=== PATIENT | male | born 1955 | race African-American/Black ===

== ENCOUNTER → 2017-06-08 | Outpatient (CLI) | payer OTHER ==
[~2017-06-08] MED LIST: CONTRAST GIVEN MC
[2017-06-08 12:32] LABS: BLOOD UREA NITROGEN 39 mg/dL (8-26)
[2017-06-08 12:32] LABS: CREATININE 2.8 mg/dL (0.7-1.3); GFR 27.9
[2017-06-08] MEDS: IOHEXOL 240 MG/ML 50ML VIAL. PO (12:51)
== END | disposition home or self-care (01) ==
LOC: CT 15:32
DX: K57.30 Diverticulosis of large intestine without perforation or abscess without bleeding (principal); C61 Malignant neoplasm of prostate; I10 Essential (primary) hypertension; E78.00 Pure hypercholesterolemia, unspecified
CPT/HCPCS: 36415; 74176; 82565; 84520

== ENCOUNTER → 2017-08-22 | Day surgery (SDC) | payer OTHER ==
[~2017-08-22] MED LIST changes: -CONTRAST GIVEN MC; +IV RINGERS,LACTATED 1000ML 1,000 ML IV; +LIDOCAINE 1% PF 2 ML VIAL. ID; +LIDOCAINE 2% PF Vial for OR 5 ML VIAL.; +MORPHINE SULFATE 2 MG/ML DISP.SYRIN. IV; +ONDANSETRON PF 4 MG/2 ML VIAL. IV; +PROCHLORPERAZINE 10 MG/2 ML VIAL. IV; +PROPOFOL 20 ML IV; +PROPOFOL 40 ML IV; +fentaNYL PF VIAL 100 MCG/2 ML VIAL IV
[2017-08-22] MEDS: IV NORMAL SALINE 1000ML BAG 1,000 ML IV (06:45)
== END ==
LOC: ENDOS 06:09
DX: Z12.11 Encounter for screening for malignant neoplasm of colon (principal); D12.5 Benign neoplasm of sigmoid colon; K64.0 First degree hemorrhoids; D12.3 Benign neoplasm of transverse colon; I25.10 Atherosclerotic heart disease of native coronary artery without angina pectoris; E78.00 Pure hypercholesterolemia, unspecified; I10 Essential (primary) hypertension; F17.210 Nicotine dependence, cigarettes, uncomplicated; K21.9 Gastro-esophageal reflux disease without esophagitis; E11.40 Type 2 diabetes mellitus with diabetic neuropathy, unspecified; G62.9 Polyneuropathy, unspecified; F12.10 Cannabis abuse, uncomplicated; M19.90 Unspecified osteoarthritis, unspecified site; H40.9 Unspecified glaucoma; E66.9 Obesity, unspecified; Z68.30 Body mass index [BMI] 30.0-30.9, adult; Z79.82 Long term (current) use of aspirin; Z95.818 Presence of other cardiac implants and grafts; Z98.890 Other specified postprocedural states; Z85.46 Personal history of malignant neoplasm of prostate; Z79.899 Other long term (current) drug therapy; Z72.89 Other problems related to lifestyle; Z83.3 Family history of diabetes mellitus; Z82.49 Family history of ischemic heart disease and other diseases of the circulatory system; Z80.3 Family history of malignant neoplasm of breast; Z79.84 Long term (current) use of oral hypoglycemic drugs; Z92.21 Personal history of antineoplastic chemotherapy; Z92.3 Personal history of irradiation
CPT/HCPCS: 45380; 45385; 88305; C1757; J2001; J2704

== ENCOUNTER 2018-04-01 08:00 | Inpatient (IN) | payer OTHER ==
[~2018-04-01] VITALS: Ht 172.7 cm; Wt 90.7 kg
[~2018-04-01 08:00] MED LIST changes: +ALLO100T PO; +AMLO10TA8 PO; +ASPI-482 PO; +CLON0.2T PO; +DOXA4TAB2 PO; +GABA600T PO; +HYDR-2679 PO; +ISOS60TA2 PO; -IV RINGERS,LACTATED 1000ML 1,000 ML IV; -LIDOCAINE 1% PF 2 ML VIAL. ID; -LIDOCAINE 2% PF Vial for OR 5 ML VIAL.; +LOSA100T14 PO; +METO25TA4 PO; -MORPHINE SULFATE 2 MG/ML DISP.SYRIN. IV; -ONDANSETRON PF 4 MG/2 ML VIAL. IV; +PANT20TA2 PO; +POTA10TA12 PO; +POTA20TA12 PO; -PROCHLORPERAZINE 10 MG/2 ML VIAL. IV; -PROPOFOL 20 ML IV; -PROPOFOL 40 ML IV; +VALS160T3 PO; -fentaNYL PF VIAL 100 MCG/2 ML VIAL IV
[2018-04-11] MEDS ORDERED: ATOR40TA59 PO (08:51)
[2018-04-11] MEDS ORDERED: FERR325T14 PO (08:51)
[2018-04-17] MEDS ORDERED: ALLO100T PO (06:37)
[2018-04-18] MEDS ORDERED: FERR325T14 PO (12:44)
[2018-04-18] MEDS ORDERED: METO25TA4 PO (12:44)
[2018-04-22] VITALS (11 sets, daily range): BP systolic 154–187; BP diastolic 85–101
[2018-04-22] MEDS ORDERED: cefOXitin SODIUM IV Push 1 GM VIAL. IVP PRN (06:00)
[2018-04-22] MEDS ORDERED: fentaNYL PF VIAL 100 MCG/2 ML VIAL ONE (06:23)
[2018-04-22] MEDS ORDERED: ROCURONIUM 50 MG/5 ML VIAL. ONE ×2 (06:23→08:46)
[2018-04-22] MEDS ORDERED: PHENYLEPHRINE 10 MG/ML VIAL. ONE (06:24)
[2018-04-22] MEDS ORDERED: DEXAMETHASONE SOD PHOS 20 MG/5 ML VIAL. ONE (06:24)
[2018-04-22] MEDS ORDERED: ONDANSETRON PF 4 MG/2 ML VIAL. ONE (06:24)
[2018-04-22] MEDS ORDERED: SEVOFLURANE > 120 MINUTES. IH ONE ×2 (06:24→10:07)
[2018-04-22] MEDS ORDERED: LIDOCAINE 2% PF 5 ML VIAL. ONE (06:24)
[2018-04-22] MEDS ORDERED: PROPOFOL 20 ML IV ONE (06:24)
[2018-04-22] MEDS ORDERED: BUPIVACAINE-EPI 0.25%-1:200000 MPF 30 ML VIAL. ONE (06:25)
[2018-04-22] MEDS ORDERED: BUPIVAC MPF-EPI 0.5%-1:200000 30 ML VIAL. ONE (06:33)
[2018-04-22] MEDS ORDERED: PROCHLORPERAZINE 10 MG/2 ML VIAL. IV PRN (07:00)
[2018-04-22] MEDS ORDERED: IV RINGERS,LACTATED 1000ML 1,000 ML IV SCH (07:00)
[2018-04-22] MEDS ORDERED: ONDANSETRON PF 4 MG/2 ML VIAL. IV PRN (07:00)
[2018-04-22] MEDS ORDERED: LIDOCAINE 1% PF 2 ML VIAL. ID PRN (07:00)
[2018-04-22] MEDS ORDERED: fentaNYL PF VIAL 100 MCG/2 ML VIAL IV PRN ×2 (07:00)
[2018-04-22] MEDS ORDERED: fentaNYL PF VIAL 250 MCG/5 ML VIAL ONE (08:45)
[2018-04-22] MEDS ORDERED: NEOSTIGMINE METHYLSULFATE 5 MG/5 ML SYRINGE. ONE (10:08)
[2018-04-22] MEDS ORDERED: GLYCOPYRROLATE 1 MG/5 ML VIAL. ONE (10:09)
--- NOTE | 2018-04-22 10:27 | PDOC ---
BRIEF OPERATIVE NOTE Date: Apr 22, 2018 Pre-Op Diagnosis sigmoid polyp Post-Op Diagnosis same Procedure Performed rigid proctoscopy l/s ANTHONY open sigmoid resection with primary anastomosis Surgeon Jack Parking Enforcer Porsche Wilder Anesthesia Type: General Blood Loss 50cc IV Fluid 2200cc Urine Output 125cc Specimens Obtained sigmoid colon Findings tattoo distal sigmoid with pedunculated polyp Complications none MEGAN SALINAS MD Apr 22, 2018 10:27
[2018-04-22] MEDS: MORPHINE SULFATE 2 MG/ML VIAL. IV PRN ×2 (10:58→11:31)
[2018-04-22] MEDS: HYDROmorphone 2 MG/ML VIAL IV PRN ×3 (11:05→11:37)
--- NOTE | 2018-04-22 11:17 | RAD ---
04/22/2018 one view of the abdomen INDICATION: Postoperative. COMPARISON STUDY: CT of the abdomen and pelvis without contrast June 08, 2017 Discussion: Probable enteric tube seen in the upper abdomen, partially visualized. There is surgical drainage catheter projecting over the right inferior abdomen and pelvis. Probable Brice type drain projects over the abdominal midline. The bowel gas pattern is nonobstructive. No gross pneumoperitoneum is identified, though exam is limited for this purpose. No acute osseous abnormalities are seen. Small metallic objects within the prostate gland are unchanged. IMPRESSION: No radiographic evidence of acute abdominal abnormality is identified. Drains and probable enteric tube noted. Electronically signed by: Aurelio Graff MD (04/22/2018 11:13 AM) [id number]
--- NOTE | 2018-04-22 12:45 | OP ---
DATE OF SURGERY: PREOPERATIVE DIAGNOSIS: Sigmoid polyp. POSTOPERATIVE DIAGNOSIS: Sigmoid polyp. PROCEDURE: 1. Rigid proctoscopy. 2. Laparoscopic lysis of adhesions. 3. Open sigmoid resection with primary anastomosis. SURGEON: Keyur Salinas MD FILM PROCESS OPERATOR: Porsche QUEEN. ANESTHESIA: General endotracheal. ESTIMATED BLOOD LOSS: 50. IV FLUIDS: 2200. URINE OUTPUT: 125. INDICATIONS: The patient is a 63-year-old with a large pedunculated polyp in the distal sigmoid brought for resection after flex sig with a tattoo. OPERATIVE FINDINGS: The polyp resided in the distal sigmoid, was identified laparoscopically by the tattoo and during the open procedure, it was palpable. Liver was smooth and sharp. Small bowel run from ileocecal valve to ligament of Treitz without abnormality. DESCRIPTION OF PROCEDURE: The patient was brought to the operating suite, given a general endotracheal anesthetic. Tripathi catheter placed to dependent drainage, and he was placed in a dorsal lithotomy position. Digital rectal exam done and rigid scope inserted in the anal canal and advanced to approximately 16 cm from the anal verge where some tortuosity prevented further advancing. Scope was slowly removed without mucosal abnormality seen. The perianal area and abdomen were then prepped and draped in usual sterile fashion. An epigastric incision was infiltrated with local, incised and a 5 mm Visiport used to safely gain access into the abdominal cavity. Pneumoperitoneum established. Under direct vision, a suprapubic port was placed as well as a right lower quadrant port. This allowed some mobilization of the splenic flexure off the pelvic sidewall by taking down the white line of Toldt with LigaSure, being careful to avoid the adjacent bowel and the left ureter. Once this was done, we converted to the open incision by connecting the previous port site incisions in the lower abdomen. Abdomen entered. The Omni self-retaining retractor for exposure placed. We completed mobilization of the distal sigmoid by extending our dissection into the pelvis, taking down the white line. The proximal bowel to the process was transected with a NICANOR stapler. The mesocolon certainly clamped, divided and ligated down to a point distal to the polyp, which was then divided with a contour stapler and the specimen passed off. An end-to-end anastomosis created by placing a posterior row of interrupted 3-0 Vicryl suture. The proximal colon occluded with an atraumatic clamp. Staple lines excised. Mucosal anastomosis created with a running locked 3-0 chromic first posteriorly, then anteriorly. Clamp removed. Anastomosis completed with an anterior row of interrupted 3-0 Vicryl stitches. Gloves were changed. The rigid scope was passed transanally and with the anastomosis submerged in saline and the colon occluded proximal to the anastomosis. Insufflation was carried out. Good distention was present without evidence of leak. Bowel decompressed. The scope removed. A 19-Czech round Brady drain was brought through a previous port site on the right lower quadrant and left in the pelvis for postoperative drainage and secured to the skin with silk stitch. When a correct sponge count was obtained, the area was checked for hemostasis. We prepared to close. The midline incision was closed with a running stitch of looped 0 PDS tied in the middle. Brice drain left in the subcutaneous tissue and the skin closed with a subcuticular 4-0 Monocryl. Sterile dressings applied. The patient taken out of the dorsal lithotomy position. Postop KUB was negative for unexplained foreign body. The patient was awakened from his anesthetic and taken to the recovery room in satisfactory condition. KEYUR SALINAS MD DR: PRADEEP/tiffanie JOB#: [id number] / [id number] TREVON Macario MD
--- NOTE | 2018-04-22 12:58 | NUR ---
Dr. Santiago paged re: post op orders for the floor. Pt. asleep in bed, appears comfortable.
[2018-04-22] MEDS ORDERED: 0.9 % SODIUM CHLORIDE 10 ML DISP.SYRIN. IV PRN (13:15)
[2018-04-22] MEDS ORDERED: ISOSORBIDE MONONITRATE 60 MG PO SCH (13:15)
[2018-04-22] MEDS: POTASSIUM CL 20MEQ-0.45% NACL 1,000 ML IV SCH (13:28)
[2018-04-22] MEDS: HYDROmorphone 12mg/30ml PCA 30 ML IV PRN (13:49)
[2018-04-22] MEDS ORDERED: HYDROcodone/APAP 7.5/325MG 1 TAB TABLET PO PRN (15:15)
--- NOTE | 2018-04-22 15:16 | PDOC2 ---
CONSULT Date of Consult Date of Consult DATE: 04/22/18 TIME: 15:15 Reason for Consult Reason for Consult: medical management Referring Physician Referring Physician: Dr Santiago History of Present Illness Reason for Visit: 63-year-old -[place]egales[place] male with past medical history significant of colon polyps, rheumatic heart disease, hypertension, hyperlipidemia, prostate cancer, osteoarthrosis, seen preoperatively for a colon resection for a sigmoid polyp. Biopsies were consistent with a tubular adenoma a year ago. At this time, he is willing to proceed with surgery. Resection pending reevaluation of site. Denies any change in bowel habits, no bleeding, no weight loss. He is without additional complaints. PAST MEDICAL HISTORY: Hyperlipidemia, hypertension, rheumatic heart disease, prostate cancer, colon polyps. Current Medications Current Medications Current Medications Ondansetron HCl (Zofran) 4 mg PRN Q6HRS PRN IV NAUSEA/VOMITING Last administered on 04/22/18at 11:28; Start 04/22/18 at 07:00; Stop 04/23/18 at 06:59 Fentanyl Citrate (Fentanyl 2ml Vial) 25 mcg PRN Q5MIN PRN IV MILD PAIN; Start 04/22/18 at 07:00; Stop 04/23/18 at 06:59 Fentanyl Citrate (Fentanyl 2ml Vial) 50 mcg PRN Q5MIN PRN IV MODERATE TO SEVERE PAIN; Start 04/22/18 at 07:00; Stop 04/23/18 at 06:59 Morphine Sulfate (Morphine Sulfate) 1 mg PRN Q10MIN PRN IV SEVERE PAIN Last administered on 04/22/18at 11:31; Start 04/22/18 at 07:00; Stop 04/23/18 at 06:59 Ringer's Solution 1,000 ml @ 30 mls/hr Q24H IV Last administered on 04/22/18at 07:23; Start 04/22/18 at 07:00; Stop 04/22/18 at 18:59 Lidocaine HCl (Xylocaine-Mpf 1% 2ml Vial) 2 ml PRN 1X PRN ID PRIOR TO IV START ; Start 04/22/18 at 07:00; Stop 04/23/18 at 06:59 Hydromorphone HCl (Dilaudid) 0.5 mg PRN Q10MIN PRN IV SEV PAIN, Second choice Last administered on 04/22/18at 11:37; Start 04/22/18 at 07:00; Stop 04/23/18 at 06:59 Prochlorperazine Edisylate (Compazine) 5 mg PACU PRN PRN IV NAUSEA, MRX1 Last administered on 04/22/18at 10:59; Start 04/22/18 at 07:00; Stop 04/23/18 at 06:59 Cefoxitin Sodium (Mefoxin) 1 gm 1X PREOP PRN IVP PRIOR TO PROCEDURE; Start at 06:00; Stop 04/22/18 at 18:00 Rocuronium [place] (Zemuron) 50 mg STK-MED ONCE .ROUTE ; Start 04/22/18 at 06:23 ; Stop 04/22/18 at 06:24; Status DC Fentanyl Citrate (Fentanyl 2ml Vial) 100 mcg STK-MED ONCE .ROUTE ; Start at 06:23; Stop 04/22/18 at 06:24; Status DC Sevoflurane (Ultane) 90 ml STK-MED ONCE IH ; Start 04/22/18 at 06:24; Stop 04/22 at 06:25; Status DC Dexamethasone Sodium Phosphate (Decadron) 20 mg STK-MED ONCE .ROUTE ; Start at 06:24; Stop 04/22/18 at 06:25; Status DC Propofol 20 ml @ As Directed STK-MED ONCE IV ; Start 04/22/18 at 06:24; Stop at 06:25; Status DC Lidocaine HCl (Lidocaine Pf 2% Vial) 5 ml STK-MED ONCE .ROUTE ; Start 04/22/18 at 06:24; Stop 04/22/18 at 06:25; Status DC Ondansetron HCl (Zofran) 4 mg STK-MED ONCE .ROUTE ; Start 04/22/18 at 06:24; Stop 04/22/18 at 06:25; Status DC Phenylephrine HCl (Reggie-Synephrine Inj) 10 mg STK-MED ONCE .ROUTE ; Start at 06:24; Stop 04/22/18 at 06:25; Status DC Bupivacaine HCl/ Epinephrine Bitart (Sensorcaine-Epi 0.25%-1:122337 Mpf) 30 ml STK-MED ONCE .ROUTE ; Start 04/22/18 at 06:25; Stop 04/22/18 at 07:26; Status DC Bupivacaine HCl/ Epinephrine Bitart (Sensorcain-Mpf Epi 0.5%-1:209119) 30 ml STK -MED ONCE .ROUTE Last administered on 04/22/18at 09:05; Start 04/22/18 at 06:33 ; Stop 04/22/18 at 07:33; Status DC Fentanyl Citrate (Fentanyl 5ml Vial) 250 mcg STK-MED ONCE .ROUTE ; Start at 08:45; Stop 04/22/18 at 08:47; Status DC Rocuronium [place] (Zemuron) 50 mg STK-MED ONCE .ROUTE ; Start 04/22/18 at 08:46 ; Stop 04/22/18 at 08:47; Status DC Sevoflurane (Ultane) 90 ml STK-MED ONCE IH ; Start 04/22/18 at 10:07; Stop 04/22 at 10:08; Status DC Neostigmine Methylsulfate (Neostigmine Methylsulfate) 5 mg STK-MED ONCE .ROUTE ; Start 04/22/18 at 10:08; Stop 04/22/18 at 10:09; Status DC Glycopyrrolate (Robinul) 1 mg STK-MED ONCE .ROUTE ; Start 04/22/18 at 10:09; Stop 04/22/18 at 10:10; Status DC Enoxaparin Sodium (Lovenox 30mg Syringe) 30 mg Q24H SQ ; Start 04/23/18 at 09:00 Sodium Chloride (Normal Saline Flush) 3 ml QSHIFT PRN IV AFTER MEDS AND BLOOD DRAWS; Start 04/22/18 at 13:15 Potassium Chloride/Sodium Chloride 1,000 ml @ 100 mls/hr Q10H IV Last administered on 04/22/18at 13:28; Start 04/22/18 at 14:00 Hydromorphone HCl 30 ml @ 0 mls/hr CONT PRN PRN IV PER PROTOCOL Last administered on 04/22/18at 13:49; Start 04/22/18 at 13:15 Ondansetron HCl (Zofran) 4 mg PRN Q6HRS PRN IV NAUESA, 1ST CHOICE; Start at 13:15 Allopurinol (Zyloprim) 100 mg DAILY PO ; Start 04/23/18 at 09:00 Amlodipine Besylate (Norvasc) 10 mg DAILY PO ; Start 04/23/18 at 09:00 Aspirin (Ecotrin) 81 mg DAILY PO ; Start 04/23/18 at 09:00 Metoprolol Tartrate (Lopressor) 25 mg BID PO ; Start 04/22/18 at 21:00 Non-Formulary Medication (Isosorbide Mononitrate (Isosorbide Mononitrate Er)) 60 mg 1tab AM-1/2tab PM PO ; Start 04/22/18 at 13:15; Status UNV Isosorbide Mononitrate (Imdur) 60 mg DAILY PO ; Start 04/23/18 at 09:00 Isosorbide Mononitrate (Imdur) 30 mg QHS PO ; Start 04/22/18 at 21:00 Active Scripts Active Reported Metoprolol Tartrate 25 Mg Tablet 25 Mg PO BID Ferrous Sulfate 325 Mg Tablet 325 Mg PO DAILY Allopurinol 100 Mg Tablet 100 Mg PO DAILY Atorvastatin Calcium 40 Mg Tablet 40 Mg PO HS Potassium Chloride 20 Meq Tab.er.prt 20 Meq PO BID Cardura (Doxazosin Mesylate) 4 Mg Tablet 4 Mg PO HS Isosorbide Mononitrate Er (Isosorbide Mononitrate) 60 Mg Tab.er.24h 60 Mg PO 1TAB AM-1/2TAB PM Clonidine Hcl 0.2 Mg Tablet 0.2 Mg PO BID Amlodipine Besylate 10 Mg Tablet 10 Mg PO DAILY Lortab 7.5-325 mg Tablet (Hydrocodone/Acetaminophen) 1 Each Tablet 1 Tab PO PRN Q6HRS Aspir 81 (Aspirin) 81 Mg Tablet.dr 81 Mg PO DAILY Allergies Allergies: Coded Allergies: No Known Drug Allergies (Unverified , 04/22/18) Vitals VITALS Vital Signs Date Time Temp Pulse Resp B/P (MAP) Pulse Ox O2 Delivery O2 Flow Rate FiO2 04/22/18 14:30 71 163/91 (115) 04/22/18 13:55 24 Nasal Cannula 2.0 04/22/18 12:30 93 04/22/18 11:45 98.9 98.9 TINA ZAMORA MD Apr 22, 2018 15:16
--- NOTE | 2018-04-22 17:33 | NUR ---
Pt. c/o pain, re-educated on FOOD AND BEVERAGE OUTLETS MANAGER use. Pt. stated he forgot how to use it. Pt demonstrated understanding of FOOD AND BEVERAGE OUTLETS MANAGER.
[2018-04-22] MEDS: METOPROLOL TART IMMED RELEASE 25 MG TABLET. PO SCH (20:32)
[2018-04-22] MEDS: ATORVASTATIN CALCIUM 40 MG TABLET. PO SCH (20:32)
[2018-04-22] MEDS: cloNIDine HCL 0.2 MG TABLET PO SCH (20:33)
[2018-04-22] MEDS: DOXAZOSIN MESYLATE 4 MG TABLET. PO SCH (20:33)
[2018-04-22] MEDS: ISOSORBIDE MONONITRATE ER 30 MG TAB.ER.24H PO SCH (20:35)
--- NOTE | 2018-04-22 20:42 | PDOC2 ---
CONSULT Date of Consult Date of Consult DATE: 04/22/18 TIME: 20:30 Reason for Consult Reason for Consult: medical management Referring Physician Referring Physician: Dr Santiago Identification/Chief Complaint Chief Complaint Edith calero Source Source: Chart review, Patient History of Present Illness Reason for Visit: The patient is a 63-year-old with a large pedunculated polyp in the distal sigmoid brought for resection after flex sig with a tattoo. he is being seen in consultation post op. He has a past medical history significant of colon polyps, rheumatic heart disease, hypertension, hyperlipidemia, prostate cancer, osteoarthrosis Patient had biopsies taken in the outpatient setting and they were reported consistent with a tubular adenoma a year ago. He tolerated surgery well. Prior to surgery he denies any change in bowel habits, no bleeding, no weight loss. He is without additional complaints. We have been asked to oversee his medical comorbidities. Past Medical History Cardiovascular: HTN, Hyperlipidemia Past Surgical History Past Surgical History: Other (breast cancer with a sister, diabetes in mother, hypertension) Social History No ALCOHOL: none Drugs: None Lives: with Family Current Medications Current Medications Current Medications Ondansetron HCl (Zofran) 4 mg PRN Q6HRS PRN IV NAUSEA/VOMITING Last administered on 04/22/18at 11:28; Start 04/22/18 at 07:00; Stop 04/23/18 at 06:59 Fentanyl Citrate (Fentanyl 2ml Vial) 25 mcg PRN Q5MIN PRN IV MILD PAIN; Start 04/22/18 at 07:00; Stop 04/23/18 at 06:59 Fentanyl Citrate (Fentanyl 2ml Vial) 50 mcg PRN Q5MIN PRN IV MODERATE TO SEVERE PAIN; Start 04/22/18 at 07:00; Stop 04/23/18 at 06:59 Morphine Sulfate (Morphine Sulfate) 1 mg PRN Q10MIN PRN IV SEVERE PAIN Last administered on 04/22/18at 11:31; Start 04/22/18 at 07:00; Stop 04/23/18 at 06:59 Ringer's Solution 1,000 ml @ 30 mls/hr Q24H IV Last administered on 04/22/18at 07:23; Start 04/22/18 at 07:00; Stop 04/22/18 at 18:59; Status DC Lidocaine HCl (Xylocaine-Mpf 1% 2ml Vial) 2 ml PRN 1X PRN ID PRIOR TO IV START ; Start 04/22/18 at 07:00; Stop 04/23/18 at 06:59 Hydromorphone HCl (Dilaudid) 0.5 mg PRN Q10MIN PRN IV SEV PAIN, Second choice Last administered on 04/22/18at 11:37; Start 04/22/18 at 07:00; Stop 04/23/18 at 06:59 Prochlorperazine Edisylate (Compazine) 5 mg PACU PRN PRN IV NAUSEA, MRX1 Last administered on 04/22/18at 10:59; Start 04/22/18 at 07:00; Stop 04/23/18 at 06:59 Cefoxitin Sodium (Mefoxin) 1 gm 1X PREOP PRN IVP PRIOR TO PROCEDURE; Start at 06:00; Stop 04/22/18 at 18:00; Status DC Rocuronium [place] (Zemuron) 50 mg STK-MED ONCE .ROUTE ; Start 04/22/18 at 06:23 ; Stop 04/22/18 at 06:24; Status DC Fentanyl Citrate (Fentanyl 2ml Vial) 100 mcg STK-MED ONCE .ROUTE ; Start at 06:23; Stop 04/22/18 at 06:24; Status DC Sevoflurane (Ultane) 90 ml STK-MED ONCE IH ; Start 04/22/18 at 06:24; Stop 04/22 at 06:25; Status DC Dexamethasone Sodium Phosphate (Decadron) 20 mg STK-MED ONCE .ROUTE ; Start at 06:24; Stop 04/22/18 at 06:25; Status DC Propofol 20 ml @ As Directed STK-MED ONCE IV ; Start 04/22/18 at 06:24; Stop at 06:25; Status DC Lidocaine HCl (Lidocaine Pf 2% Vial) 5 ml STK-MED ONCE .ROUTE ; Start 04/22/18 at 06:24; Stop 04/22/18 at 06:25; Status DC Ondansetron HCl (Zofran) 4 mg STK-MED ONCE .ROUTE ; Start 04/22/18 at 06:24; Stop 04/22/18 at 06:25; Status DC Phenylephrine HCl (Reggie-Synephrine Inj) 10 mg STK-MED ONCE .ROUTE ; Start at 06:24; Stop 04/22/18 at 06:25; Status DC Bupivacaine HCl/ Epinephrine Bitart (Sensorcaine-Epi 0.25%-1:[id number] Mpf) 30 ml STK-MED ONCE .ROUTE ; Start 04/22/18 at 06:25; Stop 04/22/18 at 07:26; Status DC Bupivacaine HCl/ Epinephrine Bitart (Sensorcain-Mpf Epi 0.5%-1:[id number]) 30 ml STK -MED ONCE .ROUTE Last administered on 04/22/18at 09:05; Start 04/22/18 at 06:33 ; Stop 04/22/18 at 07:33; Status DC Fentanyl Citrate (Fentanyl 5ml Vial) 250 mcg STK-MED ONCE .ROUTE ; Start at 08:45; Stop 04/22/18 at 08:47; Status DC Rocuronium [place] (Zemuron) 50 mg STK-MED ONCE .ROUTE ; Start 04/22/18 at 08:46 ; Stop 04/22/18 at 08:47; Status DC Sevoflurane (Ultane) 90 ml STK-MED ONCE IH ; Start 04/22/18 at 10:07; Stop 04/22 at 10:08; Status DC Neostigmine Methylsulfate (Neostigmine Methylsulfate) 5 mg STK-MED ONCE .ROUTE ; Start 04/22/18 at 10:08; Stop 04/22/18 at 10:09; Status DC Glycopyrrolate (Robinul) 1 mg STK-MED ONCE .ROUTE ; Start 04/22/18 at 10:09; Stop 04/22/18 at 10:10; Status DC Enoxaparin Sodium (Lovenox 30mg Syringe) 30 mg Q24H SQ ; Start 04/23/18 at 09:00 Sodium Chloride (Normal Saline Flush) 3 ml QSHIFT PRN IV AFTER MEDS AND BLOOD DRAWS; Start 04/22/18 at 13:15 Potassium Chloride/Sodium Chloride 1,000 ml @ 100 mls/hr Q10H IV Last administered on 04/22/18at 13:28; Start 04/22/18 at 14:00 Hydromorphone HCl 30 ml @ 0 mls/hr CONT PRN PRN IV PER PROTOCOL Last administered on 04/22/18at 13:49; Start 04/22/18 at 13:15 Ondansetron HCl (Zofran) 4 mg PRN Q6HRS PRN IV NAUESA, 1ST CHOICE; Start at 13:15 Allopurinol (Zyloprim) 100 mg DAILY PO ; Start 04/23/18 at 09:00 Amlodipine Besylate (Norvasc) 10 mg DAILY PO ; Start 04/23/18 at 09:00 Aspirin (Ecotrin) 81 mg DAILY PO ; Start 04/23/18 at 09:00 Metoprolol Tartrate (Lopressor) 25 mg BID PO ; Start 04/22/18 at 21:00 Non-Formulary Medication (Isosorbide Mononitrate (Isosorbide Mononitrate Er)) 60 mg 1tab AM-1/2tab PM PO ; Start 04/22/18 at 13:15; Status UNV Isosorbide Mononitrate (Imdur) 60 mg DAILY PO ; Start 04/23/18 at 09:00 Isosorbide Mononitrate (Imdur) 30 mg QHS PO ; Start 04/22/18 at 21:00 Atorvastatin Calcium (Lipitor) 40 mg HS PO ; Start 04/22/18 at 21:00 Clonidine HCl (Catapres) 0.2 mg BID PO ; Start 04/22/18 at 21:00 Doxazosin Mesylate (Cardura) 4 mg HS PO ; Start 04/22/18 at 21:00 Ferrous Sulfate (Feosol) 325 mg DAILY PO ; Start 04/23/18 at 09:00 Acetaminophen/ Hydrocodone Bitart (Lortab 7.5/325) 1 tab PRN Q6HRS PRN PO PAIN ; Start 04/22/18 at 15:15 Potassium Chloride (Klor-Con) 20 meq BID PO ; Start 04/22/18 at 21:00 Active Scripts Active Reported Metoprolol Tartrate 25 Mg Tablet 25 Mg PO BID Ferrous Sulfate 325 Mg Tablet 325 Mg PO DAILY Allopurinol 100 Mg Tablet 100 Mg PO DAILY Atorvastatin Calcium 40 Mg Tablet 40 Mg PO HS Potassium Chloride 20 Meq Tab.er.prt 20 Meq PO BID Cardura (Doxazosin Mesylate) 4 Mg Tablet 4 Mg PO HS Isosorbide Mononitrate Er (Isosorbide Mononitrate) 60 Mg Tab.er.24h 60 Mg PO 1TAB AM-1/2TAB PM Clonidine Hcl 0.2 Mg Tablet 0.2 Mg PO BID Amlodipine Besylate 10 Mg Tablet 10 Mg PO DAILY Lortab 7.5-325 mg Tablet (Hydrocodone/Acetaminophen) 1 Each Tablet 1 Tab PO PRN Q6HRS Aspir 81 (Aspirin) 81 Mg Tablet.dr 81 Mg PO DAILY Allergies Allergies: Coded Allergies: No Known Drug Allergies (Unverified , 04/22/18) ROS General: No: Chills, Night Sweats, Fatigue, Malaise, Appetite, Other Eyes: No Blurry vision, No Decreased vision, No Double vision, No Dry eyes, No Excessive tearing, No Eye Pain, No Itchy Eyes, No Loss of vision, No Photophobia , No Scotomata, No Uses contacts, No Uses glasses, No Other HEENT: No: Heacaches, Visual Changes, Hearing change, Nasal congestion, Nasal discharge, Oral lesions, Sinus pain, Sore Throat, Epistaxis, Sneezing, Snoring, Tinnitus, Vertigo, Vocal changes, Other ALLERGY AND IMMUNOLOGY: No: Hives, Insect Bite Sensitivity, Itchy/Watery Eyes, Nasal Congestion, Post Nasal Drip, Seasonal Allergies, Other Hematological and Lymphatic: No: Bleeding Problems, Blood Clots, Blood Transfusions, Brusing, Night Sweats, Pallor, Swollen Lymph Nodes, Other ENDOCRINE: No: Breast Changes, Galactorrhea, Hair Pattern Changes, Hot Flashes , Malaise/lethargy, Mood Swings, Palpitations, Polydipsia/polyuria, Skin Changes , Temperature Intolerance, Unexpected Weight Changes, Other Breast: No New/Changing Breast Lumps, No Nipple changes, No Nipple discharge, No Other Respiratory: No: Cough, Hemoptysis, Orthopnea, Pleuritic Pain, Shortness of breath, SOB with excertion, Sputum Changes, Stridor, Tachypnea, Wheezing, Other Cardiovascular: No Chest Pain, No Palpitations, No Orthopnea, No Paroxysmal Noc. Dyspnea, No Edema, No Lt Headedness, No Other Gastrointestinal: No Nausea, No Vomiting, No Abdominal Pain, No Diarrhea, No Constipation, No Melena, No Hematochezia, No Other Genitourinary: No Dysuria, No Frequency, No Incontinence, No Hematuria, No Retention, No Discharge, No Urgency, No Pain, No Flank Pain, No Other, No , No , No , No , No , No , No Musculoskeletal: No Gait Disturbance, No Joint Pain, No Joint Stiffness, No Joint Swelling, No Muscle Pain, No Muscular Weakness, No Pain In:, No Swelling In:, No Other Neurological: No Behavorial Changes, No Bowel/Bladder ControlChng, No Confusion , No Dizziness, No Gait Disturbance, No Headaches, No Impaired Coord/balance, No Memory Loss, No Numbness/Tingling, No Seizures, No Speech Problems, No Tremors, No Visual Changes, No Weakness, No Other Skin: No Dry Skin, No Eczema, No Hair Changes, No Lumps, No Mole Changes, No Mottling, No Nail Changes, No Pruritus, No Rash, No Skin Lesion Changes, No Other, No Acne Physical Exam Physical Exam Gen.: chronically ill appearing in moderate distress Head: Normal shape atraumatic Eyes: Pupils equal reactive to light and accommodation, normal conjunctivae and lids Ears: Normal shape Nose: Normal shape no trauma Mouth: No exudates of the back of throat no thrush no lesions Neck: Supple no JVD no carotid bruit or lymphadenopathy no thyromegaly Chest: Lungs clear to auscultation with good inspiratory effort no crackles rales or rhonchi Cardiovascular: S1-S2 regular rhythm no murmurs gallops or rubs Abdomen: Bowel sounds absent tender to deep palpation no rebound or guarding Extremities: No clubbing no cyanosis no edema peripheral pulses palpated bilaterally Neurological: Alert awake oriented in person time place and situation, cranial nerves II through XII intact, no motor or sensory deficits appreciated Psych: Appropriate mood, cooperative Vitals VITALS Vital Signs Date Time Temp Pulse Resp B/P (MAP) Pulse Ox O2 Delivery O2 Flow Rate FiO2 04/22/18 19:00 98.2 78 18 187/101 (129) 97 Room Air 98.2 04/22/18 13:55 2.0 Assessment/Plan Assessment/Plan Status post resection of large pedunculated polyp Essential hypertension History of dyslipidemia Rheumatic cardiac disease? History of prostrate cancer Plan: Resume home medications Monitor Blood pressure Pain management as per her attending physician with [facility] Follow labs in a.m. Further recommendations based on the clinical course Thank you for allowing us to participate in the care of the patient FARELA,BRITTANI MD Apr 22, 2018 20:42
[2018-04-22] MEDS: POTASSIUM CHLORIDE 20 MEQ TABLET.ER. PO SCH (20:50)
[2018-04-23] VITALS (9 sets, daily range): BP systolic 132–203; BP diastolic 86–107
[2018-04-23] MEDS: POTASSIUM CL 20MEQ-0.45% NACL 1,000 ML IV SCH ×3 (00:20→21:35)
[2018-04-23] MEDS: ENALAPRILAT 1.25 MG/ML VIAL. IVP PRN ×2 (00:20→09:25)
[2018-04-23] MEDS ORDERED: hydrALAZINE 20 MG/ML VIAL. IVP PRN (03:45)
[2018-04-23 05:18] LABS: HEMATOCRIT 37.4 % (39.0-53.0); RED BLOOD COUNT 4.56 x10^6/uL (4.30-5.70); RED CELL DISTRIBUTION WIDTH 17.8 % (11.5-14.5)
[2018-04-23 08:30] LABS: ALBUMIN 3.4 g/dL (3.4-5.0); ALBUMIN/GLOBULIN RATIO 0.6 (1.0-1.7); CALCIUM 9.3 mg/dL (8.5-10.1); GFR 25.7; POTASSIUM 3.9 mmol/L (3.5-5.1); TOTAL BILIRUBIN 0.8 mg/dL (0.2-1.0); TOTAL PROTEIN 8.9 g/dL (6.4-8.2)
[2018-04-23] MEDS: ASPIRIN ENTERIC COATED 81 MG TABLET.DR. PO SCH (09:00)
[2018-04-23] MEDS: FERROUS SULFATE 325 MG TABLET. PO SCH (09:00)
[2018-04-23] MEDS: POTASSIUM CHLORIDE 20 MEQ TABLET.ER. PO SCH ×2 (09:00→21:33)
[2018-04-23] MEDS: ALLOPURINOL 100 MG TABLET. PO SCH (09:00)
[2018-04-23] MEDS: ISOSORBIDE MONONITRATE ER 30 MG TAB.ER.24H PO SCH ×2 (09:21→21:34)
[2018-04-23] MEDS: cloNIDine HCL 0.2 MG TABLET PO SCH ×2 (09:21→21:34)
[2018-04-23] MEDS: amLODIPine BESYLATE 10 MG TABLET PO SCH (09:21)
[2018-04-23] MEDS: METOPROLOL TART IMMED RELEASE 25 MG TABLET. PO SCH ×2 (09:22→21:33)
[2018-04-23] MEDS: ENOXAPARIN 30 MG/0.3 ML SYRINGE. SQ SCH (09:37)
[2018-04-23] MEDS ORDERED: PIP/TAZO PER PHARMACY MC PRN (09:45)
--- NOTE | 2018-04-23 09:56 | PDOC ---
PROGRESS NOTES Chief Complaint Chief Complaint Status post resection of large pedunculated polyp of sigmoid colon Hypertension Leukocytosis Acute renal insufficiency (Elevated Cr: 3.0 on 04/23) History of dyslipidemia Rheumatic cardiac disease? History of prostate cancer History of Present Illness History of Present Illness Mr. Greer presented for surgery for large pedunculated polyp of sigmoid colon. Patient was seen and examined. Resting comfortably in bed. Blood pressure elevated 195/100. Discussed cause with nurse. Patient denies chest pain. White count elevated at 17. Patient has no new complaints. Vitals Vitals Vital Signs Date Time Temp Pulse Resp B/P (MAP) Pulse Ox O2 Delivery O2 Flow Rate FiO2 04/23/18 09:25 70 195/105 04/23/18 07:00 98.1 16 20 Nasal Cannula 98.1 04/23/18 04:00 2.0 Physical Exam General: Alert, Oriented X3, Cooperative, No acute distress Heart: Regular rate, No murmurs Lungs: Clear Abdomen: Normal bowel sounds, Soft, No masses Extremities: No clubbing, No cyanosis, No edema Skin: No rashes, No significant lesion Labs LABS Laboratory Tests Test 04/23/18 05:05 White Blood Count 17.0 x10^3/uL (4.0-11.0) Red Blood Count 4.56 x10^6/uL (4.30-5.70) Hemoglobin 12.0 g/dL (13.0-17.5) Hematocrit 37.4 % (39.0-53.0) Mean Corpuscular Volume 82 fL (79-100) Mean Corpuscular Hemoglobin 26 pg (25-35) Mean Corpuscular Hemoglobin Concent 32 g/dL (31-37) Red Cell Distribution Width 17.8 % (11.5-14.5) Platelet Count 401 x10^3/uL (140-400) Sodium Level 143 mmol/L (136-145) Potassium Level 3.9 mmol/L (3.5-5.1) Chloride Level 104 mmol/L (98-107) Carbon Dioxide Level 26 mmol/L (21-32) Anion Gap 13 (6-14) Blood Urea Nitrogen 31 mg/dL (8-26) Creatinine 3.0 mg/dL (0.7-1.3) Estimated GFR (Cockcroft-Gault) 25.7 BUN/Creatinine Ratio 10 (6-20) Glucose Level 114 mg/dL (70-99) Calcium Level 9.3 mg/dL (8.5-10.1) Total Bilirubin 0.8 mg/dL (0.2-1.0) Aspartate Amino Transf (AST/SGOT) 19 U/L (15-37) Alanine Aminotransferase (ALT/SGPT) 20 U/L (16-63) Alkaline Phosphatase 97 U/L (46-116) Total Protein 8.9 g/dL (6.4-8.2) Albumin 3.4 g/dL (3.4-5.0) Albumin/Globulin Ratio 0.6 (1.0-1.7) Review of Systems Review of Systems Denies chest pain Denies edema Denies headache Assessment and Plan Assessmemt and Plan Assessment: Status post resection of large pedunculated polyp of sigmoid colon Hypertensive emergency? Leukocytosis - (17 on 04/23) Acute renal insufficiency (Elevated Cr: 3.0 on 04/23) History of dyslipidemia Rheumatic cardiac disease? History of prostate cancer Plan: Start zosyn (elevated wbc) Consult Nephrology, elevated Cr likely 2/2 hypertensive emergency Monitor blood pressure, continue home meds Appreciate subspecialty input Continue to monitor labs - review CMP and CBC tomorrow am Pain management Comment Review of Relevant I have reviewed the following items jessie (where applicable) has been applied. Labs Laboratory Tests Test 04/23/18 05:05 White Blood Count 17.0 x10^3/uL (4.0-11.0) Red Blood Count 4.56 x10^6/uL (4.30-5.70) Hemoglobin 12.0 g/dL (13.0-17.5) Hematocrit 37.4 % (39.0-53.0) Mean Corpuscular Volume 82 fL (79-100) Mean Corpuscular Hemoglobin 26 pg (25-35) Mean Corpuscular Hemoglobin Concent 32 g/dL (31-37) Red Cell Distribution Width 17.8 % (11.5-14.5) Platelet Count 401 x10^3/uL (140-400) Sodium Level 143 mmol/L (136-145) Potassium Level 3.9 mmol/L (3.5-5.1) Chloride Level 104 mmol/L (98-107) Carbon Dioxide Level 26 mmol/L (21-32) Anion Gap 13 (6-14) Blood Urea Nitrogen 31 mg/dL (8-26) Creatinine 3.0 mg/dL (0.7-1.3) Estimated GFR (Cockcroft-Gault) 25.7 BUN/Creatinine Ratio 10 (6-20) Glucose Level 114 mg/dL (70-99) Calcium Level 9.3 mg/dL (8.5-10.1) Total Bilirubin 0.8 mg/dL (0.2-1.0) Aspartate Amino Transf (AST/SGOT) 19 U/L (15-37) Alanine Aminotransferase (ALT/SGPT) 20 U/L (16-63) Alkaline Phosphatase 97 U/L (46-116) Total Protein 8.9 g/dL (6.4-8.2) Albumin 3.4 g/dL (3.4-5.0) Albumin/Globulin Ratio 0.6 (1.0-1.7) Laboratory Tests Test 04/23/18 05:05 White Blood Count 17.0 x10^3/uL (4.0-11.0) Red Blood Count 4.56 x10^6/uL (4.30-5.70) Hemoglobin 12.0 g/dL (13.0-17.5) Hematocrit 37.4 % (39.0-53.0) Mean Corpuscular Volume 82 fL (79-100) Mean Corpuscular Hemoglobin 26 pg (25-35) Mean Corpuscular Hemoglobin Concent 32 g/dL (31-37) Red Cell Distribution Width 17.8 % (11.5-14.5) Platelet Count 401 x10^3/uL (140-400) Sodium Level 143 mmol/L (136-145) Potassium Level 3.9 mmol/L (3.5-5.1) Chloride Level 104 mmol/L (98-107) Carbon Dioxide Level 26 mmol/L (21-32) Anion Gap 13 (6-14) Blood Urea Nitrogen 31 mg/dL (8-26) Creatinine 3.0 mg/dL (0.7-1.3) Estimated GFR (Cockcroft-Gault) 25.7 BUN/Creatinine Ratio 10 (6-20) Glucose Level 114 mg/dL (70-99) Calcium Level 9.3 mg/dL (8.5-10.1) Total Bilirubin 0.8 mg/dL (0.2-1.0) Aspartate Amino Transf (AST/SGOT) 19 U/L (15-37) Alanine Aminotransferase (ALT/SGPT) 20 U/L (16-63) Alkaline Phosphatase 97 U/L (46-116) Total Protein 8.9 g/dL (6.4-8.2) Albumin 3.4 g/dL (3.4-5.0) Albumin/Globulin Ratio 0.6 (1.0-1.7) Medications Current Medications Ondansetron HCl (Zofran) 4 mg PRN Q6HRS PRN IV NAUSEA/VOMITING Last administered on 04/22/18 11:28; Start 04/22/18 at 07:00; Stop 04/23/18 at 06:59 ; Status DC Fentanyl Citrate (Fentanyl 2ml Vial) 25 mcg PRN Q5MIN PRN IV MILD PAIN; Start 04/22/18 at 07:00; Stop 04/23/18 at 06:59; Status DC Fentanyl Citrate (Fentanyl 2ml Vial) 50 mcg PRN Q5MIN PRN IV MODERATE TO SEVERE PAIN; Start 04/22/18 at 07:00; Stop 04/23/18 at 06:59; Status DC Morphine Sulfate (Morphine Sulfate) 1 mg PRN Q10MIN PRN IV SEVERE PAIN Last administered on 04/22/18 11:31; Start 04/22/18 at 07:00; Stop 04/23/18 at 06:59 ; Status DC Ringer's Solution 1,000 ml @ 30 mls/hr Q24H IV Last administered on 04/22/18 07:23; Start 04/22/18 at 07:00; Stop 04/22/18 at 18:59; Status DC Lidocaine HCl (Xylocaine-Mpf 1% 2ml Vial) 2 ml PRN 1X PRN ID PRIOR TO IV START ; Start 04/22/18 at 07:00; Stop 04/23/18 at 06:59; Status DC Hydromorphone HCl (Dilaudid) 0.5 mg PRN Q10MIN PRN IV SEV PAIN, Second choice Last administered on 04/22/18 11:37; Start 04/22/18 at 07:00; Stop 04/23/18 at 06:59; Status DC Prochlorperazine Edisylate (Compazine) 5 mg PACU PRN PRN IV NAUSEA, MRX1 Last administered on 04/22/18at 10:59; Start 04/22/18 at 07:00; Stop 04/23/18 at 06:59 ; Status DC Cefoxitin Sodium (Mefoxin) 1 gm 1X PREOP PRN IVP PRIOR TO PROCEDURE; Start at 06:00; Stop 04/22/18 at 18:00; Status DC Rocuronium [place] (Zemuron) 50 mg STK-MED ONCE .ROUTE ; Start 04/22/18 at 06:23 ; Stop 04/22/18 at 06:24; Status DC Fentanyl Citrate (Fentanyl 2ml Vial) 100 mcg STK-MED ONCE .ROUTE ; Start at 06:23; Stop 04/22/18 at 06:24; Status DC Sevoflurane (Ultane) 90 ml STK-MED ONCE IH ; Start 04/22/18 at 06:24; Stop 04/22 at 06:25; Status DC Dexamethasone Sodium Phosphate (Decadron) 20 mg STK-MED ONCE .ROUTE ; Start at 06:24; Stop 04/22/18 at 06:25; Status DC Propofol 20 ml @ As Directed STK-MED ONCE IV ; Start 04/22/18 at 06:24; Stop at 06:25; Status DC Lidocaine HCl (Lidocaine Pf 2% Vial) 5 ml STK-MED ONCE .ROUTE ; Start 04/22/18 at 06:24; Stop 04/22/18 at 06:25; Status DC Ondansetron HCl (Zofran) 4 mg STK-MED ONCE .ROUTE ; Start 04/22/18 at 06:24; Stop 04/22/18 at 06:25; Status DC Phenylephrine HCl (Reggie-Synephrine Inj) 10 mg STK-MED ONCE .ROUTE ; Start at 06:24; Stop 04/22/18 at 06:25; Status DC Bupivacaine HCl/ Epinephrine Bitart (Sensorcaine-Epi 0.25%-1:249675 Mpf) 30 ml STK-MED ONCE .ROUTE ; Start 04/22/18 at 06:25; Stop 04/22/18 at 07:26; Status DC Bupivacaine HCl/ Epinephrine Bitart (Sensorcain-Mpf Epi 0.5%-1:867148) 30 ml STK -MED ONCE .ROUTE Last administered on 04/22/18at 09:05; Start 04/22/18 at 06:33 ; Stop 04/22/18 at 07:33; Status DC Fentanyl Citrate (Fentanyl 5ml Vial) 250 mcg STK-MED ONCE .ROUTE ; Start at 08:45; Stop 04/22/18 at 08:47; Status DC Rocuronium [place] (Zemuron) 50 mg STK-MED ONCE .ROUTE ; Start 04/22/18 at 08:46 ; Stop 04/22/18 at 08:47; Status DC Sevoflurane (Ultane) 90 ml STK-MED ONCE IH ; Start 04/22/18 at 10:07; Stop 04/22 at 10:08; Status DC Neostigmine Methylsulfate (Neostigmine Methylsulfate) 5 mg STK-MED ONCE .ROUTE ; Start 04/22/18 at 10:08; Stop 04/22/18 at 10:09; Status DC Glycopyrrolate (Robinul) 1 mg STK-MED ONCE .ROUTE ; Start 04/22/18 at 10:09; Stop 04/22/18 at 10:10; Status DC Enoxaparin Sodium (Lovenox 30mg Syringe) 30 mg Q24H SQ Last administered on at 09:37; Start 04/23/18 at 09:00 Sodium Chloride (Normal Saline Flush) 3 ml QSHIFT PRN IV AFTER MEDS AND BLOOD DRAWS; Start 04/22/18 at 13:15 Potassium Chloride/Sodium Chloride 1,000 ml @ 100 mls/hr Q10H IV Last administered on 04/23/18at 09:36; Start 04/22/18 at 14:00 Hydromorphone HCl 30 ml @ 0 mls/hr CONT PRN PRN IV PER PROTOCOL Last administered on 04/22/18at 13:49; Start 04/22/18 at 13:15 Ondansetron HCl (Zofran) 4 mg PRN Q6HRS PRN IV NAUESA, 1ST CHOICE; Start at 13:15 Allopurinol (Zyloprim) 100 mg DAILY PO ; Start 04/23/18 at 09:00 Amlodipine Besylate (Norvasc) 10 mg DAILY PO Last administered on 04/23/18 09: 21; Start 04/23/18 at 09:00 Aspirin (Ecotrin) 81 mg DAILY PO ; Start 04/23/18 at 09:00 Metoprolol Tartrate (Lopressor) 25 mg BID PO Last administered on 04/23/18 09: 22; Start 04/22/18 at 21:00 Non-Formulary Medication (Isosorbide Mononitrate (Isosorbide Mononitrate Er)) 60 mg 1tab AM-1/2tab PM PO ; Start 04/22/18 at 13:15; Status UNV Isosorbide Mononitrate (Imdur) 60 mg DAILY PO Last administered on 04/23/18 09 :21; Start 04/23/18 at 09:00 Isosorbide Mononitrate (Imdur) 30 mg QHS PO Last administered on 04/22/18at 20: 35; Start 04/22/18 at 21:00 Atorvastatin Calcium (Lipitor) 40 mg HS PO Last administered on 04/22/18 20:32 ; Start 04/22/18 at 21:00 Clonidine HCl (Catapres) 0.2 mg BID PO Last administered on 04/23/18 09:21; Start 04/22/18 at 21:00 Doxazosin Mesylate (Cardura) 4 mg HS PO Last administered on 04/22/18at 20:33; Start 04/22/18 at 21:00 Ferrous Sulfate (Feosol) 325 mg DAILY PO ; Start 04/23/18 at 09:00 Acetaminophen/ Hydrocodone Bitart (Lortab 7.5/325) 1 tab PRN Q6HRS PRN PO PAIN ; Start 04/22/18 at 15:15 Potassium Chloride (Klor-Con) 20 meq BID PO ; Start 04/22/18 at 21:00 Enalaprilat (Vasotec Inj) 1.25 mg PRN Q6HRS PRN IVP HYPERTENSION, SEE COMMENTS Last administered on 04/23/18at 09:25; Start 04/23/18 at 00:15 Hydralazine HCl (Apresoline Inj) 25 mg PRN Q6HRS PRN IVP ELEVATED BP, SEE COMMENTS; Start 04/23/18 at 03:45 Piperacillin Sod/ Tazobactam Sod (Zosyn Per Pharmacy) 1 each PRN DAILY PRN MC SEE COMMENTS; Start 04/23/18 at 09:45; Status UNV Active Scripts Active Reported Metoprolol Tartrate 25 Mg Tablet 25 Mg PO BID Ferrous Sulfate 325 Mg Tablet 325 Mg PO DAILY Allopurinol 100 Mg Tablet 100 Mg PO DAILY Atorvastatin Calcium 40 Mg Tablet 40 Mg PO HS Potassium Chloride 20 Meq Tab.er.prt 20 Meq PO BID Cardura (Doxazosin Mesylate) 4 Mg Tablet 4 Mg PO HS Isosorbide Mononitrate Er (Isosorbide Mononitrate) 60 Mg Tab.er.24h 60 Mg PO 1TAB AM-1/2TAB PM Clonidine Hcl 0.2 Mg Tablet 0.2 Mg PO BID Amlodipine Besylate 10 Mg Tablet 10 Mg PO DAILY Lortab 7.5-325 mg Tablet (Hydrocodone/Acetaminophen) 1 Each Tablet 1 Tab PO PRN Q6HRS Aspir 81 (Aspirin) 81 Mg Tablet.dr 81 Mg PO DAILY Vitals/I & O Vital Sign - Last 24 Hours 04/22/18 04/22/18 04/22/18 04/22/18 10:46 10:46 10:58 11:00 Temp 98.9 98.9 98.9 98.9 Pulse 65 78 Resp 28 B/P (MAP) 158/93 157/80 Pulse Ox 97 98 96 O2 Delivery Mask Simple Mask Simple Mask Simple Mask O2 Flow Rate 10. 10. 10.0 10.0 04/22/18 04/22/18 04/22/18 04/22/18 11:05 11:15 11:26 11:30 Temp 98.9 98.9 98.9 98.9 Pulse 70 75 Resp 28 18 18 B/P (MAP) 161/77 157/83 Pulse Ox 96 93 93 96 O2 Delivery Simple Mask Room Air Room Air Nasal Cannula Simple Mask O2 Flow Rate 10.0 2 04/22/18 04/22/18 04/22/18 04/22/18 11:31 11:37 11:45 11:45 Temp 98.9 98.9 Pulse 65 Resp 24 21 16 B/P (MAP) 151/78 Pulse Ox 91 98 98 O2 Delivery Nasal Cannula Mask Nasal Cannula O2 Flow Rate 2.0 2.0 2.0 04/22/18 04/22/18 04/22/18 04/22/18 12:20 12:20 12:30 12:45 Pulse 69 67 B/P (MAP) 154/87 (109) 161/91 (114) Pulse Ox 93 O2 Delivery Nasal Cannula Nasal Cannula Nasal Cannula O2 Flow Rate 2.0 2.0 2.0 04/22/18 04/22/18 04/22/18 04/22/18 13:00 13:15 13:30 13:49 Pulse 69 72 70 B/P (MAP) 159/88 (111) 160/92 (114) 164/90 (114) O2 Delivery Nasal Cannula O2 Flow Rate 2.0 04/22/18 04/22/18 04/22/18 04/22/18 13:55 14:00 14:30 15:30 Pulse 65 71 70 Resp 24 B/P (MAP) 157/85 (109) 163/91 (115) 175/94 (121) O2 Delivery Nasal Cannula O2 Flow Rate 2.0 04/22/18 04/22/18 04/22/18 04/22/18 16:30 19:00 20:00 20:32 Temp 98.2 98.2 Pulse 66 78 78 Resp 18 B/P (MAP) 173/96 (121) 187/101 (129) 187/101 Pulse Ox 97 O2 Delivery Room Air Nasal Cannula O2 Flow Rate 2.0 04/22/18 04/22/18 04/22/18 04/22/18 20:33 20:33 20:35 22:32 Pulse 78 78 78 69 Resp 18 B/P (MAP) 187/101 187/101 187/101 173/99 (123) Pulse Ox 97 O2 Delivery Room Air 04/23/18 04/23/18 04/23/18 04/23/18 00:20 01:26 03:10 04:00 Temp 98.6 98.0 98.6 98.0 Pulse 66 66 59 59 Resp 18 20 B/P (MAP) 182/105 172/96 (121) 191/94 (126) 167/97 (120) Pulse Ox 96 97 98 O2 Delivery Nasal Cannula Nasal Cannula Nasal Cannula O2 Flow Rate 2.0 2.0 2.0 04/23/18 04/23/18 04/23/18 04/23/18 04:49 07:00 09:21 09:21 Temp 98.1 98.1 Pulse 59 70 70 70 Resp 16 B/P (MAP) 157/97 (117) 195/105 (135) 195/105 195/105 Pulse Ox 20 O2 Delivery Nasal Cannula 04/23/18 04/23/18 04/23/18 09:21 09:22 09:25 Pulse 70 70 70 B/P (MAP) 195/105 195/105 195/105 Intake and Output 04/22/18 04/22/18 04/23/18 15:00 23:00 07:00 Intake Total 2210 ml 0 ml 0 ml Output Total 1580 ml 3330 ml Balance 630 ml -3330 ml 0 ml OSMANY GLOVER III DO Apr 23, 2018 09:56
[2018-04-23] MEDS: HYDROmorphone 12mg/30ml PCA 30 ML IV PRN (09:57)
[2018-04-23] MEDS ORDERED: PIPERACILLIN/TAZOBACTAM 2.25 GM in IV NORMAL SALINE 50ML 50 ML IV SCH (10:30)
--- NOTE | 2018-04-23 10:34 | PDOC ---
SURGICAL PROGRESS NOTE Subjective thirsty adequate pain control Vital Signs Vital Signs Date Time Temp Pulse Resp B/P (MAP) Pulse Ox O2 Delivery O2 Flow Rate FiO2 04/23/18 09:25 70 195/105 04/23/18 07:00 98.1 16 20 Nasal Cannula 98.1 04/23/18 04:00 2.0 I&O Intake and Output 04/23/18 06:59 Intake Total 2210 ml Output Total 4910 ml Balance -2700 ml Intake Oral 10 ml IV Total 2200 ml Output Urine Total 4650 ml Drainage Total 210 ml Estimated Blood Loss 50 ml PATIENT HAS A WILKINS: Yes General: Alert, Oriented X3, No acute distress Abdomen: Soft, Other (ORLY with serosanguineous output) Labs Laboratory Tests Test 04/23/18 05:05 White Blood Count 17.0 x10^3/uL (4.0-11.0) Red Blood Count 4.56 x10^6/uL (4.30-5.70) Hemoglobin 12.0 g/dL (13.0-17.5) Hematocrit 37.4 % (39.0-53.0) Mean Corpuscular Volume 82 fL (79-100) Mean Corpuscular Hemoglobin 26 pg (25-35) Mean Corpuscular Hemoglobin Concent 32 g/dL (31-37) Red Cell Distribution Width 17.8 % (11.5-14.5) Platelet Count 401 x10^3/uL (140-400) Sodium Level 143 mmol/L (136-145) Potassium Level 3.9 mmol/L (3.5-5.1) Chloride Level 104 mmol/L (98-107) Carbon Dioxide Level 26 mmol/L (21-32) Anion Gap 13 (6-14) Blood Urea Nitrogen 31 mg/dL (8-26) Creatinine 3.0 mg/dL (0.7-1.3) Estimated GFR (Cockcroft-Gault) 25.7 BUN/Creatinine Ratio 10 (6-20) Glucose Level 114 mg/dL (70-99) Calcium Level 9.3 mg/dL (8.5-10.1) Total Bilirubin 0.8 mg/dL (0.2-1.0) Aspartate Amino Transf (AST/SGOT) 19 U/L (15-37) Alanine Aminotransferase (ALT/SGPT) 20 U/L (16-63) Alkaline Phosphatase 97 U/L (46-116) Total Protein 8.9 g/dL (6.4-8.2) Albumin 3.4 g/dL (3.4-5.0) Albumin/Globulin Ratio 0.6 (1.0-1.7) Laboratory Tests Test 04/23/18 05:05 White Blood Count 17.0 x10^3/uL (4.0-11.0) Red Blood Count 4.56 x10^6/uL (4.30-5.70) Hemoglobin 12.0 g/dL (13.0-17.5) Hematocrit 37.4 % (39.0-53.0) Mean Corpuscular Volume 82 fL (79-100) Mean Corpuscular Hemoglobin 26 pg (25-35) Mean Corpuscular Hemoglobin Concent 32 g/dL (31-37) Red Cell Distribution Width 17.8 % (11.5-14.5) Platelet Count 401 x10^3/uL (140-400) Sodium Level 143 mmol/L (136-145) Potassium Level 3.9 mmol/L (3.5-5.1) Chloride Level 104 mmol/L (98-107) Carbon Dioxide Level 26 mmol/L (21-32) Anion Gap 13 (6-14) Blood Urea Nitrogen 31 mg/dL (8-26) Creatinine 3.0 mg/dL (0.7-1.3) Estimated GFR (Cockcroft-Gault) 25.7 BUN/Creatinine Ratio 10 (6-20) Glucose Level 114 mg/dL (70-99) Calcium Level 9.3 mg/dL (8.5-10.1) Total Bilirubin 0.8 mg/dL (0.2-1.0) Aspartate Amino Transf (AST/SGOT) 19 U/L (15-37) Alanine Aminotransferase (ALT/SGPT) 20 U/L (16-63) Alkaline Phosphatase 97 U/L (46-116) Total Protein 8.9 g/dL (6.4-8.2) Albumin 3.4 g/dL (3.4-5.0) Albumin/Globulin Ratio 0.6 (1.0-1.7) Assessment/Plan POD 1 sigmoid resection MEGAN SALINAS MD Apr 23, 2018 10:34
--- NOTE | 2018-04-23 10:39 | PDOC2 ---
CONSULT Date of Consult Date of Consult DATE: 04/23/18 TIME: 10:32 Reason for Consult Reason for Consult: MARIA LUZ Identification/Chief Complaint Chief Complaint Abdominal pain post surgery Source Source: Chart review History of Present Illness Reason for Visit: Pt is 63-year-old -[place] male with past medical history significant of colon polyps, rheumatic heart disease, hypertension, prostate cancer, s/p colon resection for a sigmoid polyp 04/22 Biopsies were consistent with a tubular adenoma a year ago. Denies any change in bowel habits, no bleeding, no weight loss. Denies any Urinary complaints . Has Tripathi Catheter C/O abdominal pain post surgery , states hurts when he talks . His Primary head host/hostess is Dr. Fischer - last seen him on 04/17 , stats he has CKD 3 Past Medical History Cardiovascular: HTN, Hyperlipidemia Past Surgical History Past Surgical History: Other (breast cancer with a sister, diabetes in mother, hypertension) Social History No ALCOHOL: none Drugs: None Lives: with Family Current Medications Current Medications Current Medications Ondansetron HCl (Zofran) 4 mg PRN Q6HRS PRN IV NAUSEA/VOMITING Last administered on 04/22/18at 11:28; Start 04/22/18 at 07:00; Stop 04/23/18 at 06:59 ; Status DC Fentanyl Citrate (Fentanyl 2ml Vial) 25 mcg PRN Q5MIN PRN IV MILD PAIN; Start 04/22/18 at 07:00; Stop 04/23/18 at 06:59; Status DC Fentanyl Citrate (Fentanyl 2ml Vial) 50 mcg PRN Q5MIN PRN IV MODERATE TO SEVERE PAIN; Start 04/22/18 at 07:00; Stop 04/23/18 at 06:59; Status DC Morphine Sulfate (Morphine Sulfate) 1 mg PRN Q10MIN PRN IV SEVERE PAIN Last administered on 04/22/18at 11:31; Start 04/22/18 at 07:00; Stop 04/23/18 at 06:59 ; Status DC Ringer's Solution 1,000 ml @ 30 mls/hr Q24H IV Last administered on 04/22/18at 07:23; Start 04/22/18 at 07:00; Stop 04/22/18 at 18:59; Status DC Lidocaine HCl (Xylocaine-Mpf 1% 2ml Vial) 2 ml PRN 1X PRN ID PRIOR TO IV START ; Start 04/22/18 at 07:00; Stop 04/23/18 at 06:59; Status DC Hydromorphone HCl (Dilaudid) 0.5 mg PRN Q10MIN PRN IV SEV PAIN, Second choice Last administered on 04/22/18at 11:37; Start 04/22/18 at 07:00; Stop 04/23/18 at 06:59; Status DC Prochlorperazine Edisylate (Compazine) 5 mg PACU PRN PRN IV NAUSEA, MRX1 Last administered on 04/22/18at 10:59; Start 04/22/18 at 07:00; Stop 04/23/18 at 06:59 ; Status DC Cefoxitin Sodium (Mefoxin) 1 gm 1X PREOP PRN IVP PRIOR TO PROCEDURE; Start at 06:00; Stop 04/22/18 at 18:00; Status DC Rocuronium Callery (Zemuron) 50 mg STK-MED ONCE .ROUTE ; Start 04/22/18 at 06:23 ; Stop 04/22/18 at 06:24; Status DC Fentanyl Citrate (Fentanyl 2ml Vial) 100 mcg STK-MED ONCE .ROUTE ; Start at 06:23; Stop 04/22/18 at 06:24; Status DC Sevoflurane (Ultane) 90 ml STK-MED ONCE IH ; Start 04/22/18 at 06:24; Stop 04/22 at 06:25; Status DC Dexamethasone Sodium Phosphate (Decadron) 20 mg STK-MED ONCE .ROUTE ; Start at 06:24; Stop 04/22/18 at 06:25; Status DC Propofol 20 ml @ As Directed STK-MED ONCE IV ; Start 04/22/18 at 06:24; Stop at 06:25; Status DC Lidocaine HCl (Lidocaine Pf 2% Vial) 5 ml STK-MED ONCE .ROUTE ; Start 04/22/18 at 06:24; Stop 04/22/18 at 06:25; Status DC Ondansetron HCl (Zofran) 4 mg STK-MED ONCE .ROUTE ; Start 04/22/18 at 06:24; Stop 04/22/18 at 06:25; Status DC Phenylephrine HCl (Reggie-Synephrine Inj) 10 mg STK-MED ONCE .ROUTE ; Start at 06:24; Stop 04/22/18 at 06:25; Status DC Bupivacaine HCl/ Epinephrine Bitart (Sensorcaine-Epi 0.25%-1:[id number] Mpf) 30 ml STK-MED ONCE .ROUTE ; Start 04/22/18 at 06:25; Stop 04/22/18 at 07:26; Status DC Bupivacaine HCl/ Epinephrine Bitart (Sensorcain-Mpf Epi 0.5%-1:[id number]) 30 ml STK -MED ONCE .ROUTE Last administered on 04/22/18at 09:05; Start 04/22/18 at 06:33 ; Stop 04/22/18 at 07:33; Status DC Fentanyl Citrate (Fentanyl 5ml Vial) 250 mcg STK-MED ONCE .ROUTE ; Start at 08:45; Stop 04/22/18 at 08:47; Status DC Rocuronium Callery (Zemuron) 50 mg STK-MED ONCE .ROUTE ; Start 04/22/18 at 08:46 ; Stop 04/22/18 at 08:47; Status DC Sevoflurane (Ultane) 90 ml STK-MED ONCE IH ; Start 04/22/18 at 10:07; Stop 04/22 at 10:08; Status DC Neostigmine Methylsulfate (Neostigmine Methylsulfate) 5 mg STK-MED ONCE .ROUTE ; Start 04/22/18 at 10:08; Stop 04/22/18 at 10:09; Status DC Glycopyrrolate (Robinul) 1 mg STK-MED ONCE .ROUTE ; Start 04/22/18 at 10:09; Stop 04/22/18 at 10:10; Status DC Enoxaparin Sodium (Lovenox 30mg Syringe) 30 mg Q24H SQ Last administered on at 09:37; Start 04/23/18 at 09:00 Sodium Chloride (Normal Saline Flush) 3 ml QSHIFT PRN IV AFTER MEDS AND BLOOD DRAWS; Start 04/22/18 at 13:15 Potassium Chloride/Sodium Chloride 1,000 ml @ 100 mls/hr Q10H IV Last administered on 04/23/18at 09:36; Start 04/22/18 at 14:00 Hydromorphone HCl 30 ml @ 0 mls/hr CONT PRN PRN IV PER PROTOCOL Last administered on 04/22/18 13:49; Start 04/22/18 at 13:15 Ondansetron HCl (Zofran) 4 mg PRN Q6HRS PRN IV NAUESA, 1ST CHOICE; Start at 13:15 Allopurinol (Zyloprim) 100 mg DAILY PO ; Start 04/23/18 at 09:00 Amlodipine Besylate (Norvasc) 10 mg DAILY PO Last administered on 04/23/18 09: 21; Start 04/23/18 at 09:00 Aspirin (Ecotrin) 81 mg DAILY PO ; Start 04/23/18 at 09:00 Metoprolol Tartrate (Lopressor) 25 mg BID PO Last administered on 04/23/18 09: 22; Start 04/22/18 at 21:00 Non-Formulary Medication (Isosorbide Mononitrate (Isosorbide Mononitrate Er)) 60 mg 1tab AM-1/2tab PM PO ; Start 04/22/18 at 13:15; Status UNV Isosorbide Mononitrate (Imdur) 60 mg DAILY PO Last administered on 04/23/18 09 :21; Start 04/23/18 at 09:00 Isosorbide Mononitrate (Imdur) 30 mg QHS PO Last administered on 04/22/18 20: 35; Start 04/22/18 at 21:00 Atorvastatin Calcium (Lipitor) 40 mg HS PO Last administered on 04/22/18 20:32 ; Start 04/22/18 at 21:00 Clonidine HCl (Catapres) 0.2 mg BID PO Last administered on 04/23/18 09:21; Start 04/22/18 at 21:00 Doxazosin Mesylate (Cardura) 4 mg HS PO Last administered on 04/22/18 20:33; Start 04/22/18 at 21:00 Ferrous Sulfate (Feosol) 325 mg DAILY PO ; Start 04/23/18 at 09:00 Acetaminophen/ Hydrocodone Bitart (Lortab 7.5/325) 1 tab PRN Q6HRS PRN PO PAIN ; Start 04/22/18 at 15:15 Potassium Chloride (Klor-Con) 20 meq BID PO ; Start 04/22/18 at 21:00 Enalaprilat (Vasotec Inj) 1.25 mg PRN Q6HRS PRN IVP HYPERTENSION, SEE COMMENTS Last administered on 04/23/18at 09:25; Start 04/23/18 at 00:15 Hydralazine HCl (Apresoline Inj) 25 mg PRN Q6HRS PRN IVP ELEVATED BP, SEE COMMENTS; Start 04/23/18 at 03:45 Piperacillin Sod/ Tazobactam Sod (Zosyn Per Pharmacy) 1 each PRN DAILY PRN MC SEE COMMENTS; Start 04/23/18 at 09:45 Piperacillin Sod/ Tazobactam Sod 2.25 gm/Sodium Chloride 50 ml @ 100 mls/hr Q6HRS IV ; Start 04/23/18 at 10:30 Active Scripts Active Reported Metoprolol Tartrate 25 Mg Tablet 25 Mg PO BID Ferrous Sulfate 325 Mg Tablet 325 Mg PO DAILY Allopurinol 100 Mg Tablet 100 Mg PO DAILY Atorvastatin Calcium 40 Mg Tablet 40 Mg PO HS Potassium Chloride 20 Meq Tab.er.prt 20 Meq PO BID Cardura (Doxazosin Mesylate) 4 Mg Tablet 4 Mg PO HS Isosorbide Mononitrate Er (Isosorbide Mononitrate) 60 Mg Tab.er.24h 60 Mg PO 1TAB AM-1/2TAB PM Clonidine Hcl 0.2 Mg Tablet 0.2 Mg PO BID Amlodipine Besylate 10 Mg Tablet 10 Mg PO DAILY Lortab 7.5-325 mg Tablet (Hydrocodone/Acetaminophen) 1 Each Tablet 1 Tab PO PRN Q6HRS Aspir 81 (Aspirin) 81 Mg Tablet.dr 81 Mg PO DAILY Allergies Allergies: Coded Allergies: No Known Drug Allergies (Unverified , 04/22/18) ROS Review of System As per HPI Physical Exam Physical Exam GEN: NAD HEEN: OM moist , o2 by NC NECK: Supple CVS: RRR RESP: CTA, No Acc. Muscle Use GI: BS + ve, Abdomen tender s/p Surgery : No CVA tenderness, No Suprapubic Tenderness, Tripathi+ Neuro- AXOX3 Skin No rash Vital Signs Vital Signs Date Time Temp Pulse Resp B/P (MAP) Pulse Ox O2 Delivery O2 Flow Rate FiO2 04/23/18 09:25 70 195/105 04/23/18 07:00 98.1 16 20 Nasal Cannula 98.1 04/23/18 04:00 2.0 Assessment & Plan MARIA LUZ - Suspect Dehydration Improving from 3.4 to 3.0 E-Lytes and acid base stable Currently on IVF , Good UOP, Monitor CKD stage 3- in June [facility] records 2017 2.8 Primary Neph- Dr. fischer , Last Appt 04/17 Will obtain Labs from office Status post resection of large pedunculated polyp Essential hypertension- Antihypertensives History of prostrate cancer Discussed A/P with pt Labs Labs Laboratory Tests Test 04/23/18 05:05 White Blood Count 17.0 x10^3/uL (4.0-11.0) Red Blood Count 4.56 x10^6/uL (4.30-5.70) Hemoglobin 12.0 g/dL (13.0-17.5) Hematocrit 37.4 % (39.0-53.0) Mean Corpuscular Volume 82 fL (79-100) Mean Corpuscular Hemoglobin 26 pg (25-35) Mean Corpuscular Hemoglobin Concent 32 g/dL (31-37) Red Cell Distribution Width 17.8 % (11.5-14.5) Platelet Count 401 x10^3/uL (140-400) Sodium Level 143 mmol/L (136-145) Potassium Level 3.9 mmol/L (3.5-5.1) Chloride Level 104 mmol/L (98-107) Carbon Dioxide Level 26 mmol/L (21-32) Anion Gap 13 (6-14) Blood Urea Nitrogen 31 mg/dL (8-26) Creatinine 3.0 mg/dL (0.7-1.3) Estimated GFR (Cockcroft-Gault) 25.7 BUN/Creatinine Ratio 10 (6-20) Glucose Level 114 mg/dL (70-99) Calcium Level 9.3 mg/dL (8.5-10.1) Total Bilirubin 0.8 mg/dL (0.2-1.0) Aspartate Amino Transf (AST/SGOT) 19 U/L (15-37) Alanine Aminotransferase (ALT/SGPT) 20 U/L (16-63) Alkaline Phosphatase 97 U/L (46-116) Total Protein 8.9 g/dL (6.4-8.2) Albumin 3.4 g/dL (3.4-5.0) Albumin/Globulin Ratio 0.6 (1.0-1.7) Laboratory Tests Test 04/23/18 05:05 White Blood Count 17.0 x10^3/uL (4.0-11.0) Red Blood Count 4.56 x10^6/uL (4.30-5.70) Hemoglobin 12.0 g/dL (13.0-17.5) Hematocrit 37.4 % (39.0-53.0) Mean Corpuscular Volume 82 fL (79-100) Mean Corpuscular Hemoglobin 26 pg (25-35) Mean Corpuscular Hemoglobin Concent 32 g/dL (31-37) Red Cell Distribution Width 17.8 % (11.5-14.5) Platelet Count 401 x10^3/uL (140-400) Sodium Level 143 mmol/L (136-145) Potassium Level 3.9 mmol/L (3.5-5.1) Chloride Level 104 mmol/L (98-107) Carbon Dioxide Level 26 mmol/L (21-32) Anion Gap 13 (6-14) Blood Urea Nitrogen 31 mg/dL (8-26) Creatinine 3.0 mg/dL (0.7-1.3) Estimated GFR (Cockcroft-Gault) 25.7 BUN/Creatinine Ratio 10 (6-20) Glucose Level 114 mg/dL (70-99) Calcium Level 9.3 mg/dL (8.5-10.1) Total Bilirubin 0.8 mg/dL (0.2-1.0) Aspartate Amino Transf (AST/SGOT) 19 U/L (15-37) Alanine Aminotransferase (ALT/SGPT) 20 U/L (16-63) Alkaline Phosphatase 97 U/L (46-116) Total Protein 8.9 g/dL (6.4-8.2) Albumin 3.4 g/dL (3.4-5.0) Albumin/Globulin Ratio 0.6 (1.0-1.7) Review All relevant outside records, renal labs, imaging studies, telemetry/EKG's were reviewed. KADY FIGUEROA MD Apr 23, 2018 10:39
--- NOTE | 2018-04-23 11:27 | NUR ---
SW following for discharge planning. Discussed with RN, pt is from home - girlfriend, Naomi ([phone]). Pt had surgery yesterday, SW awaiting PT/OT for discharge recommendations.
[2018-04-23] MEDS: DOXAZOSIN MESYLATE 4 MG TABLET. PO SCH (21:33)
[2018-04-23] MEDS: ATORVASTATIN CALCIUM 40 MG TABLET. PO SCH (21:34)
[2018-04-24 02:55] VITALS: BP 148/90
[2018-04-24 07:00] VITALS: BP 156/94
[2018-04-24 08:21] LABS: BASO % 0 % (0-3); EOS # 0.1 x10^3/uL (0.0-0.7); EOS % 0 % (0-3); HEMATOCRIT 34.5 % (39.0-53.0); HEMOGLOBIN 11.2 g/dL (13.0-17.5); LYMPH # 1.5 x10^3/uL (1.0-4.8); LYMPH % 11 % (24-48); MEAN CORPUSCULAR HEMOGLOBIN 27 pg (25-35); MEAN CORPUSCULAR HGB CONC 33 g/dL (31-37); MEAN CORPUSCULAR VOLUME 82 fL (79-100); MONO # 1.2 x10^3/uL (0.0-1.1); MONO % 10 % (0-9); NEUT % 78 % (31-73); PLATELET COUNT 360 x10^3/uL (140-400); RED BLOOD COUNT 4.21 x10^6/uL (4.30-5.70); RED CELL DISTRIBUTION WIDTH 17.8 % (11.5-14.5); WHITE BLOOD COUNT 12.8 x10^3/uL (4.0-11.0)
[2018-04-24 08:44] LABS: ALBUMIN 2.9 g/dL (3.4-5.0); ALBUMIN/GLOBULIN RATIO 0.6 (1.0-1.7); CALCIUM 8.8 mg/dL (8.5-10.1); CREATININE 3.2 mg/dL (0.7-1.3); GFR 23.9; POTASSIUM 4.2 mmol/L (3.5-5.1); TOTAL BILIRUBIN 0.7 mg/dL (0.2-1.0); TOTAL PROTEIN 7.4 g/dL (6.4-8.2)
[2018-04-24] MEDS: POTASSIUM CHLORIDE 20 MEQ TABLET.ER. PO SCH ×2 (09:00→21:54)
[2018-04-24] MEDS: ALLOPURINOL 100 MG TABLET. PO SCH (09:00)
[2018-04-24] MEDS: ASPIRIN ENTERIC COATED 81 MG TABLET.DR. PO SCH (09:00)
[2018-04-24] MEDS: FERROUS SULFATE 325 MG TABLET. PO SCH (09:00)
--- NOTE | 2018-04-24 10:35 | PDOC ---
SURGICAL PROGRESS NOTE Subjective no new complaints taking clear liquids "try to pass gas" Vital Signs Vital Signs Date Time Temp Pulse Resp B/P (MAP) Pulse Ox O2 Delivery O2 Flow Rate FiO2 04/24/18 07:00 98.7 69 18 156/94 (114) 92 Room Air 98.7 04/23/18 23:00 2.0 I&O Intake and Output 04/24/18 07:00 Intake Total 1220 ml Output Total 2790 ml Balance -1570 ml Intake Oral 370 ml IV Total 850 ml Output Urine Total 2760 ml Drainage Total 30 ml PATIENT HAS A ARELLANO: No (just removed) General: Alert, Oriented X3, No acute distress Abdomen: Soft Labs Laboratory Tests Test 04/23/18 05:05 04/24/18 08:05 White Blood Count 17.0 x10^3/uL (4.0-11.0) 12.8 x10^3/uL (4.0-11.0) Red Blood Count 4.56 x10^6/uL (4.30-5.70) 4.21 x10^6/uL (4.30-5.70) Hemoglobin 12.0 g/dL (13.0-17.5) 11.2 g/dL (13.0-17.5) Hematocrit 37.4 % (39.0-53.0) 34.5 % (39.0-53.0) Mean Corpuscular Volume 82 fL (79-100) 82 fL (79-100) Mean Corpuscular Hemoglobin 26 pg (25-35) 27 pg (25-35) Mean Corpuscular Hemoglobin Concent 32 g/dL (31-37) 33 g/dL (31-37) Red Cell Distribution Width 17.8 % (11.5-14.5) 17.8 % (11.5-14.5) Platelet Count 401 x10^3/uL (140-400) 360 x10^3/uL (140-400) Sodium Level 143 mmol/L (136-145) 143 mmol/L (136-145) Potassium Level 3.9 mmol/L (3.5-5.1) 4.2 mmol/L (3.5-5.1) Chloride Level 104 mmol/L (98-107) 107 mmol/L (98-107) Carbon Dioxide Level 26 mmol/L (21-32) 25 mmol/L (21-32) Anion Gap 13 (6-14) 11 (6-14) Blood Urea Nitrogen 31 mg/dL (8-26) 38 mg/dL (8-26) Creatinine 3.0 mg/dL (0.7-1.3) 3.2 mg/dL (0.7-1.3) Estimated GFR (Cockcroft-Gault) 25.7 23.9 BUN/Creatinine Ratio 10 (6-20) 12 (6-20) Glucose Level 114 mg/dL (70-99) 104 mg/dL (70-99) Calcium Level 9.3 mg/dL (8.5-10.1) 8.8 mg/dL (8.5-10.1) Total Bilirubin 0.8 mg/dL (0.2-1.0) 0.7 mg/dL (0.2-1.0) Aspartate Amino Transf (AST/SGOT) 19 U/L (15-37) 18 U/L (15-37) Alanine Aminotransferase (ALT/SGPT) 20 U/L (16-63) 17 U/L (16-63) Alkaline Phosphatase 97 U/L (46-116) 77 U/L (46-116) Total Protein 8.9 g/dL (6.4-8.2) 7.4 g/dL (6.4-8.2) Albumin 3.4 g/dL (3.4-5.0) 2.9 g/dL (3.4-5.0) Albumin/Globulin Ratio 0.6 (1.0-1.7) 0.6 (1.0-1.7) Neutrophils (%) (Auto) 78 % (31-73) Lymphocytes (%) (Auto) 11 % (24-48) Monocytes (%) (Auto) 10 % (0-9) Eosinophils (%) (Auto) 0 % (0-3) Basophils (%) (Auto) 0 % (0-3) Neutrophils # (Auto) 10.0 x10^3uL (1.8-7.7) Lymphocytes # (Auto) 1.5 x10^3/uL (1.0-4.8) Monocytes # (Auto) 1.2 x10^3/uL (0.0-1.1) Eosinophils # (Auto) 0.1 x10^3/uL (0.0-0.7) Basophils # (Auto) 0.0 x10^3/uL (0.0-0.2) Laboratory Tests Test 04/24/18 08:05 White Blood Count 12.8 x10^3/uL (4.0-11.0) Red Blood Count 4.21 x10^6/uL (4.30-5.70) Hemoglobin 11.2 g/dL (13.0-17.5) Hematocrit 34.5 % (39.0-53.0) Mean Corpuscular Volume 82 fL (79-100) Mean Corpuscular Hemoglobin 27 pg (25-35) Mean Corpuscular Hemoglobin Concent 33 g/dL (31-37) Red Cell Distribution Width 17.8 % (11.5-14.5) Platelet Count 360 x10^3/uL (140-400) Neutrophils (%) (Auto) 78 % (31-73) Lymphocytes (%) (Auto) 11 % (24-48) Monocytes (%) (Auto) 10 % (0-9) Eosinophils (%) (Auto) 0 % (0-3) Basophils (%) (Auto) 0 % (0-3) Neutrophils # (Auto) 10.0 x10^3uL (1.8-7.7) Lymphocytes # (Auto) 1.5 x10^3/uL (1.0-4.8) Monocytes # (Auto) 1.2 x10^3/uL (0.0-1.1) Eosinophils # (Auto) 0.1 x10^3/uL (0.0-0.7) Basophils # (Auto) 0.0 x10^3/uL (0.0-0.2) Sodium Level 143 mmol/L (136-145) Potassium Level 4.2 mmol/L (3.5-5.1) Chloride Level 107 mmol/L (98-107) Carbon Dioxide Level 25 mmol/L (21-32) Anion Gap 11 (6-14) Blood Urea Nitrogen 38 mg/dL (8-26) Creatinine 3.2 mg/dL (0.7-1.3) Estimated GFR (Cockcroft-Gault) 23.9 BUN/Creatinine Ratio 12 (6-20) Glucose Level 104 mg/dL (70-99) Calcium Level 8.8 mg/dL (8.5-10.1) Total Bilirubin 0.7 mg/dL (0.2-1.0) Aspartate Amino Transf (AST/SGOT) 18 U/L (15-37) Alanine Aminotransferase (ALT/SGPT) 17 U/L (16-63) Alkaline Phosphatase 77 U/L (46-116) Total Protein 7.4 g/dL (6.4-8.2) Albumin 2.9 g/dL (3.4-5.0) Albumin/Globulin Ratio 0.6 (1.0-1.7) WBC down, Cr 3.2 Assessment/Plan POD 2 takedown colostomy d/c arellano start po pain meds d/c CLOTH DRIER prn IV push MEGAN SALINAS MD Apr 24, 2018 10:35
[2018-04-24] MEDS ORDERED: HYDROmorphone 2 MG/ML VIAL IV PRN (10:45)
[2018-04-24] MEDS ORDERED: HYDROcodone/APAP 5/325MG 1 TAB TABLET PO PRN (10:45)
[2018-04-24 11:00] VITALS: BP 148/92
[2018-04-24] MEDS: cloNIDine HCL 0.2 MG TABLET PO SCH ×2 (11:03→21:00)
[2018-04-24] MEDS: METOPROLOL TART IMMED RELEASE 25 MG TABLET. PO SCH ×2 (11:03→21:58)
[2018-04-24] MEDS: ISOSORBIDE MONONITRATE ER 30 MG TAB.ER.24H PO SCH ×2 (11:05→21:57)
[2018-04-24] MEDS: amLODIPine BESYLATE 10 MG TABLET PO SCH (11:06)
[2018-04-24] MEDS: ENOXAPARIN 30 MG/0.3 ML SYRINGE. SQ SCH (11:08)
[2018-04-24] MEDS: POTASSIUM CL 20MEQ-0.45% NACL 1,000 ML IV SCH ×3 (11:15→22:00)
--- NOTE | 2018-04-24 11:42 | PDOC ---
PROGRESS NOTES Chief Complaint Chief Complaint Status post resection of large pedunculated polyp of sigmoid colon Hypertension Leukocytosis Acute renal insufficiency (Elevated Cr: 3.0 on 04/23), hx of CKD3 History of dyslipidemia Rheumatic cardiac disease? History of prostate cancer History of Present Illness History of Present Illness Mr. Greer presented for surgery for large pedunculated polyp of sigmoid colon. Patient was seen and examined. Patient in NAD. Arellano and ORLY in place. Blood pressure stable at 148/90 this am. Discussed case with nurse. Patient has no new complaints. Patient says he has not been able to pass gas. Vitals Vitals Vital Signs Date Time Temp Pulse Resp B/P (MAP) Pulse Ox O2 Delivery O2 Flow Rate FiO2 04/24/18 11:06 69 156/94 04/24/18 07:00 98.7 18 92 Room Air 98.7 04/23/18 23:00 2.0 Physical Exam General: Alert, Oriented X3, No acute distress Heart: Regular rate, No murmurs Lungs: Clear Abdomen: Soft, Other (ventral incision site c/d/i, ORLY drain, arellano to bsd) Extremities: No clubbing, No cyanosis, No edema Skin: No rashes, No significant lesion Labs LABS Laboratory Tests Test 04/24/18 08:05 White Blood Count 12.8 x10^3/uL (4.0-11.0) Red Blood Count 4.21 x10^6/uL (4.30-5.70) Hemoglobin 11.2 g/dL (13.0-17.5) Hematocrit 34.5 % (39.0-53.0) Mean Corpuscular Volume 82 fL (79-100) Mean Corpuscular Hemoglobin 27 pg (25-35) Mean Corpuscular Hemoglobin Concent 33 g/dL (31-37) Red Cell Distribution Width 17.8 % (11.5-14.5) Platelet Count 360 x10^3/uL (140-400) Neutrophils (%) (Auto) 78 % (31-73) Lymphocytes (%) (Auto) 11 % (24-48) Monocytes (%) (Auto) 10 % (0-9) Eosinophils (%) (Auto) 0 % (0-3) Basophils (%) (Auto) 0 % (0-3) Neutrophils # (Auto) 10.0 x10^3uL (1.8-7.7) Lymphocytes # (Auto) 1.5 x10^3/uL (1.0-4.8) Monocytes # (Auto) 1.2 x10^3/uL (0.0-1.1) Eosinophils # (Auto) 0.1 x10^3/uL (0.0-0.7) Basophils # (Auto) 0.0 x10^3/uL (0.0-0.2) Sodium Level 143 mmol/L (136-145) Potassium Level 4.2 mmol/L (3.5-5.1) Chloride Level 107 mmol/L (98-107) Carbon Dioxide Level 25 mmol/L (21-32) Anion Gap 11 (6-14) Blood Urea Nitrogen 38 mg/dL (8-26) Creatinine 3.2 mg/dL (0.7-1.3) Estimated GFR (Cockcroft-Gault) 23.9 BUN/Creatinine Ratio 12 (6-20) Glucose Level 104 mg/dL (70-99) Calcium Level 8.8 mg/dL (8.5-10.1) Total Bilirubin 0.7 mg/dL (0.2-1.0) Aspartate Amino Transf (AST/SGOT) 18 U/L (15-37) Alanine Aminotransferase (ALT/SGPT) 17 U/L (16-63) Alkaline Phosphatase 77 U/L (46-116) Total Protein 7.4 g/dL (6.4-8.2) Albumin 2.9 g/dL (3.4-5.0) Albumin/Globulin Ratio 0.6 (1.0-1.7) Review of Systems Review of Systems Denies fevers, chills Reports being unable to pass gas Denies abdominal pain Denies nausea Denies vomiting Assessment and Plan Assessmemt and Plan Assessment: Status post resection of large pedunculated polyp of sigmoid colon Hypertension Leukocytosis Acute renal insufficiency (Elevated Cr: 3.0 on 04/23), hx of CKD3 History of dyslipidemia Rheumatic cardiac disease? History of prostate cancer Plan: ORLY drain Will continue to follow PT/OT d/c MEDICAL CLAIMS MANAGER dilaudid Clear liquid diet, advance when okay with surgeon Wound care d/c arellano Comment Review of Relevant I have reviewed the following items jessie (where applicable) has been applied. Labs Laboratory Tests Test 04/23/18 05:05 04/24/18 08:05 White Blood Count 17.0 x10^3/uL (4.0-11.0) 12.8 x10^3/uL (4.0-11.0) Red Blood Count 4.56 x10^6/uL (4.30-5.70) 4.21 x10^6/uL (4.30-5.70) Hemoglobin 12.0 g/dL (13.0-17.5) 11.2 g/dL (13.0-17.5) Hematocrit 37.4 % (39.0-53.0) 34.5 % (39.0-53.0) Mean Corpuscular Volume 82 fL (79-100) 82 fL (79-100) Mean Corpuscular Hemoglobin 26 pg (25-35) 27 pg (25-35) Mean Corpuscular Hemoglobin Concent 32 g/dL (31-37) 33 g/dL (31-37) Red Cell Distribution Width 17.8 % (11.5-14.5) 17.8 % (11.5-14.5) Platelet Count 401 x10^3/uL (140-400) 360 x10^3/uL (140-400) Sodium Level 143 mmol/L (136-145) 143 mmol/L (136-145) Potassium Level 3.9 mmol/L (3.5-5.1) 4.2 mmol/L (3.5-5.1) Chloride Level 104 mmol/L (98-107) 107 mmol/L (98-107) Carbon Dioxide Level 26 mmol/L (21-32) 25 mmol/L (21-32) Anion Gap 13 (6-14) 11 (6-14) Blood Urea Nitrogen 31 mg/dL (8-26) 38 mg/dL (8-26) Creatinine 3.0 mg/dL (0.7-1.3) 3.2 mg/dL (0.7-1.3) Estimated GFR (Cockcroft-Gault) 25.7 23.9 BUN/Creatinine Ratio 10 (6-20) 12 (6-20) Glucose Level 114 mg/dL (70-99) 104 mg/dL (70-99) Calcium Level 9.3 mg/dL (8.5-10.1) 8.8 mg/dL (8.5-10.1) Total Bilirubin 0.8 mg/dL (0.2-1.0) 0.7 mg/dL (0.2-1.0) Aspartate Amino Transf (AST/SGOT) 19 U/L (15-37) 18 U/L (15-37) Alanine Aminotransferase (ALT/SGPT) 20 U/L (16-63) 17 U/L (16-63) Alkaline Phosphatase 97 U/L (46-116) 77 U/L (46-116) Total Protein 8.9 g/dL (6.4-8.2) 7.4 g/dL (6.4-8.2) Albumin 3.4 g/dL (3.4-5.0) 2.9 g/dL (3.4-5.0) Albumin/Globulin Ratio 0.6 (1.0-1.7) 0.6 (1.0-1.7) Neutrophils (%) (Auto) 78 % (31-73) Lymphocytes (%) (Auto) 11 % (24-48) Monocytes (%) (Auto) 10 % (0-9) Eosinophils (%) (Auto) 0 % (0-3) Basophils (%) (Auto) 0 % (0-3) Neutrophils # (Auto) 10.0 x10^3uL (1.8-7.7) Lymphocytes # (Auto) 1.5 x10^3/uL (1.0-4.8) Monocytes # (Auto) 1.2 x10^3/uL (0.0-1.1) Eosinophils # (Auto) 0.1 x10^3/uL (0.0-0.7) Basophils # (Auto) 0.0 x10^3/uL (0.0-0.2) Laboratory Tests Test 04/24/18 08:05 White Blood Count 12.8 x10^3/uL (4.0-11.0) Red Blood Count 4.21 x10^6/uL (4.30-5.70) Hemoglobin 11.2 g/dL (13.0-17.5) Hematocrit 34.5 % (39.0-53.0) Mean Corpuscular Volume 82 fL (79-100) Mean Corpuscular Hemoglobin 27 pg (25-35) Mean Corpuscular Hemoglobin Concent 33 g/dL (31-37) Red Cell Distribution Width 17.8 % (11.5-14.5) Platelet Count 360 x10^3/uL (140-400) Neutrophils (%) (Auto) 78 % (31-73) Lymphocytes (%) (Auto) 11 % (24-48) Monocytes (%) (Auto) 10 % (0-9) Eosinophils (%) (Auto) 0 % (0-3) Basophils (%) (Auto) 0 % (0-3) Neutrophils # (Auto) 10.0 x10^3uL (1.8-7.7) Lymphocytes # (Auto) 1.5 x10^3/uL (1.0-4.8) Monocytes # (Auto) 1.2 x10^3/uL (0.0-1.1) Eosinophils # (Auto) 0.1 x10^3/uL (0.0-0.7) Basophils # (Auto) 0.0 x10^3/uL (0.0-0.2) Sodium Level 143 mmol/L (136-145) Potassium Level 4.2 mmol/L (3.5-5.1) Chloride Level 107 mmol/L (98-107) Carbon Dioxide Level 25 mmol/L (21-32) Anion Gap 11 (6-14) Blood Urea Nitrogen 38 mg/dL (8-26) Creatinine 3.2 mg/dL (0.7-1.3) Estimated GFR (Cockcroft-Gault) 23.9 BUN/Creatinine Ratio 12 (6-20) Glucose Level 104 mg/dL (70-99) Calcium Level 8.8 mg/dL (8.5-10.1) Total Bilirubin 0.7 mg/dL (0.2-1.0) Aspartate Amino Transf (AST/SGOT) 18 U/L (15-37) Alanine Aminotransferase (ALT/SGPT) 17 U/L (16-63) Alkaline Phosphatase 77 U/L (46-116) Total Protein 7.4 g/dL (6.4-8.2) Albumin 2.9 g/dL (3.4-5.0) Albumin/Globulin Ratio 0.6 (1.0-1.7) Medications Current Medications Ondansetron HCl (Zofran) 4 mg PRN Q6HRS PRN IV NAUSEA/VOMITING Last administered on 04/22/18 11:28; Start 04/22/18 at 07:00; Stop 04/23/18 at 06:59 ; Status DC Fentanyl Citrate (Fentanyl 2ml Vial) 25 mcg PRN Q5MIN PRN IV MILD PAIN; Start 04/22/18 at 07:00; Stop 04/23/18 at 06:59; Status DC Fentanyl Citrate (Fentanyl 2ml Vial) 50 mcg PRN Q5MIN PRN IV MODERATE TO SEVERE PAIN; Start 04/22/18 at 07:00; Stop 04/23/18 at 06:59; Status DC Morphine Sulfate (Morphine Sulfate) 1 mg PRN Q10MIN PRN IV SEVERE PAIN Last administered on 04/22/18at 11:31; Start 04/22/18 at 07:00; Stop 04/23/18 at 06:59 ; Status DC Ringer's Solution 1,000 ml @ 30 mls/hr Q24H IV Last administered on 04/22/18at 07:23; Start 04/22/18 at 07:00; Stop 04/22/18 at 18:59; Status DC Lidocaine HCl (Xylocaine-Mpf 1% 2ml Vial) 2 ml PRN 1X PRN ID PRIOR TO IV START ; Start 04/22/18 at 07:00; Stop 04/23/18 at 06:59; Status DC Hydromorphone HCl (Dilaudid) 0.5 mg PRN Q10MIN PRN IV SEV PAIN, Second choice Last administered on 04/22/18at 11:37; Start 04/22/18 at 07:00; Stop 04/23/18 at 06:59; Status DC Prochlorperazine Edisylate (Compazine) 5 mg PACU PRN PRN IV NAUSEA, MRX1 Last administered on 04/22/18at 10:59; Start 04/22/18 at 07:00; Stop 04/23/18 at 06:59 ; Status DC Cefoxitin Sodium (Mefoxin) 1 gm 1X PREOP PRN IVP PRIOR TO PROCEDURE; Start at 06:00; Stop 04/22/18 at 18:00; Status DC Rocuronium [place] (Zemuron) 50 mg STK-MED ONCE .ROUTE ; Start 04/22/18 at 06:23 ; Stop 04/22/18 at 06:24; Status DC Fentanyl Citrate (Fentanyl 2ml Vial) 100 mcg STK-MED ONCE .ROUTE ; Start at 06:23; Stop 04/22/18 at 06:24; Status DC Sevoflurane (Ultane) 90 ml STK-MED ONCE IH ; Start 04/22/18 at 06:24; Stop 04/22 at 06:25; Status DC Dexamethasone Sodium Phosphate (Decadron) 20 mg STK-MED ONCE .ROUTE ; Start at 06:24; Stop 04/22/18 at 06:25; Status DC Propofol 20 ml @ As Directed STK-MED ONCE IV ; Start 04/22/18 at 06:24; Stop at 06:25; Status DC Lidocaine HCl (Lidocaine Pf 2% Vial) 5 ml STK-MED ONCE .ROUTE ; Start 04/22/18 at 06:24; Stop 04/22/18 at 06:25; Status DC Ondansetron HCl (Zofran) 4 mg STK-MED ONCE .ROUTE ; Start 04/22/18 at 06:24; Stop 04/22/18 at 06:25; Status DC Phenylephrine HCl (Reggie-Synephrine Inj) 10 mg STK-MED ONCE .ROUTE ; Start at 06:24; Stop 04/22/18 at 06:25; Status DC Bupivacaine HCl/ Epinephrine Bitart (Sensorcaine-Epi 0.25%-1:001644 Mpf) 30 ml STK-MED ONCE .ROUTE ; Start 04/22/18 at 06:25; Stop 04/22/18 at 07:26; Status DC Bupivacaine HCl/ Epinephrine Bitart (Sensorcain-Mpf Epi 0.5%-1:351322) 30 ml STK -MED ONCE .ROUTE Last administered on 04/22/18at 09:05; Start 04/22/18 at 06:33 ; Stop 04/22/18 at 07:33; Status DC Fentanyl Citrate (Fentanyl 5ml Vial) 250 mcg STK-MED ONCE .ROUTE ; Start at 08:45; Stop 04/22/18 at 08:47; Status DC Rocuronium [place] (Zemuron) 50 mg STK-MED ONCE .ROUTE ; Start 04/22/18 at 08:46 ; Stop 04/22/18 at 08:47; Status DC Sevoflurane (Ultane) 90 ml STK-MED ONCE IH ; Start 04/22/18 at 10:07; Stop 04/22 at 10:08; Status DC Neostigmine Methylsulfate (Neostigmine Methylsulfate) 5 mg STK-MED ONCE .ROUTE ; Start 04/22/18 at 10:08; Stop 04/22/18 at 10:09; Status DC Glycopyrrolate (Robinul) 1 mg STK-MED ONCE .ROUTE ; Start 04/22/18 at 10:09; Stop 04/22/18 at 10:10; Status DC Enoxaparin Sodium (Lovenox 30mg Syringe) 30 mg Q24H SQ Last administered on at 11:08; Start 04/23/18 at 09:00 Sodium Chloride (Normal Saline Flush) 3 ml QSHIFT PRN IV AFTER MEDS AND BLOOD DRAWS; Start 04/22/18 at 13:15 Potassium Chloride/Sodium Chloride 1,000 ml @ 100 mls/hr Q10H IV Last administered on 04/24/18at 11:15; Start 04/22/18 at 14:00 Hydromorphone HCl 30 ml @ 0 mls/hr CONT PRN PRN IV PER PROTOCOL Last administered on 04/22/18at 13:49; Start 04/22/18 at 13:15; Stop 04/24/18 at 10:38 ; Status DC Ondansetron HCl (Zofran) 4 mg PRN Q6HRS PRN IV NAUESA, 1ST CHOICE; Start at 13:15 Allopurinol (Zyloprim) 100 mg DAILY PO ; Start 04/23/18 at 09:00 Amlodipine Besylate (Norvasc) 10 mg DAILY PO Last administered on 04/24/18at 11: 06; Start 04/23/18 at 09:00 Aspirin (Ecotrin) 81 mg DAILY PO ; Start 04/23/18 at 09:00 Metoprolol Tartrate (Lopressor) 25 mg BID PO Last administered on 04/24/18at 11: 03; Start 04/22/18 at 21:00 Non-Formulary Medication (Isosorbide Mononitrate (Isosorbide Mononitrate Er)) 60 mg 1tab AM-1/2tab PM PO ; Start 04/22/18 at 13:15; Status UNV Isosorbide Mononitrate (Imdur) 60 mg DAILY PO Last administered on 04/24/18 11 :05; Start 04/23/18 at 09:00 Isosorbide Mononitrate (Imdur) 30 mg QHS PO Last administered on 04/23/18 21: 34; Start 04/22/18 at 21:00 Atorvastatin Calcium (Lipitor) 40 mg HS PO Last administered on 04/23/18 21:34 ; Start 04/22/18 at 21:00 Clonidine HCl (Catapres) 0.2 mg BID PO Last administered on 04/24/18 11:03; Start 04/22/18 at 21:00 Doxazosin Mesylate (Cardura) 4 mg HS PO Last administered on 04/23/18 21:33; Start 04/22/18 at 21:00 Ferrous Sulfate (Feosol) 325 mg DAILY PO ; Start 04/23/18 at 09:00 Acetaminophen/ Hydrocodone Bitart (Lortab 7.5/325) 1 tab PRN Q6HRS PRN PO PAIN ; Start 04/22/18 at 15:15 Potassium Chloride (Klor-Con) 20 meq BID PO Last administered on 04/23/18 21: 33; Start 04/22/18 at 21:00 Enalaprilat (Vasotec Inj) 1.25 mg PRN Q6HRS PRN IVP HYPERTENSION, SEE COMMENTS Last administered on 04/23/18at 09:25; Start 04/23/18 at 00:15 Hydralazine HCl (Apresoline Inj) 25 mg PRN Q6HRS PRN IVP ELEVATED BP, SEE COMMENTS Last administered on 04/23/18at 12:39; Start 04/23/18 at 03:45 Piperacillin Sod/ Tazobactam Sod (Zosyn Per Pharmacy) 1 each PRN DAILY PRN MC SEE COMMENTS; Start 04/23/18 at 09:45; Stop 04/24/18 at 07:54; Status DC Piperacillin Sod/ Tazobactam Sod 2.25 gm/Sodium Chloride 50 ml @ 100 mls/hr Q6HRS IV ; Start 04/23/18 at 10:30; Stop 04/23/18 at 13:57; Status DC Acetaminophen/ Hydrocodone Bitart (Lortab 5/325) 1 tab PRN Q4HRS PRN PO MILD TO MODERATE PAIN; Start 04/24/18 at 10:45 Acetaminophen/ Hydrocodone Bitart (Lortab 5/325) 2 tab PRN Q4HRS PRN PO MODERATE PAIN; Start 04/24/18 at 10:45 Hydromorphone HCl (Dilaudid) 0.5 mg PRN Q3HRS PRN IV MODERATE TO SEVERE PAIN; Start 04/24/18 at 10:45 Active Scripts Active Reported Metoprolol Tartrate 25 Mg Tablet 25 Mg PO BID Ferrous Sulfate 325 Mg Tablet 325 Mg PO DAILY Allopurinol 100 Mg Tablet 100 Mg PO DAILY Atorvastatin Calcium 40 Mg Tablet 40 Mg PO HS Potassium Chloride 20 Meq Tab.er.prt 20 Meq PO BID Cardura (Doxazosin Mesylate) 4 Mg Tablet 4 Mg PO HS Isosorbide Mononitrate Er (Isosorbide Mononitrate) 60 Mg Tab.er.24h 60 Mg PO 1TAB AM-1/2TAB PM Clonidine Hcl 0.2 Mg Tablet 0.2 Mg PO BID Amlodipine Besylate 10 Mg Tablet 10 Mg PO DAILY Lortab 7.5-325 mg Tablet (Hydrocodone/Acetaminophen) 1 Each Tablet 1 Tab PO PRN Q6HRS Aspir 81 (Aspirin) 81 Mg Tablet.dr 81 Mg PO DAILY Vitals/I & O Vital Sign - Last 24 Hours 04/23/18 04/23/18 04/23/18 04/23/18 12:39 15:00 19:00 20:00 Temp 98.1 98.7 98.1 98.7 Pulse 70 68 72 Resp 16 18 B/P (MAP) 195/105 150/90 (110) 141/92 (108) Pulse Ox 95 97 O2 Delivery Nasal Cannula Nasal Cannula Nasal Cannula O2 Flow Rate 2.0 2.0 2.0 04/23/18 04/23/18 04/23/18 04/23/18 21:33 21:33 21:34 21:34 Pulse 72 72 72 72 B/P (MAP) 141/92 141/92 141/92 141/92 04/23/18 04/24/18 04/24/18 3/20/19 23:00 02:55 07:00 11:03 Temp 99.3 98.9 98.7 99.3 98.9 98.7 Pulse 95 65 69 69 Resp 18 18 18 B/P (MAP) 132/86 (101) 148/90 (109) 156/94 (114) 156/94 Pulse Ox 94 92 92 O2 Delivery Nasal Cannula Room Air Room Air O2 Flow Rate 2.0 04/24/18 04/24/18 04/24/18 11:03 11:05 11:06 Pulse 69 69 69 B/P (MAP) 156/94 156/94 156/94 Intake and Output 04/23/18 04/23/18 04/24/18 15:00 23:00 07:00 Intake Total 100 ml 1120 ml Output Total 2010 ml 780 ml Balance -1910 ml 340 ml OSMANY GLOVER III DO Apr 24, 2018 11:42
--- NOTE | 2018-04-24 12:27 | PDOC ---
SUBJECTIVE ROS Stable , sitting up, No complaints OBJECTIVE Vital Signs Vital Signs Date Time Temp Pulse Resp B/P (MAP) Pulse Ox O2 Delivery O2 Flow Rate FiO2 04/24/18 11:06 69 156/94 04/24/18 11:00 98.1 18 94 Nasal Cannula 2.0 98.1 I & 0 Intake and Output 04/24/18 06:59 Intake Total 1220 ml Output Total 2790 ml Balance -1570 ml Intake Oral 370 ml IV Total 850 ml Output Urine Total 2760 ml Drainage Total 30 ml PHYSICAL EXAM Physical Exam GEN: NAD HEEN: OM moist , o2 by NC NECK: Supple CVS: RRR RESP: CTA, No Acc. Muscle Use GI: BS + ve, Abdomen tender s/p Surgery : No CVA tenderness, No Suprapubic Tenderness, Tripathi+ Neuro- AXOX3 Skin No rash DIAGNOSIS/ASSESSMENT Assessment & Plan MARIA LUZ - Suspect Dehydration Improving from 3.4 to 3.0 E-Lytes and acid base stable Currently on IVF , Good UOP, Monitor CKD stage 3- in June [facility] records 2017 2.8 Primary Neph- Dr. fischer , Last Appt 04/17 Baseline Cr 2.84-3.2 Status post resection of large pedunculated polyp Essential hypertension- Antihypertensives History of prostrate cancer COMMENT/RELEVANT DATA Meds Current Medications Medications (Trade) Dose Ordered Sig/Aidan Start Time Stop Time Status Last Admin Dose Admin Acetaminophen/ Hydrocodone Bitart (Lortab 5/325) 2 tab PRN Q4HRS PRN 04/24/18 10:45 Acetaminophen/ Hydrocodone Bitart (Lortab 7.5/325) 1 tab PRN Q6HRS PRN 04/22/18 15:15 Allopurinol (Zyloprim) 100 mg DAILY 04/23/18 09:00 Amlodipine Besylate (Norvasc) 10 mg DAILY 04/23/18 09:00 04/24/18 11:06 10 MG Aspirin (Ecotrin) 81 mg DAILY 04/23/18 09:00 Atorvastatin Calcium (Lipitor) 40 mg HS 04/22/18 21:00 04/23/18 21:34 40 MG Bupivacaine HCl/ Epinephrine Bitart (Sensorcain-Mpf Epi 0.5%-1:318599) 30 ml STK-MED ONCE 04/22/18 06:33 04/22/18 07:33 DC 04/22/18 09:05 7 ML Bupivacaine HCl/ Epinephrine Bitart (Sensorcaine-Epi 0.25%-1:023714 Mpf) 30 ml STK-MED ONCE 04/22/18 06:25 04/22/18 07:26 DC Cefoxitin Sodium (Mefoxin) 1 gm 1X PREOP PRN 04/22/18 06:00 04/22/18 18:00 DC Clonidine HCl (Catapres) 0.2 mg BID 04/22/18 21:00 04/24/18 11:03 0.2 MG Dexamethasone Sodium Phosphate (Decadron) 20 mg STK-MED ONCE 04/22/18 06:24 04/22/18 06:25 DC Doxazosin Mesylate (Cardura) 4 mg HS 04/22/18 21:00 04/23/18 21:33 4 MG Enalaprilat (Vasotec Inj) 1.25 mg PRN Q6HRS PRN 04/23/18 00:15 04/23/18 09:25 1.25 MG Enoxaparin Sodium (Lovenox 30mg Syringe) 30 mg Q24H 04/23/18 09:00 04/24/18 11:08 30 MG Fentanyl Citrate (Fentanyl 2ml Vial) 100 mcg STK-MED ONCE 04/22/18 06:23 04/22/18 06:24 DC Fentanyl Citrate (Fentanyl 5ml Vial) 250 mcg STK-MED ONCE 04/22/18 08:45 04/22/18 08:47 DC Ferrous Sulfate (Feosol) 325 mg DAILY 04/23/18 09:00 Glycopyrrolate (Robinul) 1 mg STK-MED ONCE 04/22/18 10:09 04/22/18 10:10 DC Hydralazine HCl (Apresoline Inj) 25 mg PRN Q6HRS PRN 04/23/18 03:45 04/23/18 12:39 25 MG Hydromorphone HCl (Dilaudid) 0.5 mg PRN Q3HRS PRN 04/24/18 10:45 Isosorbide Mononitrate (Imdur) 30 mg QHS 04/22/18 21:00 04/23/18 21:34 30 MG Lidocaine HCl (Lidocaine Pf 2% Vial) 5 ml STK-MED ONCE 04/22/18 06:24 04/22/18 06:25 DC Lidocaine HCl (Xylocaine-Mpf 1% 2ml Vial) 2 ml PRN 1X PRN 04/22/18 07:00 04/23/18 06:59 DC Metoprolol Tartrate (Lopressor) 25 mg BID 04/22/18 21:00 04/24/18 11:03 25 MG Morphine Sulfate (Morphine Sulfate) 1 mg PRN Q10MIN PRN 04/22/18 07:00 04/23/18 06:59 DC 04/22/18 11:31 1 MG Neostigmine Methylsulfate (Neostigmine Methylsulfate) 5 mg STK-MED ONCE 04/22/18 10:08 04/22/18 10:09 DC Non-Formulary Medication (Isosorbide Mononitrate (Isosorbide Mononitrate Er)) 60 mg 1tab AM-1/2tab PM 04/22/18 13:15 UNV Ondansetron HCl (Zofran) 4 mg PRN Q6HRS PRN 04/22/18 13:15 Phenylephrine HCl (Reggie-Synephrine Inj) 10 mg STK-MED ONCE 04/22/18 06:24 04/22/18 06:25 DC Piperacillin Sod/ Tazobactam Sod (Zosyn Per Pharmacy) 1 each PRN DAILY PRN 04/23/18 09:45 04/24/18 07:54 DC Piperacillin Sod/ Tazobactam Sod 2.25 gm/Sodium Chloride 50 ml @ 100 mls/hr Q6HRS 04/23/18 10:30 04/23/18 13:57 DC Potassium Chloride/Sodium Chloride 1,000 ml @ 100 mls/hr Q10H 04/22/18 14:00 04/24/18 11:15 100 MLS/HR Potassium Chloride (Klor-Con) 20 meq BID 04/22/18 21:00 04/23/18 21:33 20 MEQ Prochlorperazine Edisylate (Compazine) 5 mg PACU PRN PRN 04/22/18 07:00 04/23/18 06:59 DC 04/22/18 10:59 5 MG Propofol 20 ml @ As Directed STK-MED ONCE 04/22/18 06:24 04/22/18 06:25 DC Ringer's Solution 1,000 ml @ 30 mls/hr Q24H 04/22/18 07:00 04/22/18 18:59 DC 04/22/18 07:23 30 MLS/HR Rocuronium [place] (Zemuron) 50 mg STK-MED ONCE 04/22/18 08:46 04/22/18 08:47 DC Sevoflurane (Ultane) 90 ml STK-MED ONCE 04/22/18 10:07 04/22/18 10:08 DC Sodium Chloride (Normal Saline Flush) 3 ml QSHIFT PRN 04/22/18 13:15 Lab Laboratory Tests Test 04/24/18 08:05 White Blood Count 12.8 x10^3/uL (4.0-11.0) Red Blood Count 4.21 x10^6/uL (4.30-5.70) Hemoglobin 11.2 g/dL (13.0-17.5) Hematocrit 34.5 % (39.0-53.0) Mean Corpuscular Volume 82 fL (79-100) Mean Corpuscular Hemoglobin 27 pg (25-35) Mean Corpuscular Hemoglobin Concent 33 g/dL (31-37) Red Cell Distribution Width 17.8 % (11.5-14.5) Platelet Count 360 x10^3/uL (140-400) Neutrophils (%) (Auto) 78 % (31-73) Lymphocytes (%) (Auto) 11 % (24-48) Monocytes (%) (Auto) 10 % (0-9) Eosinophils (%) (Auto) 0 % (0-3) Basophils (%) (Auto) 0 % (0-3) Neutrophils # (Auto) 10.0 x10^3uL (1.8-7.7) Lymphocytes # (Auto) 1.5 x10^3/uL (1.0-4.8) Monocytes # (Auto) 1.2 x10^3/uL (0.0-1.1) Eosinophils # (Auto) 0.1 x10^3/uL (0.0-0.7) Basophils # (Auto) 0.0 x10^3/uL (0.0-0.2) Sodium Level 143 mmol/L (136-145) Potassium Level 4.2 mmol/L (3.5-5.1) Chloride Level 107 mmol/L (98-107) Carbon Dioxide Level 25 mmol/L (21-32) Anion Gap 11 (6-14) Blood Urea Nitrogen 38 mg/dL (8-26) Creatinine 3.2 mg/dL (0.7-1.3) Estimated GFR (Cockcroft-Gault) 23.9 BUN/Creatinine Ratio 12 (6-20) Glucose Level 104 mg/dL (70-99) Calcium Level 8.8 mg/dL (8.5-10.1) Total Bilirubin 0.7 mg/dL (0.2-1.0) Aspartate Amino Transf (AST/SGOT) 18 U/L (15-37) Alanine Aminotransferase (ALT/SGPT) 17 U/L (16-63) Alkaline Phosphatase 77 U/L (46-116) Total Protein 7.4 g/dL (6.4-8.2) Albumin 2.9 g/dL (3.4-5.0) Albumin/Globulin Ratio 0.6 (1.0-1.7) Results All relevant outside records, renal labs, imaging studies, telemetry/EKG's were reviewed. KADY FIGUEROA MD Apr 24, 2018 12:27
[2018-04-24 15:00] VITALS: BP 112/82
[2018-04-24] MEDS: HYDROcodone/APAP 5/325MG 1 TAB TABLET PO PRN (15:19)
--- NOTE | 2018-04-24 16:01 | NUR ---
SW following. Discussed with RN. ARIEL met with pt to discuss PT/OT recommendation of SNU. Pt would like referral sent to [place], and [facility] if [facility] has no beds. SW contacted [place], they do not have any beds available. ARIEL sent referral to [facility]. SW will continue to follow. RN notified.
[2018-04-24 19:00] VITALS: BP 142/88
[2018-04-24] MEDS: DOXAZOSIN MESYLATE 4 MG TABLET. PO SCH (21:57)
[2018-04-24] MEDS: ATORVASTATIN CALCIUM 40 MG TABLET. PO SCH (21:57)
[2018-04-24 23:00] VITALS: BP 149/99
[2018-04-25] MEDS: HYDROcodone/APAP 5/325MG 1 TAB TABLET PO PRN ×2 (01:56→14:53)
[2018-04-25 03:00] VITALS: BP 147/96
[2018-04-25 06:00] VITALS: BP 147/96
[2018-04-25] MEDS: ASPIRIN ENTERIC COATED 81 MG TABLET.DR. PO SCH (08:37)
[2018-04-25] MEDS: ISOSORBIDE MONONITRATE ER 30 MG TAB.ER.24H PO SCH ×2 (08:37→21:22)
[2018-04-25] MEDS: cloNIDine HCL 0.2 MG TABLET PO SCH ×2 (08:37→21:24)
[2018-04-25] MEDS: amLODIPine BESYLATE 10 MG TABLET PO SCH (08:38)
[2018-04-25] MEDS: POTASSIUM CHLORIDE 20 MEQ TABLET.ER. PO SCH ×2 (08:38→21:00)
[2018-04-25] MEDS: ALLOPURINOL 100 MG TABLET. PO SCH (08:39)
[2018-04-25] MEDS: METOPROLOL TART IMMED RELEASE 25 MG TABLET. PO SCH ×2 (08:39→21:23)
[2018-04-25] MEDS: ENOXAPARIN 30 MG/0.3 ML SYRINGE. SQ SCH (08:39)
[2018-04-25] MEDS: FERROUS SULFATE 325 MG TABLET. PO SCH (08:40)
--- NOTE | 2018-04-25 09:26 | PDOC ---
SURGICAL PROGRESS NOTE Subjective has some heartburn thought he passed some gas last noc voiding ok Vital Signs Vital Signs Date Time Temp Pulse Resp B/P (MAP) Pulse Ox O2 Delivery O2 Flow Rate FiO2 04/25/18 08:39 72 147/96 04/25/18 06:00 97.9 16 97 Room Air 97.9 04/25/18 03:00 2.0 I&O Intake and Output 04/25/18 07:00 Intake Total 1424 ml Output Total 1365 ml Balance 59 ml Intake Oral 1410 ml IV Total 14 ml Output Urine Total 985 ml Drainage Total 380 ml PATIENT HAS A WILKINS: No General: Alert, Oriented X3, No acute distress Abdomen: Soft, Other (protuberant, ORLY with serosanguinelous output) Labs Laboratory Tests Test 04/24/18 08:05 White Blood Count 12.8 x10^3/uL (4.0-11.0) Red Blood Count 4.21 x10^6/uL (4.30-5.70) Hemoglobin 11.2 g/dL (13.0-17.5) Hematocrit 34.5 % (39.0-53.0) Mean Corpuscular Volume 82 fL (79-100) Mean Corpuscular Hemoglobin 27 pg (25-35) Mean Corpuscular Hemoglobin Concent 33 g/dL (31-37) Red Cell Distribution Width 17.8 % (11.5-14.5) Platelet Count 360 x10^3/uL (140-400) Neutrophils (%) (Auto) 78 % (31-73) Lymphocytes (%) (Auto) 11 % (24-48) Monocytes (%) (Auto) 10 % (0-9) Eosinophils (%) (Auto) 0 % (0-3) Basophils (%) (Auto) 0 % (0-3) Neutrophils # (Auto) 10.0 x10^3uL (1.8-7.7) Lymphocytes # (Auto) 1.5 x10^3/uL (1.0-4.8) Monocytes # (Auto) 1.2 x10^3/uL (0.0-1.1) Eosinophils # (Auto) 0.1 x10^3/uL (0.0-0.7) Basophils # (Auto) 0.0 x10^3/uL (0.0-0.2) Sodium Level 143 mmol/L (136-145) Potassium Level 4.2 mmol/L (3.5-5.1) Chloride Level 107 mmol/L (98-107) Carbon Dioxide Level 25 mmol/L (21-32) Anion Gap 11 (6-14) Blood Urea Nitrogen 38 mg/dL (8-26) Creatinine 3.2 mg/dL (0.7-1.3) Estimated GFR (Cockcroft-Gault) 23.9 BUN/Creatinine Ratio 12 (6-20) Glucose Level 104 mg/dL (70-99) Calcium Level 8.8 mg/dL (8.5-10.1) Total Bilirubin 0.7 mg/dL (0.2-1.0) Aspartate Amino Transf (AST/SGOT) 18 U/L (15-37) Alanine Aminotransferase (ALT/SGPT) 17 U/L (16-63) Alkaline Phosphatase 77 U/L (46-116) Total Protein 7.4 g/dL (6.4-8.2) Albumin 2.9 g/dL (3.4-5.0) Albumin/Globulin Ratio 0.6 (1.0-1.7) Assessment/Plan s/p sigmoid resection advance diet ambulate H2 fátima/PPI MEGAN SALINAS MD Apr 25, 2018 09:26
[2018-04-25] MEDS ORDERED: MAG HYDROX/ALUMINUM HYD/SIMETH 30 ML ORAL.SUSP PO PRN (09:30)
[2018-04-25 11:00] VITALS: BP 137/95
--- NOTE | 2018-04-25 11:31 | NUR ---
SW following. Discussed with RN, pt has been accepted at [facility], pending insurance approval. SW will continue to follow.
--- NOTE | 2018-04-25 12:05 | PDOC ---
PROGRESS NOTES Chief Complaint Chief Complaint impression Status post resection of large pedunculated polyp of sigmoid colon Hypertension Leukocytosis Acute renal insufficiency (Elevated Cr: 3.0 on 04/23), hx of CKD3 History of dyslipidemia Rheumatic cardiac disease? History of prostate cancer 04/25 post op pain persistent, inc with eating in mild distress History of Present Illness History of Present Illness Mr. Greer presented for surgery for large pedunculated polyp of sigmoid colon. Patient was seen and examined. Tripathi and ORLY in place. . Discussed case with nurse. pain mod at times. Patient says he has not been able to pass gas. Vitals Vitals Vital Signs Date Time Temp Pulse Resp B/P (MAP) Pulse Ox O2 Delivery O2 Flow Rate FiO2 04/25/18 11:00 98.2 80 16 137/95 (109) 95 Room Air 98.2 04/25/18 03:00 2.0 Physical Exam General: Alert, Oriented X3, No acute distress, mild distress Heart: Regular rate, Normal S1, Normal S2, No murmurs Lungs: Clear Abdomen: Soft, Other (protuberant, ORLY with serosanguinelous output) Extremities: No clubbing, No cyanosis, No edema Skin: No rashes, No significant lesion Comment Review of Relevant I have reviewed the following items jessie (where applicable) has been applied. Labs Laboratory Tests Test 04/24/18 08:05 White Blood Count 12.8 x10^3/uL (4.0-11.0) Red Blood Count 4.21 x10^6/uL (4.30-5.70) Hemoglobin 11.2 g/dL (13.0-17.5) Hematocrit 34.5 % (39.0-53.0) Mean Corpuscular Volume 82 fL (79-100) Mean Corpuscular Hemoglobin 27 pg (25-35) Mean Corpuscular Hemoglobin Concent 33 g/dL (31-37) Red Cell Distribution Width 17.8 % (11.5-14.5) Platelet Count 360 x10^3/uL (140-400) Neutrophils (%) (Auto) 78 % (31-73) Lymphocytes (%) (Auto) 11 % (24-48) Monocytes (%) (Auto) 10 % (0-9) Eosinophils (%) (Auto) 0 % (0-3) Basophils (%) (Auto) 0 % (0-3) Neutrophils # (Auto) 10.0 x10^3uL (1.8-7.7) Lymphocytes # (Auto) 1.5 x10^3/uL (1.0-4.8) Monocytes # (Auto) 1.2 x10^3/uL (0.0-1.1) Eosinophils # (Auto) 0.1 x10^3/uL (0.0-0.7) Basophils # (Auto) 0.0 x10^3/uL (0.0-0.2) Sodium Level 143 mmol/L (136-145) Potassium Level 4.2 mmol/L (3.5-5.1) Chloride Level 107 mmol/L (98-107) Carbon Dioxide Level 25 mmol/L (21-32) Anion Gap 11 (6-14) Blood Urea Nitrogen 38 mg/dL (8-26) Creatinine 3.2 mg/dL (0.7-1.3) Estimated GFR (Cockcroft-Gault) 23.9 BUN/Creatinine Ratio 12 (6-20) Glucose Level 104 mg/dL (70-99) Calcium Level 8.8 mg/dL (8.5-10.1) Total Bilirubin 0.7 mg/dL (0.2-1.0) Aspartate Amino Transf (AST/SGOT) 18 U/L (15-37) Alanine Aminotransferase (ALT/SGPT) 17 U/L (16-63) Alkaline Phosphatase 77 U/L (46-116) Total Protein 7.4 g/dL (6.4-8.2) Albumin 2.9 g/dL (3.4-5.0) Albumin/Globulin Ratio 0.6 (1.0-1.7) Medications Current Medications Ondansetron HCl (Zofran) 4 mg PRN Q6HRS PRN IV NAUSEA/VOMITING Last administered on 04/22/18at 11:28; Start 04/22/18 at 07:00; Stop 04/23/18 at 06:59 ; Status DC Fentanyl Citrate (Fentanyl 2ml Vial) 25 mcg PRN Q5MIN PRN IV MILD PAIN; Start 04/22/18 at 07:00; Stop 04/23/18 at 06:59; Status DC Fentanyl Citrate (Fentanyl 2ml Vial) 50 mcg PRN Q5MIN PRN IV MODERATE TO SEVERE PAIN; Start 04/22/18 at 07:00; Stop 04/23/18 at 06:59; Status DC Morphine Sulfate (Morphine Sulfate) 1 mg PRN Q10MIN PRN IV SEVERE PAIN Last administered on 04/22/18at 11:31; Start 04/22/18 at 07:00; Stop 04/23/18 at 06:59 ; Status DC Ringer's Solution 1,000 ml @ 30 mls/hr Q24H IV Last administered on 04/22/18at 07:23; Start 04/22/18 at 07:00; Stop 04/22/18 at 18:59; Status DC Lidocaine HCl (Xylocaine-Mpf 1% 2ml Vial) 2 ml PRN 1X PRN ID PRIOR TO IV START ; Start 04/22/18 at 07:00; Stop 04/23/18 at 06:59; Status DC Hydromorphone HCl (Dilaudid) 0.5 mg PRN Q10MIN PRN IV SEV PAIN, Second choice Last administered on 04/22/18at 11:37; Start 04/22/18 at 07:00; Stop 04/23/18 at 06:59; Status DC Prochlorperazine Edisylate (Compazine) 5 mg PACU PRN PRN IV NAUSEA, MRX1 Last administered on 04/22/18at 10:59; Start 04/22/18 at 07:00; Stop 04/23/18 at 06:59 ; Status DC Cefoxitin Sodium (Mefoxin) 1 gm 1X PREOP PRN IVP PRIOR TO PROCEDURE; Start at 06:00; Stop 04/22/18 at 18:00; Status DC Rocuronium [place] (Zemuron) 50 mg STK-MED ONCE .ROUTE ; Start 04/22/18 at 06:23 ; Stop 04/22/18 at 06:24; Status DC Fentanyl Citrate (Fentanyl 2ml Vial) 100 mcg STK-MED ONCE .ROUTE ; Start at 06:23; Stop 04/22/18 at 06:24; Status DC Sevoflurane (Ultane) 90 ml STK-MED ONCE IH ; Start 04/22/18 at 06:24; Stop 04/22 at 06:25; Status DC Dexamethasone Sodium Phosphate (Decadron) 20 mg STK-MED ONCE .ROUTE ; Start at 06:24; Stop 04/22/18 at 06:25; Status DC Propofol 20 ml @ As Directed STK-MED ONCE IV ; Start 04/22/18 at 06:24; Stop at 06:25; Status DC Lidocaine HCl (Lidocaine Pf 2% Vial) 5 ml STK-MED ONCE .ROUTE ; Start 04/22/18 at 06:24; Stop 04/22/18 at 06:25; Status DC Ondansetron HCl (Zofran) 4 mg STK-MED ONCE .ROUTE ; Start 04/22/18 at 06:24; Stop 04/22/18 at 06:25; Status DC Phenylephrine HCl (Reggie-Synephrine Inj) 10 mg STK-MED ONCE .ROUTE ; Start at 06:24; Stop 04/22/18 at 06:25; Status DC Bupivacaine HCl/ Epinephrine Bitart (Sensorcaine-Epi 0.25%-1:004728 Mpf) 30 ml STK-MED ONCE .ROUTE ; Start 04/22/18 at 06:25; Stop 04/22/18 at 07:26; Status DC Bupivacaine HCl/ Epinephrine Bitart (Sensorcain-Mpf Epi 0.5%-1:094533) 30 ml STK -MED ONCE .ROUTE Last administered on 04/22/18at 09:05; Start 04/22/18 at 06:33 ; Stop 04/22/18 at 07:33; Status DC Fentanyl Citrate (Fentanyl 5ml Vial) 250 mcg STK-MED ONCE .ROUTE ; Start at 08:45; Stop 04/22/18 at 08:47; Status DC Rocuronium [place] (Zemuron) 50 mg STK-MED ONCE .ROUTE ; Start 04/22/18 at 08:46 ; Stop 04/22/18 at 08:47; Status DC Sevoflurane (Ultane) 90 ml STK-MED ONCE IH ; Start 04/22/18 at 10:07; Stop 04/22 at 10:08; Status DC Neostigmine Methylsulfate (Neostigmine Methylsulfate) 5 mg STK-MED ONCE .ROUTE ; Start 04/22/18 at 10:08; Stop 04/22/18 at 10:09; Status DC Glycopyrrolate (Robinul) 1 mg STK-MED ONCE .ROUTE ; Start 04/22/18 at 10:09; Stop 04/22/18 at 10:10; Status DC Enoxaparin Sodium (Lovenox 30mg Syringe) 30 mg Q24H SQ Last administered on at 08:39; Start 04/23/18 at 09:00 Sodium Chloride (Normal Saline Flush) 3 ml QSHIFT PRN IV AFTER MEDS AND BLOOD DRAWS; Start 04/22/18 at 13:15 Potassium Chloride/Sodium Chloride 1,000 ml @ 100 mls/hr Q10H IV Last administered on 04/24/18at 22:00; Start 04/22/18 at 14:00 Hydromorphone HCl 30 ml @ 0 mls/hr CONT PRN PRN IV PER PROTOCOL Last administered on 04/22/18at 13:49; Start 04/22/18 at 13:15; Stop 04/24/18 at 10:38 ; Status DC Ondansetron HCl (Zofran) 4 mg PRN Q6HRS PRN IV NAUESA, 1ST CHOICE; Start at 13:15 Allopurinol (Zyloprim) 100 mg DAILY PO ; Start 04/23/18 at 09:00 Amlodipine Besylate (Norvasc) 10 mg DAILY PO Last administered on 04/25/18at 08: 38; Start 04/23/18 at 09:00 Aspirin (Ecotrin) 81 mg DAILY PO Last administered on 04/25/18at 08:37; Start at 09:00 Metoprolol Tartrate (Lopressor) 25 mg BID PO Last administered on 04/25/18at 08: 39; Start 04/22/18 at 21:00 Non-Formulary Medication (Isosorbide Mononitrate (Isosorbide Mononitrate Er)) 60 mg 1tab AM-1/2tab PM PO ; Start 04/22/18 at 13:15; Status UNV Isosorbide Mononitrate (Imdur) 60 mg DAILY PO Last administered on 04/25/18at 08 :37; Start 04/23/18 at 09:00 Isosorbide Mononitrate (Imdur) 30 mg QHS PO Last administered on 04/24/18 21: 57; Start 04/22/18 at 21:00 Atorvastatin Calcium (Lipitor) 40 mg HS PO Last administered on 04/24/18at 21:57 ; Start 04/22/18 at 21:00 Clonidine HCl (Catapres) 0.2 mg BID PO Last administered on 04/25/18at 08:37; Start 04/22/18 at 21:00 Doxazosin Mesylate (Cardura) 4 mg HS PO Last administered on 04/24/18at 21:57; Start 04/22/18 at 21:00 Ferrous Sulfate (Feosol) 325 mg DAILY PO ; Start 04/23/18 at 09:00 Acetaminophen/ Hydrocodone Bitart (Lortab 7.5/325) 1 tab PRN Q6HRS PRN PO PAIN ; Start 04/22/18 at 15:15; Stop 04/24/18 at 14:19; Status DC Potassium Chloride (Klor-Con) 20 meq BID PO Last administered on 04/24/18at 21: 54; Start 04/22/18 at 21:00 Enalaprilat (Vasotec Inj) 1.25 mg PRN Q6HRS PRN IVP HYPERTENSION, SEE COMMENTS Last administered on 04/23/18at 09:25; Start 04/23/18 at 00:15 Hydralazine HCl (Apresoline Inj) 25 mg PRN Q6HRS PRN IVP ELEVATED BP, SEE COMMENTS Last administered on 04/23/18at 12:39; Start 04/23/18 at 03:45 Piperacillin Sod/ Tazobactam Sod (Zosyn Per Pharmacy) 1 each PRN DAILY PRN MC SEE COMMENTS; Start 04/23/18 at 09:45; Stop 04/24/18 at 07:54; Status DC Piperacillin Sod/ Tazobactam Sod 2.25 gm/Sodium Chloride 50 ml @ 100 mls/hr Q6HRS IV ; Start 04/23/18 at 10:30; Stop 04/23/18 at 13:57; Status DC Acetaminophen/ Hydrocodone Bitart (Lortab 5/325) 1 tab PRN Q4HRS PRN PO MILD TO MODERATE PAIN Last administered on 04/25/18at 01:56; Start 04/24/18 at 10:45 Acetaminophen/ Hydrocodone Bitart (Lortab 5/325) 2 tab PRN Q4HRS PRN PO MODERATE PAIN; Start 04/24/18 at 10:45 Hydromorphone HCl (Dilaudid) 0.5 mg PRN Q3HRS PRN IV MODERATE TO SEVERE PAIN; Start 04/24/18 at 10:45 Lansoprazole (Prevacid) 30 mg BIDBFRMEAL FT ; Start 04/25/18 at 16:30 Al Hydroxide/Mg Hydroxide (Mylanta Plus Xs) 30 ml PRN Q2HR PRN PO HEARTBURN / GAS; Start 04/25/18 at 09:30 Active Scripts Active Reported Metoprolol Tartrate 25 Mg Tablet 25 Mg PO BID Ferrous Sulfate 325 Mg Tablet 325 Mg PO DAILY Allopurinol 100 Mg Tablet 100 Mg PO DAILY Atorvastatin Calcium 40 Mg Tablet 40 Mg PO HS Potassium Chloride 20 Meq Tab.er.prt 20 Meq PO BID Cardura (Doxazosin Mesylate) 4 Mg Tablet 4 Mg PO HS Isosorbide Mononitrate Er (Isosorbide Mononitrate) 60 Mg Tab.er.24h 60 Mg PO 1TAB AM-1/2TAB PM Clonidine Hcl 0.2 Mg Tablet 0.2 Mg PO BID Amlodipine Besylate 10 Mg Tablet 10 Mg PO DAILY Lortab 7.5-325 mg Tablet (Hydrocodone/Acetaminophen) 1 Each Tablet 1 Tab PO PRN Q6HRS Aspir 81 (Aspirin) 81 Mg Tablet.dr 81 Mg PO DAILY Vitals/I & O Vital Sign - Last 24 Hours 04/24/18 04/24/18 04/24/18 04/24/18 15:00 15:19 19:00 20:00 Temp 97.9 98.4 97.9 98.4 Pulse 69 65 Resp 18 18 B/P (MAP) 112/82 (92) 142/88 (106) Pulse Ox 96 96 96 O2 Delivery Room Air Room Air Nasal Cannula Room Air O2 Flow Rate 2.0 2.0 04/24/18 04/24/18 04/24/18 04/24/18 21:00 21:57 21:57 21:58 Pulse 65 65 65 65 B/P (MAP) 142/88 142/88 142/88 142/88 04/24/18 04/25/18 04/25/18 04/25/18 23:00 01:56 02:56 03:00 Temp 99.0 99.7 99.0 99.7 Pulse 76 85 Resp 18 20 20 18 B/P (MAP) 149/99 (116) 147/96 (113) Pulse Ox 96 96 96 97 O2 Delivery Nasal Cannula Room Air Room Air Nasal Cannula O2 Flow Rate 2.0 2.0 04/25/18 04/25/18 04/25/18 04/25/18 06:00 08:00 08:37 08:37 Temp 97.9 97.9 Pulse 72 72 72 Resp 16 B/P (MAP) 147/96 (113) 147/96 147/96 Pulse Ox 97 O2 Delivery Room Air Room Air 04/25/18 04/25/18 04/25/18 08:38 08:39 11:00 Temp 98.2 98.2 Pulse 72 72 80 Resp 16 B/P (MAP) 147/96 147/96 137/95 (109) Pulse Ox 95 O2 Delivery Room Air Intake and Output 04/24/18 04/24/18 04/25/18 14:59 22:59 06:59 Intake Total 724 ml 600 ml 100 ml Output Total 450 ml 315 ml 600 ml Balance 274 ml 285 ml -500 ml HEAVEN LUCIO MD Apr 25, 2018 12:04
[2018-04-25] MEDS: POTASSIUM CL 20MEQ-0.45% NACL 1,000 ML IV SCH (12:26)
--- NOTE | 2018-04-25 14:08 | PATHOLOGY ---
[facility] Accession Number: [id number] . 01 Material submitted: . SIGMOID COLON . 02 Diagnosis: Colon, sigmoid, segmental resection: - Tubulovillous adenoma, 3.5 cm. - No evidence of adenomatous colonic mucosa at margins of excision. - Hyperplastic polyp. - Eight pericolonic lymph nodes with no evidence of carcinoma (0/8). (SKM/db; 04/25/2018) LBQ/04/25/2018 . 02 Electronically signed: . Suresh Fisher MD, Pathologist NPI- [id number] . 01 Gross description: . The specimen is received fresh and is designated "sigmoid colon stitch at proximal end". This consists of a segmental colon and attached mesocolon. The segment is stapled closed at both ends. A stitch is attached to the proximal end. The colon measures approximately 9.5 cm in length. The mesocolon measures up to 3.0 cm in depth. The antimesocolic serosa is pink and dull. There is focal black tattooing of the antimesocolic serosa and adjacent pericolic fat of the mid portion of the specimen. The segment is opened along the antimesocolic aspect. Arising approximately 3.0 cm from the proximal margin, and 4.5 cm from the distal margin, there is a pedunculated lobulated pink-coronel polyp which measures up to 3.5 x 2.2 x 1.8 cm. The polyp is soft to focally slightly firm. There is no evidence of tumor invasion of the wall of the colon. There is black tattooing of the mucosa adjacent to and distal to the polypoid mass. There are no obvious enlarged lymph nodes within the attached mesocolon. (JPM:pit 04/22/2018) . Sectioning through the mass reveals containment within the mucosa. The remaining mucosa is pink-coronel with a few possible nodules ranging from 0.1-0.3 cm near the distal resection margin. The pericolic tissue is placed in clearing solution to reveal multiple lymph node candidates ranging from 0.1 cm to 0.7 cm. [employer] sections are submitted as follows: . A1: Proximal margin A2: Distal margin A3-A5: Entire margin of mass A6: Additional possible nodules A7: Intact candidates A8: 2 bisected candidates A9: 2 intact lymph node candidates A10-A11: Lymphovascular bundles for microscopic lymph node identification (SDY; 04/23/2018) . Additional hostess party sales representative sections to include the remainder of pedunculated mass are submitted in A12-A16 with black ink applied to my cuts in A12-A14. (SDY; 04/24/2018) . INTRAOPERATIVE CONSULTATION WITH GROSS IMPRESSION: Segment of colon and attached mesocolon, sigmoid colon segmental resection: - Pedunculated polypoid mass identified - margins of resection negative for tumor. - The results are displayed to Dr. Santiago in the operating room. - The specimen is fixed in formalin prior to additional sectioning. (JPM:pit 04/22/2018) . Intraoperative gross consultation performed at [facility], [address] [place] [id number]. SYU/QTP . 02 Pathologist provided ICD-10: D12.5, K63.5 . 02 CPT . 162871 Specimen Comment: A courtesy copy of this report has been sent to Specimen Comment: [phone]. Specimen Comment: Report sent to Performed at: 01 [facility] [address], [place] [id number] MD Luisito Lovell MD Phone: [phone] Performed at: 02 [facility] [address] [place] [id number] MD Wilton Fleming MD Phone: [phone]
[2018-04-25 15:00] VITALS: BP 109/71
--- NOTE | 2018-04-25 16:04 | NUR ---
Insurance has approved for pt to go to [facility] for SNU. RN notified. Possible discharge tomorrow (04/26/18). SW will continue to follow.
[2018-04-25] MEDS: LANSOPRAZOLE 30 MG TAB.RAP.DR FT SCH (16:34)
[2018-04-25 19:00] VITALS: BP 136/93
[2018-04-25] MEDS: ATORVASTATIN CALCIUM 40 MG TABLET. PO SCH (21:22)
[2018-04-25] MEDS: DOXAZOSIN MESYLATE 4 MG TABLET. PO SCH (21:25)
[2018-04-25 23:00] VITALS: BP 133/98
[2018-04-25] MEDS: ONDANSETRON PF 4 MG/2 ML VIAL. IV PRN (23:20)
[2018-04-26] MEDS: POTASSIUM CL 20MEQ-0.45% NACL 1,000 ML IV SCH ×3 (02:56→15:00)
[2018-04-26 03:00] VITALS: BP 140/84
[2018-04-26] MEDS: LANSOPRAZOLE 30 MG TAB.RAP.DR FT SCH ×2 (06:49→16:52)
[2018-04-26 07:00] VITALS: BP 165/99
[2018-04-26 07:50] LABS: BASO % 0 % (0-3); EOS # 0.1 x10^3/uL (0.0-0.7); EOS % 1 % (0-3); HEMATOCRIT 30.2 % (39.0-53.0); HEMOGLOBIN 9.9 g/dL (13.0-17.5); LYMPH # 1.5 x10^3/uL (1.0-4.8); LYMPH % 13 % (24-48); MEAN CORPUSCULAR HEMOGLOBIN 27 pg (25-35); MEAN CORPUSCULAR HGB CONC 33 g/dL (31-37); MEAN CORPUSCULAR VOLUME 82 fL (79-100); MONO # 0.9 x10^3/uL (0.0-1.1); MONO % 8 % (0-9); NEUT # 9.2 x10^3uL (1.8-7.7); NEUT % 78 % (31-73); PLATELET COUNT 308 x10^3/uL (140-400); RED BLOOD COUNT 3.68 x10^6/uL (4.30-5.70); WHITE BLOOD COUNT 11.7 x10^3/uL (4.0-11.0)
[2018-04-26 08:10] LABS: ALBUMIN 2.4 g/dL (3.4-5.0); ALBUMIN/GLOBULIN RATIO 0.6 (1.0-1.7); CALCIUM 8.3 mg/dL (8.5-10.1); CREATININE 3.7 mg/dL (0.7-1.3); GFR 20.2; POTASSIUM 4.4 mmol/L (3.5-5.1); TOTAL BILIRUBIN 0.5 mg/dL (0.2-1.0); TOTAL PROTEIN 6.3 g/dL (6.4-8.2)
[2018-04-26] MEDS: METOPROLOL TART IMMED RELEASE 25 MG TABLET. PO SCH ×2 (08:47→21:34)
[2018-04-26] MEDS: ASPIRIN ENTERIC COATED 81 MG TABLET.DR. PO SCH (08:47)
[2018-04-26] MEDS: cloNIDine HCL 0.2 MG TABLET PO SCH ×2 (08:47→21:33)
[2018-04-26] MEDS: ENOXAPARIN 30 MG/0.3 ML SYRINGE. SQ SCH (08:48)
[2018-04-26] MEDS: ISOSORBIDE MONONITRATE ER 30 MG TAB.ER.24H PO SCH ×2 (08:48→21:34)
[2018-04-26] MEDS: POTASSIUM CHLORIDE 20 MEQ TABLET.ER. PO SCH ×2 (08:48→21:00)
[2018-04-26] MEDS: FERROUS SULFATE 325 MG TABLET. PO SCH (08:48)
[2018-04-26] MEDS: amLODIPine BESYLATE 10 MG TABLET PO SCH (08:49)
[2018-04-26] MEDS: ALLOPURINOL 100 MG TABLET. PO SCH (08:49)
--- NOTE | 2018-04-26 10:56 | PDOC ---
PROGRESS NOTES Subjective Subjective SEEN IN FOLLOW UP OF ARF AND CKD4 Objective Objective Vital Signs Date Time Temp Pulse Resp B/P (MAP) Pulse Ox O2 Delivery O2 Flow Rate FiO2 04/26/18 08:49 68 165/99 04/26/18 08:00 Room Air 04/26/18 07:00 97.9 16 94 97.9 04/25/18 03:00 2.0 Intake and Output 04/26/18 06:59 Output Total 1525 ml Balance -1525 ml Output Urine Total 975 ml Emesis 200 ml Drainage Total 350 ml Physical Exam Abdomen: Normal bowel sounds, Soft, No tenderness, No hepatosplenomegaly, No masses Heart: Regular rate, Normal S1, Normal S2, No murmurs, Gallops General: Alert, Oriented X3, Cooperative, No acute distress Lungs: Clear to auscultation, Normal air movement Neck: Supple, No JVD, No thyromegaly Psych/Mental Status: Mental status NL, Mood NL Diagnosis RENAL FAILURE: Chronic (CKD stage IV) Plan Plan of Care HE LOOKS BETTER THAN HIS GFR. HE HAS CKD4 AND NOW WITH ACUTE EXACERBATION. WILL CONT IVF AND FOLLOW. Comment Review of Relevant I have reviewed the following items jessie (where applicable) has been applied. Labs Laboratory Tests Test 04/26/18 06:50 04/26/18 06:55 White Blood Count 11.7 x10^3/uL (4.0-11.0) Red Blood Count 3.68 x10^6/uL (4.30-5.70) Hemoglobin 9.9 g/dL (13.0-17.5) Hematocrit 30.2 % (39.0-53.0) Mean Corpuscular Volume 82 fL (79-100) Mean Corpuscular Hemoglobin 27 pg (25-35) Mean Corpuscular Hemoglobin Concent 33 g/dL (31-37) Red Cell Distribution Width 17.0 % (11.5-14.5) Platelet Count 308 x10^3/uL (140-400) Neutrophils (%) (Auto) 78 % (31-73) Lymphocytes (%) (Auto) 13 % (24-48) Monocytes (%) (Auto) 8 % (0-9) Eosinophils (%) (Auto) 1 % (0-3) Basophils (%) (Auto) 0 % (0-3) Neutrophils # (Auto) 9.2 x10^3uL (1.8-7.7) Lymphocytes # (Auto) 1.5 x10^3/uL (1.0-4.8) Monocytes # (Auto) 0.9 x10^3/uL (0.0-1.1) Eosinophils # (Auto) 0.1 x10^3/uL (0.0-0.7) Basophils # (Auto) 0.0 x10^3/uL (0.0-0.2) Sodium Level 140 mmol/L (136-145) Potassium Level 4.4 mmol/L (3.5-5.1) Chloride Level 106 mmol/L (98-107) Carbon Dioxide Level 23 mmol/L (21-32) Anion Gap 11 (6-14) Blood Urea Nitrogen 56 mg/dL (8-26) Creatinine 3.7 mg/dL (0.7-1.3) Estimated GFR (Cockcroft-Gault) 20.2 BUN/Creatinine Ratio 15 (6-20) Glucose Level 102 mg/dL (70-99) Calcium Level 8.3 mg/dL (8.5-10.1) Total Bilirubin 0.5 mg/dL (0.2-1.0) Aspartate Amino Transf (AST/SGOT) 19 U/L (15-37) Alanine Aminotransferase (ALT/SGPT) 13 U/L (16-63) Alkaline Phosphatase 59 U/L (46-116) Total Protein 6.3 g/dL (6.4-8.2) Albumin 2.4 g/dL (3.4-5.0) Albumin/Globulin Ratio 0.6 (1.0-1.7) Laboratory Tests Test 04/26/18 06:50 04/26/18 06:55 White Blood Count 11.7 x10^3/uL (4.0-11.0) Red Blood Count 3.68 x10^6/uL (4.30-5.70) Hemoglobin 9.9 g/dL (13.0-17.5) Hematocrit 30.2 % (39.0-53.0) Mean Corpuscular Volume 82 fL (79-100) Mean Corpuscular Hemoglobin 27 pg (25-35) Mean Corpuscular Hemoglobin Concent 33 g/dL (31-37) Red Cell Distribution Width 17.0 % (11.5-14.5) Platelet Count 308 x10^3/uL (140-400) Neutrophils (%) (Auto) 78 % (31-73) Lymphocytes (%) (Auto) 13 % (24-48) Monocytes (%) (Auto) 8 % (0-9) Eosinophils (%) (Auto) 1 % (0-3) Basophils (%) (Auto) 0 % (0-3) Neutrophils # (Auto) 9.2 x10^3uL (1.8-7.7) Lymphocytes # (Auto) 1.5 x10^3/uL (1.0-4.8) Monocytes # (Auto) 0.9 x10^3/uL (0.0-1.1) Eosinophils # (Auto) 0.1 x10^3/uL (0.0-0.7) Basophils # (Auto) 0.0 x10^3/uL (0.0-0.2) Sodium Level 140 mmol/L (136-145) Potassium Level 4.4 mmol/L (3.5-5.1) Chloride Level 106 mmol/L (98-107) Carbon Dioxide Level 23 mmol/L (21-32) Anion Gap 11 (6-14) Blood Urea Nitrogen 56 mg/dL (8-26) Creatinine 3.7 mg/dL (0.7-1.3) Estimated GFR (Cockcroft-Gault) 20.2 BUN/Creatinine Ratio 15 (6-20) Glucose Level 102 mg/dL (70-99) Calcium Level 8.3 mg/dL (8.5-10.1) Total Bilirubin 0.5 mg/dL (0.2-1.0) Aspartate Amino Transf (AST/SGOT) 19 U/L (15-37) Alanine Aminotransferase (ALT/SGPT) 13 U/L (16-63) Alkaline Phosphatase 59 U/L (46-116) Total Protein 6.3 g/dL (6.4-8.2) Albumin 2.4 g/dL (3.4-5.0) Albumin/Globulin Ratio 0.6 (1.0-1.7) Medications Current Medications Ondansetron HCl (Zofran) 4 mg PRN Q6HRS PRN IV NAUSEA/VOMITING Last administered on 04/22/18at 11:28; Start 04/22/18 at 07:00; Stop 04/23/18 at 06:59 ; Status DC Fentanyl Citrate (Fentanyl 2ml Vial) 25 mcg PRN Q5MIN PRN IV MILD PAIN; Start 04/22/18 at 07:00; Stop 04/23/18 at 06:59; Status DC Fentanyl Citrate (Fentanyl 2ml Vial) 50 mcg PRN Q5MIN PRN IV MODERATE TO SEVERE PAIN; Start 04/22/18 at 07:00; Stop 04/23/18 at 06:59; Status DC Morphine Sulfate (Morphine Sulfate) 1 mg PRN Q10MIN PRN IV SEVERE PAIN Last administered on 04/22/18 11:31; Start 04/22/18 at 07:00; Stop 04/23/18 at 06:59 ; Status DC Ringer's Solution 1,000 ml @ 30 mls/hr Q24H IV Last administered on 04/22/18 07:23; Start 04/22/18 at 07:00; Stop 04/22/18 at 18:59; Status DC Lidocaine HCl (Xylocaine-Mpf 1% 2ml Vial) 2 ml PRN 1X PRN ID PRIOR TO IV START ; Start 04/22/18 at 07:00; Stop 04/23/18 at 06:59; Status DC Hydromorphone HCl (Dilaudid) 0.5 mg PRN Q10MIN PRN IV SEV PAIN, Second choice Last administered on 04/22/18 11:37; Start 04/22/18 at 07:00; Stop 04/23/18 at 06:59; Status DC Prochlorperazine Edisylate (Compazine) 5 mg PACU PRN PRN IV NAUSEA, MRX1 Last administered on 04/22/18at 10:59; Start 04/22/18 at 07:00; Stop 04/23/18 at 06:59 ; Status DC Cefoxitin Sodium (Mefoxin) 1 gm 1X PREOP PRN IVP PRIOR TO PROCEDURE; Start at 06:00; Stop 04/22/18 at 18:00; Status DC Rocuronium [place] (Zemuron) 50 mg STK-MED ONCE .ROUTE ; Start 04/22/18 at 06:23 ; Stop 04/22/18 at 06:24; Status DC Fentanyl Citrate (Fentanyl 2ml Vial) 100 mcg STK-MED ONCE .ROUTE ; Start at 06:23; Stop 04/22/18 at 06:24; Status DC Sevoflurane (Ultane) 90 ml STK-MED ONCE IH ; Start 04/22/18 at 06:24; Stop 04/22 at 06:25; Status DC Dexamethasone Sodium Phosphate (Decadron) 20 mg STK-MED ONCE .ROUTE ; Start at 06:24; Stop 04/22/18 at 06:25; Status DC Propofol 20 ml @ As Directed STK-MED ONCE IV ; Start 04/22/18 at 06:24; Stop at 06:25; Status DC Lidocaine HCl (Lidocaine Pf 2% Vial) 5 ml STK-MED ONCE .ROUTE ; Start 04/22/18 at 06:24; Stop 04/22/18 at 06:25; Status DC Ondansetron HCl (Zofran) 4 mg STK-MED ONCE .ROUTE ; Start 04/22/18 at 06:24; Stop 04/22/18 at 06:25; Status DC Phenylephrine HCl (Reggie-Synephrine Inj) 10 mg STK-MED ONCE .ROUTE ; Start at 06:24; Stop 04/22/18 at 06:25; Status DC Bupivacaine HCl/ Epinephrine Bitart (Sensorcaine-Epi 0.25%-1:239762 Mpf) 30 ml STK-MED ONCE .ROUTE ; Start 04/22/18 at 06:25; Stop 04/22/18 at 07:26; Status DC Bupivacaine HCl/ Epinephrine Bitart (Sensorcain-Mpf Epi 0.5%-1:[id number]) 30 ml STK -MED ONCE .ROUTE Last administered on 04/22/18at 09:05; Start 04/22/18 at 06:33 ; Stop 04/22/18 at 07:33; Status DC Fentanyl Citrate (Fentanyl 5ml Vial) 250 mcg STK-MED ONCE .ROUTE ; Start at 08:45; Stop 04/22/18 at 08:47; Status DC Rocuronium [place] (Zemuron) 50 mg STK-MED ONCE .ROUTE ; Start 04/22/18 at 08:46 ; Stop 04/22/18 at 08:47; Status DC Sevoflurane (Ultane) 90 ml STK-MED ONCE IH ; Start 04/22/18 at 10:07; Stop 04/22 at 10:08; Status DC Neostigmine Methylsulfate (Neostigmine Methylsulfate) 5 mg STK-MED ONCE .ROUTE ; Start 04/22/18 at 10:08; Stop 04/22/18 at 10:09; Status DC Glycopyrrolate (Robinul) 1 mg STK-MED ONCE .ROUTE ; Start 04/22/18 at 10:09; Stop 04/22/18 at 10:10; Status DC Enoxaparin Sodium (Lovenox 30mg Syringe) 30 mg Q24H SQ Last administered on at 08:48; Start 04/23/18 at 09:00 Sodium Chloride (Normal Saline Flush) 3 ml QSHIFT PRN IV AFTER MEDS AND BLOOD DRAWS; Start 04/22/18 at 13:15 Potassium Chloride/Sodium Chloride 1,000 ml @ 100 mls/hr Q10H IV Last administered on 04/26/18at 02:56; Start 04/22/18 at 14:00 Hydromorphone HCl 30 ml @ 0 mls/hr CONT PRN PRN IV PER PROTOCOL Last administered on 04/22/18at 13:49; Start 04/22/18 at 13:15; Stop 04/24/18 at 10:38 ; Status DC Ondansetron HCl (Zofran) 4 mg PRN Q6HRS PRN IV NAUESA, 1ST CHOICE Last administered on 04/25/18at 23:20; Start 04/22/18 at 13:15 Allopurinol (Zyloprim) 100 mg DAILY PO ; Start 04/23/18 at 09:00 Amlodipine Besylate (Norvasc) 10 mg DAILY PO Last administered on 04/26/18 08: 49; Start 04/23/18 at 09:00 Aspirin (Ecotrin) 81 mg DAILY PO Last administered on 04/26/18 08:47; Start at 09:00 Metoprolol Tartrate (Lopressor) 25 mg BID PO Last administered on 04/26/18at 08: 47; Start 04/22/18 at 21:00 Non-Formulary Medication (Isosorbide Mononitrate (Isosorbide Mononitrate Er)) 60 mg 1tab AM-1/2tab PM PO ; Start 04/22/18 at 13:15; Status UNV Isosorbide Mononitrate (Imdur) 60 mg DAILY PO Last administered on 04/26/18 08 :48; Start 04/23/18 at 09:00 Isosorbide Mononitrate (Imdur) 30 mg QHS PO Last administered on 04/25/18at 21: 22; Start 04/22/18 at 21:00 Atorvastatin Calcium (Lipitor) 40 mg HS PO Last administered on 04/25/18 21:22 ; Start 04/22/18 at 21:00 Clonidine HCl (Catapres) 0.2 mg BID PO Last administered on 04/26/18 08:47; Start 04/22/18 at 21:00 Doxazosin Mesylate (Cardura) 4 mg HS PO Last administered on 04/25/18at 21:25; Start 04/22/18 at 21:00 Ferrous Sulfate (Feosol) 325 mg DAILY PO ; Start 04/23/18 at 09:00 Acetaminophen/ Hydrocodone Bitart (Lortab 7.5/325) 1 tab PRN Q6HRS PRN PO PAIN ; Start 04/22/18 at 15:15; Stop 04/24/18 at 14:19; Status DC Potassium Chloride (Klor-Con) 20 meq BID PO Last administered on 04/24/18at 21: 54; Start 04/22/18 at 21:00 Enalaprilat (Vasotec Inj) 1.25 mg PRN Q6HRS PRN IVP HYPERTENSION, SEE COMMENTS Last administered on 04/23/18at 09:25; Start 04/23/18 at 00:15 Hydralazine HCl (Apresoline Inj) 25 mg PRN Q6HRS PRN IVP ELEVATED BP, SEE COMMENTS Last administered on 04/23/18at 12:39; Start 04/23/18 at 03:45 Piperacillin Sod/ Tazobactam Sod (Zosyn Per Pharmacy) 1 each PRN DAILY PRN MC SEE COMMENTS; Start 04/23/18 at 09:45; Stop 04/24/18 at 07:54; Status DC Piperacillin Sod/ Tazobactam Sod 2.25 gm/Sodium Chloride 50 ml @ 100 mls/hr Q6HRS IV ; Start 04/23/18 at 10:30; Stop 04/23/18 at 13:57; Status DC Acetaminophen/ Hydrocodone Bitart (Lortab 5/325) 1 tab PRN Q4HRS PRN PO MILD TO MODERATE PAIN Last administered on 04/25/18at 14:53; Start 04/24/18 at 10:45 Acetaminophen/ Hydrocodone Bitart (Lortab 5/325) 2 tab PRN Q4HRS PRN PO MODERATE PAIN; Start 04/24/18 at 10:45 Hydromorphone HCl (Dilaudid) 0.5 mg PRN Q3HRS PRN IV MODERATE TO SEVERE PAIN; Start 04/24/18 at 10:45 Lansoprazole (Prevacid) 30 mg BIDBFRMEAL FT Last administered on 04/26/18at 06: 49; Start 04/25/18 at 16:30 Al Hydroxide/Mg Hydroxide (Mylanta Plus Xs) 30 ml PRN Q2HR PRN PO HEARTBURN / GAS Last administered on 04/25/18at 12:23; Start 04/25/18 at 09:30 Active Scripts Active Reported Metoprolol Tartrate 25 Mg Tablet 25 Mg PO BID Ferrous Sulfate 325 Mg Tablet 325 Mg PO DAILY Allopurinol 100 Mg Tablet 100 Mg PO DAILY Atorvastatin Calcium 40 Mg Tablet 40 Mg PO HS Potassium Chloride 20 Meq Tab.er.prt 20 Meq PO BID Cardura (Doxazosin Mesylate) 4 Mg Tablet 4 Mg PO HS Isosorbide Mononitrate Er (Isosorbide Mononitrate) 60 Mg Tab.er.24h 60 Mg PO 1TAB AM-1/2TAB PM Clonidine Hcl 0.2 Mg Tablet 0.2 Mg PO BID Amlodipine Besylate 10 Mg Tablet 10 Mg PO DAILY Lortab 7.5-325 mg Tablet (Hydrocodone/Acetaminophen) 1 Each Tablet 1 Tab PO PRN Q6HRS Aspir 81 (Aspirin) 81 Mg Tablet.dr 81 Mg PO DAILY Vitals/I & O Vital Sign - Last 24 Hours 04/25/18 04/25/18 04/25/18 04/25/18 11:00 14:53 15:00 15:53 Temp 98.2 98.4 98.2 98.4 Pulse 80 81 Resp 16 18 B/P (MAP) 137/95 (109) 109/71 (84) Pulse Ox 95 95 O2 Delivery Room Air Room Air Room Air Room Air 04/25/18 04/25/18 04/25/18 04/25/18 19:00 20:30 21:22 21:23 Temp 98.7 98.7 Pulse 90 90 90 Resp 18 B/P (MAP) 136/93 (107) 136/93 136/93 Pulse Ox 95 O2 Delivery Room Air Room Air 04/25/18 04/25/18 04/25/18 04/26/18 21:24 21:25 23:00 03:00 Temp 98.8 98.4 98.8 98.4 Pulse 90 90 89 58 Resp 18 18 B/P (MAP) 136/93 136/93 133/98 (110) 140/84 (102) Pulse Ox 96 95 O2 Delivery Room Air Room Air 04/26/18 04/26/18 04/26/18 04/26/18 07:00 08:00 08:47 08:47 Temp 97.9 97.9 Pulse 68 68 68 Resp 16 B/P (MAP) 165/99 (121) 165/99 165/99 Pulse Ox 94 O2 Delivery Room Air Room Air 04/26/18 04/26/18 08:48 08:49 Pulse 68 68 B/P (MAP) 165/99 165/99 Intake and Output 04/25/18 04/25/18 04/26/18 14:59 22:59 06:59 Output Total 290 ml 385 ml 850 ml Balance -290 ml -385 ml -850 ml POLLO STRATTON MD Apr 26, 2018 10:56
[2018-04-26 11:00] VITALS: BP 105/72
--- NOTE | 2018-04-26 11:34 | PDOC ---
PROGRESS NOTES Chief Complaint Chief Complaint Status post resection of large pedunculated polyp of sigmoid colon Hypertension Leukocytosis Acute renal insufficiency (Elevated Cr: 3.0 on 04/23), hx of CKD4 History of dyslipidemia Rheumatic cardiac disease? History of prostate cancer History of Present Illness History of Present Illness Mr. Greer presented for surgery for large pedunculated polyp of sigmoid colon. Tubovillous adenoma per biopsy report. Patient was seen and examined at bedside. Tripathi removed and ORLY in place on R. Pain is controlled, [employer] CLERK dc'ed. Patient resting comfortably, no new complaints. Patient has started eating. Denies nausea/vomiting/abdominal pain. Vitals Vitals Vital Signs Date Time Temp Pulse Resp B/P (MAP) Pulse Ox O2 Delivery O2 Flow Rate FiO2 04/26/18 08:49 68 165/99 04/26/18 08:00 Room Air 04/26/18 07:00 97.9 16 94 97.9 Physical Exam General: Alert, Oriented X3, Cooperative, No acute distress Heart: Regular rate, Normal S1, Normal S2, No murmurs, Gallops Lungs: Clear Abdomen: Normal bowel sounds, Soft, No tenderness, No hepatosplenomegaly, No masses, Other (ORLY on the R, dressing c/d/i) Extremities: No clubbing, No cyanosis, No edema Skin: No rashes, No significant lesion Labs LABS Laboratory Tests Test 04/26/18 06:50 04/26/18 06:55 White Blood Count 11.7 x10^3/uL (4.0-11.0) Red Blood Count 3.68 x10^6/uL (4.30-5.70) Hemoglobin 9.9 g/dL (13.0-17.5) Hematocrit 30.2 % (39.0-53.0) Mean Corpuscular Volume 82 fL (79-100) Mean Corpuscular Hemoglobin 27 pg (25-35) Mean Corpuscular Hemoglobin Concent 33 g/dL (31-37) Red Cell Distribution Width 17.0 % (11.5-14.5) Platelet Count 308 x10^3/uL (140-400) Neutrophils (%) (Auto) 78 % (31-73) Lymphocytes (%) (Auto) 13 % (24-48) Monocytes (%) (Auto) 8 % (0-9) Eosinophils (%) (Auto) 1 % (0-3) Basophils (%) (Auto) 0 % (0-3) Neutrophils # (Auto) 9.2 x10^3uL (1.8-7.7) Lymphocytes # (Auto) 1.5 x10^3/uL (1.0-4.8) Monocytes # (Auto) 0.9 x10^3/uL (0.0-1.1) Eosinophils # (Auto) 0.1 x10^3/uL (0.0-0.7) Basophils # (Auto) 0.0 x10^3/uL (0.0-0.2) Sodium Level 140 mmol/L (136-145) Potassium Level 4.4 mmol/L (3.5-5.1) Chloride Level 106 mmol/L (98-107) Carbon Dioxide Level 23 mmol/L (21-32) Anion Gap 11 (6-14) Blood Urea Nitrogen 56 mg/dL (8-26) Creatinine 3.7 mg/dL (0.7-1.3) Estimated GFR (Cockcroft-Gault) 20.2 BUN/Creatinine Ratio 15 (6-20) Glucose Level 102 mg/dL (70-99) Calcium Level 8.3 mg/dL (8.5-10.1) Total Bilirubin 0.5 mg/dL (0.2-1.0) Aspartate Amino Transf (AST/SGOT) 19 U/L (15-37) Alanine Aminotransferase (ALT/SGPT) 13 U/L (16-63) Alkaline Phosphatase 59 U/L (46-116) Total Protein 6.3 g/dL (6.4-8.2) Albumin 2.4 g/dL (3.4-5.0) Albumin/Globulin Ratio 0.6 (1.0-1.7) Review of Systems Review of Systems Denies abdominal pain Denies nausea Denies vomiting Assessment and Plan Assessmemt and Plan Assessment: Status post resection of large pedunculated polyp of sigmoid colon Hypertension Leukocytosis Acute renal insufficiency (Elevated Cr: 3.0 on 04/23), hx of CKD4 History of dyslipidemia Rheumatic cardiac disease? History of prostate cancer Plan: IVF per renal, Creatinine elevated Okay to discharge pending nephrology and Dr. Santiago input Continue to monitor vitals Review labs in the am [employer]ERK off Tripathi removed Continue to ambulate and advance diet Comment Review of Relevant I have reviewed the following items jessie (where applicable) has been applied. Labs Laboratory Tests Test 04/26/18 06:50 04/26/18 06:55 White Blood Count 11.7 x10^3/uL (4.0-11.0) Red Blood Count 3.68 x10^6/uL (4.30-5.70) Hemoglobin 9.9 g/dL (13.0-17.5) Hematocrit 30.2 % (39.0-53.0) Mean Corpuscular Volume 82 fL (79-100) Mean Corpuscular Hemoglobin 27 pg (25-35) Mean Corpuscular Hemoglobin Concent 33 g/dL (31-37) Red Cell Distribution Width 17.0 % (11.5-14.5) Platelet Count 308 x10^3/uL (140-400) Neutrophils (%) (Auto) 78 % (31-73) Lymphocytes (%) (Auto) 13 % (24-48) Monocytes (%) (Auto) 8 % (0-9) Eosinophils (%) (Auto) 1 % (0-3) Basophils (%) (Auto) 0 % (0-3) Neutrophils # (Auto) 9.2 x10^3uL (1.8-7.7) Lymphocytes # (Auto) 1.5 x10^3/uL (1.0-4.8) Monocytes # (Auto) 0.9 x10^3/uL (0.0-1.1) Eosinophils # (Auto) 0.1 x10^3/uL (0.0-0.7) Basophils # (Auto) 0.0 x10^3/uL (0.0-0.2) Sodium Level 140 mmol/L (136-145) Potassium Level 4.4 mmol/L (3.5-5.1) Chloride Level 106 mmol/L (98-107) Carbon Dioxide Level 23 mmol/L (21-32) Anion Gap 11 (6-14) Blood Urea Nitrogen 56 mg/dL (8-26) Creatinine 3.7 mg/dL (0.7-1.3) Estimated GFR (Cockcroft-Gault) 20.2 BUN/Creatinine Ratio 15 (6-20) Glucose Level 102 mg/dL (70-99) Calcium Level 8.3 mg/dL (8.5-10.1) Total Bilirubin 0.5 mg/dL (0.2-1.0) Aspartate Amino Transf (AST/SGOT) 19 U/L (15-37) Alanine Aminotransferase (ALT/SGPT) 13 U/L (16-63) Alkaline Phosphatase 59 U/L (46-116) Total Protein 6.3 g/dL (6.4-8.2) Albumin 2.4 g/dL (3.4-5.0) Albumin/Globulin Ratio 0.6 (1.0-1.7) Laboratory Tests Test 04/26/18 06:50 04/26/18 06:55 White Blood Count 11.7 x10^3/uL (4.0-11.0) Red Blood Count 3.68 x10^6/uL (4.30-5.70) Hemoglobin 9.9 g/dL (13.0-17.5) Hematocrit 30.2 % (39.0-53.0) Mean Corpuscular Volume 82 fL (79-100) Mean Corpuscular Hemoglobin 27 pg (25-35) Mean Corpuscular Hemoglobin Concent 33 g/dL (31-37) Red Cell Distribution Width 17.0 % (11.5-14.5) Platelet Count 308 x10^3/uL (140-400) Neutrophils (%) (Auto) 78 % (31-73) Lymphocytes (%) (Auto) 13 % (24-48) Monocytes (%) (Auto) 8 % (0-9) Eosinophils (%) (Auto) 1 % (0-3) Basophils (%) (Auto) 0 % (0-3) Neutrophils # (Auto) 9.2 x10^3uL (1.8-7.7) Lymphocytes # (Auto) 1.5 x10^3/uL (1.0-4.8) Monocytes # (Auto) 0.9 x10^3/uL (0.0-1.1) Eosinophils # (Auto) 0.1 x10^3/uL (0.0-0.7) Basophils # (Auto) 0.0 x10^3/uL (0.0-0.2) Sodium Level 140 mmol/L (136-145) Potassium Level 4.4 mmol/L (3.5-5.1) Chloride Level 106 mmol/L (98-107) Carbon Dioxide Level 23 mmol/L (21-32) Anion Gap 11 (6-14) Blood Urea Nitrogen 56 mg/dL (8-26) Creatinine 3.7 mg/dL (0.7-1.3) Estimated GFR (Cockcroft-Gault) 20.2 BUN/Creatinine Ratio 15 (6-20) Glucose Level 102 mg/dL (70-99) Calcium Level 8.3 mg/dL (8.5-10.1) Total Bilirubin 0.5 mg/dL (0.2-1.0) Aspartate Amino Transf (AST/SGOT) 19 U/L (15-37) Alanine Aminotransferase (ALT/SGPT) 13 U/L (16-63) Alkaline Phosphatase 59 U/L (46-116) Total Protein 6.3 g/dL (6.4-8.2) Albumin 2.4 g/dL (3.4-5.0) Albumin/Globulin Ratio 0.6 (1.0-1.7) Medications Current Medications Ondansetron HCl (Zofran) 4 mg PRN Q6HRS PRN IV NAUSEA/VOMITING Last administered on 04/22/18 11:28; Start 04/22/18 at 07:00; Stop 04/23/18 at 06:59 ; Status DC Fentanyl Citrate (Fentanyl 2ml Vial) 25 mcg PRN Q5MIN PRN IV MILD PAIN; Start 04/22/18 at 07:00; Stop 04/23/18 at 06:59; Status DC Fentanyl Citrate (Fentanyl 2ml Vial) 50 mcg PRN Q5MIN PRN IV MODERATE TO SEVERE PAIN; Start 04/22/18 at 07:00; Stop 04/23/18 at 06:59; Status DC Morphine Sulfate (Morphine Sulfate) 1 mg PRN Q10MIN PRN IV SEVERE PAIN Last administered on 04/22/18at 11:31; Start 04/22/18 at 07:00; Stop 04/23/18 at 06:59 ; Status DC Ringer's Solution 1,000 ml @ 30 mls/hr Q24H IV Last administered on 04/22/18 07:23; Start 04/22/18 at 07:00; Stop 04/22/18 at 18:59; Status DC Lidocaine HCl (Xylocaine-Mpf 1% 2ml Vial) 2 ml PRN 1X PRN ID PRIOR TO IV START ; Start 04/22/18 at 07:00; Stop 04/23/18 at 06:59; Status DC Hydromorphone HCl (Dilaudid) 0.5 mg PRN Q10MIN PRN IV SEV PAIN, Second choice Last administered on 04/22/18at 11:37; Start 04/22/18 at 07:00; Stop 04/23/18 at 06:59; Status DC Prochlorperazine Edisylate (Compazine) 5 mg PACU PRN PRN IV NAUSEA, MRX1 Last administered on 04/22/18at 10:59; Start 04/22/18 at 07:00; Stop 04/23/18 at 06:59 ; Status DC Cefoxitin Sodium (Mefoxin) 1 gm 1X PREOP PRN IVP PRIOR TO PROCEDURE; Start at 06:00; Stop 04/22/18 at 18:00; Status DC Rocuronium [place] (Zemuron) 50 mg STK-MED ONCE .ROUTE ; Start 04/22/18 at 06:23 ; Stop 04/22/18 at 06:24; Status DC Fentanyl Citrate (Fentanyl 2ml Vial) 100 mcg STK-MED ONCE .ROUTE ; Start at 06:23; Stop 04/22/18 at 06:24; Status DC Sevoflurane (Ultane) 90 ml STK-MED ONCE IH ; Start 04/22/18 at 06:24; Stop 04/22 at 06:25; Status DC Dexamethasone Sodium Phosphate (Decadron) 20 mg STK-MED ONCE .ROUTE ; Start at 06:24; Stop 04/22/18 at 06:25; Status DC Propofol 20 ml @ As Directed STK-MED ONCE IV ; Start 04/22/18 at 06:24; Stop at 06:25; Status DC Lidocaine HCl (Lidocaine Pf 2% Vial) 5 ml STK-MED ONCE .ROUTE ; Start 04/22/18 at 06:24; Stop 04/22/18 at 06:25; Status DC Ondansetron HCl (Zofran) 4 mg STK-MED ONCE .ROUTE ; Start 04/22/18 at 06:24; Stop 04/22/18 at 06:25; Status DC Phenylephrine HCl (Reggei-Synephrine Inj) 10 mg STK-MED ONCE .ROUTE ; Start at 06:24; Stop 04/22/18 at 06:25; Status DC Bupivacaine HCl/ Epinephrine Bitart (Sensorcaine-Epi 0.25%-1:[id number] Mpf) 30 ml STK-MED ONCE .ROUTE ; Start 04/22/18 at 06:25; Stop 04/22/18 at 07:26; Status DC Bupivacaine HCl/ Epinephrine Bitart (Sensorcain-Mpf Epi 0.5%-1:[id number]) 30 ml STK -MED ONCE .ROUTE Last administered on 04/22/18at 09:05; Start 04/22/18 at 06:33 ; Stop 04/22/18 at 07:33; Status DC Fentanyl Citrate (Fentanyl 5ml Vial) 250 mcg STK-MED ONCE .ROUTE ; Start at 08:45; Stop 04/22/18 at 08:47; Status DC Rocuronium [place] (Zemuron) 50 mg STK-MED ONCE .ROUTE ; Start 04/22/18 at 08:46 ; Stop 04/22/18 at 08:47; Status DC Sevoflurane (Ultane) 90 ml STK-MED ONCE IH ; Start 04/22/18 at 10:07; Stop 04/22 at 10:08; Status DC Neostigmine Methylsulfate (Neostigmine Methylsulfate) 5 mg STK-MED ONCE .ROUTE ; Start 04/22/18 at 10:08; Stop 04/22/18 at 10:09; Status DC Glycopyrrolate (Robinul) 1 mg STK-MED ONCE .ROUTE ; Start 04/22/18 at 10:09; Stop 04/22/18 at 10:10; Status DC Enoxaparin Sodium (Lovenox 30mg Syringe) 30 mg Q24H SQ Last administered on at 08:48; Start 04/23/18 at 09:00 Sodium Chloride (Normal Saline Flush) 3 ml QSHIFT PRN IV AFTER MEDS AND BLOOD DRAWS; Start 04/22/18 at 13:15 Potassium Chloride/Sodium Chloride 1,000 ml @ 100 mls/hr Q10H IV Last administered on 3/22/19at 02:56; Start 04/22/18 at 14:00 Hydromorphone HCl 30 ml @ 0 mls/hr CONT PRN PRN IV PER PROTOCOL Last administered on 04/22/18 13:49; Start 04/22/18 at 13:15; Stop 04/24/18 at 10:38 ; Status DC Ondansetron HCl (Zofran) 4 mg PRN Q6HRS PRN IV NAUESA, 1ST CHOICE Last administered on 04/25/18 23:20; Start 04/22/18 at 13:15 Allopurinol (Zyloprim) 100 mg DAILY PO ; Start 04/23/18 at 09:00 Amlodipine Besylate (Norvasc) 10 mg DAILY PO Last administered on 04/26/18 08: 49; Start 04/23/18 at 09:00 Aspirin (Ecotrin) 81 mg DAILY PO Last administered on 04/26/18 08:47; Start at 09:00 Metoprolol Tartrate (Lopressor) 25 mg BID PO Last administered on 04/26/18 08: 47; Start 04/22/18 at 21:00 Non-Formulary Medication (Isosorbide Mononitrate (Isosorbide Mononitrate Er)) 60 mg 1tab AM-1/2tab PM PO ; Start 04/22/18 at 13:15; Status UNV Isosorbide Mononitrate (Imdur) 60 mg DAILY PO Last administered on 04/26/18 08 :48; Start 04/23/18 at 09:00 Isosorbide Mononitrate (Imdur) 30 mg QHS PO Last administered on 04/25/18 21: 22; Start 04/22/18 at 21:00 Atorvastatin Calcium (Lipitor) 40 mg HS PO Last administered on 04/25/18 21:22 ; Start 04/22/18 at 21:00 Clonidine HCl (Catapres) 0.2 mg BID PO Last administered on 04/26/18 08:47; Start 04/22/18 at 21:00 Doxazosin Mesylate (Cardura) 4 mg HS PO Last administered on 04/25/18 21:25; Start 04/22/18 at 21:00 Ferrous Sulfate (Feosol) 325 mg DAILY PO ; Start 04/23/18 at 09:00 Acetaminophen/ Hydrocodone Bitart (Lortab 7.5/325) 1 tab PRN Q6HRS PRN PO PAIN ; Start 04/22/18 at 15:15; Stop 04/24/18 at 14:19; Status DC Potassium Chloride (Klor-Con) 20 meq BID PO Last administered on 04/24/18at 21: 54; Start 04/22/18 at 21:00 Enalaprilat (Vasotec Inj) 1.25 mg PRN Q6HRS PRN IVP HYPERTENSION, SEE COMMENTS Last administered on 04/23/18at 09:25; Start 04/23/18 at 00:15 Hydralazine HCl (Apresoline Inj) 25 mg PRN Q6HRS PRN IVP ELEVATED BP, SEE COMMENTS Last administered on 04/23/18at 12:39; Start 04/23/18 at 03:45 Piperacillin Sod/ Tazobactam Sod (Zosyn Per Pharmacy) 1 each PRN DAILY PRN MC SEE COMMENTS; Start 04/23/18 at 09:45; Stop 04/24/18 at 07:54; Status DC Piperacillin Sod/ Tazobactam Sod 2.25 gm/Sodium Chloride 50 ml @ 100 mls/hr Q6HRS IV ; Start 04/23/18 at 10:30; Stop 04/23/18 at 13:57; Status DC Acetaminophen/ Hydrocodone Bitart (Lortab 5/325) 1 tab PRN Q4HRS PRN PO MILD TO MODERATE PAIN Last administered on 04/25/18at 14:53; Start 04/24/18 at 10:45 Acetaminophen/ Hydrocodone Bitart (Lortab 5/325) 2 tab PRN Q4HRS PRN PO MODERATE PAIN; Start 04/24/18 at 10:45 Hydromorphone HCl (Dilaudid) 0.5 mg PRN Q3HRS PRN IV MODERATE TO SEVERE PAIN; Start 04/24/18 at 10:45 Lansoprazole (Prevacid) 30 mg BIDBFRMEAL FT Last administered on 04/26/18at 06: 49; Start 04/25/18 at 16:30 Al Hydroxide/Mg Hydroxide (Mylanta Plus Xs) 30 ml PRN Q2HR PRN PO HEARTBURN / GAS Last administered on 04/25/18at 12:23; Start 04/25/18 at 09:30 Active Scripts Active Reported Metoprolol Tartrate 25 Mg Tablet 25 Mg PO BID Ferrous Sulfate 325 Mg Tablet 325 Mg PO DAILY Allopurinol 100 Mg Tablet 100 Mg PO DAILY Atorvastatin Calcium 40 Mg Tablet 40 Mg PO HS Potassium Chloride 20 Meq Tab.er.prt 20 Meq PO BID Cardura (Doxazosin Mesylate) 4 Mg Tablet 4 Mg PO HS Isosorbide Mononitrate Er (Isosorbide Mononitrate) 60 Mg Tab.er.24h 60 Mg PO 1TAB AM-1/2TAB PM Clonidine Hcl 0.2 Mg Tablet 0.2 Mg PO BID Amlodipine Besylate 10 Mg Tablet 10 Mg PO DAILY Lortab 7.5-325 mg Tablet (Hydrocodone/Acetaminophen) 1 Each Tablet 1 Tab PO PRN Q6HRS Aspir 81 (Aspirin) 81 Mg Tablet.dr 81 Mg PO DAILY Vitals/I & O Vital Sign - Last 24 Hours 04/25/18 04/25/18 04/25/18 04/25/18 14:53 15:00 15:53 19:00 Temp 98.4 98.7 98.4 98.7 Pulse 81 90 Resp 18 18 B/P (MAP) 109/71 (84) 136/93 (107) Pulse Ox 95 95 O2 Delivery Room Air Room Air Room Air Room Air 04/25/18 04/25/18 04/25/18 04/25/18 20:30 21:22 21:23 21:24 Pulse 90 90 90 B/P (MAP) 136/93 136/93 136/93 O2 Delivery Room Air 04/25/18 04/25/18 04/26/18 04/26/18 21:25 23:00 03:00 07:00 Temp 98.8 98.4 97.9 98.8 98.4 97.9 Pulse 90 89 58 68 Resp 18 18 16 B/P (MAP) 136/93 133/98 (110) 140/84 (102) 165/99 (121) Pulse Ox 96 95 94 O2 Delivery Room Air Room Air Room Air 04/26/18 04/26/18 04/26/18 04/26/18 08:00 08:47 08:47 08:48 Pulse 68 68 68 B/P (MAP) 165/99 165/99 165/99 O2 Delivery Room Air 04/26/18 08:49 Pulse 68 B/P (MAP) 165/99 Intake and Output 04/25/18 04/25/18 04/26/18 15:00 23:00 07:00 Output Total 290 ml 385 ml 850 ml Balance -290 ml -385 ml -850 ml OSMANY GLOVER III DO Apr 26, 2018 11:34
--- NOTE | 2018-04-26 11:40 | PDOC ---
SURGICAL PROGRESS NOTE Subjective POD 4 up and about tolerating fulls passing a little gas Vital Signs Vital Signs Date Time Temp Pulse Resp B/P (MAP) Pulse Ox O2 Delivery O2 Flow Rate FiO2 04/26/18 08:49 68 165/99 04/26/18 08:00 Room Air 04/26/18 07:00 97.9 16 94 97.9 I&O Intake and Output 04/26/18 06:59 Output Total 1525 ml Balance -1525 ml Output Urine Total 975 ml Emesis 200 ml Drainage Total 350 ml PATIENT HAS A WILKINS: No General: Cooperative Abdomen: Soft, Other (serosanguineous ORLY output) Labs Laboratory Tests Test 04/26/18 06:50 04/26/18 06:55 White Blood Count 11.7 x10^3/uL (4.0-11.0) Red Blood Count 3.68 x10^6/uL (4.30-5.70) Hemoglobin 9.9 g/dL (13.0-17.5) Hematocrit 30.2 % (39.0-53.0) Mean Corpuscular Volume 82 fL (79-100) Mean Corpuscular Hemoglobin 27 pg (25-35) Mean Corpuscular Hemoglobin Concent 33 g/dL (31-37) Red Cell Distribution Width 17.0 % (11.5-14.5) Platelet Count 308 x10^3/uL (140-400) Neutrophils (%) (Auto) 78 % (31-73) Lymphocytes (%) (Auto) 13 % (24-48) Monocytes (%) (Auto) 8 % (0-9) Eosinophils (%) (Auto) 1 % (0-3) Basophils (%) (Auto) 0 % (0-3) Neutrophils # (Auto) 9.2 x10^3uL (1.8-7.7) Lymphocytes # (Auto) 1.5 x10^3/uL (1.0-4.8) Monocytes # (Auto) 0.9 x10^3/uL (0.0-1.1) Eosinophils # (Auto) 0.1 x10^3/uL (0.0-0.7) Basophils # (Auto) 0.0 x10^3/uL (0.0-0.2) Sodium Level 140 mmol/L (136-145) Potassium Level 4.4 mmol/L (3.5-5.1) Chloride Level 106 mmol/L (98-107) Carbon Dioxide Level 23 mmol/L (21-32) Anion Gap 11 (6-14) Blood Urea Nitrogen 56 mg/dL (8-26) Creatinine 3.7 mg/dL (0.7-1.3) Estimated GFR (Cockcroft-Gault) 20.2 BUN/Creatinine Ratio 15 (6-20) Glucose Level 102 mg/dL (70-99) Calcium Level 8.3 mg/dL (8.5-10.1) Total Bilirubin 0.5 mg/dL (0.2-1.0) Aspartate Amino Transf (AST/SGOT) 19 U/L (15-37) Alanine Aminotransferase (ALT/SGPT) 13 U/L (16-63) Alkaline Phosphatase 59 U/L (46-116) Total Protein 6.3 g/dL (6.4-8.2) Albumin 2.4 g/dL (3.4-5.0) Albumin/Globulin Ratio 0.6 (1.0-1.7) Laboratory Tests Test 04/26/18 06:50 04/26/18 06:55 White Blood Count 11.7 x10^3/uL (4.0-11.0) Red Blood Count 3.68 x10^6/uL (4.30-5.70) Hemoglobin 9.9 g/dL (13.0-17.5) Hematocrit 30.2 % (39.0-53.0) Mean Corpuscular Volume 82 fL (79-100) Mean Corpuscular Hemoglobin 27 pg (25-35) Mean Corpuscular Hemoglobin Concent 33 g/dL (31-37) Red Cell Distribution Width 17.0 % (11.5-14.5) Platelet Count 308 x10^3/uL (140-400) Neutrophils (%) (Auto) 78 % (31-73) Lymphocytes (%) (Auto) 13 % (24-48) Monocytes (%) (Auto) 8 % (0-9) Eosinophils (%) (Auto) 1 % (0-3) Basophils (%) (Auto) 0 % (0-3) Neutrophils # (Auto) 9.2 x10^3uL (1.8-7.7) Lymphocytes # (Auto) 1.5 x10^3/uL (1.0-4.8) Monocytes # (Auto) 0.9 x10^3/uL (0.0-1.1) Eosinophils # (Auto) 0.1 x10^3/uL (0.0-0.7) Basophils # (Auto) 0.0 x10^3/uL (0.0-0.2) Sodium Level 140 mmol/L (136-145) Potassium Level 4.4 mmol/L (3.5-5.1) Chloride Level 106 mmol/L (98-107) Carbon Dioxide Level 23 mmol/L (21-32) Anion Gap 11 (6-14) Blood Urea Nitrogen 56 mg/dL (8-26) Creatinine 3.7 mg/dL (0.7-1.3) Estimated GFR (Cockcroft-Gault) 20.2 BUN/Creatinine Ratio 15 (6-20) Glucose Level 102 mg/dL (70-99) Calcium Level 8.3 mg/dL (8.5-10.1) Total Bilirubin 0.5 mg/dL (0.2-1.0) Aspartate Amino Transf (AST/SGOT) 19 U/L (15-37) Alanine Aminotransferase (ALT/SGPT) 13 U/L (16-63) Alkaline Phosphatase 59 U/L (46-116) Total Protein 6.3 g/dL (6.4-8.2) Albumin 2.4 g/dL (3.4-5.0) Albumin/Globulin Ratio 0.6 (1.0-1.7) Assessment/Plan POD four, sigmoid resection advance diet slow IV fluids home in the next few days Xuan Avina to follow over the weekend MEGAN SALINAS MD Apr 26, 2018 11:40
--- NOTE | 2018-04-26 14:26 | NUR ---
SW following. Discussed with RN, insurance has authorized pt to go to [facility]. Dr. Santiago's note states pt may be here another couple of days and then go home. PT/OT reported to SW pt may be able to discharge home after a couple more days of PT/OT at [facility]. RN notified. SW will continue to follow.
[2018-04-26 15:00] VITALS: BP 134/86
[2018-04-26 19:00] VITALS: BP 152/91
[2018-04-26] MEDS: ATORVASTATIN CALCIUM 40 MG TABLET. PO SCH (21:33)
[2018-04-26] MEDS: DOXAZOSIN MESYLATE 4 MG TABLET. PO SCH (21:33)
[2018-04-26 23:00] VITALS: BP 141/91
[2018-04-27] MEDS: HYDROcodone/APAP 5/325MG 1 TAB TABLET PO PRN ×3 (00:11→22:26)
[2018-04-27 02:45] LABS: BILIRUBIN,URINE NEGATIVE (NEG); CLARITY,URINE CLEAR; COLOR,URINE YELLOW; NITRITE,URINE NEGATIVE (NEG); PROTEIN,URINE 100 mg/dL (NEG-TRACE); UROBILINOGEN,URINE 0.2 mg/dL (0.2 mg/dL)
[2018-04-27 03:00] VITALS: BP 123/85
[2018-04-27 03:13] LABS: AMORPHOUS SEDIMENT,UR PRESENT /HPF; BACTERIA,URINE 0 /HPF (0-FEW); GRANULAR CASTS,URINE FEW /HPF; HYALINE CASTS, URINE FEW /HPF; SQUAMOUS EPITHELIAL CELL,UR FEW /LPF
[2018-04-27] MEDS: POTASSIUM CL 20MEQ-0.45% NACL 1,000 ML IV SCH ×2 (04:00→08:49)
[2018-04-27] MEDS: LANSOPRAZOLE 30 MG TAB.RAP.DR FT SCH ×2 (06:23→16:30)
[2018-04-27 07:00] VITALS: BP 157/85
[2018-04-27] MEDS: ALLOPURINOL 100 MG TABLET. PO SCH (08:45)
[2018-04-27] MEDS: POTASSIUM CHLORIDE 20 MEQ TABLET.ER. PO SCH ×2 (08:45→22:27)
[2018-04-27] MEDS: ENOXAPARIN 30 MG/0.3 ML SYRINGE. SQ SCH (08:46)
[2018-04-27] MEDS: FERROUS SULFATE 325 MG TABLET. PO SCH (08:47)
[2018-04-27] MEDS: amLODIPine BESYLATE 10 MG TABLET PO SCH (08:47)
[2018-04-27] MEDS: cloNIDine HCL 0.2 MG TABLET PO SCH ×2 (08:47→22:28)
[2018-04-27] MEDS: ASPIRIN ENTERIC COATED 81 MG TABLET.DR. PO SCH (08:47)
[2018-04-27] MEDS: ISOSORBIDE MONONITRATE ER 30 MG TAB.ER.24H PO SCH ×2 (08:48→22:28)
[2018-04-27] MEDS: METOPROLOL TART IMMED RELEASE 25 MG TABLET. PO SCH ×2 (08:48→22:28)
--- NOTE | 2018-04-27 09:18 | PDOC ---
SURGICAL PROGRESS NOTE Subjective Pt without c/o, daija PO, some heartburn, passing stools Vital Signs Vital Signs Date Time Temp Pulse Resp B/P (MAP) Pulse Ox O2 Delivery O2 Flow Rate FiO2 04/27/18 08:48 67 157/85 04/27/18 07:00 98.2 18 95 Room Air 98.2 I&O Intake and Output 04/27/18 07:00 Intake Total 200 ml Output Total 1080 ml Balance -880 ml Intake Oral 200 ml Output Urine Total 750 ml Drainage Total 330 ml # Bowel Movements 4 General: Alert, Oriented X3, Cooperative, No acute distress Abdomen: Soft, No tenderness, Other (drain serosang) Labs Laboratory Tests Test 04/26/18 06:50 04/26/18 06:55 04/27/18 02:00 White Blood Count 11.7 x10^3/uL (4.0-11.0) Red Blood Count 3.68 x10^6/uL (4.30-5.70) Hemoglobin 9.9 g/dL (13.0-17.5) Hematocrit 30.2 % (39.0-53.0) Mean Corpuscular Volume 82 fL (79-100) Mean Corpuscular Hemoglobin 27 pg (25-35) Mean Corpuscular Hemoglobin Concent 33 g/dL (31-37) Red Cell Distribution Width 17.0 % (11.5-14.5) Platelet Count 308 x10^3/uL (140-400) Neutrophils (%) (Auto) 78 % (31-73) Lymphocytes (%) (Auto) 13 % (24-48) Monocytes (%) (Auto) 8 % (0-9) Eosinophils (%) (Auto) 1 % (0-3) Basophils (%) (Auto) 0 % (0-3) Neutrophils # (Auto) 9.2 x10^3uL (1.8-7.7) Lymphocytes # (Auto) 1.5 x10^3/uL (1.0-4.8) Monocytes # (Auto) 0.9 x10^3/uL (0.0-1.1) Eosinophils # (Auto) 0.1 x10^3/uL (0.0-0.7) Basophils # (Auto) 0.0 x10^3/uL (0.0-0.2) Sodium Level 140 mmol/L (136-145) Potassium Level 4.4 mmol/L (3.5-5.1) Chloride Level 106 mmol/L (98-107) Carbon Dioxide Level 23 mmol/L (21-32) Anion Gap 11 (6-14) Blood Urea Nitrogen 56 mg/dL (8-26) Creatinine 3.7 mg/dL (0.7-1.3) Estimated GFR (Cockcroft-Gault) 20.2 BUN/Creatinine Ratio 15 (6-20) Glucose Level 102 mg/dL (70-99) Calcium Level 8.3 mg/dL (8.5-10.1) Total Bilirubin 0.5 mg/dL (0.2-1.0) Aspartate Amino Transf (AST/SGOT) 19 U/L (15-37) Alanine Aminotransferase (ALT/SGPT) 13 U/L (16-63) Alkaline Phosphatase 59 U/L (46-116) Total Protein 6.3 g/dL (6.4-8.2) Albumin 2.4 g/dL (3.4-5.0) Albumin/Globulin Ratio 0.6 (1.0-1.7) Urine Collection Type Unknown Urine Color Yellow Urine Clarity Clear Urine pH 5.0 Urine Specific Mullin 1.015 Urine Protein 100 mg/dL (NEG-TRACE) Urine Glucose (UA) Negative mg/dL (NEG) Urine Ketones (Stick) Negative mg/dL (NEG) Urine Blood Moderate (NEG) Urine Nitrite Negative (NEG) Urine Bilirubin Negative (NEG) Urine Urobilinogen Dipstick 0.2 mg/dL (0.2 mg/dL) Urine Leukocyte Esterase Negative (NEG) Urine RBC 1-2 /HPF (0-2) Urine WBC 1-4 /HPF (0-4) Urine Squamous Epithelial Cells Few /LPF Urine Amorphous Sediment Present /HPF Urine Bacteria 0 /HPF (0-FEW) Urine Cellular Casts Occ /HPF Urine Hyaline Casts Few /HPF Urine Granular Casts Few /HPF Urine Waxy Casts /HPF Laboratory Tests Test 04/27/18 02:00 Urine Collection Type Unknown Urine Color Yellow Urine Clarity Clear Urine pH 5.0 Urine Specific [place] 1.015 Urine Protein 100 mg/dL (NEG-TRACE) Urine Glucose (UA) Negative mg/dL (NEG) Urine Ketones (Stick) Negative mg/dL (NEG) Urine Blood Moderate (NEG) Urine Nitrite Negative (NEG) Urine Bilirubin Negative (NEG) Urine Urobilinogen Dipstick 0.2 mg/dL (0.2 mg/dL) Urine Leukocyte Esterase Negative (NEG) Urine RBC 1-2 /HPF (0-2) Urine WBC 1-4 /HPF (0-4) Urine Squamous Epithelial Cells Few /LPF Urine Amorphous Sediment Present /HPF Urine Bacteria 0 /HPF (0-FEW) Urine Cellular Casts Occ /HPF Urine Hyaline Casts Few /HPF Urine Granular Casts Few /HPF Urine Waxy Casts /HPF Problem List s/p sigmoid ADAT d/c planning ongoing HTN per hospitalist VIN TELLEZ MD Apr 27, 2018 09:18
--- NOTE | 2018-04-27 09:20 | PDOC ---
PROGRESS NOTES Chief Complaint Chief Complaint Status post resection of large pedunculated polyp of sigmoid colon Hypertension Leukocytosis Acute renal insufficiency (Elevated Cr: 3.0 on 04/23), hx of CKD4 History of dyslipidemia Rheumatic cardiac disease? History of prostate cancer History of Present Illness History of Present Illness Mr. Greer presented for surgery for large pedunculated polyp of sigmoid colon. Tubovillous adenoma per biopsy report. Patient was seen and examined at bedside. ORLY drain in place on R. Pain is well controlled, no longer requiring INTAKE RN. Patient was resting comfortably with nurse at bedside, in hospital attire, no new complaints. Patient has started eating, ate all of his breakfast this morning. Denies nausea/vomiting/abdominal pain. Vitals Vitals Vital Signs Date Time Temp Pulse Resp B/P (MAP) Pulse Ox O2 Delivery O2 Flow Rate FiO2 04/27/18 08:48 67 157/85 04/27/18 07:00 98.2 18 95 Room Air 98.2 Physical Exam General: Alert, Oriented X3, Cooperative, No acute distress Heart: Regular rate, Normal S1, Normal S2, No murmurs, Gallops Lungs: Clear Abdomen: Soft, Other (serosanguineous ORLY output) Extremities: No clubbing, No cyanosis, No edema Skin: No rashes, No significant lesion, Other (surgical scar with steri strips is c/d/i, all other surgical wound dressings are c/d/i) Labs LABS Laboratory Tests Test 04/27/18 02:00 Urine Collection Type Unknown Urine Color Yellow Urine Clarity Clear Urine pH 5.0 Urine Specific Romance 1.015 Urine Protein 100 mg/dL (NEG-TRACE) Urine Glucose (UA) Negative mg/dL (NEG) Urine Ketones (Stick) Negative mg/dL (NEG) Urine Blood Moderate (NEG) Urine Nitrite Negative (NEG) Urine Bilirubin Negative (NEG) Urine Urobilinogen Dipstick 0.2 mg/dL (0.2 mg/dL) Urine Leukocyte Esterase Negative (NEG) Urine RBC 1-2 /HPF (0-2) Urine WBC 1-4 /HPF (0-4) Urine Squamous Epithelial Cells Few /LPF Urine Amorphous Sediment Present /HPF Urine Bacteria 0 /HPF (0-FEW) Urine Cellular Casts Occ /HPF Urine Hyaline Casts Few /HPF Urine Granular Casts Few /HPF Urine Waxy Casts /HPF Review of Systems Review of Systems Pt denies CP, SOB, LANGE, n/v/d, abd pain Assessment and Plan Assessmemt and Plan Assessment: Status post resection of large pedunculated polyp of sigmoid colon Hypertension Leukocytosis Acute renal insufficiency (Elevated Cr: 3.0 on 04/23), hx of CKD4 History of dyslipidemia Rheumatic cardiac disease? History of prostate cancer Plan: IVF per renal, Creatinine elevated Okay to discharge pending nephrology and Dr. Santiago input Continue to monitor vitals Review labs in the am INTAKE RN off Tripathi removed Continue to ambulate and advance diet Comment Review of Relevant I have reviewed the following items jessie (where applicable) has been applied. Labs Laboratory Tests Test 04/26/18 06:50 04/26/18 06:55 04/27/18 02:00 White Blood Count 11.7 x10^3/uL (4.0-11.0) Red Blood Count 3.68 x10^6/uL (4.30-5.70) Hemoglobin 9.9 g/dL (13.0-17.5) Hematocrit 30.2 % (39.0-53.0) Mean Corpuscular Volume 82 fL (79-100) Mean Corpuscular Hemoglobin 27 pg (25-35) Mean Corpuscular Hemoglobin Concent 33 g/dL (31-37) Red Cell Distribution Width 17.0 % (11.5-14.5) Platelet Count 308 x10^3/uL (140-400) Neutrophils (%) (Auto) 78 % (31-73) Lymphocytes (%) (Auto) 13 % (24-48) Monocytes (%) (Auto) 8 % (0-9) Eosinophils (%) (Auto) 1 % (0-3) Basophils (%) (Auto) 0 % (0-3) Neutrophils # (Auto) 9.2 x10^3uL (1.8-7.7) Lymphocytes # (Auto) 1.5 x10^3/uL (1.0-4.8) Monocytes # (Auto) 0.9 x10^3/uL (0.0-1.1) Eosinophils # (Auto) 0.1 x10^3/uL (0.0-0.7) Basophils # (Auto) 0.0 x10^3/uL (0.0-0.2) Sodium Level 140 mmol/L (136-145) Potassium Level 4.4 mmol/L (3.5-5.1) Chloride Level 106 mmol/L (98-107) Carbon Dioxide Level 23 mmol/L (21-32) Anion Gap 11 (6-14) Blood Urea Nitrogen 56 mg/dL (8-26) Creatinine 3.7 mg/dL (0.7-1.3) Estimated GFR (Cockcroft-Gault) 20.2 BUN/Creatinine Ratio 15 (6-20) Glucose Level 102 mg/dL (70-99) Calcium Level 8.3 mg/dL (8.5-10.1) Total Bilirubin 0.5 mg/dL (0.2-1.0) Aspartate Amino Transf (AST/SGOT) 19 U/L (15-37) Alanine Aminotransferase (ALT/SGPT) 13 U/L (16-63) Alkaline Phosphatase 59 U/L (46-116) Total Protein 6.3 g/dL (6.4-8.2) Albumin 2.4 g/dL (3.4-5.0) Albumin/Globulin Ratio 0.6 (1.0-1.7) Urine Collection Type Unknown Urine Color Yellow Urine Clarity Clear Urine pH 5.0 Urine Specific Rom[place] 1.015 Urine Protein 100 mg/dL (NEG-TRACE) Urine Glucose (UA) Negative mg/dL (NEG) Urine Ketones (Stick) Negative mg/dL (NEG) Urine Blood Moderate (NEG) Urine Nitrite Negative (NEG) Urine Bilirubin Negative (NEG) Urine Urobilinogen Dipstick 0.2 mg/dL (0.2 mg/dL) Urine Leukocyte Esterase Negative (NEG) Urine RBC 1-2 /HPF (0-2) Urine WBC 1-4 /HPF (0-4) Urine Squamous Epithelial Cells Few /LPF Urine Amorphous Sediment Present /HPF Urine Bacteria 0 /HPF (0-FEW) Urine Cellular Casts Occ /HPF Urine Hyaline Casts Few /HPF Urine Granular Casts Few /HPF Urine Waxy Casts /HPF Laboratory Tests Test 04/27/18 02:00 Urine Collection Type Unknown Urine Color Yellow Urine Clarity Clear Urine pH 5.0 Urine Specific [place] 1.015 Urine Protein 100 mg/dL (NEG-TRACE) Urine Glucose (UA) Negative mg/dL (NEG) Urine Ketones (Stick) Negative mg/dL (NEG) Urine Blood Moderate (NEG) Urine Nitrite Negative (NEG) Urine Bilirubin Negative (NEG) Urine Urobilinogen Dipstick 0.2 mg/dL (0.2 mg/dL) Urine Leukocyte Esterase Negative (NEG) Urine RBC 1-2 /HPF (0-2) Urine WBC 1-4 /HPF (0-4) Urine Squamous Epithelial Cells Few /LPF Urine Amorphous Sediment Present /HPF Urine Bacteria 0 /HPF (0-FEW) Urine Cellular Casts Occ /HPF Urine Hyaline Casts Few /HPF Urine Granular Casts Few /HPF Urine Waxy Casts /HPF Medications Current Medications Ondansetron HCl (Zofran) 4 mg PRN Q6HRS PRN IV NAUSEA/VOMITING Last administered on 04/22/18 11:28; Start 04/22/18 at 07:00; Stop 04/23/18 at 06:59 ; Status DC Fentanyl Citrate (Fentanyl 2ml Vial) 25 mcg PRN Q5MIN PRN IV MILD PAIN; Start 04/22/18 at 07:00; Stop 04/23/18 at 06:59; Status DC Fentanyl Citrate (Fentanyl 2ml Vial) 50 mcg PRN Q5MIN PRN IV MODERATE TO SEVERE PAIN; Start 04/22/18 at 07:00; Stop 04/23/18 at 06:59; Status DC Morphine Sulfate (Morphine Sulfate) 1 mg PRN Q10MIN PRN IV SEVERE PAIN Last administered on 04/22/18 11:31; Start 04/22/18 at 07:00; Stop 04/23/18 at 06:59 ; Status DC Ringer's Solution 1,000 ml @ 30 mls/hr Q24H IV Last administered on 04/22/18at 07:23; Start 04/22/18 at 07:00; Stop 04/22/18 at 18:59; Status DC Lidocaine HCl (Xylocaine-Mpf 1% 2ml Vial) 2 ml PRN 1X PRN ID PRIOR TO IV START ; Start 04/22/18 at 07:00; Stop 04/23/18 at 06:59; Status DC Hydromorphone HCl (Dilaudid) 0.5 mg PRN Q10MIN PRN IV SEV PAIN, Second choice Last administered on 04/22/18 11:37; Start 04/22/18 at 07:00; Stop 04/23/18 at 06:59; Status DC Prochlorperazine Edisylate (Compazine) 5 mg PACU PRN PRN IV NAUSEA, MRX1 Last administered on 04/22/18at 10:59; Start 04/22/18 at 07:00; Stop 04/23/18 at 06:59 ; Status DC Cefoxitin Sodium (Mefoxin) 1 gm 1X PREOP PRN IVP PRIOR TO PROCEDURE; Start at 06:00; Stop 04/22/18 at 18:00; Status DC Rocuronium [place] (Zemuron) 50 mg STK-MED ONCE .ROUTE ; Start 04/22/18 at 06:23 ; Stop 04/22/18 at 06:24; Status DC Fentanyl Citrate (Fentanyl 2ml Vial) 100 mcg STK-MED ONCE .ROUTE ; Start at 06:23; Stop 04/22/18 at 06:24; Status DC Sevoflurane (Ultane) 90 ml STK-MED ONCE IH ; Start 04/22/18 at 06:24; Stop 04/22 at 06:25; Status DC Dexamethasone Sodium Phosphate (Decadron) 20 mg STK-MED ONCE .ROUTE ; Start at 06:24; Stop 04/22/18 at 06:25; Status DC Propofol 20 ml @ As Directed STK-MED ONCE IV ; Start 04/22/18 at 06:24; Stop at 06:25; Status DC Lidocaine HCl (Lidocaine Pf 2% Vial) 5 ml STK-MED ONCE .ROUTE ; Start 04/22/18 at 06:24; Stop 04/22/18 at 06:25; Status DC Ondansetron HCl (Zofran) 4 mg STK-MED ONCE .ROUTE ; Start 04/22/18 at 06:24; Stop 04/22/18 at 06:25; Status DC Phenylephrine HCl (Reggie-Synephrine Inj) 10 mg STK-MED ONCE .ROUTE ; Start at 06:24; Stop 04/22/18 at 06:25; Status DC Bupivacaine HCl/ Epinephrine Bitart (Sensorcaine-Epi 0.25%-1:888173 Mpf) 30 ml STK-MED ONCE .ROUTE ; Start 04/22/18 at 06:25; Stop 04/22/18 at 07:26; Status DC Bupivacaine HCl/ Epinephrine Bitart (Sensorcain-Mpf Epi 0.5%-1:[id number]) 30 ml STK -MED ONCE .ROUTE Last administered on 04/22/18at 09:05; Start 04/22/18 at 06:33 ; Stop 04/22/18 at 07:33; Status DC Fentanyl Citrate (Fentanyl 5ml Vial) 250 mcg STK-MED ONCE .ROUTE ; Start at 08:45; Stop 04/22/18 at 08:47; Status DC Rocuronium [place] (Zemuron) 50 mg STK-MED ONCE .ROUTE ; Start 04/22/18 at 08:46 ; Stop 04/22/18 at 08:47; Status DC Sevoflurane (Ultane) 90 ml STK-MED ONCE IH ; Start 04/22/18 at 10:07; Stop 04/22 at 10:08; Status DC Neostigmine Methylsulfate (Neostigmine Methylsulfate) 5 mg STK-MED ONCE .ROUTE ; Start 04/22/18 at 10:08; Stop 04/22/18 at 10:09; Status DC Glycopyrrolate (Robinul) 1 mg STK-MED ONCE .ROUTE ; Start 04/22/18 at 10:09; Stop 04/22/18 at 10:10; Status DC Enoxaparin Sodium (Lovenox 30mg Syringe) 30 mg Q24H SQ Last administered on at 08:46; Start 04/23/18 at 09:00 Sodium Chloride (Normal Saline Flush) 3 ml QSHIFT PRN IV AFTER MEDS AND BLOOD DRAWS; Start 04/22/18 at 13:15 Potassium Chloride/Sodium Chloride 1,000 ml @ 100 mls/hr Q10H IV Last administered on 04/27/18at 08:49; Start 04/22/18 at 14:00 Hydromorphone HCl 30 ml @ 0 mls/hr CONT PRN PRN IV PER PROTOCOL Last administered on 04/22/18at 13:49; Start 04/22/18 at 13:15; Stop 04/24/18 at 10:38 ; Status DC Ondansetron HCl (Zofran) 4 mg PRN Q6HRS PRN IV NAUESA, 1ST CHOICE Last administered on 04/25/18 23:20; Start 04/22/18 at 13:15 Allopurinol (Zyloprim) 100 mg DAILY PO ; Start 04/23/18 at 09:00 Amlodipine Besylate (Norvasc) 10 mg DAILY PO Last administered on 04/27/18 08: 47; Start 04/23/18 at 09:00 Aspirin (Ecotrin) 81 mg DAILY PO Last administered on 04/27/18 08:47; Start at 09:00 Metoprolol Tartrate (Lopressor) 25 mg BID PO Last administered on 04/27/18 08: 48; Start 04/22/18 at 21:00 Non-Formulary Medication (Isosorbide Mononitrate (Isosorbide Mononitrate Er)) 60 mg 1tab AM-1/2tab PM PO ; Start 04/22/18 at 13:15; Status UNV Isosorbide Mononitrate (Imdur) 60 mg DAILY PO Last administered on 04/27/18 08 :48; Start 04/23/18 at 09:00 Isosorbide Mononitrate (Imdur) 30 mg QHS PO Last administered on 04/26/18 21: 34; Start 04/22/18 at 21:00 Atorvastatin Calcium (Lipitor) 40 mg HS PO Last administered on 04/26/18 21:33 ; Start 04/22/18 at 21:00 Clonidine HCl (Catapres) 0.2 mg BID PO Last administered on 04/27/18 08:47; Start 04/22/18 at 21:00 Doxazosin Mesylate (Cardura) 4 mg HS PO Last administered on 04/26/18 21:33; Start 04/22/18 at 21:00 Ferrous Sulfate (Feosol) 325 mg DAILY PO Last administered on 04/27/18 08:47; Start 04/23/18 at 09:00 Acetaminophen/ Hydrocodone Bitart (Lortab 7.5/325) 1 tab PRN Q6HRS PRN PO PAIN ; Start 04/22/18 at 15:15; Stop 04/24/18 at 14:19; Status DC Potassium Chloride (Klor-Con) 20 meq BID PO Last administered on 04/24/18 21: 54; Start 04/22/18 at 21:00 Enalaprilat (Vasotec Inj) 1.25 mg PRN Q6HRS PRN IVP HYPERTENSION, SEE COMMENTS Last administered on 04/23/18at 09:25; Start 04/23/18 at 00:15 Hydralazine HCl (Apresoline Inj) 25 mg PRN Q6HRS PRN IVP ELEVATED BP,1ST Choic , SEE COM Last administered on 04/23/18at 12:39; Start 04/23/18 at 03:45 Piperacillin Sod/ Tazobactam Sod (Zosyn Per Pharmacy) 1 each PRN DAILY PRN MC SEE COMMENTS; Start 04/23/18 at 09:45; Stop 04/24/18 at 07:54; Status DC Piperacillin Sod/ Tazobactam Sod 2.25 gm/Sodium Chloride 50 ml @ 100 mls/hr Q6HRS IV ; Start 04/23/18 at 10:30; Stop 04/23/18 at 13:57; Status DC Acetaminophen/ Hydrocodone Bitart (Lortab 5/325) 1 tab PRN Q4HRS PRN PO MILD TO MODERATE PAIN Last administered on 04/27/18at 00:11; Start 04/24/18 at 10:45 Acetaminophen/ Hydrocodone Bitart (Lortab 5/325) 2 tab PRN Q4HRS PRN PO MODERATE PAIN; Start 04/24/18 at 10:45 Hydromorphone HCl (Dilaudid) 0.5 mg PRN Q3HRS PRN IV MODERATE TO SEVERE PAIN; Start 04/24/18 at 10:45 Lansoprazole (Prevacid) 30 mg BIDBFRMEAL FT Last administered on 04/26/18at 16: 52; Start 04/25/18 at 16:30 Al Hydroxide/Mg Hydroxide (Mylanta Plus Xs) 30 ml PRN Q2HR PRN PO HEARTBURN / GAS Last administered on 04/25/18at 12:23; Start 04/25/18 at 09:30 Active Scripts Active Reported Metoprolol Tartrate 25 Mg Tablet 25 Mg PO BID Ferrous Sulfate 325 Mg Tablet 325 Mg PO DAILY Allopurinol 100 Mg Tablet 100 Mg PO DAILY Atorvastatin Calcium 40 Mg Tablet 40 Mg PO HS Potassium Chloride 20 Meq Tab.er.prt 20 Meq PO BID Cardura (Doxazosin Mesylate) 4 Mg Tablet 4 Mg PO HS Isosorbide Mononitrate Er (Isosorbide Mononitrate) 60 Mg Tab.er.24h 60 Mg PO 1TAB AM-1/2TAB PM Clonidine Hcl 0.2 Mg Tablet 0.2 Mg PO BID Amlodipine Besylate 10 Mg Tablet 10 Mg PO DAILY Lortab 7.5-325 mg Tablet (Hydrocodone/Acetaminophen) 1 Each Tablet 1 Tab PO PRN Q6HRS Aspir 81 (Aspirin) 81 Mg Tablet.dr 81 Mg PO DAILY Vitals/I & O Vital Sign - Last 24 Hours 04/26/18 04/26/18 04/26/18 04/26/18 11:00 15:00 19:00 20:15 Temp 98.3 98.2 98.4 98.3 98.2 98.4 Pulse 65 63 68 Resp 16 16 18 B/P (MAP) 105/72 (83) 134/86 (102) 152/91 (111) Pulse Ox 92 94 93 O2 Delivery Room Air Room Air Room Air Room Air 04/26/18 04/26/18 04/26/18 04/26/18 21:33 21:33 21:34 21:34 Pulse 68 68 68 68 B/P (MAP) 152/91 152/91 152/91 152/91 04/26/18 04/27/18 04/27/18 04/27/18 23:00 00:11 01:11 03:00 Temp 98.3 98.3 98.3 98.3 Pulse 84 63 Resp 18 18 B/P (MAP) 141/91 (108) 123/85 (98) Pulse Ox 93 93 O2 Delivery Room Air Room Air Room Air Room Air 04/27/18 04/27/18 04/27/18 04/27/18 07:00 08:47 08:47 08:48 Temp 98.2 98.2 Pulse 67 67 67 67 Resp 18 B/P (MAP) 157/85 (109) 157/85 157/85 157/85 Pulse Ox 95 O2 Delivery Room Air 04/27/18 08:48 Pulse 67 B/P (MAP) 157/85 Intake and Output 04/26/18 04/26/18 04/27/18 14:59 22:59 06:59 Intake Total 200 ml Output Total 40 ml 710 ml 330 ml Balance -40 ml -510 ml -330 ml CASTLE,NIAL K III DO Apr 27, 2018 09:20
--- NOTE | 2018-04-27 10:58 | PDOC ---
SUBJECTIVE ROS Follow-up of acute on chronic renal insufficiency Patient denies any new complaints. CVS: no Orthopnea, no CP RESP: no SOB, no TAYLOR GI: no Nausea, no Vomiting : no Dysuria, no Urgency OBJECTIVE Vital Signs Vital Signs Date Time Temp Pulse Resp B/P (MAP) Pulse Ox O2 Delivery O2 Flow Rate FiO2 04/27/18 08:48 67 157/85 04/27/18 07:00 98.2 18 95 Room Air 98.2 I & 0 Intake and Output 04/27/18 06:59 Intake Total 200 ml Output Total 1080 ml Balance -880 ml Intake Oral 200 ml Output Urine Total 750 ml Drainage Total 330 ml # Bowel Movements 4 PHYSICAL EXAM Physical Exam GEN: Awake, Oriented x 3, In no distress EYES: Vision Unchanged, Conjunctiva Normal EN: No EN Drainage, Mucous Membranes moist NECK: no JVD, no JVP, Supple, no Thyromegaly CVS: S1S2, no Murmur, No Gallop, No Rub,no Edema RESP: no Rales, no Rhonchi,no Acc. Muscle Use GI: BS + ve, NO Bruit, Non Tender, Non Distended : no CVA tenderness, no Suprapubic Tenderness DIAGNOSIS/ASSESSMENT Assessment & Plan Acute kidney injury: Appears to be prerenal currently. UA as noted. Continue IV fluids as ordered. Current fluid and E-lyte status does not necessitate emergent need for dialysis. Will re-evaluate for dialysis in the am Chronic kidney disease stage IV at baseline: Creatinine probably approximately 3 at baseline. No outpatient records available at this time for review ANEMIA in the setting of renal insufficiency; we'll check iron profile and start Aranap as ordered, Transfuse as needed HTN: Current BP meds as reviewed. See orders for changes. Hypoalbuminemia: Diet per general surgery Possible intravascular volume depletion: IV fluids as ordered / changed Discussed Plan of Care with patient at bedside COMMENT/RELEVANT DATA Meds Current Medications Medications (Trade) Dose Ordered Sig/Aidan Start Time Stop Time Status Last Admin Dose Admin Acetaminophen/ Hydrocodone Bitart (Lortab 5/325) 2 tab PRN Q4HRS PRN 04/24/18 10:45 Acetaminophen/ Hydrocodone Bitart (Lortab 7.5/325) 1 tab PRN Q6HRS PRN 04/22/18 15:15 04/24/18 14:19 DC Al Hydroxide/Mg Hydroxide (Mylanta Plus Xs) 30 ml PRN Q2HR PRN 04/25/18 09:30 04/25/18 12:23 30 ML Allopurinol (Zyloprim) 100 mg DAILY 04/23/18 09:00 Amlodipine Besylate (Norvasc) 10 mg DAILY 04/23/18 09:00 04/27/18 08:47 10 MG Aspirin (Ecotrin) 81 mg DAILY 04/23/18 09:00 04/27/18 08:47 81 MG Atorvastatin Calcium (Lipitor) 40 mg HS 04/22/18 21:00 04/26/18 21:33 40 MG Bupivacaine HCl/ Epinephrine Bitart (Sensorcain-Mpf Epi 0.5%-1:325278) 30 ml STK-MED ONCE 04/22/18 06:33 04/22/18 07:33 DC 04/22/18 09:05 7 ML Bupivacaine HCl/ Epinephrine Bitart (Sensorcaine-Epi 0.25%-1:560401 Mpf) 30 ml STK-MED ONCE 04/22/18 06:25 04/22/18 07:26 DC Cefoxitin Sodium (Mefoxin) 1 gm 1X PREOP PRN 04/22/18 06:00 04/22/18 18:00 DC Clonidine HCl (Catapres) 0.2 mg BID 04/22/18 21:00 04/27/18 08:47 0.2 MG Dexamethasone Sodium Phosphate (Decadron) 20 mg STK-MED ONCE 04/22/18 06:24 04/22/18 06:25 DC Doxazosin Mesylate (Cardura) 4 mg HS 04/22/18 21:00 04/26/18 21:33 4 MG Enalaprilat (Vasotec Inj) 1.25 mg PRN Q6HRS PRN 04/23/18 00:15 04/23/18 09:25 1.25 MG Enoxaparin Sodium (Lovenox 30mg Syringe) 30 mg Q24H 04/23/18 09:00 04/27/18 08:46 30 MG Fentanyl Citrate (Fentanyl 2ml Vial) 100 mcg STK-MED ONCE 04/22/18 06:23 04/22/18 06:24 DC Fentanyl Citrate (Fentanyl 5ml Vial) 250 mcg STK-MED ONCE 04/22/18 08:45 04/22/18 08:47 DC Ferrous Sulfate (Feosol) 325 mg DAILY 04/23/18 09:00 04/27/18 08:47 325 MG Glycopyrrolate (Robinul) 1 mg STK-MED ONCE 04/22/18 10:09 04/22/18 10:10 DC Hydralazine HCl (Apresoline Inj) 25 mg PRN Q6HRS PRN 04/23/18 03:45 04/23/18 12:39 25 MG Hydromorphone HCl (Dilaudid) 0.5 mg PRN Q3HRS PRN 04/24/18 10:45 Isosorbide Mononitrate (Imdur) 30 mg QHS 04/22/18 21:00 04/26/18 21:34 30 MG Lansoprazole (Prevacid) 30 mg BIDBFRMEAL 04/25/18 16:30 04/26/18 16:52 30 MG Lidocaine HCl (Lidocaine Pf 2% Vial) 5 ml STK-MED ONCE 04/22/18 06:24 04/22/18 06:25 DC Lidocaine HCl (Xylocaine-Mpf 1% 2ml Vial) 2 ml PRN 1X PRN 04/22/18 07:00 04/23/18 06:59 DC Metoprolol Tartrate (Lopressor) 25 mg BID 04/22/18 21:00 04/27/18 08:48 25 MG Morphine Sulfate (Morphine Sulfate) 1 mg PRN Q10MIN PRN 04/22/18 07:00 04/23/18 06:59 DC 04/22/18 11:31 1 MG Neostigmine Methylsulfate (Neostigmine Methylsulfate) 5 mg STK-MED ONCE 04/22/18 10:08 04/22/18 10:09 DC Non-Formulary Medication (Isosorbide Mononitrate (Isosorbide Mononitrate Er)) 60 mg 1tab AM-1/2tab PM 04/22/18 13:15 UNV Ondansetron HCl (Zofran) 4 mg PRN Q6HRS PRN 04/22/18 13:15 04/25/18 23:20 4 MG Phenylephrine HCl (Reggie-Synephrine Inj) 10 mg STK-MED ONCE 04/22/18 06:24 04/22/18 06:25 DC Piperacillin Sod/ Tazobactam Sod (Zosyn Per Pharmacy) 1 each PRN DAILY PRN 04/23/18 09:45 04/24/18 07:54 DC Piperacillin Sod/ Tazobactam Sod 2.25 gm/Sodium Chloride 50 ml @ 100 mls/hr Q6HRS 04/23/18 10:30 04/23/18 13:57 DC Potassium Chloride/Sodium Chloride 1,000 ml @ 100 mls/hr Q10H 04/22/18 14:00 04/27/18 08:49 100 MLS/HR Potassium Chloride (Klor-Con) 20 meq BID 04/22/18 21:00 04/24/18 21:54 20 MEQ Prochlorperazine Edisylate (Compazine) 5 mg PACU PRN PRN 04/22/18 07:00 04/23/18 06:59 DC 04/22/18 10:59 5 MG Propofol 20 ml @ As Directed STK-MED ONCE 04/22/18 06:24 04/22/18 06:25 DC Ringer's Solution 1,000 ml @ 30 mls/hr Q24H 04/22/18 07:00 04/22/18 18:59 DC 04/22/18 07:23 30 MLS/HR Rocuronium [place] (Zemuron) 50 mg STK-MED ONCE 04/22/18 08:46 04/22/18 08:47 DC Sevoflurane (Ultane) 90 ml STK-MED ONCE 04/22/18 10:07 04/22/18 10:08 DC Sodium Chloride (Normal Saline Flush) 3 ml QSHIFT PRN 04/22/18 13:15 Lab Laboratory Tests Test 04/27/18 02:00 Urine Collection Type Unknown Urine Color Yellow Urine Clarity Clear Urine pH 5.0 Urine Specific [place] 1.015 Urine Protein 100 mg/dL (NEG-TRACE) Urine Glucose (UA) Negative mg/dL (NEG) Urine Ketones (Stick) Negative mg/dL (NEG) Urine Blood Moderate (NEG) Urine Nitrite Negative (NEG) Urine Bilirubin Negative (NEG) Urine Urobilinogen Dipstick 0.2 mg/dL (0.2 mg/dL) Urine Leukocyte Esterase Negative (NEG) Urine RBC 1-2 /HPF (0-2) Urine WBC 1-4 /HPF (0-4) Urine Squamous Epithelial Cells Few /LPF Urine Amorphous Sediment Present /HPF Urine Bacteria 0 /HPF (0-FEW) Urine Cellular Casts Occ /HPF Urine Hyaline Casts Few /HPF Urine Granular Casts Few /HPF Urine Waxy Casts /HPF Results All relevant outside records, renal labs, imaging studies, telemetry/EKG's were reviewed. TWAN PHELPS MD Apr 27, 2018 10:58
[2018-04-27 11:00] VITALS: BP 126/80
[2018-04-27] MEDS: IV RINGERS,LACTATED 1000ML 1,000 ML IV SCH ×2 (11:00→22:29)
[2018-04-27 15:00] VITALS: BP 135/77
[2018-04-27 19:25] VITALS: BP 151/91
[2018-04-27] MEDS ORDERED: DARBEPOETIN ALFA 60 MCG/0.3 ML DISP.SYRIN. SQ SCH (21:00)
[2018-04-27] MEDS: DOXAZOSIN MESYLATE 4 MG TABLET. PO SCH (22:27)
[2018-04-27] MEDS: ATORVASTATIN CALCIUM 40 MG TABLET. PO SCH (22:28)
[2018-04-27 23:49] VITALS: BP 142/93
[2018-04-28 03:19] VITALS: BP 135/90
[2018-04-28] MEDS: IV RINGERS,LACTATED 1000ML 1,000 ML IV SCH ×2 (06:30→17:00)
[2018-04-28 07:00] VITALS: BP 149/85
[2018-04-28] MEDS: LANSOPRAZOLE 30 MG TAB.RAP.DR FT SCH ×2 (07:30→14:46)
[2018-04-28] MEDS: POTASSIUM CHLORIDE 20 MEQ TABLET.ER. PO SCH ×2 (08:19→21:00)
[2018-04-28] MEDS: METOPROLOL TART IMMED RELEASE 25 MG TABLET. PO SCH ×3 (08:20→21:24)
[2018-04-28] MEDS: ASPIRIN ENTERIC COATED 81 MG TABLET.DR. PO SCH (08:20)
[2018-04-28] MEDS: FERROUS SULFATE 325 MG TABLET. PO SCH (08:21)
[2018-04-28] MEDS: ISOSORBIDE MONONITRATE ER 30 MG TAB.ER.24H PO SCH ×3 (08:21→21:24)
[2018-04-28] MEDS: amLODIPine BESYLATE 10 MG TABLET PO SCH (08:22)
[2018-04-28] MEDS: cloNIDine HCL 0.2 MG TABLET PO SCH ×3 (08:22→21:25)
[2018-04-28] MEDS: ALLOPURINOL 100 MG TABLET. PO SCH (08:23)
[2018-04-28] MEDS: ENOXAPARIN 30 MG/0.3 ML SYRINGE. SQ SCH (08:23)
--- NOTE | 2018-04-28 09:31 | PDOC ---
SURGICAL PROGRESS NOTE Subjective Pt without c/o, daija po, passing stools Vital Signs Vital Signs Date Time Temp Pulse Resp B/P (MAP) Pulse Ox O2 Delivery O2 Flow Rate FiO2 04/28/18 08:22 65 149/85 04/28/18 07:00 98.0 18 95 Room Air 98.0 04/27/18 22:26 2.0 I&O Intake and Output 04/28/18 06:59 Intake Total 1080 ml Output Total 130 ml Balance 950 ml Intake Oral 1080 ml Drainage Total 130 ml # Voids 2 # Bowel Movements 2 General: Alert, Oriented X3, Cooperative, No acute distress Abdomen: Soft, No tenderness Labs Laboratory Tests Test 04/27/18 02:00 04/27/18 04:25 Urine Collection Type Unknown Urine Color Yellow Urine Clarity Clear Urine pH 5.0 Urine Specific [place] 1.015 Urine Protein 100 mg/dL (NEG-TRACE) Urine Glucose (UA) Negative mg/dL (NEG) Urine Ketones (Stick) Negative mg/dL (NEG) Urine Blood Moderate (NEG) Urine Nitrite Negative (NEG) Urine Bilirubin Negative (NEG) Urine Urobilinogen Dipstick 0.2 mg/dL (0.2 mg/dL) Urine Leukocyte Esterase Negative (NEG) Urine RBC 1-2 /HPF (0-2) Urine WBC 1-4 /HPF (0-4) Urine Squamous Epithelial Cells Few /LPF Urine Amorphous Sediment Present /HPF Urine Bacteria 0 /HPF (0-FEW) Urine Cellular Casts Occ /HPF Urine Hyaline Casts Few /HPF Urine Granular Casts Few /HPF Urine Waxy Casts /HPF Urine Random Sodium <60 mmol/L (Not Estab.) Reticulocyte Count (auto) 1.0 % (0.5-2.5) Iron Level 20 ug/dL (65-175) Total Iron Binding Capacity 175 ug/dL (250-450) Iron Saturation 11 % (15-34) Ferritin 151 ng/mL (26-388) Problem List s/p colectomy ADAT d/c planning and should be able to d/c in AM appreciate renal VIN TELLEZ MD Apr 28, 2018 09:31
--- NOTE | 2018-04-28 10:12 | PDOC ---
SUBJECTIVE ROS Follow-up of acute on chronic renal insufficiency Patient claims she's feeling and doing well. Denies dizziness lightheadedness. He did have some diarrhea last night presumably after he got something to move his bowels CVS: no Orthopnea, no CP RESP: no SOB, no TAYLOR GI: no Nausea, no Vomiting : no Dysuria, no Urgency OBJECTIVE Vital Signs Vital Signs Date Time Temp Pulse Resp B/P (MAP) Pulse Ox O2 Delivery O2 Flow Rate FiO2 04/28/18 08:22 65 149/85 04/28/18 07:00 98.0 18 95 Room Air 98.0 04/27/18 22:26 2.0 I & 0 Intake and Output 04/28/18 07:00 Intake Total 1080 ml Output Total 130 ml Balance 950 ml Intake Oral 1080 ml Drainage Total 130 ml # Voids 2 # Bowel Movements 2 Urine output as documented does not seem to be well recorded PHYSICAL EXAM Physical Exam GEN: Awake, Oriented x 3, In no distress EYES: Vision Unchanged, Conjunctiva Normal EN: No EN Drainage, Mucous Membranes moist NECK: no JVD, no JVP, Supple, no Thyromegaly CVS: S1S2, no Murmur, No Gallop, No Rub,no Edema RESP: no Rales, no Rhonchi,no Acc. Muscle Use GI: BS + ve, NO Bruit, Non Tender, Non Distended : no CVA tenderness, no Suprapubic Tenderness DIAGNOSIS/ASSESSMENT Assessment & Plan Acute kidney injury: Kidney function appeared to be worsening until yesterday. He Appears to be prerenal so will continue IV fluids. UA as noted. Urine sodium is less than 60. Current fluid and E-lyte status does not necessitate emergent need for dialysis. Will re-evaluate for dialysis in the am Chronic kidney disease stage IV at baseline: Creatinine probably approximately 3 at baseline. No outpatient records available at this time for review ANEMIA in the setting of renal insufficiency; appears iron deficient so start Venofer. Start Aranap also as ordered, Transfuse as needed HTN: Current BP meds as reviewed. See orders for changes. Hypoalbuminemia: Diet per general surgery Possible intravascular volume depletion: IV fluids as ordered Discussed Plan of Care with patient at bedside COMMENT/RELEVANT DATA Meds Current Medications Medications (Trade) Dose Ordered Sig/Aidan Start Time Stop Time Status Last Admin Dose Admin Acetaminophen/ Hydrocodone Bitart (Lortab 5/325) 2 tab PRN Q4HRS PRN 04/24/18 10:45 Acetaminophen/ Hydrocodone Bitart (Lortab 7.5/325) 1 tab PRN Q6HRS PRN 04/22/18 15:15 04/24/18 14:19 DC Al Hydroxide/Mg Hydroxide (Mylanta Plus Xs) 30 ml PRN Q2HR PRN 04/25/18 09:30 04/25/18 12:23 30 ML Allopurinol (Zyloprim) 100 mg DAILY 04/23/18 09:00 Amlodipine Besylate (Norvasc) 10 mg DAILY 04/23/18 09:00 04/28/18 08:22 10 MG Aspirin (Ecotrin) 81 mg DAILY 04/23/18 09:00 04/28/18 08:20 81 MG Atorvastatin Calcium (Lipitor) 40 mg HS 04/22/18 21:00 04/27/18 22:28 40 MG Bupivacaine HCl/ Epinephrine Bitart (Sensorcain-Mpf Epi 0.5%-1:507536) 30 ml STK-MED ONCE 04/22/18 06:33 04/22/18 07:33 DC 04/22/18 09:05 7 ML Bupivacaine HCl/ Epinephrine Bitart (Sensorcaine-Epi 0.25%-1:721959 Mpf) 30 ml STK-MED ONCE 04/22/18 06:25 04/22/18 07:26 DC Cefoxitin Sodium (Mefoxin) 1 gm 1X PREOP PRN 04/22/18 06:00 04/22/18 18:00 DC Clonidine HCl (Catapres) 0.2 mg BID 04/22/18 21:00 04/28/18 08:22 0.2 MG Darbepoetin Giovani (Aranesp) 60 mcg WEEKLYHS 04/27/18 21:00 04/27/18 21:00 60 MCG Dexamethasone Sodium Phosphate (Decadron) 20 mg STK-MED ONCE 04/22/18 06:24 04/22/18 06:25 DC Doxazosin Mesylate (Cardura) 4 mg HS 04/22/18 21:00 04/27/18 22:27 4 MG Enalaprilat (Vasotec Inj) 1.25 mg PRN Q6HRS PRN 04/23/18 00:15 04/23/18 09:25 1.25 MG Enoxaparin Sodium (Lovenox 30mg Syringe) 30 mg Q24H 04/23/18 09:00 04/28/18 08:23 30 MG Fentanyl Citrate (Fentanyl 2ml Vial) 100 mcg STK-MED ONCE 04/22/18 06:23 04/22/18 06:24 DC Fentanyl Citrate (Fentanyl 5ml Vial) 250 mcg STK-MED ONCE 04/22/18 08:45 04/22/18 08:47 DC Ferrous Sulfate (Feosol) 325 mg DAILY 04/23/18 09:00 04/28/18 08:21 325 MG Glycopyrrolate (Robinul) 1 mg STK-MED ONCE 04/22/18 10:09 04/22/18 10:10 DC Hydralazine HCl (Apresoline Inj) 25 mg PRN Q6HRS PRN 04/23/18 03:45 04/23/18 12:39 25 MG Hydromorphone HCl (Dilaudid) 0.5 mg PRN Q3HRS PRN 04/24/18 10:45 Isosorbide Mononitrate (Imdur) 30 mg QHS 04/22/18 21:00 04/27/18 22:28 30 MG Lansoprazole (Prevacid) 30 mg BIDBFRMEAL 04/25/18 16:30 04/26/18 16:52 30 MG Lidocaine HCl (Lidocaine Pf 2% Vial) 5 ml STK-MED ONCE 04/22/18 06:24 04/22/18 06:25 DC Lidocaine HCl (Xylocaine-Mpf 1% 2ml Vial) 2 ml PRN 1X PRN 04/22/18 07:00 04/23/18 06:59 DC Metoprolol Tartrate (Lopressor) 25 mg BID 04/22/18 21:00 04/28/18 08:20 25 MG Morphine Sulfate (Morphine Sulfate) 1 mg PRN Q10MIN PRN 04/22/18 07:00 04/23/18 06:59 DC 04/22/18 11:31 1 MG Neostigmine Methylsulfate (Neostigmine Methylsulfate) 5 mg STK-MED ONCE 04/22/18 10:08 04/22/18 10:09 DC Non-Formulary Medication (Isosorbide Mononitrate (Isosorbide Mononitrate Er)) 60 mg 1tab AM-1/2tab PM 04/22/18 13:15 UNV Ondansetron HCl (Zofran) 4 mg PRN Q6HRS PRN 04/22/18 13:15 04/25/18 23:20 4 MG Phenylephrine HCl (Reggie-Synephrine Inj) 10 mg STK-MED ONCE 04/22/18 06:24 04/22/18 06:25 DC Piperacillin Sod/ Tazobactam Sod (Zosyn Per Pharmacy) 1 each PRN DAILY PRN 04/23/18 09:45 04/24/18 07:54 DC Piperacillin Sod/ Tazobactam Sod 2.25 gm/Sodium Chloride 50 ml @ 100 mls/hr Q6HRS 04/23/18 10:30 04/23/18 13:57 DC Potassium Chloride/Sodium Chloride 1,000 ml @ 100 mls/hr Q10H 04/22/18 14:00 04/27/18 11:00 DC 04/27/18 08:49 100 MLS/HR Potassium Chloride (Klor-Con) 20 meq BID 04/22/18 21:00 04/27/18 22:27 20 MEQ Prochlorperazine Edisylate (Compazine) 5 mg PACU PRN PRN 04/22/18 07:00 04/23/18 06:59 DC 04/22/18 10:59 5 MG Propofol 20 ml @ As Directed STK-MED ONCE 04/22/18 06:24 04/22/18 06:25 DC Ringer's Solution 1,000 ml @ 100 mls/hr Q10H 04/27/18 11:00 04/28/18 06:30 100 MLS/HR Rocuronium [place] (Zemuron) 50 mg STK-MED ONCE 04/22/18 08:46 04/22/18 08:47 DC Sevoflurane (Ultane) 90 ml STK-MED ONCE 04/22/18 10:07 04/22/18 10:08 DC Sodium Chloride (Normal Saline Flush) 3 ml QSHIFT PRN 04/22/18 13:15 Results All relevant outside records, renal labs, imaging studies, telemetry/EKG's were reviewed. TWAN PHELPS MD Apr 28, 2018 10:12
[2018-04-28] MEDS ORDERED: MAGNESIUM SULFATE 2GM 50 ML IV PRN (10:15)
--- NOTE | 2018-04-28 10:27 | PDOC ---
PROGRESS NOTES Chief Complaint Chief Complaint Status post resection of large pedunculated polyp of sigmoid colon Hypertension Leukocytosis Acute renal insufficiency (Elevated Cr: 3.0 on 04/23), hx of CKD4 History of dyslipidemia Rheumatic cardiac disease? History of prostate cancer History of Present Illness History of Present Illness Mr. Greer presented for surgery for large pedunculated polyp of sigmoid colon. Tubovillous adenoma per biopsy report. Patient was seen and examined at bedside. ORLY drain in place on R. Patient has no new complaints. Dressing c/d/ i. Surgery and Neph following. Vitals Vitals Vital Signs Date Time Temp Pulse Resp B/P (MAP) Pulse Ox O2 Delivery O2 Flow Rate FiO2 04/28/18 08:22 65 149/85 04/28/18 07:00 98.0 18 95 Room Air 98.0 04/27/18 22:26 2.0 Physical Exam General: Alert, Oriented X3, Cooperative, No acute distress Heart: Regular rate, Normal S1, Normal S2, No murmurs, Gallops Lungs: Clear Abdomen: Normal bowel sounds, Soft, No tenderness Extremities: No clubbing, No cyanosis, No edema Skin: No rashes, No significant lesion, Other (surgical scar with steri strips is c/d/i, all other surgical wound dressings are c/d/i) Review of Systems Review of Systems Denies abdominal pain Denies chest pain Assessment and Plan Assessmemt and Plan Assessment: Status post resection of large pedunculated polyp of sigmoid colon Hypertension Leukocytosis Acute renal insufficiency (Elevated Cr: 3.0 on 04/23), hx of CKD4 History of dyslipidemia Rheumatic cardiac disease? History of prostate cancer Plan: Awaiting nephrology input Continue to monitor Cr IVF Appreciate surgery input, hope to discharge tomorrow Continue home meds Encourage po intake Monitor ORLY drain Comment Review of Relevant I have reviewed the following items jessie (where applicable) has been applied. Labs Laboratory Tests Test 04/27/18 02:00 04/27/18 04:25 Urine Collection Type Unknown Urine Color Yellow Urine Clarity Clear Urine pH 5.0 Urine Specific [place] 1.015 Urine Protein 100 mg/dL (NEG-TRACE) Urine Glucose (UA) Negative mg/dL (NEG) Urine Ketones (Stick) Negative mg/dL (NEG) Urine Blood Moderate (NEG) Urine Nitrite Negative (NEG) Urine Bilirubin Negative (NEG) Urine Urobilinogen Dipstick 0.2 mg/dL (0.2 mg/dL) Urine Leukocyte Esterase Negative (NEG) Urine RBC 1-2 /HPF (0-2) Urine WBC 1-4 /HPF (0-4) Urine Squamous Epithelial Cells Few /LPF Urine Amorphous Sediment Present /HPF Urine Bacteria 0 /HPF (0-FEW) Urine Cellular Casts Occ /HPF Urine Hyaline Casts Few /HPF Urine Granular Casts Few /HPF Urine Waxy Casts /HPF Urine Random Sodium <60 mmol/L (Not Estab.) Reticulocyte Count (auto) 1.0 % (0.5-2.5) Iron Level 20 ug/dL (65-175) Total Iron Binding Capacity 175 ug/dL (250-450) Iron Saturation 11 % (15-34) Ferritin 151 ng/mL (26-388) Medications Current Medications Ondansetron HCl (Zofran) 4 mg PRN Q6HRS PRN IV NAUSEA/VOMITING Last administered on 04/22/18at 11:28; Start 04/22/18 at 07:00; Stop 04/23/18 at 06:59 ; Status DC Fentanyl Citrate (Fentanyl 2ml Vial) 25 mcg PRN Q5MIN PRN IV MILD PAIN; Start 04/22/18 at 07:00; Stop 04/23/18 at 06:59; Status DC Fentanyl Citrate (Fentanyl 2ml Vial) 50 mcg PRN Q5MIN PRN IV MODERATE TO SEVERE PAIN; Start 04/22/18 at 07:00; Stop 04/23/18 at 06:59; Status DC Morphine Sulfate (Morphine Sulfate) 1 mg PRN Q10MIN PRN IV SEVERE PAIN Last administered on 04/22/18at 11:31; Start 04/22/18 at 07:00; Stop 04/23/18 at 06:59 ; Status DC Ringer's Solution 1,000 ml @ 30 mls/hr Q24H IV Last administered on 04/22/18at 07:23; Start 04/22/18 at 07:00; Stop 04/22/18 at 18:59; Status DC Lidocaine HCl (Xylocaine-Mpf 1% 2ml Vial) 2 ml PRN 1X PRN ID PRIOR TO IV START ; Start 04/22/18 at 07:00; Stop 04/23/18 at 06:59; Status DC Hydromorphone HCl (Dilaudid) 0.5 mg PRN Q10MIN PRN IV SEV PAIN, Second choice Last administered on 04/22/18at 11:37; Start 04/22/18 at 07:00; Stop 04/23/18 at 06:59; Status DC Prochlorperazine Edisylate (Compazine) 5 mg PACU PRN PRN IV NAUSEA, MRX1 Last administered on 04/22/18at 10:59; Start 04/22/18 at 07:00; Stop 04/23/18 at 06:59 ; Status DC Cefoxitin Sodium (Mefoxin) 1 gm 1X PREOP PRN IVP PRIOR TO PROCEDURE; Start at 06:00; Stop 04/22/18 at 18:00; Status DC Rocuronium [place] (Zemuron) 50 mg STK-MED ONCE .ROUTE ; Start 04/22/18 at 06:23 ; Stop 04/22/18 at 06:24; Status DC Fentanyl Citrate (Fentanyl 2ml Vial) 100 mcg STK-MED ONCE .ROUTE ; Start at 06:23; Stop 04/22/18 at 06:24; Status DC Sevoflurane (Ultane) 90 ml STK-MED ONCE IH ; Start 04/22/18 at 06:24; Stop 04/22 at 06:25; Status DC Dexamethasone Sodium Phosphate (Decadron) 20 mg STK-MED ONCE .ROUTE ; Start at 06:24; Stop 04/22/18 at 06:25; Status DC Propofol 20 ml @ As Directed STK-MED ONCE IV ; Start 04/22/18 at 06:24; Stop at 06:25; Status DC Lidocaine HCl (Lidocaine Pf 2% Vial) 5 ml STK-MED ONCE .ROUTE ; Start 04/22/18 at 06:24; Stop 04/22/18 at 06:25; Status DC Ondansetron HCl (Zofran) 4 mg STK-MED ONCE .ROUTE ; Start 04/22/18 at 06:24; Stop 04/22/18 at 06:25; Status DC Phenylephrine HCl (Reggie-Synephrine Inj) 10 mg STK-MED ONCE .ROUTE ; Start at 06:24; Stop 04/22/18 at 06:25; Status DC Bupivacaine HCl/ Epinephrine Bitart (Sensorcaine-Epi 0.25%-1:148609 Mpf) 30 ml STK-MED ONCE .ROUTE ; Start 04/22/18 at 06:25; Stop 04/22/18 at 07:26; Status DC Bupivacaine HCl/ Epinephrine Bitart (Sensorcain-Mpf Epi 0.5%-1:672568) 30 ml STK -MED ONCE .ROUTE Last administered on 04/22/18at 09:05; Start 04/22/18 at 06:33 ; Stop 04/22/18 at 07:33; Status DC Fentanyl Citrate (Fentanyl 5ml Vial) 250 mcg STK-MED ONCE .ROUTE ; Start at 08:45; Stop 04/22/18 at 08:47; Status DC Rocuronium [place] (Zemuron) 50 mg STK-MED ONCE .ROUTE ; Start 04/22/18 at 08:46 ; Stop 04/22/18 at 08:47; Status DC Sevoflurane (Ultane) 90 ml STK-MED ONCE IH ; Start 04/22/18 at 10:07; Stop 04/22 at 10:08; Status DC Neostigmine Methylsulfate (Neostigmine Methylsulfate) 5 mg STK-MED ONCE .ROUTE ; Start 04/22/18 at 10:08; Stop 04/22/18 at 10:09; Status DC Glycopyrrolate (Robinul) 1 mg STK-MED ONCE .ROUTE ; Start 04/22/18 at 10:09; Stop 04/22/18 at 10:10; Status DC Enoxaparin Sodium (Lovenox 30mg Syringe) 30 mg Q24H SQ Last administered on at 08:23; Start 04/23/18 at 09:00 Sodium Chloride (Normal Saline Flush) 3 ml QSHIFT PRN IV AFTER MEDS AND BLOOD DRAWS; Start 04/22/18 at 13:15 Potassium Chloride/Sodium Chloride 1,000 ml @ 100 mls/hr Q10H IV Last administered on 04/27/18at 08:49; Start 04/22/18 at 14:00; Stop 04/27/18 at 11:00 ; Status DC Hydromorphone HCl 30 ml @ 0 mls/hr CONT PRN PRN IV PER PROTOCOL Last administered on 04/22/18 13:49; Start 04/22/18 at 13:15; Stop 04/24/18 at 10:38 ; Status DC Ondansetron HCl (Zofran) 4 mg PRN Q6HRS PRN IV NAUESA, 1ST CHOICE Last administered on 04/25/18 23:20; Start 04/22/18 at 13:15 Allopurinol (Zyloprim) 100 mg DAILY PO ; Start 04/23/18 at 09:00 Amlodipine Besylate (Norvasc) 10 mg DAILY PO Last administered on 04/28/18 08: 22; Start 04/23/18 at 09:00 Aspirin (Ecotrin) 81 mg DAILY PO Last administered on 04/28/18 08:20; Start at 09:00 Metoprolol Tartrate (Lopressor) 25 mg BID PO Last administered on 04/28/18 08: 20; Start 04/22/18 at 21:00 Non-Formulary Medication (Isosorbide Mononitrate (Isosorbide Mononitrate Er)) 60 mg 1tab AM-1/2tab PM PO ; Start 04/22/18 at 13:15; Status UNV Isosorbide Mononitrate (Imdur) 60 mg DAILY PO Last administered on 04/28/18 08 :21; Start 04/23/18 at 09:00 Isosorbide Mononitrate (Imdur) 30 mg QHS PO Last administered on 04/27/18 22: 28; Start 04/22/18 at 21:00 Atorvastatin Calcium (Lipitor) 40 mg HS PO Last administered on 04/27/18 22:28 ; Start 04/22/18 at 21:00 Clonidine HCl (Catapres) 0.2 mg BID PO Last administered on 04/28/18 08:22; Start 04/22/18 at 21:00 Doxazosin Mesylate (Cardura) 4 mg HS PO Last administered on 04/27/18 22:27; Start 04/22/18 at 21:00 Ferrous Sulfate (Feosol) 325 mg DAILY PO Last administered on 04/28/18 08:21; Start 04/23/18 at 09:00 Acetaminophen/ Hydrocodone Bitart (Lortab 7.5/325) 1 tab PRN Q6HRS PRN PO PAIN ; Start 04/22/18 at 15:15; Stop 04/24/18 at 14:19; Status DC Potassium Chloride (Klor-Con) 20 meq BID PO Last administered on 04/27/18at 22: 27; Start 04/22/18 at 21:00 Enalaprilat (Vasotec Inj) 1.25 mg PRN Q6HRS PRN IVP HYPERTENSION, SEE COMMENTS Last administered on 04/23/18at 09:25; Start 04/23/18 at 00:15 Hydralazine HCl (Apresoline Inj) 25 mg PRN Q6HRS PRN IVP ELEVATED BP,1ST Choic , SEE COM Last administered on 04/23/18at 12:39; Start 04/23/18 at 03:45 Piperacillin Sod/ Tazobactam Sod (Zosyn Per Pharmacy) 1 each PRN DAILY PRN MC SEE COMMENTS; Start 04/23/18 at 09:45; Stop 04/24/18 at 07:54; Status DC Piperacillin Sod/ Tazobactam Sod 2.25 gm/Sodium Chloride 50 ml @ 100 mls/hr Q6HRS IV ; Start 04/23/18 at 10:30; Stop 04/23/18 at 13:57; Status DC Acetaminophen/ Hydrocodone Bitart (Lortab 5/325) 1 tab PRN Q4HRS PRN PO MILD TO MODERATE PAIN Last administered on 04/27/18at 22:26; Start 04/24/18 at 10:45 Acetaminophen/ Hydrocodone Bitart (Lortab 5/325) 2 tab PRN Q4HRS PRN PO MODERATE PAIN; Start 04/24/18 at 10:45 Hydromorphone HCl (Dilaudid) 0.5 mg PRN Q3HRS PRN IV MODERATE TO SEVERE PAIN; Start 04/24/18 at 10:45 Lansoprazole (Prevacid) 30 mg BIDBFRMEAL FT Last administered on 04/26/18at 16: 52; Start 04/25/18 at 16:30 Al Hydroxide/Mg Hydroxide (Mylanta Plus Xs) 30 ml PRN Q2HR PRN PO HEARTBURN / GAS Last administered on 04/25/18at 12:23; Start 04/25/18 at 09:30 Ringer's Solution 1,000 ml @ 100 mls/hr Q10H IV Last administered on at 06:30; Start 04/27/18 at 11:00 Darbepoetin Giovani (Aranesp) 60 mcg WEEKLYHS SQ Last administered on 04/27/18at 21 :00; Start 04/27/18 at 21:00 Magnesium Sulfate 50 ml @ 25 mls/hr PRN DAILY PRN IV for Mag < 1.7 on am labs; Start 04/28/18 at 10:15 Iron Sucrose 200 mg/Sodium Chloride 110 ml @ 55 mls/hr 3X/WEEK IV ; Start 04/29 at 09:00; Stop 05/08/18 at 10:59 Active Scripts Active Reported Metoprolol Tartrate 25 Mg Tablet 25 Mg PO BID Ferrous Sulfate 325 Mg Tablet 325 Mg PO DAILY Allopurinol 100 Mg Tablet 100 Mg PO DAILY Atorvastatin Calcium 40 Mg Tablet 40 Mg PO HS Potassium Chloride 20 Meq Tab.er.prt 20 Meq PO BID Cardura (Doxazosin Mesylate) 4 Mg Tablet 4 Mg PO HS Isosorbide Mononitrate Er (Isosorbide Mononitrate) 60 Mg Tab.er.24h 60 Mg PO 1TAB AM-1/2TAB PM Clonidine Hcl 0.2 Mg Tablet 0.2 Mg PO BID Amlodipine Besylate 10 Mg Tablet 10 Mg PO DAILY Lortab 7.5-325 mg Tablet (Hydrocodone/Acetaminophen) 1 Each Tablet 1 Tab PO PRN Q6HRS Aspir 81 (Aspirin) 81 Mg Tablet.dr 81 Mg PO DAILY Vitals/I & O Vital Sign - Last 24 Hours 04/27/18 04/27/18 04/27/18 04/27/18 11:00 15:00 18:15 18:16 Temp 98.4 99.4 100.1 98.4 99.4 100.1 Pulse 60 70 Resp 18 20 B/P (MAP) 126/80 (95) 135/77 (96) Pulse Ox 95 92 92 O2 Delivery Room Air Room Air Room Air 04/27/18 04/27/18 04/27/18 04/27/18 19:25 20:00 22:26 22:27 Temp 100.0 100.0 Pulse 87 87 Resp 18 B/P (MAP) 151/91 (111) 151/91 Pulse Ox 96 92 O2 Delivery Room Air Room Air Room Air O2 Flow Rate 2.0 04/27/18 04/27/18 04/27/18 04/27/18 22:28 22:28 22:28 23:26 Pulse 87 87 87 B/P (MAP) 151/91 151/91 151/91 Pulse Ox 95 O2 Delivery Room Air 04/27/18 04/28/18 04/28/18 04/28/18 23:49 03:19 07:00 08:20 Temp 98.3 98.2 98.0 98.3 98.2 98.0 Pulse 83 58 65 65 Resp 18 20 18 B/P (MAP) 142/93 (109) 135/90 (105) 149/85 (106) 149/85 Pulse Ox 95 95 95 O2 Delivery Room Air Room Air Room Air 04/28/18 04/28/18 04/28/18 08:21 08:22 08:22 Pulse 65 65 65 B/P (MAP) 149/85 149/85 149/85 Intake and Output 04/27/18 04/27/18 04/28/18 15:00 23:00 07:00 Intake Total 360 ml 240 ml 480 ml Output Total 70 ml 60 ml Balance 290 ml 240 ml 420 ml OSMANY GLOVER III DO Apr 28, 2018 10:27
[2018-04-28 11:00] VITALS: BP 136/81
[2018-04-28 15:00] VITALS: BP 135/84
[2018-04-28] MEDS: HYDROcodone/APAP 5/325MG 1 TAB TABLET PO PRN (15:11)
[2018-04-28 19:25] VITALS: BP 156/95
[2018-04-28] MEDS: ATORVASTATIN CALCIUM 40 MG TABLET. PO SCH ×2 (21:00→21:23)
[2018-04-28] MEDS: DOXAZOSIN MESYLATE 4 MG TABLET. PO SCH ×2 (21:00→21:23)
[2018-04-28] MEDS: ONDANSETRON PF 4 MG/2 ML VIAL. IV PRN (21:28)
[2018-04-28 23:59] VITALS: BP 154/99
[2018-04-29] MEDS: IV RINGERS,LACTATED 1000ML 1,000 ML IV SCH ×2 (03:00→13:00)
[2018-04-29 03:15] VITALS: BP 154/96
[2018-04-29 07:00] VITALS: BP 156/91
[2018-04-29] MEDS: LANSOPRAZOLE 30 MG TAB.RAP.DR FT SCH ×2 (07:15→16:30)
[2018-04-29] MEDS ORDERED: LANS30TA6 FT (09:00)
[2018-04-29 10:15] LABS: KAPPA FREE 61.1 mg/L (3.3-19.4); KAPPA LAMBDA RATIO 1.81 (0.26-1.65); LAMBDA FREE 33.7 mg/L (5.7-26.3)
[2018-04-29] MEDS: IRON SUCROSE COMPLEX 200 MG in IV NORMAL SALINE 100ML 100 ML IV SCH (10:15)
[2018-04-29] MEDS: cloNIDine HCL 0.2 MG TABLET PO SCH ×2 (10:16→20:44)
[2018-04-29] MEDS: ENOXAPARIN 30 MG/0.3 ML SYRINGE. SQ SCH (10:16)
[2018-04-29] MEDS: METOPROLOL TART IMMED RELEASE 25 MG TABLET. PO SCH ×2 (10:17→19:30)
[2018-04-29] MEDS: FERROUS SULFATE 325 MG TABLET. PO SCH (10:17)
[2018-04-29] MEDS: ASPIRIN ENTERIC COATED 81 MG TABLET.DR. PO SCH (10:17)
[2018-04-29] MEDS: amLODIPine BESYLATE 10 MG TABLET PO SCH (10:18)
[2018-04-29] MEDS: POTASSIUM CHLORIDE 20 MEQ TABLET.ER. PO SCH ×2 (10:18→20:45)
[2018-04-29] MEDS: ISOSORBIDE MONONITRATE ER 30 MG TAB.ER.24H PO SCH ×2 (10:18→20:45)
[2018-04-29] MEDS: ALLOPURINOL 100 MG TABLET. PO SCH (10:18)
--- NOTE | 2018-04-29 10:33 | PDOC ---
SABA RUBIO APRN 04/29/18 1033: SURGICAL PROGRESS NOTE Subjective nausea with meals at times + flatus pain managed Vital Signs Vital Signs Date Time Temp Pulse Resp B/P (MAP) Pulse Ox O2 Delivery O2 Flow Rate FiO2 04/29/18 10:18 79 156/91 04/29/18 07:00 98.4 18 99 Room Air 98.4 I&O Intake and Output 04/29/18 06:59 Intake Total 480 ml Output Total 1430 ml Balance -950 ml Intake Oral 480 ml Output Urine Total 1200 ml Drainage Total 230 ml General: Alert, Oriented X3, Cooperative, No acute distress Abdomen: Soft, Other (alfredo serosang, dressing dry) Labs Laboratory Tests Test 04/28/18 11:10 Creatine Kinase 135 U/L (39-308) Laboratory Tests Test 04/28/18 11:10 Creatine Kinase 135 U/L (39-308) Assessment/Plan s/p colectomy some nausea with food--await improved bowel function MEGAN SALINAS MD 04/29/18 1234: SURGICAL PROGRESS NOTE Assessment/Plan pt seen sitting up on the side of the bed, having a regular diet for lunch while on the phone plan home tomorrow SABA RUBIO APRN Apr 29, 2018 10:33 MEGAN SALINAS MD Apr 29, 2018 12:34
--- NOTE | 2018-04-29 10:48 | PDOC ---
PROGRESS NOTES Chief Complaint Chief Complaint Status post resection of large pedunculated polyp of sigmoid colon Hypertension Leukocytosis Acute renal insufficiency (Elevated Cr: 3.0 on 04/23), hx of CKD4 History of dyslipidemia Rheumatic cardiac disease? History of prostate cancer History of Present Illness History of Present Illness Mr. Greer presented for surgery for large pedunculated polyp of sigmoid colon. Tubovillous adenoma per biopsy report. Patient was seen and examined at bedside. ALFREDO drain in place on R. Dressing c/d/i. Surgery and Neph following. Does not feel good today, tympanitic abdomen, mildly distended, but passing gas , adeq PO, no fevers GS has yet to see-primary service Last KUB 318 or 2019: IMPRESSION: No radiographic evidence of acute abdominal abnormality is identified. Drains and probable enteric tube noted. PLAN: RE KUB? PAin meds percocet and FErrous sulfate RX on chart Dw RN Aracelis Vitals Vitals Vital Signs Date Time Temp Pulse Resp B/P (MAP) Pulse Ox O2 Delivery O2 Flow Rate FiO2 04/29/18 10:18 79 156/91 04/29/18 07:00 98.4 18 99 Room Air 98.4 Physical Exam General: Alert, Oriented X3, Cooperative, No acute distress Heart: Regular rate, Normal S1, Normal S2, No murmurs, Gallops Lungs: Clear Abdomen: Soft, Other (alfredo serosang, dressing dry) Extremities: No clubbing, No cyanosis, No edema Skin: No rashes, No significant lesion, Other (surgical scar with steri strips is c/d/i, all other surgical wound dressings are c/d/i) Labs LABS Laboratory Tests Test 04/28/18 11:10 Creatine Kinase 135 U/L (39-308) Review of Systems Review of Systems Abdominal discomfort?, Otherwise rest of ROS 14 point negative Comment Review of Relevant I have reviewed the following items jessie (where applicable) has been applied. Labs Laboratory Tests Test 04/28/18 11:10 Creatine Kinase 135 U/L (39-308) Laboratory Tests Test 04/28/18 11:10 Creatine Kinase 135 U/L (39-308) Medications Current Medications Ondansetron HCl (Zofran) 4 mg PRN Q6HRS PRN IV NAUSEA/VOMITING Last administered on 04/22/18at 11:28; Start 04/22/18 at 07:00; Stop 04/23/18 at 06:59 ; Status DC Fentanyl Citrate (Fentanyl 2ml Vial) 25 mcg PRN Q5MIN PRN IV MILD PAIN; Start 04/22/18 at 07:00; Stop 04/23/18 at 06:59; Status DC Fentanyl Citrate (Fentanyl 2ml Vial) 50 mcg PRN Q5MIN PRN IV MODERATE TO SEVERE PAIN; Start 04/22/18 at 07:00; Stop 04/23/18 at 06:59; Status DC Morphine Sulfate (Morphine Sulfate) 1 mg PRN Q10MIN PRN IV SEVERE PAIN Last administered on 04/22/18at 11:31; Start 04/22/18 at 07:00; Stop 04/23/18 at 06:59 ; Status DC Ringer's Solution 1,000 ml @ 30 mls/hr Q24H IV Last administered on 04/22/18at 07:23; Start 04/22/18 at 07:00; Stop 04/22/18 at 18:59; Status DC Lidocaine HCl (Xylocaine-Mpf 1% 2ml Vial) 2 ml PRN 1X PRN ID PRIOR TO IV START ; Start 04/22/18 at 07:00; Stop 04/23/18 at 06:59; Status DC Hydromorphone HCl (Dilaudid) 0.5 mg PRN Q10MIN PRN IV SEV PAIN, Second choice Last administered on 04/22/18at 11:37; Start 04/22/18 at 07:00; Stop 04/23/18 at 06:59; Status DC Prochlorperazine Edisylate (Compazine) 5 mg PACU PRN PRN IV NAUSEA, MRX1 Last administered on 04/22/18at 10:59; Start 04/22/18 at 07:00; Stop 04/23/18 at 06:59 ; Status DC Cefoxitin Sodium (Mefoxin) 1 gm 1X PREOP PRN IVP PRIOR TO PROCEDURE; Start at 06:00; Stop 04/22/18 at 18:00; Status DC Rocuronium [place] (Zemuron) 50 mg STK-MED ONCE .ROUTE ; Start 04/22/18 at 06:23 ; Stop 04/22/18 at 06:24; Status DC Fentanyl Citrate (Fentanyl 2ml Vial) 100 mcg STK-MED ONCE .ROUTE ; Start at 06:23; Stop 04/22/18 at 06:24; Status DC Sevoflurane (Ultane) 90 ml STK-MED ONCE IH ; Start 04/22/18 at 06:24; Stop 04/22 at 06:25; Status DC Dexamethasone Sodium Phosphate (Decadron) 20 mg STK-MED ONCE .ROUTE ; Start at 06:24; Stop 04/22/18 at 06:25; Status DC Propofol 20 ml @ As Directed STK-MED ONCE IV ; Start 04/22/18 at 06:24; Stop at 06:25; Status DC Lidocaine HCl (Lidocaine Pf 2% Vial) 5 ml STK-MED ONCE .ROUTE ; Start 04/22/18 at 06:24; Stop 04/22/18 at 06:25; Status DC Ondansetron HCl (Zofran) 4 mg STK-MED ONCE .ROUTE ; Start 04/22/18 at 06:24; Stop 04/22/18 at 06:25; Status DC Phenylephrine HCl (Reggie-Synephrine Inj) 10 mg STK-MED ONCE .ROUTE ; Start at 06:24; Stop 04/22/18 at 06:25; Status DC Bupivacaine HCl/ Epinephrine Bitart (Sensorcaine-Epi 0.25%-1:[id number] Mpf) 30 ml STK-MED ONCE .ROUTE ; Start 04/22/18 at 06:25; Stop 04/22/18 at 07:26; Status DC Bupivacaine HCl/ Epinephrine Bitart (Sensorcain-Mpf Epi 0.5%-1:[id number]) 30 ml STK -MED ONCE .ROUTE Last administered on 04/22/18at 09:05; Start 04/22/18 at 06:33 ; Stop 04/22/18 at 07:33; Status DC Fentanyl Citrate (Fentanyl 5ml Vial) 250 mcg STK-MED ONCE .ROUTE ; Start at 08:45; Stop 04/22/18 at 08:47; Status DC Rocuronium [place] (Zemuron) 50 mg STK-MED ONCE .ROUTE ; Start 04/22/18 at 08:46 ; Stop 04/22/18 at 08:47; Status DC Sevoflurane (Ultane) 90 ml STK-MED ONCE IH ; Start 04/22/18 at 10:07; Stop 04/22 at 10:08; Status DC Neostigmine Methylsulfate (Neostigmine Methylsulfate) 5 mg STK-MED ONCE .ROUTE ; Start 04/22/18 at 10:08; Stop 04/22/18 at 10:09; Status DC Glycopyrrolate (Robinul) 1 mg STK-MED ONCE .ROUTE ; Start 04/22/18 at 10:09; Stop 04/22/18 at 10:10; Status DC Enoxaparin Sodium (Lovenox 30mg Syringe) 30 mg Q24H SQ Last administered on 10:16; Start 04/23/18 at 09:00 Sodium Chloride (Normal Saline Flush) 3 ml QSHIFT PRN IV AFTER MEDS AND BLOOD DRAWS; Start 04/22/18 at 13:15 Potassium Chloride/Sodium Chloride 1,000 ml @ 100 mls/hr Q10H IV Last administered on 04/27/18at 08:49; Start 04/22/18 at 14:00; Stop 04/27/18 at 11:00 ; Status DC Hydromorphone HCl 30 ml @ 0 mls/hr CONT PRN PRN IV PER PROTOCOL Last administered on 04/22/18at 13:49; Start 04/22/18 at 13:15; Stop 04/24/18 at 10:38 ; Status DC Ondansetron HCl (Zofran) 4 mg PRN Q6HRS PRN IV NAUESA, 1ST CHOICE Last administered on 04/28/18at 21:28; Start 04/22/18 at 13:15 Allopurinol (Zyloprim) 100 mg DAILY PO Last administered on 04/29/18 10:18; Start 04/23/18 at 09:00 Amlodipine Besylate (Norvasc) 10 mg DAILY PO Last administered on 04/29/18 10: 18; Start 04/23/18 at 09:00 Aspirin (Ecotrin) 81 mg DAILY PO Last administered on 04/29/18 10:17; Start at 09:00 Metoprolol Tartrate (Lopressor) 25 mg BID PO Last administered on 04/29/18 10: 17; Start 04/22/18 at 21:00 Non-Formulary Medication (Isosorbide Mononitrate (Isosorbide Mononitrate Er)) 60 mg 1tab AM-1/2tab PM PO ; Start 04/22/18 at 13:15; Status UNV Isosorbide Mononitrate (Imdur) 60 mg DAILY PO Last administered on 04/29/18 10 :18; Start 04/23/18 at 09:00 Isosorbide Mononitrate (Imdur) 30 mg QHS PO Last administered on 04/27/18 22: 28; Start 04/22/18 at 21:00 Atorvastatin Calcium (Lipitor) 40 mg HS PO Last administered on 04/27/18 22:28 ; Start 04/22/18 at 21:00 Clonidine HCl (Catapres) 0.2 mg BID PO Last administered on 04/29/18 10:16; Start 04/22/18 at 21:00 Doxazosin Mesylate (Cardura) 4 mg HS PO Last administered on 04/27/18 22:27; Start 04/22/18 at 21:00 Ferrous Sulfate (Feosol) 325 mg DAILY PO Last administered on 04/29/18 10:17; Start 04/23/18 at 09:00 Acetaminophen/ Hydrocodone Bitart (Lortab 7.5/325) 1 tab PRN Q6HRS PRN PO PAIN ; Start 04/22/18 at 15:15; Stop 04/24/18 at 14:19; Status DC Potassium Chloride (Klor-Con) 20 meq BID PO Last administered on 04/29/18 10: 18; Start 04/22/18 at 21:00 Enalaprilat (Vasotec Inj) 1.25 mg PRN Q6HRS PRN IVP HYPERTENSION, SEE COMMENTS Last administered on 04/23/18 09:25; Start 04/23/18 at 00:15 Hydralazine HCl (Apresoline Inj) 25 mg PRN Q6HRS PRN IVP ELEVATED BP,1ST Choic , SEE COM Last administered on 04/23/18at 12:39; Start 04/23/18 at 03:45 Piperacillin Sod/ Tazobactam Sod (Zosyn Per Pharmacy) 1 each PRN DAILY PRN MC SEE COMMENTS; Start 04/23/18 at 09:45; Stop 04/24/18 at 07:54; Status DC Piperacillin Sod/ Tazobactam Sod 2.25 gm/Sodium Chloride 50 ml @ 100 mls/hr Q6HRS IV ; Start 04/23/18 at 10:30; Stop 04/23/18 at 13:57; Status DC Acetaminophen/ Hydrocodone Bitart (Lortab 5/325) 1 tab PRN Q4HRS PRN PO MILD TO MODERATE PAIN Last administered on 04/28/18at 15:11; Start 04/24/18 at 10:45 Acetaminophen/ Hydrocodone Bitart (Lortab 5/325) 2 tab PRN Q4HRS PRN PO MODERATE PAIN; Start 04/24/18 at 10:45 Hydromorphone HCl (Dilaudid) 0.5 mg PRN Q3HRS PRN IV MODERATE TO SEVERE PAIN; Start 04/24/18 at 10:45 Lansoprazole (Prevacid) 30 mg BIDBFRMEAL FT Last administered on 04/26/18at 16: 52; Start 04/25/18 at 16:30 Al Hydroxide/Mg Hydroxide (Mylanta Plus Xs) 30 ml PRN Q2HR PRN PO HEARTBURN / GAS Last administered on 04/25/18at 12:23; Start 04/25/18 at 09:30 Ringer's Solution 1,000 ml @ 100 mls/hr Q10H IV Last administered on at 03:00; Start 04/27/18 at 11:00 Darbepoetin Giovani (Aranesp) 60 mcg WEEKLYHS SQ Last administered on 04/27/18at 21 :00; Start 04/27/18 at 21:00 Magnesium Sulfate 50 ml @ 25 mls/hr PRN DAILY PRN IV for Mag < 1.7 on am labs; Start 04/28/18 at 10:15 Iron Sucrose 200 mg/Sodium Chloride 110 ml @ 55 mls/hr 3X/WEEK IV Last administered on 04/29/18at 10:15; Start 04/29/18 at 09:00; Stop 05/08/18 at 10:59 Active Scripts Active Prevacid (Lansoprazole) 30 Mg Tab.rap.dr 30 Mg FT BIDBFRMEAL MDD 1 Reported Metoprolol Tartrate 25 Mg Tablet 25 Mg PO BID Ferrous Sulfate 325 Mg Tablet 325 Mg PO DAILY Allopurinol 100 Mg Tablet 100 Mg PO DAILY Atorvastatin Calcium 40 Mg Tablet 40 Mg PO HS Potassium Chloride 20 Meq Tab.er.prt 20 Meq PO BID Cardura (Doxazosin Mesylate) 4 Mg Tablet 4 Mg PO HS Isosorbide Mononitrate Er (Isosorbide Mononitrate) 60 Mg Tab.er.24h 60 Mg PO 1TAB AM-1/2TAB PM Clonidine Hcl 0.2 Mg Tablet 0.2 Mg PO BID Amlodipine Besylate 10 Mg Tablet 10 Mg PO DAILY Lortab 7.5-325 mg Tablet (Hydrocodone/Acetaminophen) 1 Each Tablet 1 Tab PO PRN Q6HRS Aspir 81 (Aspirin) 81 Mg Tablet.dr 81 Mg PO DAILY Vitals/I & O Vital Sign - Last 24 Hours 04/28/18 04/28/18 04/28/18 04/28/18 11:00 15:00 15:11 16:15 Temp 98.6 98.3 98.6 98.3 Pulse 63 64 Resp 18 16 B/P (MAP) 136/81 (99) 135/84 (101) Pulse Ox 95 94 94 94 O2 Delivery Room Air Room Air Room Air Room Air 04/28/18 04/28/18 04/28/18 04/29/18 19:25 20:00 23:59 03:15 Temp 98.1 98.2 98.3 98.1 98.2 98.3 Pulse 71 79 76 Resp 18 20 20 B/P (MAP) 156/95 (115) 154/99 (117) 154/96 (115) Pulse Ox 94 94 95 O2 Delivery Room Air Room Air Room Air Room Air 04/29/18 04/29/18 04/29/18 04/29/18 07:00 10:16 10:17 10:18 Temp 98.4 98.4 Pulse 79 79 79 79 Resp 18 B/P (MAP) 156/91 (112) 156/91 156/91 156/91 Pulse Ox 99 O2 Delivery Room Air 04/29/18 10:18 Pulse 79 B/P (MAP) 156/91 Intake and Output 04/28/18 04/28/18 04/29/18 15:00 23:00 07:00 Intake Total 240 ml 240 ml Output Total 700 ml 370 ml 360 ml Balance -700 ml -130 ml -120 ml TERMULO,MARTIN Y MD Apr 29, 2018 10:48
[2018-04-29 11:00] VITALS: BP 174/92
[2018-04-29 11:07] LABS: ALBUMIN 2.6 g/dL (3.4-5.0); CALCIUM 8.6 mg/dL (8.5-10.1); CREATININE 2.9 mg/dL (0.7-1.3); GFR 26.7; MAGNESIUM 2.2 mg/dL (1.8-2.4); PHOSPHORUS 3.2 mg/dL (2.6-4.7); POTASSIUM 3.4 mmol/L (3.5-5.1)
--- NOTE | 2018-04-29 11:49 | NUR ---
SW following. Discussed with RN, pt no longer needing SNU. Pt will discharge home possibly tomorrow. SW will continue to follow.
--- NOTE | 2018-04-29 13:15 | PDOC ---
Renal-Progress Notes Subjective Notes Notes FEELING BETTER History of Present Illness Hx of present illness IMPROVED Vitals Vitals Vital Signs Date Time Temp Pulse Resp B/P (MAP) Pulse Ox O2 Delivery O2 Flow Rate FiO2 04/29/18 11:00 98.8 91 18 174/92 (119) 96 Room Air 98.8 Weight Weight [ ] I.O. Intake and Output Intake and Output 04/29/18 06:59 Intake Total 480 ml Output Total 1430 ml Balance -950 ml Intake Oral 480 ml Output Urine Total 1200 ml Drainage Total 230 ml Labs Labs Laboratory Tests Test 04/29/18 10:30 Hemoglobin 11.0 g/dL (13.0-17.5) Sodium Level 143 mmol/L (136-145) Potassium Level 3.4 mmol/L (3.5-5.1) Chloride Level 105 mmol/L (98-107) Carbon Dioxide Level 26 mmol/L (21-32) Anion Gap 12 (6-14) Blood Urea Nitrogen 37 mg/dL (8-26) Creatinine 2.9 mg/dL (0.7-1.3) Estimated GFR (Cockcroft-Gault) 26.7 Glucose Level 104 mg/dL (70-99) Calcium Level 8.6 mg/dL (8.5-10.1) Phosphorus Level 3.2 mg/dL (2.6-4.7) Magnesium Level 2.2 mg/dL (1.8-2.4) Albumin 2.6 g/dL (3.4-5.0) Review of Systems Constitutional: yes: alert, oriented Ears/Nose/Throat: Yes: no symptom reported Eyes: Yes: no symptom reported Pulmonary: Yes no symptom reported Cardiovascular: Yes no symptom reported Gastrointestional: Yes: no symptom reported Genitourinary: Yes: no symptom reported Musculoskeletal: Yes: no symptom reported Skin: Yes no symptom reported Psychiatric/Neurological: Yes: no symptom reported Endocrine: Yes: no symptom reported Physical Exam General Appearance: no apparent distress Skin: warm Respiratory: decreased breath sounds Heart: S1S2 Abdomen: soft, bowel sounds present Genitourinary: bladder flat Extremities: pulses present Neurology: alert, oriented Assessment Assessment IMP CKD STAGE 4-CR AT HIS BASELINE IN THE 3.0-3.5 RANGE USUALLY OP S/P SIGMOID RESECTION PROSTATE CA HX MILD HYPOKALEMIA LEUCOCYTOSIS-BETTER PLAN CONT HYDRATION WITH LR CONT IRON AND ARANESP SURGERY FOLLOWING TERRENCE JOSUE MD Apr 29, 2018 13:15
[2018-04-29 15:00] VITALS: BP 142/86
[2018-04-29 16:11] LABS: IMMUNOGLOBULIN A 123 mg/dL (61-437); IMMUNOGLOBULIN G 978 mg/dL (700-1600); IMMUNOGLOBULIN M 36 mg/dL (20-172)
[2018-04-29 17:12] LABS: ALBUM 2.9 g/dL (2.9-4.4); ALPHA 1 0.3 g/dL (0.0-0.4); ALPHA 2 0.7 g/dL (0.4-1.0); BETA 0.7 g/dL (0.7-1.3); GAMMA 0.8 g/dL (0.4-1.8); PROTEIN TOTAL 5.3 g/dL (6.0-8.5); SPEP AG RATIO 1.2 (0.7-1.7)
[2018-04-29 19:00] VITALS: BP 161/94
[2018-04-29] MEDS: ONDANSETRON PF 4 MG/2 ML VIAL. IV PRN (19:27)
[2018-04-29] MEDS: ATORVASTATIN CALCIUM 40 MG TABLET. PO SCH (20:44)
[2018-04-29] MEDS: DOXAZOSIN MESYLATE 4 MG TABLET. PO SCH (20:44)
[2018-04-29 23:00] VITALS: BP 155/92
[2018-04-30] MEDS: IV RINGERS,LACTATED 1000ML 1,000 ML IV SCH ×3 (02:36→19:55)
[2018-04-30 03:00] VITALS: BP 129/71
--- NOTE | 2018-04-30 04:01 | NUR ---
Patient dangling at bedside. States he vomited in trash can. Spitting clear stuff out. No actual emesis seen. Refused offered Zofran, "it made it worser." Denies having pain.
[2018-04-30 07:00] VITALS: BP 133/75
[2018-04-30 08:12] LABS: ALBUMIN 2.6 g/dL (3.4-5.0); CALCIUM 8.3 mg/dL (8.5-10.1); CREATININE 3.1 mg/dL (0.7-1.3); GFR 24.7; MAGNESIUM 1.9 mg/dL (1.8-2.4); PHOSPHORUS 3.3 mg/dL (2.6-4.7); POTASSIUM 3.9 mmol/L (3.5-5.1)
[2018-04-30] MEDS: ENOXAPARIN 30 MG/0.3 ML SYRINGE. SQ SCH (09:00)
[2018-04-30] MEDS: POTASSIUM CHLORIDE 20 MEQ TABLET.ER. PO SCH ×2 (09:00→21:00)
--- NOTE | 2018-04-30 09:43 | PDOC ---
SABA RUBIO CONTINUOUS PROCESS [employer]EE RO[employer]ER 04/30/18 0943: SURGICAL PROGRESS NOTE Subjective still with nausea, issue prior to surgery tired this AM Vital Signs Vital Signs Date Time Temp Pulse Resp B/P (MAP) Pulse Ox O2 Delivery O2 Flow Rate FiO2 04/30/18 07:00 98.1 73 16 133/75 (94) 94 Room Air 98.1 I&O Intake and Output 04/30/18 07:00 Intake Total 0 ml Output Total 1930 ml Balance -1930 ml Intake Oral 0 ml Output Urine Total 1850 ml Drainage Total 80 ml # Voids 1 # Bowel Movements 1 General: Alert, Oriented X3, Cooperative, No acute distress Abdomen: Soft, Other (drain serosang) Labs Laboratory Tests Test 04/28/18 11:10 04/29/18 10:30 04/30/18 06:53 Creatine Kinase 135 U/L (39-308) Hemoglobin 11.0 g/dL (13.0-17.5) Sodium Level 143 mmol/L (136-145) 143 mmol/L (136-145) Potassium Level 3.4 mmol/L (3.5-5.1) 3.9 mmol/L (3.5-5.1) Chloride Level 105 mmol/L (98-107) 106 mmol/L (98-107) Carbon Dioxide Level 26 mmol/L (21-32) 25 mmol/L (21-32) Anion Gap 12 (6-14) 12 (6-14) Blood Urea Nitrogen 37 mg/dL (8-26) 38 mg/dL (8-26) Creatinine 2.9 mg/dL (0.7-1.3) 3.1 mg/dL (0.7-1.3) Estimated GFR (Cockcroft-Gault) 26.7 24.7 Glucose Level 104 mg/dL (70-99) 94 mg/dL (70-99) Calcium Level 8.6 mg/dL (8.5-10.1) 8.3 mg/dL (8.5-10.1) Phosphorus Level 3.2 mg/dL (2.6-4.7) 3.3 mg/dL (2.6-4.7) Magnesium Level 2.2 mg/dL (1.8-2.4) 1.9 mg/dL (1.8-2.4) Albumin 2.6 g/dL (3.4-5.0) 2.6 g/dL (3.4-5.0) Laboratory Tests Test 04/29/18 10:30 04/30/18 06:53 Hemoglobin 11.0 g/dL (13.0-17.5) Sodium Level 143 mmol/L (136-145) 143 mmol/L (136-145) Potassium Level 3.4 mmol/L (3.5-5.1) 3.9 mmol/L (3.5-5.1) Chloride Level 105 mmol/L (98-107) 106 mmol/L (98-107) Carbon Dioxide Level 26 mmol/L (21-32) 25 mmol/L (21-32) Anion Gap 12 (6-14) 12 (6-14) Blood Urea Nitrogen 37 mg/dL (8-26) 38 mg/dL (8-26) Creatinine 2.9 mg/dL (0.7-1.3) 3.1 mg/dL (0.7-1.3) Estimated GFR (Cockcroft-Gault) 26.7 24.7 Glucose Level 104 mg/dL (70-99) 94 mg/dL (70-99) Calcium Level 8.6 mg/dL (8.5-10.1) 8.3 mg/dL (8.5-10.1) Phosphorus Level 3.2 mg/dL (2.6-4.7) 3.3 mg/dL (2.6-4.7) Magnesium Level 2.2 mg/dL (1.8-2.4) 1.9 mg/dL (1.8-2.4) Albumin 2.6 g/dL (3.4-5.0) 2.6 g/dL (3.4-5.0) Assessment/Plan s/p resection will have Dr Salinas see today MEGAN SALINAS MD 04/30/18 1250: SURGICAL PROGRESS NOTE Assessment/Plan pt seen and examined at bedside poor po intake with c/o nausea, occasional emesis renal feels IV nutrition would be of benefit see orders SABA RUBIO APRN Apr 30, 2018 09:43 MEGAN SALINAS MD Apr 30, 2018 12:50
[2018-04-30] MEDS: LANSOPRAZOLE 30 MG TAB.RAP.DR FT SCH ×2 (10:23→16:30)
[2018-04-30] MEDS: cloNIDine HCL 0.2 MG TABLET PO SCH ×2 (10:23→23:09)
[2018-04-30] MEDS: ISOSORBIDE MONONITRATE ER 30 MG TAB.ER.24H PO SCH ×2 (10:23→23:09)
[2018-04-30] MEDS: FERROUS SULFATE 325 MG TABLET. PO SCH (10:23)
[2018-04-30] MEDS: ALLOPURINOL 100 MG TABLET. PO SCH (10:23)
[2018-04-30] MEDS: METOPROLOL TART IMMED RELEASE 25 MG TABLET. PO SCH ×2 (10:24→23:10)
[2018-04-30] MEDS: ASPIRIN ENTERIC COATED 81 MG TABLET.DR. PO SCH (10:24)
[2018-04-30] MEDS: amLODIPine BESYLATE 10 MG TABLET PO SCH (10:24)
--- NOTE | 2018-04-30 10:48 | NUR ---
SW following. Discussed with RN, no SW needs - pt should discharge home today with self care.
[2018-04-30 11:00] VITALS: BP 138/76
--- NOTE | 2018-04-30 11:33 | PDOC ---
PROGRESS NOTES Chief Complaint Chief Complaint Status post resection of large pedunculated polyp of sigmoid colon Hypertension Leukocytosis - trending down Acute renal insufficiency (Elevated Cr: 3.0 on 04/23), hx of CKD4 History of dyslipidemia Rheumatic cardiac disease? History of prostate cancer History of Present Illness History of Present Illness Mr. Greer presented for surgery for large pedunculated polyp of sigmoid colon. Tubovillous adenoma per biopsy report. Patient was seen and examined at bedside. ORLY drain in place on R. Dressing c/d/i. Patient c/o of mild L sided abdominal pain with movement. Surgery and Neph following. Vitals Vitals Vital Signs Date Time Temp Pulse Resp B/P (MAP) Pulse Ox O2 Delivery O2 Flow Rate FiO2 04/30/18 10:24 73 133/75 04/30/18 07:00 98.1 16 94 Room Air 98.1 Physical Exam General: Alert, Oriented X3, Cooperative, No acute distress Heart: Regular rate, Normal S1, Normal S2, No murmurs, Gallops Lungs: Clear Abdomen: Normal bowel sounds, Soft, No tenderness, Other (drain serosang) Extremities: No clubbing, No cyanosis, No edema Skin: No rashes, No significant lesion, Other (surgical scar with steri strips is c/d/i, all other surgical wound dressings are c/d/i) Labs LABS Laboratory Tests Test 04/30/18 06:53 Sodium Level 143 mmol/L (136-145) Potassium Level 3.9 mmol/L (3.5-5.1) Chloride Level 106 mmol/L (98-107) Carbon Dioxide Level 25 mmol/L (21-32) Anion Gap 12 (6-14) Blood Urea Nitrogen 38 mg/dL (8-26) Creatinine 3.1 mg/dL (0.7-1.3) Estimated GFR (Cockcroft-Gault) 24.7 Glucose Level 94 mg/dL (70-99) Calcium Level 8.3 mg/dL (8.5-10.1) Phosphorus Level 3.3 mg/dL (2.6-4.7) Magnesium Level 1.9 mg/dL (1.8-2.4) Albumin 2.6 g/dL (3.4-5.0) Review of Systems Review of Systems Reports abdominal pain Denies nausea Denies vomiting Denies fevers/chills Assessment and Plan Assessmemt and Plan Assessment: Status post resection of large pedunculated polyp of sigmoid colon Hypertension Leukocytosis - trending down Acute renal insufficiency (Elevated Cr: 3.0 on 04/23), hx of CKD4 History of dyslipidemia Rheumatic cardiac disease? History of prostate cancer Plan: Continue pain management Wound care ORLY on the R Appreciate surgery and nephrology input Okay to discharge when ok with subspecialties Continue to monitor vitals Continue home meds Comment Review of Relevant I have reviewed the following items jessie (where applicable) has been applied. Labs Laboratory Tests Test 04/29/18 10:30 04/30/18 06:53 Hemoglobin 11.0 g/dL (13.0-17.5) Sodium Level 143 mmol/L (136-145) 143 mmol/L (136-145) Potassium Level 3.4 mmol/L (3.5-5.1) 3.9 mmol/L (3.5-5.1) Chloride Level 105 mmol/L (98-107) 106 mmol/L (98-107) Carbon Dioxide Level 26 mmol/L (21-32) 25 mmol/L (21-32) Anion Gap 12 (6-14) 12 (6-14) Blood Urea Nitrogen 37 mg/dL (8-26) 38 mg/dL (8-26) Creatinine 2.9 mg/dL (0.7-1.3) 3.1 mg/dL (0.7-1.3) Estimated GFR (Cockcroft-Gault) 26.7 24.7 Glucose Level 104 mg/dL (70-99) 94 mg/dL (70-99) Calcium Level 8.6 mg/dL (8.5-10.1) 8.3 mg/dL (8.5-10.1) Phosphorus Level 3.2 mg/dL (2.6-4.7) 3.3 mg/dL (2.6-4.7) Magnesium Level 2.2 mg/dL (1.8-2.4) 1.9 mg/dL (1.8-2.4) Albumin 2.6 g/dL (3.4-5.0) 2.6 g/dL (3.4-5.0) Laboratory Tests Test 04/30/18 06:53 Sodium Level 143 mmol/L (136-145) Potassium Level 3.9 mmol/L (3.5-5.1) Chloride Level 106 mmol/L (98-107) Carbon Dioxide Level 25 mmol/L (21-32) Anion Gap 12 (6-14) Blood Urea Nitrogen 38 mg/dL (8-26) Creatinine 3.1 mg/dL (0.7-1.3) Estimated GFR (Cockcroft-Gault) 24.7 Glucose Level 94 mg/dL (70-99) Calcium Level 8.3 mg/dL (8.5-10.1) Phosphorus Level 3.3 mg/dL (2.6-4.7) Magnesium Level 1.9 mg/dL (1.8-2.4) Albumin 2.6 g/dL (3.4-5.0) Medications Current Medications Ondansetron HCl (Zofran) 4 mg PRN Q6HRS PRN IV NAUSEA/VOMITING Last administered on 04/22/18at 11:28; Start 04/22/18 at 07:00; Stop 04/23/18 at 06:59 ; Status DC Fentanyl Citrate (Fentanyl 2ml Vial) 25 mcg PRN Q5MIN PRN IV MILD PAIN; Start 04/22/18 at 07:00; Stop 04/23/18 at 06:59; Status DC Fentanyl Citrate (Fentanyl 2ml Vial) 50 mcg PRN Q5MIN PRN IV MODERATE TO SEVERE PAIN; Start 04/22/18 at 07:00; Stop 04/23/18 at 06:59; Status DC Morphine Sulfate (Morphine Sulfate) 1 mg PRN Q10MIN PRN IV SEVERE PAIN Last administered on 04/22/18at 11:31; Start 04/22/18 at 07:00; Stop 04/23/18 at 06:59 ; Status DC Ringer's Solution 1,000 ml @ 30 mls/hr Q24H IV Last administered on 04/22/18at 07:23; Start 04/22/18 at 07:00; Stop 04/22/18 at 18:59; Status DC Lidocaine HCl (Xylocaine-Mpf 1% 2ml Vial) 2 ml PRN 1X PRN ID PRIOR TO IV START ; Start 04/22/18 at 07:00; Stop 04/23/18 at 06:59; Status DC Hydromorphone HCl (Dilaudid) 0.5 mg PRN Q10MIN PRN IV SEV PAIN, Second choice Last administered on 04/22/18at 11:37; Start 04/22/18 at 07:00; Stop 04/23/18 at 06:59; Status DC Prochlorperazine Edisylate (Compazine) 5 mg PACU PRN PRN IV NAUSEA, MRX1 Last administered on 04/22/18at 10:59; Start 04/22/18 at 07:00; Stop 04/23/18 at 06:59 ; Status DC Cefoxitin Sodium (Mefoxin) 1 gm 1X PREOP PRN IVP PRIOR TO PROCEDURE; Start at 06:00; Stop 04/22/18 at 18:00; Status DC Rocuronium Maceo (Zemuron) 50 mg STK-MED ONCE .ROUTE ; Start 04/22/18 at 06:23 ; Stop 04/22/18 at 06:24; Status DC Fentanyl Citrate (Fentanyl 2ml Vial) 100 mcg STK-MED ONCE .ROUTE ; Start at 06:23; Stop 04/22/18 at 06:24; Status DC Sevoflurane (Ultane) 90 ml STK-MED ONCE IH ; Start 04/22/18 at 06:24; Stop 04/22 at 06:25; Status DC Dexamethasone Sodium Phosphate (Decadron) 20 mg STK-MED ONCE .ROUTE ; Start at 06:24; Stop 04/22/18 at 06:25; Status DC Propofol 20 ml @ As Directed STK-MED ONCE IV ; Start 04/22/18 at 06:24; Stop at 06:25; Status DC Lidocaine HCl (Lidocaine Pf 2% Vial) 5 ml STK-MED ONCE .ROUTE ; Start 04/22/18 at 06:24; Stop 04/22/18 at 06:25; Status DC Ondansetron HCl (Zofran) 4 mg STK-MED ONCE .ROUTE ; Start 04/22/18 at 06:24; Stop 04/22/18 at 06:25; Status DC Phenylephrine HCl (Reggie-Synephrine Inj) 10 mg STK-MED ONCE .ROUTE ; Start at 06:24; Stop 04/22/18 at 06:25; Status DC Bupivacaine HCl/ Epinephrine Bitart (Sensorcaine-Epi 0.25%-1:[id number] Mpf) 30 ml STK-MED ONCE .ROUTE ; Start 04/22/18 at 06:25; Stop 04/22/18 at 07:26; Status DC Bupivacaine HCl/ Epinephrine Bitart (Sensorcain-Mpf Epi 0.5%-1:[id number]) 30 ml STK -MED ONCE .ROUTE Last administered on 04/22/18at 09:05; Start 04/22/18 at 06:33 ; Stop 04/22/18 at 07:33; Status DC Fentanyl Citrate (Fentanyl 5ml Vial) 250 mcg STK-MED ONCE .ROUTE ; Start at 08:45; Stop 04/22/18 at 08:47; Status DC Rocuronium Maceo (Zemuron) 50 mg STK-MED ONCE .ROUTE ; Start 04/22/18 at 08:46 ; Stop 04/22/18 at 08:47; Status DC Sevoflurane (Ultane) 90 ml STK-MED ONCE IH ; Start 04/22/18 at 10:07; Stop 04/22 at 10:08; Status DC Neostigmine Methylsulfate (Neostigmine Methylsulfate) 5 mg STK-MED ONCE .ROUTE ; Start 04/22/18 at 10:08; Stop 04/22/18 at 10:09; Status DC Glycopyrrolate (Robinul) 1 mg STK-MED ONCE .ROUTE ; Start 04/22/18 at 10:09; Stop 04/22/18 at 10:10; Status DC Enoxaparin Sodium (Lovenox 30mg Syringe) 30 mg Q24H SQ Last administered on at 10:16; Start 04/23/18 at 09:00 Sodium Chloride (Normal Saline Flush) 3 ml QSHIFT PRN IV AFTER MEDS AND BLOOD DRAWS; Start 04/22/18 at 13:15 Potassium Chloride/Sodium Chloride 1,000 ml @ 100 mls/hr Q10H IV Last administered on 04/27/18at 08:49; Start 04/22/18 at 14:00; Stop 04/27/18 at 11:00 ; Status DC Hydromorphone HCl 30 ml @ 0 mls/hr CONT PRN PRN IV PER PROTOCOL Last administered on 04/22/18at 13:49; Start 04/22/18 at 13:15; Stop 04/24/18 at 10:38 ; Status DC Ondansetron HCl (Zofran) 4 mg PRN Q6HRS PRN IV NAUESA, 1ST CHOICE Last administered on 04/29/18 19:27; Start 04/22/18 at 13:15 Allopurinol (Zyloprim) 100 mg DAILY PO Last administered on 04/30/18 10:23; Start 04/23/18 at 09:00 Amlodipine Besylate (Norvasc) 10 mg DAILY PO Last administered on 04/30/18 10: 24; Start 04/23/18 at 09:00 Aspirin (Ecotrin) 81 mg DAILY PO Last administered on 04/30/18 10:24; Start at 09:00 Metoprolol Tartrate (Lopressor) 25 mg BID PO Last administered on 04/30/18 10: 24; Start 04/22/18 at 21:00 Non-Formulary Medication (Isosorbide Mononitrate (Isosorbide Mononitrate Er)) 60 mg 1tab AM-1/2tab PM PO ; Start 04/22/18 at 13:15; Status UNV Isosorbide Mononitrate (Imdur) 60 mg DAILY PO Last administered on 04/30/18 10 :23; Start 04/23/18 at 09:00 Isosorbide Mononitrate (Imdur) 30 mg QHS PO Last administered on 04/29/18 20: 45; Start 04/22/18 at 21:00 Atorvastatin Calcium (Lipitor) 40 mg HS PO Last administered on 04/29/18 20:44 ; Start 04/22/18 at 21:00 Clonidine HCl (Catapres) 0.2 mg BID PO Last administered on 04/30/18 10:23; Start 04/22/18 at 21:00 Doxazosin Mesylate (Cardura) 4 mg HS PO Last administered on 04/29/18 20:44; Start 04/22/18 at 21:00 Ferrous Sulfate (Feosol) 325 mg DAILY PO Last administered on 04/30/18 10:23; Start 04/23/18 at 09:00 Acetaminophen/ Hydrocodone Bitart (Lortab 7.5/325) 1 tab PRN Q6HRS PRN PO PAIN ; Start 04/22/18 at 15:15; Stop 04/24/18 at 14:19; Status DC Potassium Chloride (Klor-Con) 20 meq BID PO Last administered on 04/29/18at 20: 45; Start 04/22/18 at 21:00 Enalaprilat (Vasotec Inj) 1.25 mg PRN Q6HRS PRN IVP HYPERTENSION, SEE COMMENTS Last administered on 04/23/18at 09:25; Start 04/23/18 at 00:15 Hydralazine HCl (Apresoline Inj) 25 mg PRN Q6HRS PRN IVP ELEVATED BP,1ST Choic , SEE COM Last administered on 04/23/18at 12:39; Start 04/23/18 at 03:45 Piperacillin Sod/ Tazobactam Sod (Zosyn Per Pharmacy) 1 each PRN DAILY PRN MC SEE COMMENTS; Start 04/23/18 at 09:45; Stop 04/24/18 at 07:54; Status DC Piperacillin Sod/ Tazobactam Sod 2.25 gm/Sodium Chloride 50 ml @ 100 mls/hr Q6HRS IV ; Start 04/23/18 at 10:30; Stop 04/23/18 at 13:57; Status DC Acetaminophen/ Hydrocodone Bitart (Lortab 5/325) 1 tab PRN Q4HRS PRN PO MILD TO MODERATE PAIN Last administered on 04/28/18at 15:11; Start 04/24/18 at 10:45 Acetaminophen/ Hydrocodone Bitart (Lortab 5/325) 2 tab PRN Q4HRS PRN PO MODERATE PAIN; Start 04/24/18 at 10:45 Hydromorphone HCl (Dilaudid) 0.5 mg PRN Q3HRS PRN IV MODERATE TO SEVERE PAIN; Start 04/24/18 at 10:45 Lansoprazole (Prevacid) 30 mg BIDBFRMEAL FT Last administered on 04/30/18at 10: 23; Start 04/25/18 at 16:30 Al Hydroxide/Mg Hydroxide (Mylanta Plus Xs) 30 ml PRN Q2HR PRN PO HEARTBURN / GAS Last administered on 04/25/18at 12:23; Start 04/25/18 at 09:30 Ringer's Solution 1,000 ml @ 100 mls/hr Q10H IV Last administered on at 02:36; Start 04/27/18 at 11:00 Darbepoetin Giovani (Aranesp) 60 mcg WEEKLYHS SQ Last administered on 04/27/18at 21 :00; Start 04/27/18 at 21:00 Magnesium Sulfate 50 ml @ 25 mls/hr PRN DAILY PRN IV for Mag < 1.7 on am labs; Start 04/28/18 at 10:15 Iron Sucrose 200 mg/Sodium Chloride 110 ml @ 55 mls/hr 3X/WEEK IV Last administered on 04/29/18at 10:15; Start 04/29/18 at 09:00; Stop 05/08/18 at 10:59 Active Scripts Active Prevacid (Lansoprazole) 30 Mg Tab.rap.dr 30 Mg FT BIDBFRMEAL MDD 1 Reported Metoprolol Tartrate 25 Mg Tablet 25 Mg PO BID Ferrous Sulfate 325 Mg Tablet 325 Mg PO DAILY Allopurinol 100 Mg Tablet 100 Mg PO DAILY Atorvastatin Calcium 40 Mg Tablet 40 Mg PO HS Potassium Chloride 20 Meq Tab.er.prt 20 Meq PO BID Cardura (Doxazosin Mesylate) 4 Mg Tablet 4 Mg PO HS Isosorbide Mononitrate Er (Isosorbide Mononitrate) 60 Mg Tab.er.24h 60 Mg PO 1TAB AM-1/2TAB PM Clonidine Hcl 0.2 Mg Tablet 0.2 Mg PO BID Amlodipine Besylate 10 Mg Tablet 10 Mg PO DAILY Lortab 7.5-325 mg Tablet (Hydrocodone/Acetaminophen) 1 Each Tablet 1 Tab PO PRN Q6HRS Aspir 81 (Aspirin) 81 Mg Tablet.dr 81 Mg PO DAILY Vitals/I & O Vital Sign - Last 24 Hours 04/29/18 04/29/18 04/29/18 04/29/18 15:00 19:00 19:30 20:44 Temp 98.7 98.7 98.7 98.7 Pulse 62 72 71 Resp 16 18 B/P (MAP) 142/86 (104) 161/94 (116) 161/94 148/92 Pulse Ox 97 O2 Delivery Room Air Room Air 04/29/18 04/29/18 04/29/18 04/30/18 20:44 20:45 23:00 03:00 Temp 98.5 98.1 98.5 98.1 Pulse 71 71 64 74 Resp 18 18 B/P (MAP) 148/92 148/92 155/92 (113) 129/71 (90) Pulse Ox 95 96 O2 Delivery Room Air Room Air 04/30/18 04/30/18 04/30/18 04/30/18 07:00 10:23 10:23 10:24 Temp 98.1 98.1 Pulse 73 73 73 73 Resp 16 B/P (MAP) 133/75 (94) 133/75 133/75 133/75 Pulse Ox 94 O2 Delivery Room Air 04/30/18 10:24 Pulse 73 B/P (MAP) 133/75 Intake and Output 04/29/18 04/29/18 04/30/18 15:00 23:00 07:00 Intake Total 0 ml Output Total 1100 ml 230 ml 600 ml Balance -1100 ml -230 ml -600 ml OSMANY GLOVER III DO Apr 30, 2018 11:33
--- NOTE | 2018-04-30 12:36 | PDOC ---
Renal-Progress Notes Subjective Notes Notes FEELING BETTER BUT STILL HAS SOME NAUSEA EXPECTED History of Present Illness Hx of present illness STABLE Vitals Vitals Vital Signs Date Time Temp Pulse Resp B/P (MAP) Pulse Ox O2 Delivery O2 Flow Rate FiO2 04/30/18 11:00 97.9 68 16 138/76 (96) 99 Nasal Cannula 97.9 Weight Weight [ ] I.O. Intake and Output Intake and Output 04/30/18 06:59 Intake Total 0 ml Output Total 1930 ml Balance -1930 ml Intake Oral 0 ml Output Urine Total 1850 ml Drainage Total 80 ml # Voids 1 # Bowel Movements 1 Labs Labs Laboratory Tests Test 04/30/18 06:53 Sodium Level 143 mmol/L (136-145) Potassium Level 3.9 mmol/L (3.5-5.1) Chloride Level 106 mmol/L (98-107) Carbon Dioxide Level 25 mmol/L (21-32) Anion Gap 12 (6-14) Blood Urea Nitrogen 38 mg/dL (8-26) Creatinine 3.1 mg/dL (0.7-1.3) Estimated GFR (Cockcroft-Gault) 24.7 Glucose Level 94 mg/dL (70-99) Calcium Level 8.3 mg/dL (8.5-10.1) Phosphorus Level 3.3 mg/dL (2.6-4.7) Magnesium Level 1.9 mg/dL (1.8-2.4) Albumin 2.6 g/dL (3.4-5.0) Review of Systems Constitutional: yes: alert, oriented Ears/Nose/Throat: Yes: no symptom reported Eyes: Yes: no symptom reported Pulmonary: Yes no symptom reported Cardiovascular: Yes no symptom reported Gastrointestional: Yes: no symptom reported Genitourinary: Yes: no symptom reported Musculoskeletal: Yes: no symptom reported Skin: Yes no symptom reported Psychiatric/Neurological: Yes: no symptom reported Endocrine: Yes: no symptom reported Physical Exam General Appearance: no apparent distress Skin: warm Respiratory: decreased breath sounds Heart: S1S2 Abdomen: soft, bowel sounds present Genitourinary: bladder flat Extremities: pulses present Neurology: alert, oriented Assessment Assessment IMP CKD STAGE 4-CR AT HIS BASELINE IN THE 3.0-3.5 RANGE USUALLY OP S/P SIGMOID RESECTION PROSTATE CA HX MILD HYPOKALEMIA-RESOLVED LEUCOCYTOSIS-BETTER PLAN RENAL FXN STABLE HOME WHEN OK WITH SURGERY SURGERY FOLLOWING TERRENCE JOSUE MD Apr 30, 2018 12:36
[2018-04-30] MEDS ORDERED: LIDOCAINE WITH 8.4% SOD BICARB 3 ML DISP.SYRIN. ONE (14:09)
[2018-04-30 14:14] LABS: ALBUMIN UR 61.1 % (.); ALPHA 1 UR 2.6 % (.); ALPHA 2 UR 12.2 % (.); BETA UR 14.2 % (.); GAMMA UR 9.9 % (.); PROTEIN 24 UR 1337 mg/24 hr (30-150); PROTEIN UR 84.9 mg/dL (Not Estab.)
[2018-04-30] MEDS ORDERED: LIDOCAINE WITH 8.4% SOD BICARB 3 ML DISP.SYRIN. INJ ONE (14:15)
[2018-04-30 15:00] VITALS: BP 128/81
--- NOTE | 2018-04-30 15:15 | NUR ---
SW following. Pt now requiring TPN. ARIEL met with pt, pt would like to go to [facility]. ARIEL phoned and faxed referral sans TPN notes as TPN has not started yet. SW will continue to follow. RN notified.
--- NOTE | 2018-04-30 15:42 | RAD ---
Exam: Fluoroscopic and ultrasound guided right percutaneous inserted central venous catheter placement 04/30/2018 3:38 PM .Indication: needs parenteral nutrition Technique: Informed oral and written consent were obtained. The right upper extremity was prepped and draped using sterile barrier technique. All elements of maximal sterile barrier technique including the use of a cap, mask, sterile gown, sterile gloves, large sterile sheet, appropriate hand hygiene, and 2% chlorhexidine for cutaneous antisepsis (or acceptable alternative antiseptic per current guidelines) were followed for this procedure.. Real-time ultrasound demonstrated a patent right basilic vein. The right upper extremity was prepped and draped in usual sterile fashion. 1% lidocaine used for local anesthesia. Using real-time ultrasound guidance the access needle percutaneously punctured the selected vein. Reference ultrasound images were saved to the medical record. A guidewire was advanced through the needle to the cavoatrial junction, and a peel-away sheath placed. The catheter was cut to length and inserted through the peel-away sheath such that its tip is at the cavoatrial junction. The wire and sheath were removed, and the catheter secured in place, and a sterile dressing was applied. Catheter was found to flush and aspirate normally. No immediate complications are identified. FLUORO TIME: 1.4 MIN DOSE AREA PRODUCT: 3 Gycm2 Impression: Ultrasound and fluoroscopically guided placement of a right upper extremity PICC line.
[2018-04-30 19:00] VITALS: BP 141/83
--- NOTE | 2018-04-30 19:00 | NUR ---
Pt currently on NPO diet. During walking rounds, empty food tray found in pt's room. When asked if pt ate dinner pt replied, "Yeah, I ate it, I didn't know I wasn't suppose too. It was here after my procedure". Pt denies nausea at this time, will continue to monitor.
[2018-04-30] MEDS: ONDANSETRON PF 4 MG/2 ML VIAL. IV PRN (19:54)
--- NOTE | 2018-04-30 20:02 | NUR ---
RN cut suture and pulled rosana out 2 inches, cut off excess, applied new dresssing.
[2018-04-30] MEDS: DOXAZOSIN MESYLATE 4 MG TABLET. PO SCH (21:00)
[2018-04-30] MEDS: ATORVASTATIN CALCIUM 40 MG TABLET. PO SCH (21:00)
--- NOTE | 2018-04-30 21:00 | NUR ---
Pt continues to c/o nausea and requests to hold scheduled medications at this time. Zofran administered, will reassess for ongoing nausea and continue to monitor.
--- NOTE | 2018-04-30 22:05 | NUR ---
Pt reports less nausea, continues to decline scheduled meds at this time and requests, "To wait one more hour to make sure my stomach is better", will continue to monitor.
[2018-04-30 23:00] VITALS: BP 162/91
[2018-05-01 03:00] VITALS: BP 160/89
[2018-05-01] MEDS: LANSOPRAZOLE 30 MG TAB.RAP.DR FT SCH ×2 (05:19→16:30)
[2018-05-01] MEDS: IV RINGERS,LACTATED 1000ML 1,000 ML IV SCH ×3 (05:23→23:56)
[2018-05-01 05:51] LABS: ALBUMIN 2.3 g/dL (3.4-5.0); CALCIUM 8.1 mg/dL (8.5-10.1); CREATININE 2.7 mg/dL (0.7-1.3); MAGNESIUM 1.9 mg/dL (1.8-2.4); PHOSPHORUS 3.3 mg/dL (2.6-4.7); POTASSIUM 3.7 mmol/L (3.5-5.1)
[2018-05-01 07:00] VITALS: BP 148/84
[2018-05-01] MEDS: METOPROLOL TART IMMED RELEASE 25 MG TABLET. PO SCH ×2 (08:32→21:34)
[2018-05-01] MEDS: ASPIRIN ENTERIC COATED 81 MG TABLET.DR. PO SCH (08:33)
[2018-05-01] MEDS: ALLOPURINOL 100 MG TABLET. PO SCH (08:33)
[2018-05-01] MEDS: cloNIDine HCL 0.2 MG TABLET PO SCH ×2 (08:33→21:35)
[2018-05-01] MEDS: POTASSIUM CHLORIDE 20 MEQ TABLET.ER. PO SCH ×2 (08:37→21:00)
[2018-05-01] MEDS: FERROUS SULFATE 325 MG TABLET. PO SCH (08:37)
[2018-05-01] MEDS: ISOSORBIDE MONONITRATE ER 30 MG TAB.ER.24H PO SCH ×2 (08:38→21:35)
[2018-05-01] MEDS: amLODIPine BESYLATE 10 MG TABLET PO SCH (08:39)
[2018-05-01] MEDS: ENOXAPARIN 30 MG/0.3 ML SYRINGE. SQ SCH (08:40)
--- NOTE | 2018-05-01 09:20 | NUR ---
SW following. Discussed with RN, TPN was not given yesterday due to order being put in too late. Per RN, pt will begin TPN this evening. Referral sent to [facility], insurance will have to approve for pt to go. SW awaiting TPN dosage and notes. SW will continue to follow.
[2018-05-01] MEDS: IRON SUCROSE COMPLEX 200 MG in IV NORMAL SALINE 100ML 100 ML IV SCH (09:25)
[2018-05-01 11:00] VITALS: BP 149/87
--- NOTE | 2018-05-01 11:19 | PDOC ---
SURGICAL PROGRESS NOTE Subjective feels better this AM had some nausea earlier 03/09 "nurse's lissett" Vital Signs Vital Signs Date Time Temp Pulse Resp B/P (MAP) Pulse Ox O2 Delivery O2 Flow Rate FiO2 05/01/18 08:39 63 160/89 05/01/18 07:00 99.0 18 96 Room Air 99.0 I&O Intake and Output 05/01/18 07:00 Intake Total 100 ml Output Total 1700 ml Balance -1600 ml Intake Oral 100 ml Output Urine Total 1700 ml # Voids 3 # Bowel Movements 1 PATIENT HAS A WILKINS: No General: Alert, Oriented X3, No acute distress Abdomen: Soft, Other (ORLY out, minimal drainage with Brice) Extremities: Other (right arm PICC in place) Labs Laboratory Tests Test 04/30/18 06:53 05/01/18 05:20 Sodium Level 143 mmol/L (136-145) 143 mmol/L (136-145) Potassium Level 3.9 mmol/L (3.5-5.1) 3.7 mmol/L (3.5-5.1) Chloride Level 106 mmol/L (98-107) 108 mmol/L (98-107) Carbon Dioxide Level 25 mmol/L (21-32) 26 mmol/L (21-32) Anion Gap 12 (6-14) 9 (6-14) Blood Urea Nitrogen 38 mg/dL (8-26) 38 mg/dL (8-26) Creatinine 3.1 mg/dL (0.7-1.3) 2.7 mg/dL (0.7-1.3) Estimated GFR (Cockcroft-Gault) 24.7 29.0 Glucose Level 94 mg/dL (70-99) 82 mg/dL (70-99) Calcium Level 8.3 mg/dL (8.5-10.1) 8.1 mg/dL (8.5-10.1) Phosphorus Level 3.3 mg/dL (2.6-4.7) 3.3 mg/dL (2.6-4.7) Magnesium Level 1.9 mg/dL (1.8-2.4) 1.9 mg/dL (1.8-2.4) Albumin 2.6 g/dL (3.4-5.0) 2.3 g/dL (3.4-5.0) Laboratory Tests Test 05/01/18 05:20 Sodium Level 143 mmol/L (136-145) Potassium Level 3.7 mmol/L (3.5-5.1) Chloride Level 108 mmol/L (98-107) Carbon Dioxide Level 26 mmol/L (21-32) Anion Gap 9 (6-14) Blood Urea Nitrogen 38 mg/dL (8-26) Creatinine 2.7 mg/dL (0.7-1.3) Estimated GFR (Cockcroft-Gault) 29.0 Glucose Level 82 mg/dL (70-99) Calcium Level 8.1 mg/dL (8.5-10.1) Phosphorus Level 3.3 mg/dL (2.6-4.7) Magnesium Level 1.9 mg/dL (1.8-2.4) Albumin 2.3 g/dL (3.4-5.0) Assessment/Plan s/p sigmoid resection CKD stage IV chronic nausea offered clears he declined will start TPN placement in progress MEGAN SALINAS MD May 01, 2018 11:19
--- NOTE | 2018-05-01 13:18 | PDOC ---
PROGRESS NOTES Chief Complaint Chief Complaint Status post resection of large pedunculated polyp of sigmoid colon Hypertension Leukocytosis - trending down Acute renal insufficiency (Elevated Cr: 3.0 on 04/23), hx of CKD4 History of dyslipidemia Rheumatic cardiac disease? History of prostate cancer History of Present Illness History of Present Illness Mr. Greer presented for surgery for large pedunculated polyp of sigmoid colon. Tubovillous adenoma per biopsy report. Patient was seen and examined at bedside. ORLY drain has been removed. Dressings c/d/i. Patient c/o of mild L sided abdominal pain with movement. Surgery and Neph following. Vitals Vitals Vital Signs Date Time Temp Pulse Resp B/P (MAP) Pulse Ox O2 Delivery O2 Flow Rate FiO2 05/01/18 08:39 63 160/89 05/01/18 08:00 Room Air 05/01/18 07:00 99.0 18 96 99.0 Physical Exam General: Alert, Oriented X3, No acute distress Heart: Regular rate, Normal S1, Normal S2, No murmurs, Gallops Lungs: Clear Abdomen: Soft, Other (ORLY out, minimal drainage with [place]) Extremities: Other (right arm PICC in place) Skin: No rashes, No significant lesion, Other (surgical scar with steri strips is c/d/i, all other surgical wound dressings are c/d/i) Labs LABS Laboratory Tests Test 05/01/18 05:20 Sodium Level 143 mmol/L (136-145) Potassium Level 3.7 mmol/L (3.5-5.1) Chloride Level 108 mmol/L (98-107) Carbon Dioxide Level 26 mmol/L (21-32) Anion Gap 9 (6-14) Blood Urea Nitrogen 38 mg/dL (8-26) Creatinine 2.7 mg/dL (0.7-1.3) Estimated GFR (Cockcroft-Gault) 29.0 Glucose Level 82 mg/dL (70-99) Calcium Level 8.1 mg/dL (8.5-10.1) Phosphorus Level 3.3 mg/dL (2.6-4.7) Magnesium Level 1.9 mg/dL (1.8-2.4) Albumin 2.3 g/dL (3.4-5.0) Review of Systems Review of Systems Reports abdominal pain Denies nausea Denies vomiting Denies fevers/chills Assessment and Plan Assessmemt and Plan Assessment: Status post resection of large pedunculated polyp of sigmoid colon Hypertension Leukocytosis - trending down Acute renal insufficiency (Elevated Cr: 3.0 on 04/23), hx of CKD4 History of dyslipidemia Rheumatic cardiac disease? History of prostate cancer Plan: OK to D/C from our standpoint when surgery agrees Continue pain management Wound care ORLY on the R has been removed Appreciate surgery and nephrology input Continue to monitor vitals Continue home meds Zofran prn for nausea Encouraged to increase PO intake Comment Review of Relevant I have reviewed the following items jessie (where applicable) has been applied. Labs Laboratory Tests Test 04/30/18 06:53 05/01/18 05:20 Sodium Level 143 mmol/L (136-145) 143 mmol/L (136-145) Potassium Level 3.9 mmol/L (3.5-5.1) 3.7 mmol/L (3.5-5.1) Chloride Level 106 mmol/L (98-107) 108 mmol/L (98-107) Carbon Dioxide Level 25 mmol/L (21-32) 26 mmol/L (21-32) Anion Gap 12 (6-14) 9 (6-14) Blood Urea Nitrogen 38 mg/dL (8-26) 38 mg/dL (8-26) Creatinine 3.1 mg/dL (0.7-1.3) 2.7 mg/dL (0.7-1.3) Estimated GFR (Cockcroft-Gault) 24.7 29.0 Glucose Level 94 mg/dL (70-99) 82 mg/dL (70-99) Calcium Level 8.3 mg/dL (8.5-10.1) 8.1 mg/dL (8.5-10.1) Phosphorus Level 3.3 mg/dL (2.6-4.7) 3.3 mg/dL (2.6-4.7) Magnesium Level 1.9 mg/dL (1.8-2.4) 1.9 mg/dL (1.8-2.4) Albumin 2.6 g/dL (3.4-5.0) 2.3 g/dL (3.4-5.0) Laboratory Tests Test 05/01/18 05:20 Sodium Level 143 mmol/L (136-145) Potassium Level 3.7 mmol/L (3.5-5.1) Chloride Level 108 mmol/L (98-107) Carbon Dioxide Level 26 mmol/L (21-32) Anion Gap 9 (6-14) Blood Urea Nitrogen 38 mg/dL (8-26) Creatinine 2.7 mg/dL (0.7-1.3) Estimated GFR (Cockcroft-Gault) 29.0 Glucose Level 82 mg/dL (70-99) Calcium Level 8.1 mg/dL (8.5-10.1) Phosphorus Level 3.3 mg/dL (2.6-4.7) Magnesium Level 1.9 mg/dL (1.8-2.4) Albumin 2.3 g/dL (3.4-5.0) Medications Current Medications Ondansetron HCl (Zofran) 4 mg PRN Q6HRS PRN IV NAUSEA/VOMITING Last administered on 04/22/18at 11:28; Start 04/22/18 at 07:00; Stop 04/23/18 at 06:59 ; Status DC Fentanyl Citrate (Fentanyl 2ml Vial) 25 mcg PRN Q5MIN PRN IV MILD PAIN; Start 04/22/18 at 07:00; Stop 04/23/18 at 06:59; Status DC Fentanyl Citrate (Fentanyl 2ml Vial) 50 mcg PRN Q5MIN PRN IV MODERATE TO SEVERE PAIN; Start 04/22/18 at 07:00; Stop 04/23/18 at 06:59; Status DC Morphine Sulfate (Morphine Sulfate) 1 mg PRN Q10MIN PRN IV SEVERE PAIN Last administered on 04/22/18at 11:31; Start 04/22/18 at 07:00; Stop 04/23/18 at 06:59 ; Status DC Ringer's Solution 1,000 ml @ 30 mls/hr Q24H IV Last administered on 04/22/18at 07:23; Start 04/22/18 at 07:00; Stop 04/22/18 at 18:59; Status DC Lidocaine HCl (Xylocaine-Mpf 1% 2ml Vial) 2 ml PRN 1X PRN ID PRIOR TO IV START ; Start 04/22/18 at 07:00; Stop 04/23/18 at 06:59; Status DC Hydromorphone HCl (Dilaudid) 0.5 mg PRN Q10MIN PRN IV SEV PAIN, Second choice Last administered on 04/22/18at 11:37; Start 04/22/18 at 07:00; Stop 04/23/18 at 06:59; Status DC Prochlorperazine Edisylate (Compazine) 5 mg PACU PRN PRN IV NAUSEA, MRX1 Last administered on 04/22/18at 10:59; Start 04/22/18 at 07:00; Stop 04/23/18 at 06:59 ; Status DC Cefoxitin Sodium (Mefoxin) 1 gm 1X PREOP PRN IVP PRIOR TO PROCEDURE; Start at 06:00; Stop 04/22/18 at 18:00; Status DC Rocuronium [place] (Zemuron) 50 mg STK-MED ONCE .ROUTE ; Start 04/22/18 at 06:23 ; Stop 04/22/18 at 06:24; Status DC Fentanyl Citrate (Fentanyl 2ml Vial) 100 mcg STK-MED ONCE .ROUTE ; Start at 06:23; Stop 04/22/18 at 06:24; Status DC Sevoflurane (Ultane) 90 ml STK-MED ONCE IH ; Start 04/22/18 at 06:24; Stop 04/22 at 06:25; Status DC Dexamethasone Sodium Phosphate (Decadron) 20 mg STK-MED ONCE .ROUTE ; Start at 06:24; Stop 04/22/18 at 06:25; Status DC Propofol 20 ml @ As Directed STK-MED ONCE IV ; Start 04/22/18 at 06:24; Stop at 06:25; Status DC Lidocaine HCl (Lidocaine Pf 2% Vial) 5 ml STK-MED ONCE .ROUTE ; Start 04/22/18 at 06:24; Stop 04/22/18 at 06:25; Status DC Ondansetron HCl (Zofran) 4 mg STK-MED ONCE .ROUTE ; Start 04/22/18 at 06:24; Stop 04/22/18 at 06:25; Status DC Phenylephrine HCl (Reggie-Synephrine Inj) 10 mg STK-MED ONCE .ROUTE ; Start at 06:24; Stop 04/22/18 at 06:25; Status DC Bupivacaine HCl/ Epinephrine Bitart (Sensorcaine-Epi 0.25%-1:[id number] Mpf) 30 ml STK-MED ONCE .ROUTE ; Start 04/22/18 at 06:25; Stop 04/22/18 at 07:26; Status DC Bupivacaine HCl/ Epinephrine Bitart (Sensorcain-Mpf Epi 0.5%-1:[id number]) 30 ml STK -MED ONCE .ROUTE Last administered on 04/22/18at 09:05; Start 04/22/18 at 06:33 ; Stop 04/22/18 at 07:33; Status DC Fentanyl Citrate (Fentanyl 5ml Vial) 250 mcg STK-MED ONCE .ROUTE ; Start at 08:45; Stop 04/22/18 at 08:47; Status DC Rocuronium [place] (Zemuron) 50 mg STK-MED ONCE .ROUTE ; Start 04/22/18 at 08:46 ; Stop 04/22/18 at 08:47; Status DC Sevoflurane (Ultane) 90 ml STK-MED ONCE IH ; Start 04/22/18 at 10:07; Stop 04/22 at 10:08; Status DC Neostigmine Methylsulfate (Neostigmine Methylsulfate) 5 mg STK-MED ONCE .ROUTE ; Start 04/22/18 at 10:08; Stop 04/22/18 at 10:09; Status DC Glycopyrrolate (Robinul) 1 mg STK-MED ONCE .ROUTE ; Start 04/22/18 at 10:09; Stop 04/22/18 at 10:10; Status DC Enoxaparin Sodium (Lovenox 30mg Syringe) 30 mg Q24H SQ Last administered on at 08:40; Start 04/23/18 at 09:00 Sodium Chloride (Normal Saline Flush) 3 ml QSHIFT PRN IV AFTER MEDS AND BLOOD DRAWS; Start 04/22/18 at 13:15 Potassium Chloride/Sodium Chloride 1,000 ml @ 100 mls/hr Q10H IV Last administered on 04/27/18at 08:49; Start 04/22/18 at 14:00; Stop 04/27/18 at 11:00 ; Status DC Hydromorphone HCl 30 ml @ 0 mls/hr CONT PRN PRN IV PER PROTOCOL Last administered on 04/22/18 13:49; Start 04/22/18 at 13:15; Stop 04/24/18 at 10:38 ; Status DC Ondansetron HCl (Zofran) 4 mg PRN Q6HRS PRN IV NAUESA, 1ST CHOICE Last administered on 04/30/18 19:54; Start 04/22/18 at 13:15 Allopurinol (Zyloprim) 100 mg DAILY PO Last administered on 05/01/18 08:33; Start 04/23/18 at 09:00 Amlodipine Besylate (Norvasc) 10 mg DAILY PO Last administered on 05/01/18 08: 39; Start 04/23/18 at 09:00 Aspirin (Ecotrin) 81 mg DAILY PO Last administered on 05/01/18 08:33; Start at 09:00 Metoprolol Tartrate (Lopressor) 25 mg BID PO Last administered on 05/01/18 08: 32; Start 04/22/18 at 21:00 Non-Formulary Medication (Isosorbide Mononitrate (Isosorbide Mononitrate Er)) 60 mg 1tab AM-1/2tab PM PO ; Start 04/22/18 at 13:15; Status UNV Isosorbide Mononitrate (Imdur) 60 mg DAILY PO Last administered on 05/01/18 08 :38; Start 04/23/18 at 09:00 Isosorbide Mononitrate (Imdur) 30 mg QHS PO Last administered on 04/30/18 23: 09; Start 04/22/18 at 21:00 Atorvastatin Calcium (Lipitor) 40 mg HS PO Last administered on 04/29/18 20:44 ; Start 04/22/18 at 21:00 Clonidine HCl (Catapres) 0.2 mg BID PO Last administered on 05/01/18 08:33; Start 04/22/18 at 21:00 Doxazosin Mesylate (Cardura) 4 mg HS PO Last administered on 04/29/18 20:44; Start 04/22/18 at 21:00 Ferrous Sulfate (Feosol) 325 mg DAILY PO Last administered on 05/01/18 08:37; Start 04/23/18 at 09:00 Acetaminophen/ Hydrocodone Bitart (Lortab 7.5/325) 1 tab PRN Q6HRS PRN PO PAIN ; Start 04/22/18 at 15:15; Stop 04/24/18 at 14:19; Status DC Potassium Chloride (Klor-Con) 20 meq BID PO Last administered on 05/01/18at 08: 37; Start 04/22/18 at 21:00 Enalaprilat (Vasotec Inj) 1.25 mg PRN Q6HRS PRN IVP HYPERTENSION, SEE COMMENTS Last administered on 04/23/18at 09:25; Start 04/23/18 at 00:15 Hydralazine HCl (Apresoline Inj) 25 mg PRN Q6HRS PRN IVP ELEVATED BP,1ST Choic , SEE COM Last administered on 04/23/18at 12:39; Start 04/23/18 at 03:45 Piperacillin Sod/ Tazobactam Sod (Zosyn Per Pharmacy) 1 each PRN DAILY PRN MC SEE COMMENTS; Start 04/23/18 at 09:45; Stop 04/24/18 at 07:54; Status DC Piperacillin Sod/ Tazobactam Sod 2.25 gm/Sodium Chloride 50 ml @ 100 mls/hr Q6HRS IV ; Start 04/23/18 at 10:30; Stop 04/23/18 at 13:57; Status DC Acetaminophen/ Hydrocodone Bitart (Lortab 5/325) 1 tab PRN Q4HRS PRN PO MILD TO MODERATE PAIN Last administered on 04/28/18at 15:11; Start 04/24/18 at 10:45 Acetaminophen/ Hydrocodone Bitart (Lortab 5/325) 2 tab PRN Q4HRS PRN PO SEVERE PAIN; Start 04/24/18 at 10:45 Hydromorphone HCl (Dilaudid) 0.5 mg PRN Q3HRS PRN IV MODERATE TO SEVERE PAIN; Start 04/24/18 at 10:45; Stop 04/30/18 at 12:53; Status DC Lansoprazole (Prevacid) 30 mg BIDBFRMEAL FT Last administered on 05/01/18at 05: 19; Start 04/25/18 at 16:30 Al Hydroxide/Mg Hydroxide (Mylanta Plus Xs) 30 ml PRN Q2HR PRN PO HEARTBURN / GAS Last administered on 04/25/18at 12:23; Start 04/25/18 at 09:30 Ringer's Solution 1,000 ml @ 100 mls/hr Q10H IV Last administered on at 05:23; Start 04/27/18 at 11:00 Darbepoetin Giovani (Aranesp) 60 mcg WEEKLYHS SQ Last administered on 04/27/18at 21 :00; Start 04/27/18 at 21:00 Magnesium Sulfate 50 ml @ 25 mls/hr PRN DAILY PRN IV for Mag < 1.7 on am labs; Start 04/28/18 at 10:15 Iron Sucrose 200 mg/Sodium Chloride 110 ml @ 55 mls/hr 3X/WEEK IV Last administered on 05/01/18at 09:25; Start 04/29/18 at 09:00; Stop 05/08/18 at 10:59 Lidocaine/Sodium Bicarbonate (Buffered Lidocaine 1%) 3 ml STK-MED ONCE .ROUTE ; Start 04/30/18 at 14:09; Stop 04/30/18 at 14:11; Status DC Lidocaine/Sodium Bicarbonate (Buffered Lidocaine 1%) 3 ml 1X ONCE INJ Last administered on 04/30/18at 14:28; Start 04/30/18 at 14:15; Stop 04/30/18 at 14:18 ; Status DC Info (Tpn Per Pharmacy) 1 each PRN DAILY PRN MC SEE COMMENTS; Start 05/01/18 at 11:30 Sodium Chloride 40 meq/Sodium Acetate 50 meq/ Potassium Chloride 50 meq/ Potassium Phosphate 13.6 mmol/Magnesium Sulfate 10 meq/ Calcium Gluconate 10 meq / Multivitamins 10 ml/Chromium/ Copper/Manganese/ Seleni/Zn 1 ml/ Total Parenteral Nutrition/Amino Acids/Dextrose/ Fat Emuls... 1,512 ml @ 63 mls/hr TPN CONT IV ; Start 05/01/18 at 22:00; Stop 05/02/18 at 21:59 Active Scripts Active Prevacid (Lansoprazole) 30 Mg Tab.rap.dr 30 Mg FT BIDBFRMEAL MDD 1 Reported Metoprolol Tartrate 25 Mg Tablet 25 Mg PO BID Ferrous Sulfate 325 Mg Tablet 325 Mg PO DAILY Allopurinol 100 Mg Tablet 100 Mg PO DAILY Atorvastatin Calcium 40 Mg Tablet 40 Mg PO HS Potassium Chloride 20 Meq Tab.er.prt 20 Meq PO BID Cardura (Doxazosin Mesylate) 4 Mg Tablet 4 Mg PO HS Isosorbide Mononitrate Er (Isosorbide Mononitrate) 60 Mg Tab.er.24h 60 Mg PO 1TAB AM-1/2TAB PM Clonidine Hcl 0.2 Mg Tablet 0.2 Mg PO BID Amlodipine Besylate 10 Mg Tablet 10 Mg PO DAILY Lortab 7.5-325 mg Tablet (Hydrocodone/Acetaminophen) 1 Each Tablet 1 Tab PO PRN Q6HRS Aspir 81 (Aspirin) 81 Mg Tablet.dr 81 Mg PO DAILY Vitals/I & O Vital Sign - Last 24 Hours 04/30/18 04/30/18 04/30/18 04/30/18 15:00 19:00 19:45 21:00 Temp 98.1 98.7 98.1 98.7 Pulse 64 66 74 Resp 16 16 B/P (MAP) 128/81 (97) 141/83 (102) 162/91 Pulse Ox 95 96 O2 Delivery Room Air Room Air Room Air 04/30/18 04/30/18 04/30/18 04/30/18 23:00 23:09 23:09 23:10 Temp 98.9 98.9 Pulse 74 74 74 74 Resp 18 B/P (MAP) 162/91 (114) 162/91 162/91 162/91 Pulse Ox 96 O2 Delivery Room Air 05/01/18 05/01/18 05/01/18 05/01/18 03:00 07:00 08:00 08:32 Temp 98.2 99.0 98.2 99.0 Pulse 63 67 63 Resp 18 18 B/P (MAP) 160/89 (112) 148/84 (105) 160/89 Pulse Ox 95 96 O2 Delivery Room Air Room Air Room Air 05/01/18 05/01/18 05/01/18 08:33 08:38 08:39 Pulse 63 63 63 B/P (MAP) 160/89 160/89 160/89 Intake and Output 04/30/18 04/30/18 05/01/18 14:59 22:59 06:59 Intake Total 100 ml Output Total 600 ml 1100 ml Balance -600 ml -1000 ml OSMANY GLOVER III DO May 01, 2018 13:17
--- NOTE | 2018-05-01 14:41 | PDOC ---
Renal-Progress Notes Subjective Notes Notes STILL HAS SOME NAUSEA History of Present Illness Hx of present illness STABLE Vitals Vitals Vital Signs Date Time Temp Pulse Resp B/P (MAP) Pulse Ox O2 Delivery O2 Flow Rate FiO2 05/01/18 11:00 98.6 67 18 149/87 (107) 95 Room Air 98.6 Weight Weight [ ] I.O. Intake and Output Intake and Output 05/01/18 07:00 Intake Total 100 ml Output Total 1700 ml Balance -1600 ml Intake Oral 100 ml Output Urine Total 1700 ml # Voids 3 # Bowel Movements 1 Labs Labs Laboratory Tests Test 05/01/18 05:20 Sodium Level 143 mmol/L (136-145) Potassium Level 3.7 mmol/L (3.5-5.1) Chloride Level 108 mmol/L (98-107) Carbon Dioxide Level 26 mmol/L (21-32) Anion Gap 9 (6-14) Blood Urea Nitrogen 38 mg/dL (8-26) Creatinine 2.7 mg/dL (0.7-1.3) Estimated GFR (Cockcroft-Gault) 29.0 Glucose Level 82 mg/dL (70-99) Calcium Level 8.1 mg/dL (8.5-10.1) Phosphorus Level 3.3 mg/dL (2.6-4.7) Magnesium Level 1.9 mg/dL (1.8-2.4) Albumin 2.3 g/dL (3.4-5.0) Review of Systems Constitutional: yes: alert, oriented Ears/Nose/Throat: Yes: no symptom reported Eyes: Yes: no symptom reported Pulmonary: Yes no symptom reported Cardiovascular: Yes no symptom reported Gastrointestional: Yes: no symptom reported Genitourinary: Yes: no symptom reported Musculoskeletal: Yes: no symptom reported Skin: Yes no symptom reported Psychiatric/Neurological: Yes: no symptom reported Endocrine: Yes: no symptom reported Physical Exam General Appearance: no apparent distress Skin: warm Respiratory: decreased breath sounds Heart: S1S2 Abdomen: soft, bowel sounds present Genitourinary: bladder flat Extremities: pulses present Neurology: alert, oriented Assessment Assessment IMP CKD STAGE 4-CR AT HIS BASELINE IN THE 3.0-3.5 RANGE USUALLY OP S/P SIGMOID RESECTION PROSTATE CA HX MILD HYPOKALEMIA-RESOLVED LEUCOCYTOSIS-BETTER PLAN RENAL FXN STABLE TPN TO START TERRENCE JOSUE MD May 01, 2018 14:41
[2018-05-01 15:00] VITALS: BP 148/82
[2018-05-01] MEDS: TPN PER PHARMACY MC PRN ×2 (15:19→15:30)
--- NOTE | 2018-05-01 15:29 | NUR ---
Pharmacy TPN Dosing Note S: YAQUELIN SERRANO is a 63 year old M Currently receiving TPN started 05/01/18 B:Pertinent PMH: Chronic nausea Height: 5 feet, 8 inches Weight: 94.6 kg Current diet: npo LABS: Sodium: 143 Potassium: 3.7 Chloride: 108 Calcium: 8.1 Corrected Calcium: 9.46 Magnesium: 1.9 CO2: 26 SCr: 2.7 Glucose: 82 Albumin: 2.3 AST: 19 ALT: 13 TPN FORMULA: AMINO ACIDS: 60 gm DEXTROSE: 195 gm LIPIDS: 20 gm SODIUM CHLORIDE: 40 mEq SODIUM ACETATE: 50 mEq POTASSIUM CHLORIDE: 50 mEq POTASSIUM PHOSPHATE: 13.6 mmol MAGNESIUM: 10 mEq CALCIUM: 10 mEq MULTIPLE VITAMIN: 10 ml TRACE ELEMENTS: 1 ml TPN PLAN: Initiate house formula TPN with sodium split over chloride and acetate salts. R: Begin TPN Will monitor electrolytes, glucose, and tolerance to TPN. Rita Garcia [facility], 05/01/18 2105
[2018-05-01 19:00] VITALS: BP 179/98
[2018-05-01] MEDS: DOXAZOSIN MESYLATE 4 MG TABLET. PO SCH (21:00)
[2018-05-01] MEDS: ATORVASTATIN CALCIUM 40 MG TABLET. PO SCH (21:00)
[2018-05-01] MEDS ORDERED: TOTAL PARENTERAL NUTRITION IV SCH ×11 (22:00)
[2018-05-01] MEDS ORDERED: DEXTROSE 70% IV SCH ×11 (22:00)
[2018-05-01] MEDS ORDERED: AMINO ACID IV SCH ×11 (22:00)
[2018-05-01] MEDS ORDERED: [UNRECOGNIZED DRUG - OTHER] IV SCH ×11 (22:00)
[2018-05-01 23:00] VITALS: BP 160/95
[2018-05-02] MEDS: IV RINGERS,LACTATED 1000ML 1,000 ML IV SCH ×3 (01:00→21:00)
[2018-05-02 03:00] VITALS: BP 162/90
[2018-05-02] MEDS: LANSOPRAZOLE 30 MG TAB.RAP.DR FT SCH ×2 (05:35→16:30)
[2018-05-02 06:37] LABS: ALBUMIN 2.4 g/dL (3.4-5.0); CALCIUM 8.4 mg/dL (8.5-10.1); CREATININE 2.5 mg/dL (0.7-1.3); GFR 31.7; MAGNESIUM 1.9 mg/dL (1.8-2.4); PHOSPHORUS 3.5 mg/dL (2.6-4.7); POTASSIUM 3.4 mmol/L (3.5-5.1)
[2018-05-02 07:00] VITALS: BP 167/92
[2018-05-02] MEDS: ALLOPURINOL 100 MG TABLET. PO SCH (09:00)
[2018-05-02] MEDS: ENOXAPARIN 30 MG/0.3 ML SYRINGE. SQ SCH (09:27)
[2018-05-02] MEDS: amLODIPine BESYLATE 10 MG TABLET PO SCH (09:31)
[2018-05-02] MEDS: FERROUS SULFATE 325 MG TABLET. PO SCH (09:32)
[2018-05-02] MEDS: POTASSIUM CHLORIDE 20 MEQ TABLET.ER. PO SCH ×2 (09:32→22:49)
[2018-05-02] MEDS: ISOSORBIDE MONONITRATE ER 30 MG TAB.ER.24H PO SCH ×2 (09:34→22:46)
[2018-05-02] MEDS: cloNIDine HCL 0.2 MG TABLET PO SCH ×2 (09:34→22:47)
[2018-05-02] MEDS: ASPIRIN ENTERIC COATED 81 MG TABLET.DR. PO SCH (09:35)
[2018-05-02] MEDS: METOPROLOL TART IMMED RELEASE 25 MG TABLET. PO SCH ×2 (09:35→22:47)
--- NOTE | 2018-05-02 10:19 | DISCH ---
DISCHARGE INSTRUCTIONS Condition on Discharge Condition on Discharge: Stable Activity After Discharge Activity Instructions for Disc: Activity as tolerated, Avoid exertion Lifting Instructions after Dis: No heavy lifting Driving Instructions after Dis: Do not drive Diet after Discharge Additional Diet Restrictions: sips of water with po meds Wound Incision Care Other wound/incision instructi: patrick shower Follow-Up Follow Up With: Jack two weeks MEGAN SALINAS MD May 02, 2018 10:19
--- NOTE | 2018-05-02 10:21 | PDOC3 ---
Discharge Summary Visit Information Date of Admission: Apr 22, 2018 Date of Discharge: May 02, 2018 Admitting Diagnosis Comment: sigmoid polyp Final Diagnosis same Brief Hospital Course Allergies Allergies Coded Allergies Type Severity Reaction Last Updated Verified No Known Drug Allergies 04/22/18 No Vital Signs Vital Signs Date Time Temp Pulse Resp B/P (MAP) Pulse Ox O2 Delivery O2 Flow Rate FiO2 05/02/18 09:35 64 166/97 05/02/18 07:00 98.6 18 97 Room Air 98.6 Lab Results Laboratory Tests Test 05/01/18 05:20 05/02/18 05:45 Sodium Level 143 mmol/L (136-145) 142 mmol/L (136-145) Potassium Level 3.7 mmol/L (3.5-5.1) 3.4 mmol/L (3.5-5.1) Chloride Level 108 mmol/L (98-107) 105 mmol/L (98-107) Carbon Dioxide Level 26 mmol/L (21-32) 27 mmol/L (21-32) Anion Gap 9 (6-14) 10 (6-14) Blood Urea Nitrogen 38 mg/dL (8-26) 34 mg/dL (8-26) Creatinine 2.7 mg/dL (0.7-1.3) 2.5 mg/dL (0.7-1.3) Estimated GFR (Cockcroft-Gault) 29.0 31.7 Glucose Level 82 mg/dL (70-99) 116 mg/dL (70-99) Calcium Level 8.1 mg/dL (8.5-10.1) 8.4 mg/dL (8.5-10.1) Phosphorus Level 3.3 mg/dL (2.6-4.7) 3.5 mg/dL (2.6-4.7) Magnesium Level 1.9 mg/dL (1.8-2.4) 1.9 mg/dL (1.8-2.4) Albumin 2.3 g/dL (3.4-5.0) 2.4 g/dL (3.4-5.0) Triglycerides Level 140 mg/dL (0-150) Laboratory Tests Test 05/02/18 05:45 Sodium Level 142 mmol/L (136-145) Potassium Level 3.4 mmol/L (3.5-5.1) Chloride Level 105 mmol/L (98-107) Carbon Dioxide Level 27 mmol/L (21-32) Anion Gap 10 (6-14) Blood Urea Nitrogen 34 mg/dL (8-26) Creatinine 2.5 mg/dL (0.7-1.3) Estimated GFR (Cockcroft-Gault) 31.7 Glucose Level 116 mg/dL (70-99) Calcium Level 8.4 mg/dL (8.5-10.1) Phosphorus Level 3.5 mg/dL (2.6-4.7) Magnesium Level 1.9 mg/dL (1.8-2.4) Albumin 2.4 g/dL (3.4-5.0) Triglycerides Level 140 mg/dL (0-150) Brief Hospital Course Mr. Greer is a 63 old male who presented with sigmoid polyp. He had slow return of bowel function post op. Long standing [facility] Discharge Information Condition at Discharge: Improved Follow Up: As Needed Disposition/Orders: D/C to Another Facility Scheduled Allopurinol (Allopurinol) 100 Mg Tablet, 100 MG PO DAILY for gout, (Reported) Entered as Reported by: KWABENA BEASLEY on 04/17/18 0637 Last Taken: Unknown Dose on 04/21/18 Last Action: Continued on 04/22/18 1312 by MEGAN SALINAS Amlodipine Besylate (Amlodipine Besylate) 10 Mg Tablet, 10 MG PO DAILY, ( Reported) Entered as Reported by: VICKI MONTERO on 07/28/14 1611 Last Taken: Unknown Dose on 04/22/18 0550 Last Action: Continued on 1312 by MEGAN SALINAS Aspirin (Aspir 81) 81 Mg Tablet.dr, 81 MG PO DAILY, (Reported) Entered as Reported by: VICKI MONTERO on 07/28/14 1611 Last Taken: Unknown Dose on 04/15/18 Last Action: Continued on 04/22/18 1312 by MEGAN SALINAS Atorvastatin Calcium (Atorvastatin Calcium) 40 Mg Tablet, 40 MG PO HS for FOR CHOLESTEROL, (Reported) Entered as Reported by: VICKI MONTERO on 04/11/18 0851 Last Taken: Unknown Dose on 04/21/18 Last Action: Continued on 04/22/18 1515 by TINA ZAMORA MD Clonidine Hcl (Clonidine Hcl) 0.2 Mg Tablet, 0.2 MG PO BID, (Reported) Entered as Reported by: VICKI MONTERO on 07/28/141610 Last Taken: Unknown Dose on 04/22/18 0550 Last Action: Continued on 1514 by TINA ZAMORA MD Doxazosin Mesylate (Cardura) 4 Mg Tablet, 4 MG PO HS, (Reported) Entered as Reported by: VICKI MONTERO on 07/28/141610 Last Taken: Unknown Dose on 04/21/18 Last Action: Continued on 04/22/181514 by TINA ZAMORA MD Ferrous Sulfate (Ferrous Sulfate) 325 Mg Tablet, 325 MG PO DAILY for SUPPLEMENT FOR ANEMIA, (Reported) Entered as Reported by: DAISHA TINSLEY on 04/18/18 124 Last Taken: Unknown Dose on 04/21/18 Last Action: Continued on 04/22/181514 by TINA ZAMORA MD Hydrocodone/Acetaminophen (Lortab 7.5-325 mg Tablet) 1 Each Tablet, 1 TAB PO PRN Q6HRS, (Reported) Entered as Reported by: VICKI MONTERO on 07/28/141610 Last Taken: Unknown Dose on 04/12/18 Last Action: Continued on 04/22/181514 by TINA ZAMORA MD Isosorbide Mononitrate (Isosorbide Mononitrate Er) 60 Mg Tab.er.24h, 60 MG PO 1tab AM-1/2tab PM, (Reported) Entered as Reported by: VICKI MONTERO on 07/28/141610 Last Taken: Unknown Dose on 04/22/18 0550 Last Action: Converted on 1311 by MEGAN SALINAS Lansoprazole (Prevacid) 30 Mg Tab.rap.dr, 30 MG FT BIDBFRMEAL for gerd MDD 1, # 60 Prescribed by: MARTIN VELEZ on 04/29/18 0900 Metoprolol Tartrate (Metoprolol Tartrate) 25 Mg Tablet, 25 MG PO BID for TO CONTROL HYPERTENSION, #60 Ref 0 (Reported) Entered as Reported by: DAISHA TINSLEY on 04/18/18 1244 Last Taken: Unknown Dose on 04/22/18 0550 Last Action: Continued on 1311 by MEGAN SALINAS Potassium Chloride (Potassium Chloride) 20 Meq Tab.er.prt, 20 MEQ PO BID for REPLACE POTASSIUM, (Reported) Entered as Reported by: VICKI MONTERO on 03/09/15 1446 Last Taken: Unknown Dose on 04/21/18 Last Action: Continued on 04/22/18 1515 by MD RITA BECERRA LEE V MD May 02, 2018 10:21
[2018-05-02 11:00] VITALS: BP 135/86
[2018-05-02] MEDS: TPN PER PHARMACY MC PRN (11:26)
--- NOTE | 2018-05-02 12:08 | PDOC ---
Renal-Progress Notes Subjective Notes Notes NO NEW COMPLAINTS History of Present Illness Hx of present illness STABLE Vitals Vitals Vital Signs Date Time Temp Pulse Resp B/P (MAP) Pulse Ox O2 Delivery O2 Flow Rate FiO2 05/02/18 09:35 64 166/97 05/02/18 07:00 98.6 18 97 Room Air 98.6 Weight Weight [ ] I.O. Intake and Output Intake and Output 05/02/18 07:00 Intake Total 100 ml Output Total 2050 ml Balance -1950 ml Intake Oral 100 ml Output Urine Total 2050 ml # Voids 6 Labs Labs Laboratory Tests Test 05/02/18 05:45 Sodium Level 142 mmol/L (136-145) Potassium Level 3.4 mmol/L (3.5-5.1) Chloride Level 105 mmol/L (98-107) Carbon Dioxide Level 27 mmol/L (21-32) Anion Gap 10 (6-14) Blood Urea Nitrogen 34 mg/dL (8-26) Creatinine 2.5 mg/dL (0.7-1.3) Estimated GFR (Cockcroft-Gault) 31.7 Glucose Level 116 mg/dL (70-99) Calcium Level 8.4 mg/dL (8.5-10.1) Phosphorus Level 3.5 mg/dL (2.6-4.7) Magnesium Level 1.9 mg/dL (1.8-2.4) Albumin 2.4 g/dL (3.4-5.0) Triglycerides Level 140 mg/dL (0-150) Review of Systems Constitutional: yes: alert, oriented Ears/Nose/Throat: Yes: no symptom reported Eyes: Yes: no symptom reported Pulmonary: Yes no symptom reported Cardiovascular: Yes no symptom reported Gastrointestional: Yes: no symptom reported Genitourinary: Yes: no symptom reported Musculoskeletal: Yes: no symptom reported Skin: Yes no symptom reported Psychiatric/Neurological: Yes: no symptom reported Endocrine: Yes: no symptom reported Physical Exam General Appearance: no apparent distress Skin: warm Respiratory: decreased breath sounds Heart: S1S2 Abdomen: soft, bowel sounds present Genitourinary: bladder flat Extremities: pulses present Neurology: alert, oriented Assessment Assessment IMP CKD STAGE 4-CR AT HIS BASELINE IN THE 3.0-3.5 RANGE USUALLY OP S/P SIGMOID RESECTION PROSTATE CA HX MILD HYPOKALEMIA LEUCOCYTOSIS-BETTER PLAN RENAL FXN STABLE TPN D/C PLANS NOTED TERRENCE JOSUE MD May 02, 2018 12:08
--- NOTE | 2018-05-02 12:45 | PDOC ---
PROGRESS NOTES Chief Complaint Chief Complaint Status post resection of large pedunculated polyp of sigmoid colon Hypertension Leukocytosis - Acute renal insufficiency on hx of CKD4 History of dyslipidemia Hx of Rheumatic cardiac disease? History of prostate cancer History of Present Illness History of Present Illness try to DC soon, agree with rehab, on TPN Tubovillous adenoma per biopsy report. Patient was seen and examined at bedside. ORLY drain has been removed. Dressings c/d/i. Patient c/o of mild L sided abdominal pain with movement. Surgery and Neph following. Vitals Vitals Vital Signs Date Time Temp Pulse Resp B/P (MAP) Pulse Ox O2 Delivery O2 Flow Rate FiO2 05/02/18 09:35 64 166/97 05/02/18 07:00 98.6 18 97 Room Air 98.6 Physical Exam General: Alert, Oriented X3, No acute distress Heart: Regular rate, Normal S1, Normal S2, No murmurs, Gallops Lungs: Clear Abdomen: Soft, Other (ORLY out, minimal drainage with Brice) Extremities: Other (right arm PICC in place) Skin: No rashes, No significant lesion, Other (surgical scar with steri strips is c/d/i, all other surgical wound dressings are c/d/i) Labs LABS Laboratory Tests Test 05/02/18 05:45 Sodium Level 142 mmol/L (136-145) Potassium Level 3.4 mmol/L (3.5-5.1) Chloride Level 105 mmol/L (98-107) Carbon Dioxide Level 27 mmol/L (21-32) Anion Gap 10 (6-14) Blood Urea Nitrogen 34 mg/dL (8-26) Creatinine 2.5 mg/dL (0.7-1.3) Estimated GFR (Cockcroft-Gault) 31.7 Glucose Level 116 mg/dL (70-99) Calcium Level 8.4 mg/dL (8.5-10.1) Phosphorus Level 3.5 mg/dL (2.6-4.7) Magnesium Level 1.9 mg/dL (1.8-2.4) Albumin 2.4 g/dL (3.4-5.0) Triglycerides Level 140 mg/dL (0-150) Comment Review of Relevant I have reviewed the following items jessie (where applicable) has been applied. Labs Laboratory Tests Test 05/01/18 05:20 05/02/18 05:45 Sodium Level 143 mmol/L (136-145) 142 mmol/L (136-145) Potassium Level 3.7 mmol/L (3.5-5.1) 3.4 mmol/L (3.5-5.1) Chloride Level 108 mmol/L (98-107) 105 mmol/L (98-107) Carbon Dioxide Level 26 mmol/L (21-32) 27 mmol/L (21-32) Anion Gap 9 (6-14) 10 (6-14) Blood Urea Nitrogen 38 mg/dL (8-26) 34 mg/dL (8-26) Creatinine 2.7 mg/dL (0.7-1.3) 2.5 mg/dL (0.7-1.3) Estimated GFR (Cockcroft-Gault) 29.0 31.7 Glucose Level 82 mg/dL (70-99) 116 mg/dL (70-99) Calcium Level 8.1 mg/dL (8.5-10.1) 8.4 mg/dL (8.5-10.1) Phosphorus Level 3.3 mg/dL (2.6-4.7) 3.5 mg/dL (2.6-4.7) Magnesium Level 1.9 mg/dL (1.8-2.4) 1.9 mg/dL (1.8-2.4) Albumin 2.3 g/dL (3.4-5.0) 2.4 g/dL (3.4-5.0) Triglycerides Level 140 mg/dL (0-150) Laboratory Tests Test 05/02/18 05:45 Sodium Level 142 mmol/L (136-145) Potassium Level 3.4 mmol/L (3.5-5.1) Chloride Level 105 mmol/L (98-107) Carbon Dioxide Level 27 mmol/L (21-32) Anion Gap 10 (6-14) Blood Urea Nitrogen 34 mg/dL (8-26) Creatinine 2.5 mg/dL (0.7-1.3) Estimated GFR (Cockcroft-Gault) 31.7 Glucose Level 116 mg/dL (70-99) Calcium Level 8.4 mg/dL (8.5-10.1) Phosphorus Level 3.5 mg/dL (2.6-4.7) Magnesium Level 1.9 mg/dL (1.8-2.4) Albumin 2.4 g/dL (3.4-5.0) Triglycerides Level 140 mg/dL (0-150) Medications Current Medications Ondansetron HCl (Zofran) 4 mg PRN Q6HRS PRN IV NAUSEA/VOMITING Last administered on 04/22/18 11:28; Start 04/22/18 at 07:00; Stop 04/23/18 at 06:59 ; Status DC Fentanyl Citrate (Fentanyl 2ml Vial) 25 mcg PRN Q5MIN PRN IV MILD PAIN; Start 04/22/18 at 07:00; Stop 04/23/18 at 06:59; Status DC Fentanyl Citrate (Fentanyl 2ml Vial) 50 mcg PRN Q5MIN PRN IV MODERATE TO SEVERE PAIN; Start 04/22/18 at 07:00; Stop 04/23/18 at 06:59; Status DC Morphine Sulfate (Morphine Sulfate) 1 mg PRN Q10MIN PRN IV SEVERE PAIN Last administered on 04/22/18 11:31; Start 04/22/18 at 07:00; Stop 04/23/18 at 06:59 ; Status DC Ringer's Solution 1,000 ml @ 30 mls/hr Q24H IV Last administered on 04/22/18 07:23; Start 04/22/18 at 07:00; Stop 04/22/18 at 18:59; Status DC Lidocaine HCl (Xylocaine-Mpf 1% 2ml Vial) 2 ml PRN 1X PRN ID PRIOR TO IV START ; Start 04/22/18 at 07:00; Stop 04/23/18 at 06:59; Status DC Hydromorphone HCl (Dilaudid) 0.5 mg PRN Q10MIN PRN IV SEV PAIN, Second choice Last administered on 04/22/18 11:37; Start 04/22/18 at 07:00; Stop 04/23/18 at 06:59; Status DC Prochlorperazine Edisylate (Compazine) 5 mg PACU PRN PRN IV NAUSEA, MRX1 Last administered on 04/22/18at 10:59; Start 04/22/18 at 07:00; Stop 04/23/18 at 06:59 ; Status DC Cefoxitin Sodium (Mefoxin) 1 gm 1X PREOP PRN IVP PRIOR TO PROCEDURE; Start at 06:00; Stop 04/22/18 at 18:00; Status DC Rocuronium Selma (Zemuron) 50 mg STK-MED ONCE .ROUTE ; Start 04/22/18 at 06:23 ; Stop 04/22/18 at 06:24; Status DC Fentanyl Citrate (Fentanyl 2ml Vial) 100 mcg STK-MED ONCE .ROUTE ; Start at 06:23; Stop 04/22/18 at 06:24; Status DC Sevoflurane (Ultane) 90 ml STK-MED ONCE IH ; Start 04/22/18 at 06:24; Stop 04/22 at 06:25; Status DC Dexamethasone Sodium Phosphate (Decadron) 20 mg STK-MED ONCE .ROUTE ; Start at 06:24; Stop 04/22/18 at 06:25; Status DC Propofol 20 ml @ As Directed STK-MED ONCE IV ; Start 04/22/18 at 06:24; Stop at 06:25; Status DC Lidocaine HCl (Lidocaine Pf 2% Vial) 5 ml STK-MED ONCE .ROUTE ; Start 04/22/18 at 06:24; Stop 04/22/18 at 06:25; Status DC Ondansetron HCl (Zofran) 4 mg STK-MED ONCE .ROUTE ; Start 04/22/18 at 06:24; Stop 04/22/18 at 06:25; Status DC Phenylephrine HCl (Reggie-Synephrine Inj) 10 mg STK-MED ONCE .ROUTE ; Start at 06:24; Stop 04/22/18 at 06:25; Status DC Bupivacaine HCl/ Epinephrine Bitart (Sensorcaine-Epi 0.25%-1:[id number] Mpf) 30 ml STK-MED ONCE .ROUTE ; Start 04/22/18 at 06:25; Stop 04/22/18 at 07:26; Status DC Bupivacaine HCl/ Epinephrine Bitart (Sensorcain-Mpf Epi 0.5%-1:[id number]) 30 ml STK -MED ONCE .ROUTE Last administered on 04/22/18at 09:05; Start 04/22/18 at 06:33 ; Stop 04/22/18 at 07:33; Status DC Fentanyl Citrate (Fentanyl 5ml Vial) 250 mcg STK-MED ONCE .ROUTE ; Start at 08:45; Stop 04/22/18 at 08:47; Status DC Rocuronium Selma (Zemuron) 50 mg STK-MED ONCE .ROUTE ; Start 04/22/18 at 08:46 ; Stop 04/22/18 at 08:47; Status DC Sevoflurane (Ultane) 90 ml STK-MED ONCE IH ; Start 04/22/18 at 10:07; Stop 04/22 at 10:08; Status DC Neostigmine Methylsulfate (Neostigmine Methylsulfate) 5 mg STK-MED ONCE .ROUTE ; Start 04/22/18 at 10:08; Stop 04/22/18 at 10:09; Status DC Glycopyrrolate (Robinul) 1 mg STK-MED ONCE .ROUTE ; Start 04/22/18 at 10:09; Stop 04/22/18 at 10:10; Status DC Enoxaparin Sodium (Lovenox 30mg Syringe) 30 mg Q24H SQ Last administered on at 09:27; Start 04/23/18 at 09:00 Sodium Chloride (Normal Saline Flush) 3 ml QSHIFT PRN IV AFTER MEDS AND BLOOD DRAWS; Start 04/22/18 at 13:15 Potassium Chloride/Sodium Chloride 1,000 ml @ 100 mls/hr Q10H IV Last administered on 04/27/18at 08:49; Start 04/22/18 at 14:00; Stop 04/27/18 at 11:00 ; Status DC Hydromorphone HCl 30 ml @ 0 mls/hr CONT PRN PRN IV PER PROTOCOL Last administered on 04/22/18at 13:49; Start 04/22/18 at 13:15; Stop 04/24/18 at 10:38 ; Status DC Ondansetron HCl (Zofran) 4 mg PRN Q6HRS PRN IV NAUESA, 1ST CHOICE Last administered on 04/30/18at 19:54; Start 04/22/18 at 13:15 Allopurinol (Zyloprim) 100 mg DAILY PO Last administered on 05/01/18at 08:33; Start 04/23/18 at 09:00 Amlodipine Besylate (Norvasc) 10 mg DAILY PO Last administered on 05/02/18 09: 31; Start 04/23/18 at 09:00 Aspirin (Ecotrin) 81 mg DAILY PO Last administered on 05/02/18 09:35; Start at 09:00 Metoprolol Tartrate (Lopressor) 25 mg BID PO Last administered on 05/02/18 09: 35; Start 04/22/18 at 21:00 Non-Formulary Medication (Isosorbide Mononitrate (Isosorbide Mononitrate Er)) 60 mg 1tab AM-1/2tab PM PO ; Start 04/22/18 at 13:15; Status UNV Isosorbide Mononitrate (Imdur) 60 mg DAILY PO Last administered on 05/02/18 09 :34; Start 04/23/18 at 09:00 Isosorbide Mononitrate (Imdur) 30 mg QHS PO Last administered on 05/01/18 21: 35; Start 04/22/18 at 21:00 Atorvastatin Calcium (Lipitor) 40 mg HS PO Last administered on 04/29/18 20:44 ; Start 04/22/18 at 21:00 Clonidine HCl (Catapres) 0.2 mg BID PO Last administered on 05/02/18 09:34; Start 04/22/18 at 21:00 Doxazosin Mesylate (Cardura) 4 mg HS PO Last administered on 04/29/18 20:44; Start 04/22/18 at 21:00 Ferrous Sulfate (Feosol) 325 mg DAILY PO Last administered on 05/02/18 09:32; Start 04/23/18 at 09:00 Acetaminophen/ Hydrocodone Bitart (Lortab 7.5/325) 1 tab PRN Q6HRS PRN PO PAIN ; Start 04/22/18 at 15:15; Stop 04/24/18 at 14:19; Status DC Potassium Chloride (Klor-Con) 20 meq BID PO Last administered on 05/02/18 09: 32; Start 04/22/18 at 21:00 Enalaprilat (Vasotec Inj) 1.25 mg PRN Q6HRS PRN IVP HYPERTENSION, SEE COMMENTS Last administered on 04/23/18 09:25; Start 04/23/18 at 00:15 Hydralazine HCl (Apresoline Inj) 25 mg PRN Q6HRS PRN IVP ELEVATED BP,1ST Choic , SEE COM Last administered on 04/23/18at 12:39; Start 04/23/18 at 03:45 Piperacillin Sod/ Tazobactam Sod (Zosyn Per Pharmacy) 1 each PRN DAILY PRN MC SEE COMMENTS; Start 04/23/18 at 09:45; Stop 04/24/18 at 07:54; Status DC Piperacillin Sod/ Tazobactam Sod 2.25 gm/Sodium Chloride 50 ml @ 100 mls/hr Q6HRS IV ; Start 04/23/18 at 10:30; Stop 04/23/18 at 13:57; Status DC Acetaminophen/ Hydrocodone Bitart (Lortab 5/325) 1 tab PRN Q4HRS PRN PO MILD TO MODERATE PAIN Last administered on 04/28/18at 15:11; Start 04/24/18 at 10:45 Acetaminophen/ Hydrocodone Bitart (Lortab 5/325) 2 tab PRN Q4HRS PRN PO SEVERE PAIN; Start 04/24/18 at 10:45 Hydromorphone HCl (Dilaudid) 0.5 mg PRN Q3HRS PRN IV MODERATE TO SEVERE PAIN; Start 04/24/18 at 10:45; Stop 04/30/18 at 12:53; Status DC Lansoprazole (Prevacid) 30 mg BIDBFRMEAL FT Last administered on 05/02/18at 05: 35; Start 04/25/18 at 16:30 Al Hydroxide/Mg Hydroxide (Mylanta Plus Xs) 30 ml PRN Q2HR PRN PO HEARTBURN / GAS Last administered on 04/25/18at 12:23; Start 04/25/18 at 09:30 Ringer's Solution 1,000 ml @ 100 mls/hr Q10H IV Last administered on at 15:41; Start 04/27/18 at 11:00 Darbepoetin Giovani (Aranesp) 60 mcg WEEKLYHS SQ Last administered on 04/27/18at 21 :00; Start 04/27/18 at 21:00 Magnesium Sulfate 50 ml @ 25 mls/hr PRN DAILY PRN IV for Mag < 1.7 on am labs; Start 04/28/18 at 10:15 Iron Sucrose 200 mg/Sodium Chloride 110 ml @ 55 mls/hr 3X/WEEK IV Last administered on 05/01/18at 09:25; Start 04/29/18 at 09:00; Stop 05/08/18 at 10:59 Lidocaine/Sodium Bicarbonate (Buffered Lidocaine 1%) 3 ml STK-MED ONCE .ROUTE ; Start 04/30/18 at 14:09; Stop 04/30/18 at 14:11; Status DC Lidocaine/Sodium Bicarbonate (Buffered Lidocaine 1%) 3 ml 1X ONCE INJ Last administered on 04/30/18at 14:28; Start 04/30/18 at 14:15; Stop 04/30/18 at 14:18 ; Status DC Info (Tpn Per Pharmacy) 1 each PRN DAILY PRN MC SEE COMMENTS Last administered on 05/02/18at 11:26; Start 05/01/18 at 11:30 Sodium Chloride 40 meq/Sodium Acetate 50 meq/ Potassium Chloride 50 meq/ Potassium Phosphate 13.6 mmol/Magnesium Sulfate 10 meq/ Calcium Gluconate 10 meq / Multivitamins 10 ml/Chromium/ Copper/Manganese/ Seleni/Zn 1 ml/ Total Parenteral Nutrition/Amino Acids/Dextrose/ Fat Emuls... 1,512 ml @ 63 mls/hr TPN CONT IV Last administered on 05/01/18at 21:37; Start 05/01/18 at 22:00; Stop 05/02/18 at 21:59 Active Scripts Active Prevacid (Lansoprazole) 30 Mg Tab.rap. 30 Mg FT BIDBFRMEAL MDD 1 Reported Metoprolol Tartrate 25 Mg Tablet 25 Mg PO BID Ferrous Sulfate 325 Mg Tablet 325 Mg PO DAILY Allopurinol 100 Mg Tablet 100 Mg PO DAILY Atorvastatin Calcium 40 Mg Tablet 40 Mg PO HS Potassium Chloride 20 Meq Tab.er.prt 20 Meq PO BID Cardura (Doxazosin Mesylate) 4 Mg Tablet 4 Mg PO HS Isosorbide Mononitrate Er (Isosorbide Mononitrate) 60 Mg Tab.er.24h 60 Mg PO 1TAB AM-1/2TAB PM Clonidine Hcl 0.2 Mg Tablet 0.2 Mg PO BID Amlodipine Besylate 10 Mg Tablet 10 Mg PO DAILY Lortab 7.5-325 mg Tablet (Hydrocodone/Acetaminophen) 1 Each Tablet 1 Tab PO PRN Q6HRS Aspir 81 (Aspirin) 81 Mg Tablet. 81 Mg PO DAILY Vitals/I & O Vital Sign - Last 24 Hours 05/01/18 05/01/18 05/01/18 05/01/18 15:00 19:00 19:30 21:34 Temp 98.7 98.4 98.7 98.4 Pulse 69 66 65 Resp 18 18 B/P (MAP) 148/82 (104) 179/98 (125) 166/86 Pulse Ox 94 96 O2 Delivery Room Air Room Air Room Air 05/01/18 05/01/18 05/01/18 05/02/18 21:35 21:35 23:00 03:00 Temp 98.8 98.1 98.8 98.1 Pulse 65 65 66 55 Resp 18 18 B/P (MAP) 166/86 166/86 160/95 (116) 162/90 (114) Pulse Ox 95 94 O2 Delivery Room Air Room Air 05/02/18 05/02/18 05/02/18 05/02/18 07:00 09:31 09:34 09:34 Temp 98.6 98.6 Pulse 51 51 64 64 Resp 18 B/P (MAP) 167/92 (117) 167/92 166/97 166/97 Pulse Ox 97 O2 Delivery Room Air 05/02/18 09:35 Pulse 64 B/P (MAP) 166/97 Intake and Output 05/01/18 05/01/18 05/02/18 15:00 23:00 07:00 Intake Total 100 ml Output Total 1000 ml 1050 ml Balance -900 ml -1050 ml CYNTHIA RAMIREZ MD May 02, 2018 12:45
--- NOTE | 2018-05-02 14:19 | NUR ---
SW following. Discussed with RN, pt can go to [facility] today if insurance approves. SW awaiting confirmation of insurance approval. SW will continue to follow.
[2018-05-02 15:00] VITALS: BP 147/89
--- NOTE | 2018-05-02 18:14 | NUR ---
Waiting on insurance to ia. TPN not ordered for tonight. MD ordered PPN for tonight. Pt was also encouraged to walk around unit and pt stated that he doesn't want to move to save energy because he is hungry. This nurse advised him to at least drink his nutritional supplement on his tray and he refused.
[2018-05-02 19:00] VITALS: BP 146/92
[2018-05-02] MEDS: ATORVASTATIN CALCIUM 40 MG TABLET. PO SCH (21:00)
[2018-05-02] MEDS ORDERED: AMINO AC 3%/ELECTROLYTE/GLYCER 1,000 ML IV SCH (22:00)
[2018-05-02] MEDS ORDERED: TOTAL PARENTERAL NUTRITION 1,424.9987 ML, AMINO ACID 15% 60 GM, DEXTROSE 70 % IN WATER ... IV SCH ×10 (22:00)
[2018-05-02] MEDS: DOXAZOSIN MESYLATE 4 MG TABLET. PO SCH (22:47)
[2018-05-02 23:00] VITALS: BP 153/89
[2018-05-03 03:00] VITALS: BP 127/86
[2018-05-03] MEDS: LANSOPRAZOLE 30 MG TAB.RAP.DR FT SCH (05:19)
[2018-05-03 06:11] LABS: ALBUMIN 2.4 g/dL (3.4-5.0); CALCIUM 8.4 mg/dL (8.5-10.1); CREATININE 2.6 mg/dL (0.7-1.3); GFR 30.3; MAGNESIUM 2.1 mg/dL (1.8-2.4); PHOSPHORUS 3.1 mg/dL (2.6-4.7); POTASSIUM 3.7 mmol/L (3.5-5.1)
[2018-05-03 07:00] VITALS: BP 150/93
[2018-05-03] MEDS: IV RINGERS,LACTATED 1000ML 1,000 ML IV SCH (07:00)
--- NOTE | 2018-05-03 07:50 | NUR ---
SW following. Discussed with RN, insurance approved for pt to go to [facility] today. SW advised RN, Dr. Santiago needs to do the discharge continuing care plan for SNU less than 30 days. Transportation has been set up for 1130 today. SW will continue to follow.
--- NOTE | 2018-05-03 08:54 | PDOC ---
SABA RUBIO SEARCH MARKETING ANALYST 05/03/18 0854: SURGICAL PROGRESS NOTE Subjective taking few clears no emesis, but did not like the broth plans for transfer to today Vital Signs Vital Signs Date Time Temp Pulse Resp B/P (MAP) Pulse Ox O2 Delivery O2 Flow Rate FiO2 05/03/18 07:00 98.8 50 18 150/93 (112) 99 Room Air 98.8 I&O Intake and Output 05/03/18 07:00 Output Total 850 ml Balance -850 ml Output Urine Total 850 ml # Voids 9 General: Alert, Oriented X3, Cooperative, No acute distress Abdomen: Soft, Other (nd, dressing dry) Labs Laboratory Tests Test 05/02/18 05:45 05/03/18 05:35 Sodium Level 142 mmol/L (136-145) 140 mmol/L (136-145) Potassium Level 3.4 mmol/L (3.5-5.1) 3.7 mmol/L (3.5-5.1) Chloride Level 105 mmol/L (98-107) 105 mmol/L (98-107) Carbon Dioxide Level 27 mmol/L (21-32) 26 mmol/L (21-32) Anion Gap 10 (6-14) 9 (6-14) Blood Urea Nitrogen 34 mg/dL (8-26) 32 mg/dL (8-26) Creatinine 2.5 mg/dL (0.7-1.3) 2.6 mg/dL (0.7-1.3) Estimated GFR (Cockcroft-Gault) 31.7 30.3 Glucose Level 116 mg/dL (70-99) 108 mg/dL (70-99) Calcium Level 8.4 mg/dL (8.5-10.1) 8.4 mg/dL (8.5-10.1) Phosphorus Level 3.5 mg/dL (2.6-4.7) 3.1 mg/dL (2.6-4.7) Magnesium Level 1.9 mg/dL (1.8-2.4) 2.1 mg/dL (1.8-2.4) Albumin 2.4 g/dL (3.4-5.0) 2.4 g/dL (3.4-5.0) Triglycerides Level 140 mg/dL (0-150) Laboratory Tests Test 05/03/18 05:35 Sodium Level 140 mmol/L (136-145) Potassium Level 3.7 mmol/L (3.5-5.1) Chloride Level 105 mmol/L (98-107) Carbon Dioxide Level 26 mmol/L (21-32) Anion Gap 9 (6-14) Blood Urea Nitrogen 32 mg/dL (8-26) Creatinine 2.6 mg/dL (0.7-1.3) Estimated GFR (Cockcroft-Gault) 30.3 Glucose Level 108 mg/dL (70-99) Calcium Level 8.4 mg/dL (8.5-10.1) Phosphorus Level 3.1 mg/dL (2.6-4.7) Magnesium Level 2.1 mg/dL (1.8-2.4) Albumin 2.4 g/dL (3.4-5.0) Assessment/Plan s/p resection continue tpn, clears Dr Salinas will Fu at PP MEGAN SALINAS MD 05/03/18 0858: SURGICAL PROGRESS NOTE Assessment/Plan as above to PP today SABA RUBIO APRN May 03, 2018 08:54 MEGAN SALINAS MD May 03, 2018 08:58
--- NOTE | 2018-05-03 09:28 | PDOC ---
PROGRESS NOTES Chief Complaint Chief Complaint Status post resection of large pedunculated polyp of sigmoid colon Hypertension Leukocytosis - Acute renal insufficiency on hx of CKD4 History of dyslipidemia Hx of Rheumatic cardiac disease? History of prostate cancer History of Present Illness History of Present Illness DC plan to SNU cont TPN, clear liquids Tubovillous adenoma per biopsy report. Patient was seen and examined at bedside. Dressings c/d/i. Patient c/o of mild L sided abdominal pain with movement. Surgery and Neph following. Vitals Vitals Vital Signs Date Time Temp Pulse Resp B/P (MAP) Pulse Ox O2 Delivery O2 Flow Rate FiO2 05/03/18 07:00 98.8 50 18 150/93 (112) 99 Room Air 98.8 Physical Exam General: Alert, Oriented X3, Cooperative, No acute distress Heart: Regular rate, Normal S1, Normal S2, No murmurs, Gallops Lungs: Clear Abdomen: Soft, Other (nd, dressing dry) Extremities: Other (right arm PICC in place) Skin: No rashes, No significant lesion, Other (surgical scar with steri strips is c/d/i, all other surgical wound dressings are c/d/i) Labs LABS Laboratory Tests Test 05/03/18 05:35 Sodium Level 140 mmol/L (136-145) Potassium Level 3.7 mmol/L (3.5-5.1) Chloride Level 105 mmol/L (98-107) Carbon Dioxide Level 26 mmol/L (21-32) Anion Gap 9 (6-14) Blood Urea Nitrogen 32 mg/dL (8-26) Creatinine 2.6 mg/dL (0.7-1.3) Estimated GFR (Cockcroft-Gault) 30.3 Glucose Level 108 mg/dL (70-99) Calcium Level 8.4 mg/dL (8.5-10.1) Phosphorus Level 3.1 mg/dL (2.6-4.7) Magnesium Level 2.1 mg/dL (1.8-2.4) Albumin 2.4 g/dL (3.4-5.0) Comment Review of Relevant I have reviewed the following items jessie (where applicable) has been applied. Labs Laboratory Tests Test 05/02/18 05:45 05/03/18 05:35 Sodium Level 142 mmol/L (136-145) 140 mmol/L (136-145) Potassium Level 3.4 mmol/L (3.5-5.1) 3.7 mmol/L (3.5-5.1) Chloride Level 105 mmol/L (98-107) 105 mmol/L (98-107) Carbon Dioxide Level 27 mmol/L (21-32) 26 mmol/L (21-32) Anion Gap 10 (6-14) 9 (6-14) Blood Urea Nitrogen 34 mg/dL (8-26) 32 mg/dL (8-26) Creatinine 2.5 mg/dL (0.7-1.3) 2.6 mg/dL (0.7-1.3) Estimated GFR (Cockcroft-Gault) 31.7 30.3 Glucose Level 116 mg/dL (70-99) 108 mg/dL (70-99) Calcium Level 8.4 mg/dL (8.5-10.1) 8.4 mg/dL (8.5-10.1) Phosphorus Level 3.5 mg/dL (2.6-4.7) 3.1 mg/dL (2.6-4.7) Magnesium Level 1.9 mg/dL (1.8-2.4) 2.1 mg/dL (1.8-2.4) Albumin 2.4 g/dL (3.4-5.0) 2.4 g/dL (3.4-5.0) Triglycerides Level 140 mg/dL (0-150) Laboratory Tests Test 05/03/18 05:35 Sodium Level 140 mmol/L (136-145) Potassium Level 3.7 mmol/L (3.5-5.1) Chloride Level 105 mmol/L (98-107) Carbon Dioxide Level 26 mmol/L (21-32) Anion Gap 9 (6-14) Blood Urea Nitrogen 32 mg/dL (8-26) Creatinine 2.6 mg/dL (0.7-1.3) Estimated GFR (Cockcroft-Gault) 30.3 Glucose Level 108 mg/dL (70-99) Calcium Level 8.4 mg/dL (8.5-10.1) Phosphorus Level 3.1 mg/dL (2.6-4.7) Magnesium Level 2.1 mg/dL (1.8-2.4) Albumin 2.4 g/dL (3.4-5.0) Medications Current Medications Ondansetron HCl (Zofran) 4 mg PRN Q6HRS PRN IV NAUSEA/VOMITING Last administered on 04/22/18 11:28; Start 04/22/18 at 07:00; Stop 04/23/18 at 06:59 ; Status DC Fentanyl Citrate (Fentanyl 2ml Vial) 25 mcg PRN Q5MIN PRN IV MILD PAIN; Start 04/22/18 at 07:00; Stop 04/23/18 at 06:59; Status DC Fentanyl Citrate (Fentanyl 2ml Vial) 50 mcg PRN Q5MIN PRN IV MODERATE TO SEVERE PAIN; Start 04/22/18 at 07:00; Stop 04/23/18 at 06:59; Status DC Morphine Sulfate (Morphine Sulfate) 1 mg PRN Q10MIN PRN IV SEVERE PAIN Last administered on 04/22/18 11:31; Start 04/22/18 at 07:00; Stop 04/23/18 at 06:59 ; Status DC Ringer's Solution 1,000 ml @ 30 mls/hr Q24H IV Last administered on 04/22/18 07:23; Start 04/22/18 at 07:00; Stop 04/22/18 at 18:59; Status DC Lidocaine HCl (Xylocaine-Mpf 1% 2ml Vial) 2 ml PRN 1X PRN ID PRIOR TO IV START ; Start 04/22/18 at 07:00; Stop 04/23/18 at 06:59; Status DC Hydromorphone HCl (Dilaudid) 0.5 mg PRN Q10MIN PRN IV SEV PAIN, Second choice Last administered on 04/22/18 11:37; Start 04/22/18 at 07:00; Stop 04/23/18 at 06:59; Status DC Prochlorperazine Edisylate (Compazine) 5 mg PACU PRN PRN IV NAUSEA, MRX1 Last administered on 04/22/18 10:59; Start 04/22/18 at 07:00; Stop 04/23/18 at 06:59 ; Status DC Cefoxitin Sodium (Mefoxin) 1 gm 1X PREOP PRN IVP PRIOR TO PROCEDURE; Start at 06:00; Stop 04/22/18 at 18:00; Status DC Rocuronium [place] (Zemuron) 50 mg STK-MED ONCE .ROUTE ; Start 04/22/18 at 06:23 ; Stop 04/22/18 at 06:24; Status DC Fentanyl Citrate (Fentanyl 2ml Vial) 100 mcg STK-MED ONCE .ROUTE ; Start at 06:23; Stop 04/22/18 at 06:24; Status DC Sevoflurane (Ultane) 90 ml STK-MED ONCE IH ; Start 04/22/18 at 06:24; Stop 04/22 at 06:25; Status DC Dexamethasone Sodium Phosphate (Decadron) 20 mg STK-MED ONCE .ROUTE ; Start at 06:24; Stop 04/22/18 at 06:25; Status DC Propofol 20 ml @ As Directed STK-MED ONCE IV ; Start 04/22/18 at 06:24; Stop at 06:25; Status DC Lidocaine HCl (Lidocaine Pf 2% Vial) 5 ml STK-MED ONCE .ROUTE ; Start 04/22/18 at 06:24; Stop 04/22/18 at 06:25; Status DC Ondansetron HCl (Zofran) 4 mg STK-MED ONCE .ROUTE ; Start 04/22/18 at 06:24; Stop 04/22/18 at 06:25; Status DC Phenylephrine HCl (Regige-Synephrine Inj) 10 mg STK-MED ONCE .ROUTE ; Start at 06:24; Stop 04/22/18 at 06:25; Status DC Bupivacaine HCl/ Epinephrine Bitart (Sensorcaine-Epi 0.25%-1:[id number] Mpf) 30 ml STK-MED ONCE .ROUTE ; Start 04/22/18 at 06:25; Stop 04/22/18 at 07:26; Status DC Bupivacaine HCl/ Epinephrine Bitart (Sensorcain-Mpf Epi 0.5%-1:[id number]) 30 ml STK -MED ONCE .ROUTE Last administered on 04/22/18at 09:05; Start 04/22/18 at 06:33 ; Stop 04/22/18 at 07:33; Status DC Fentanyl Citrate (Fentanyl 5ml Vial) 250 mcg STK-MED ONCE .ROUTE ; Start at 08:45; Stop 04/22/18 at 08:47; Status DC Rocuronium [place] (Zemuron) 50 mg STK-MED ONCE .ROUTE ; Start 04/22/18 at 08:46 ; Stop 04/22/18 at 08:47; Status DC Sevoflurane (Ultane) 90 ml STK-MED ONCE IH ; Start 04/22/18 at 10:07; Stop 04/22 at 10:08; Status DC Neostigmine Methylsulfate (Neostigmine Methylsulfate) 5 mg STK-MED ONCE .ROUTE ; Start 04/22/18 at 10:08; Stop 04/22/18 at 10:09; Status DC Glycopyrrolate (Robinul) 1 mg STK-MED ONCE .ROUTE ; Start 04/22/18 at 10:09; Stop 04/22/18 at 10:10; Status DC Enoxaparin Sodium (Lovenox 30mg Syringe) 30 mg Q24H SQ Last administered on 09:27; Start 04/23/18 at 09:00 Sodium Chloride (Normal Saline Flush) 3 ml QSHIFT PRN IV AFTER MEDS AND BLOOD DRAWS; Start 04/22/18 at 13:15 Potassium Chloride/Sodium Chloride 1,000 ml @ 100 mls/hr Q10H IV Last administered on 04/27/18 08:49; Start 04/22/18 at 14:00; Stop 04/27/18 at 11:00 ; Status DC Hydromorphone HCl 30 ml @ 0 mls/hr CONT PRN PRN IV PER PROTOCOL Last administered on 04/22/18at 13:49; Start 04/22/18 at 13:15; Stop 04/24/18 at 10:38 ; Status DC Ondansetron HCl (Zofran) 4 mg PRN Q6HRS PRN IV NAUESA, 1ST CHOICE Last administered on 04/30/18 19:54; Start 04/22/18 at 13:15 Allopurinol (Zyloprim) 100 mg DAILY PO Last administered on 05/01/18 08:33; Start 04/23/18 at 09:00 Amlodipine Besylate (Norvasc) 10 mg DAILY PO Last administered on 05/02/18 09: 31; Start 04/23/18 at 09:00 Aspirin (Ecotrin) 81 mg DAILY PO Last administered on 05/02/18 09:35; Start at 09:00 Metoprolol Tartrate (Lopressor) 25 mg BID PO Last administered on 05/02/18 22: 47; Start 04/22/18 at 21:00 Non-Formulary Medication (Isosorbide Mononitrate (Isosorbide Mononitrate Er)) 60 mg 1tab AM-1/2tab PM PO ; Start 04/22/18 at 13:15; Status UNV Isosorbide Mononitrate (Imdur) 60 mg DAILY PO Last administered on 05/02/18 09 :34; Start 04/23/18 at 09:00 Isosorbide Mononitrate (Imdur) 30 mg QHS PO Last administered on 05/02/18 22: 46; Start 04/22/18 at 21:00 Atorvastatin Calcium (Lipitor) 40 mg HS PO Last administered on 04/29/18 20:44 ; Start 04/22/18 at 21:00 Clonidine HCl (Catapres) 0.2 mg BID PO Last administered on 05/02/18 22:47; Start 04/22/18 at 21:00 Doxazosin Mesylate (Cardura) 4 mg HS PO Last administered on 05/02/18 22:47; Start 04/22/18 at 21:00 Ferrous Sulfate (Feosol) 325 mg DAILY PO Last administered on 05/02/18 09:32; Start 04/23/18 at 09:00 Acetaminophen/ Hydrocodone Bitart (Lortab 7.5/325) 1 tab PRN Q6HRS PRN PO PAIN ; Start 04/22/18 at 15:15; Stop 04/24/18 at 14:19; Status DC Potassium Chloride (Klor-Con) 20 meq BID PO Last administered on 05/02/18 22: 49; Start 04/22/18 at 21:00 Enalaprilat (Vasotec Inj) 1.25 mg PRN Q6HRS PRN IVP HYPERTENSION, SEE COMMENTS Last administered on 04/23/18 09:25; Start 04/23/18 at 00:15 Hydralazine HCl (Apresoline Inj) 25 mg PRN Q6HRS PRN IVP ELEVATED BP,1ST Choic , SEE COM Last administered on 3/19/19at 12:39; Start 04/23/18 at 03:45 Piperacillin Sod/ Tazobactam Sod (Zosyn Per Pharmacy) 1 each PRN DAILY PRN MC SEE COMMENTS; Start 04/23/18 at 09:45; Stop 04/24/18 at 07:54; Status DC Piperacillin Sod/ Tazobactam Sod 2.25 gm/Sodium Chloride 50 ml @ 100 mls/hr Q6HRS IV ; Start 04/23/18 at 10:30; Stop 04/23/18 at 13:57; Status DC Acetaminophen/ Hydrocodone Bitart (Lortab 5/325) 1 tab PRN Q4HRS PRN PO MILD TO MODERATE PAIN Last administered on 04/28/18at 15:11; Start 04/24/18 at 10:45 Acetaminophen/ Hydrocodone Bitart (Lortab 5/325) 2 tab PRN Q4HRS PRN PO SEVERE PAIN; Start 04/24/18 at 10:45 Hydromorphone HCl (Dilaudid) 0.5 mg PRN Q3HRS PRN IV MODERATE TO SEVERE PAIN; Start 04/24/18 at 10:45; Stop 04/30/18 at 12:53; Status DC Lansoprazole (Prevacid) 30 mg BIDBFRMEAL FT Last administered on 05/03/18at 05: 19; Start 04/25/18 at 16:30 Al Hydroxide/Mg Hydroxide (Mylanta Plus Xs) 30 ml PRN Q2HR PRN PO HEARTBURN / GAS Last administered on 04/25/18at 12:23; Start 04/25/18 at 09:30 Ringer's Solution 1,000 ml @ 100 mls/hr Q10H IV Last administered on at 15:41; Start 04/27/18 at 11:00 Darbepoetin Giovani (Aranesp) 60 mcg WEEKLYHS SQ Last administered on 04/27/18at 21 :00; Start 04/27/18 at 21:00 Magnesium Sulfate 50 ml @ 25 mls/hr PRN DAILY PRN IV for Mag < 1.7 on am labs; Start 04/28/18 at 10:15 Iron Sucrose 200 mg/Sodium Chloride 110 ml @ 55 mls/hr 3X/WEEK IV Last administered on 05/01/18at 09:25; Start 04/29/18 at 09:00; Stop 05/08/18 at 10:59 Lidocaine/Sodium Bicarbonate (Buffered Lidocaine 1%) 3 ml STK-MED ONCE .ROUTE ; Start 04/30/18 at 14:09; Stop 04/30/18 at 14:11; Status DC Lidocaine/Sodium Bicarbonate (Buffered Lidocaine 1%) 3 ml 1X ONCE INJ Last administered on 04/30/18at 14:28; Start 04/30/18 at 14:15; Stop 04/30/18 at 14:18 ; Status DC Info (Tpn Per Pharmacy) 1 each PRN DAILY PRN MC SEE COMMENTS Last administered on 05/02/18at 11:26; Start 05/01/18 at 11:30 Sodium Chloride 40 meq/Sodium Acetate 50 meq/ Potassium Chloride 50 meq/ Potassium Phosphate 13.6 mmol/Magnesium Sulfate 10 meq/ Calcium Gluconate 10 meq / Multivitamins 10 ml/Chromium/ Copper/Manganese/ Seleni/Zn 1 ml/ Total Parenteral Nutrition/Amino Acids/Dextrose/ Fat Emuls... 1,512 ml @ 63 mls/hr TPN CONT IV Last administered on 05/01/18at 21:37; Start 05/01/18 at 22:00; Stop 05/02/18 at 21:59; Status DC Sodium Chloride 90 meq/Potassium Chloride 50 meq/ Potassium Phosphate 13.6 mmol/ Magnesium Sulfate 10 meq/ Calcium Gluconate 10 meq/ Multivitamins 10 ml/Chromium / Copper/Manganese/ Seleni/Zn 1 ml/ Total Parenteral Nutrition/Amino Acids/ Dextrose/ Fat Emulsion Intravenous 1,512 ml @ 63 mls/hr TPN CONT IV ; Start at 22:00; Stop 05/03/18 at 21:59; Status Cancel Amino Acids/ Glycerin/ Electrolytes 1,000 ml @ 80 mls/hr [id number] IV Last administered on 05/02/18at 22:50; Start 05/02/18 at 22:00 Active Scripts Active Prevacid (Lansoprazole) 30 Mg Tab.rap.dr 30 Mg FT BIDBFRMEAL MDD 1 Reported Metoprolol Tartrate 25 Mg Tablet 25 Mg PO BID Ferrous Sulfate 325 Mg Tablet 325 Mg PO DAILY Allopurinol 100 Mg Tablet 100 Mg PO DAILY Atorvastatin Calcium 40 Mg Tablet 40 Mg PO HS Potassium Chloride 20 Meq Tab.er.prt 20 Meq PO BID Cardura (Doxazosin Mesylate) 4 Mg Tablet 4 Mg PO HS Isosorbide Mononitrate Er (Isosorbide Mononitrate) 60 Mg Tab.er.24h 60 Mg PO 1TAB AM-1/2TAB PM Clonidine Hcl 0.2 Mg Tablet 0.2 Mg PO BID Amlodipine Besylate 10 Mg Tablet 10 Mg PO DAILY Lortab 7.5-325 mg Tablet (Hydrocodone/Acetaminophen) 1 Each Tablet 1 Tab PO PRN Q6HRS Aspir 81 (Aspirin) 81 Mg Tablet.dr 81 Mg PO DAILY Vitals/I & O Vital Sign - Last 24 Hours 05/02/18 05/02/18 05/02/18 05/02/18 09:31 09:34 09:34 09:35 Pulse 51 64 64 64 B/P (MAP) 167/92 166/97 166/97 166/97 05/02/18 05/02/18 05/02/18 05/02/18 11:00 15:00 19:00 20:00 Temp 98.6 98.4 98.6 98.6 98.4 98.6 Pulse 51 68 64 Resp 18 18 18 B/P (MAP) 135/86 (102) 147/89 (108) 146/92 (110) Pulse Ox 97 97 97 O2 Delivery Room Air Room Air Room Air Room Air 05/02/18 05/02/18 05/02/18 05/02/18 22:46 22:47 22:47 22:47 Pulse 64 B/P (MAP) 146/92 146/92 146/92 146/92 05/02/18 05/03/18 05/03/18 23:00 03:00 07:00 Temp 98.8 98.7 98.8 98.8 98.7 98.8 Pulse 61 59 50 Resp 18 18 18 B/P (MAP) 153/89 (110) 127/86 (100) 150/93 (112) Pulse Ox 96 97 99 O2 Delivery Room Air Room Air Room Air Intake and Output 05/02/18 05/02/18 05/03/18 15:00 23:00 07:00 Output Total 550 ml 300 ml Balance -550 ml -300 ml CYNTHIA RAMIREZ MD May 03, 2018 09:28
--- NOTE | 2018-05-03 09:30 | SNU/HH DC ---
DISCHARGE ORDERS DISCHARGE INFORMATION: DISCHARGE DATE: May 03, 2018 FINAL DIAGNOSIS Status post resection of large pedunculated polyp of sigmoid colon Hypertension Leukocytosis - Acute renal insufficiency on hx of CKD4 History of dyslipidemia Hx of Rheumatic cardiac disease? History of prostate cancer CONDITION ON DISCHARGE: Stable CODE STATUS: Code Status: Full INTERMEDIATE: SNF STAY <30 DAYS: Yes POST DISCHARGE ORDERS: ACTIVITY ORDERS: Activity as tolerated, Avoid exertion DIET AFTER DISCHARGE: clear OTHER WOUND INSTRUCTIONS: may shower OTHER ORDERS: cont TPN until stopped by gen surg FOLLOW-UP: ADDITIONAL FOLLOW-UP: Jack two weeks TREATMENT/EQUIPMENT ORDERS: ADAPTIVE EQUIPMENT NEEDED: Front wheeled walker Physical Therapy For: Evalulation/Treatment Occupational Therapy For: Evaluation/Treatment DISCHARGE MEDICATIONS: Home Meds Active Scripts Hydrocodone Bit/Acetaminophen (HYDROCODONE-APAP 5-325 ) 1 Tab Tablet, 1 TAB PO PRN Q4HRS PRN for PAIN, #45 TAB 0 Refills Prov:CYNTHIA RAMIREZ MD 05/03/18 Lansoprazole (PREVACID) 30 Mg Tab.rap.dr, 30 MG FT BIDBFRMEAL for gerd MDD 1, # 60 TAB Prov:MARTIN VELEZ MD 04/29/18 Reported Medications Metoprolol Tartrate (METOPROLOL TARTRATE) 25 Mg Tablet, 25 MG PO BID for TO CONTROL HYPERTENSION, #60 TAB 0 Refills 04/18/18 Ferrous Sulfate (FERROUS SULFATE) 325 Mg Tablet, 325 MG PO DAILY for SUPPLEMENT FOR ANEMIA, TAB 04/18/18 Allopurinol (ALLOPURINOL) 100 Mg Tablet, 100 MG PO DAILY for gout, TAB 04/17/18 Atorvastatin Calcium (ATORVASTATIN CALCIUM) 40 Mg Tablet, 40 MG PO HS for FOR CHOLESTEROL 04/11/18 Potassium Chloride (POTASSIUM CHLORIDE) 20 Meq Tab.er.prt, 20 MEQ PO BID for REPLACE POTASSIUM 03/09/15 Doxazosin Mesylate (CARDURA) 4 Mg Tablet, 4 MG PO HS 07/28/14 Isosorbide Mononitrate (ISOSORBIDE MONONITRATE ER) 60 Mg Tab.er.24h, 60 MG PO 1tab AM-1/2tab PM 07/28/14 Clonidine Hcl (CLONIDINE HCL) 0.2 Mg Tablet, 0.2 MG PO BID 07/28/14 Amlodipine Besylate (AMLODIPINE BESYLATE) 10 Mg Tablet, 10 MG PO DAILY 07/28/14 Aspirin (ASPIR 81) 81 Mg Tablet.dr, 81 MG PO DAILY 07/28/14 Discontinued Reported Medications Hydrocodone/Acetaminophen (Lortab 7.5-325 mg Tablet) 1 Each Tablet, 1 TAB PO PRN Q6HRS 07/28/14 CYNTHIA RAMIREZ MD May 03, 2018 09:30
[2018-05-03] MEDS: IRON SUCROSE COMPLEX 200 MG in IV NORMAL SALINE 100ML 100 ML IV SCH (09:51)
[2018-05-03] MEDS: FERROUS SULFATE 325 MG TABLET. PO SCH (09:51)
[2018-05-03] MEDS: ISOSORBIDE MONONITRATE ER 30 MG TAB.ER.24H PO SCH (09:54)
[2018-05-03] MEDS: ASPIRIN ENTERIC COATED 81 MG TABLET.DR. PO SCH (09:54)
[2018-05-03] MEDS: POTASSIUM CHLORIDE 20 MEQ TABLET.ER. PO SCH (09:54)
[2018-05-03] MEDS: cloNIDine HCL 0.2 MG TABLET PO SCH (09:55)
[2018-05-03 09:56] VITALS: BP 150/93
[2018-05-03] MEDS: ALLOPURINOL 100 MG TABLET. PO SCH (09:56)
[2018-05-03] MEDS: METOPROLOL TART IMMED RELEASE 25 MG TABLET. PO SCH (09:56)
[2018-05-03] MEDS: amLODIPine BESYLATE 10 MG TABLET PO SCH (09:56)
[2018-05-03] MEDS: ENOXAPARIN 30 MG/0.3 ML SYRINGE. SQ SCH (10:00)
[2018-05-03] MEDS ORDERED: HYDR-2761 PO (10:19)
--- NOTE | 2018-05-03 11:17 | NUR ---
SW following. Pt choice and rights letter signed and placed on chart. Pt to transport to [facility] at 1130. No further SW needs.
--- NOTE | 2018-05-03 11:54 | PDOC ---
Renal-Progress Notes Subjective Notes Notes FEELING BETTER History of Present Illness Hx of present illness STABLE Vitals Vitals Vital Signs Date Time Temp Pulse Resp B/P (MAP) Pulse Ox O2 Delivery O2 Flow Rate FiO2 05/03/18 09:56 64 150/93 05/03/18 08:00 Room Air 05/03/18 07:00 98.8 18 99 98.8 Weight Weight [ ] I.O. Intake and Output Intake and Output 05/03/18 06:59 Output Total 850 ml Balance -850 ml Output Urine Total 850 ml # Voids 9 Labs Labs Laboratory Tests Test 05/03/18 05:35 Sodium Level 140 mmol/L (136-145) Potassium Level 3.7 mmol/L (3.5-5.1) Chloride Level 105 mmol/L (98-107) Carbon Dioxide Level 26 mmol/L (21-32) Anion Gap 9 (6-14) Blood Urea Nitrogen 32 mg/dL (8-26) Creatinine 2.6 mg/dL (0.7-1.3) Estimated GFR (Cockcroft-Gault) 30.3 Glucose Level 108 mg/dL (70-99) Calcium Level 8.4 mg/dL (8.5-10.1) Phosphorus Level 3.1 mg/dL (2.6-4.7) Magnesium Level 2.1 mg/dL (1.8-2.4) Albumin 2.4 g/dL (3.4-5.0) Review of Systems Constitutional: yes: alert, oriented Ears/Nose/Throat: Yes: no symptom reported Eyes: Yes: no symptom reported Pulmonary: Yes no symptom reported Cardiovascular: Yes no symptom reported Gastrointestional: Yes: no symptom reported Genitourinary: Yes: no symptom reported Musculoskeletal: Yes: no symptom reported Skin: Yes no symptom reported Psychiatric/Neurological: Yes: no symptom reported Endocrine: Yes: no symptom reported Physical Exam General Appearance: no apparent distress Skin: warm Respiratory: decreased breath sounds Heart: S1S2 Abdomen: soft, bowel sounds present Genitourinary: bladder flat Extremities: pulses present Neurology: alert, oriented Assessment Assessment IMP CKD STAGE 4-CR AT HIS BASELINE IN THE 3.0-3.5 RANGE USUALLY OP S/P SIGMOID RESECTION PROSTATE CA HX MILD HYPOKALEMIA LEUCOCYTOSIS-BETTER PLAN RENAL FXN STABLE TPN D/C PLANS NOTED ? [facility] TERRENCE JOSUE MD May 03, 2018 11:54
--- NOTE | 2018-05-03 12:00 | NUR ---
Discharge Note: KHARI SERRANO [place] Discharge instructions and discharge home medications reviewed with Other facility and a copy given. All questions have been answered and understanding verbalized. The following instructions and handouts were given: Discharge Instructions, Diet, Activity, Medication Orders, Wound Care lines and drains: Right Arm PICC intact. Patient discharged to [facility] with via Transport
== END 2018-05-03 12:02 | DRG 329 ==
LOC: OPSVCIP 04-22 06:25 → 4 NORTH 04-22 12:59
PROVIDERS: ADMIT Surgery; ATTEND Surgery
PROC: 0DJD8ZZ Inspection of Lower Intestinal Tract, Via Natural or Artificial Opening Endoscopic (ICD-10-PCS; 2018-04-22)
PROC: 0DNN4ZZ Release Sigmoid Colon, Percutaneous Endoscopic Approach (ICD-10-PCS; 2018-04-22)
PROC: 0DBN0ZZ Excision of Sigmoid Colon, Open Approach (ICD-10-PCS; principal; 2018-04-22 08:00)
PROC: 0WJP4ZZ Inspection of Gastrointestinal Tract, Percutaneous Endoscopic Approach (ICD-10-PCS; 2018-04-22 08:00)
PROC: 02HV33Z Insertion of Infusion Device into Superior Vena Cava, Percutaneous Approach (ICD-10-PCS; 2018-04-30)
PROC: B5181ZA Fluoroscopy of Superior Vena Cava using Low Osmolar Contrast, Guidance (ICD-10-PCS; 2018-04-30)
PROC: B548ZZA Ultrasonography of Superior Vena Cava, Guidance (ICD-10-PCS; 2018-04-30)
DX: D12.5 Benign neoplasm of sigmoid colon (principal); R65.11 Systemic inflammatory response syndrome (SIRS) of non-infectious origin with acute organ dysfunction; N17.9 Acute kidney failure, unspecified; N18.4 Chronic kidney disease, stage 4 (severe); K63.5 Polyp of colon; I12.9 Hypertensive chronic kidney disease with stage 1 through stage 4 chronic kidney disease, or unspecified chronic kidney disease; E78.5 Hyperlipidemia, unspecified; I09.9 Rheumatic heart disease, unspecified; M19.90 Unspecified osteoarthritis, unspecified site; E87.6 Hypokalemia; Z85.46 Personal history of malignant neoplasm of prostate; Z83.3 Family history of diabetes mellitus; Z82.49 Family history of ischemic heart disease and other diseases of the circulatory system; Z86.010 Personal history of colon polyps
CPT/HCPCS: 36415; 36569; 74018; 76937; 77001; 80053; 80069; 81001; 82550; 82728; 83520; 83540; 83550; 83735; 84165; 84166; 84300; 84478; 85018; 85025; 85027; 85045; 86334; 86850; 86900; 86901; 88309; 99406; A7015; C1751; C1892; J0360; J0610; J0780; J0881; J1100; J1170; J1650; J1756; J2001; J2270; J2405; J2704; J2710; J3010; J3475; J3480; J3490; J7030; J7120; 97116; 97530; 97535

== ENCOUNTER → 2018-04-17 | Day surgery (SDC) | payer OTHER ==
[~2018-04-17] MED LIST changes: +ATOR40TA59 PO; +FERR325T14 PO; +HYDR-2761 PO; +HYDROmorphone 2 MG/ML VIAL IV PRN; +IV NORMAL SALINE 1000ML BAG 1,000 ML IV SCH; +IV RINGERS,LACTATED 1000ML 1,000 ML IV SCH; +LANS30TA6 FT; +MORPHINE SULFATE 2 MG/ML VIAL. IV PRN; +ONDANSETRON PF 4 MG/2 ML VIAL. IV PRN; +PROCHLORPERAZINE 10 MG/2 ML VIAL. IV PRN; +PROPOFOL 20 ML IV ONE; +fentaNYL PF VIAL 100 MCG/2 ML VIAL IV PRN
[2018-04-17 08:09] VITALS: BP 189/98
--- NOTE | 2018-04-18 03:14 | HP ---
ADMIT DATE: 04/17/2018 REFERRING PHYSICIAN: Alex Arias. HISTORY OF PRESENT ILLNESS: A 63-year-old -[place] male with past medical history significant of colon polyps, rheumatic heart disease, hypertension, hyperlipidemia, prostate cancer, osteoarthrosis, seen preoperatively for a colon resection for a sigmoid polyp. Biopsies were consistent with a tubular adenoma a year ago. At this time, he is willing to proceed with surgery. Resection pending reevaluation of site. Denies any change in bowel habits, no bleeding, no weight loss. He is without additional complaints. PAST MEDICAL HISTORY: Hyperlipidemia, hypertension, rheumatic heart disease, prostate cancer, colon polyps. ALLERGIES: None. MEDICATIONS: Include allopurinol, amlodipine, aspirin, atorvastatin, clonidine, doxazosin, hydrocodone, isosorbide, metoprolol, potassium. FAMILY AND SOCIAL HISTORY: He is a social drinker and smoker. Family history is significant for breast cancer with a sister, diabetes in mother, hypertension in mother and cardiac disease with mother. REVIEW OF SYSTEMS: Per records. PAST SURGICAL HISTORY: Status post CABG, status post eye surgery. PHYSICAL EXAMINATION: GENERAL: Reveals a well-nourished, well-developed male, who is alert, cooperative, in no acute distress. VITAL SIGNS: Temperature 98.2, pulse 70, respiratory rate 18. HEENT: Normocephalic and atraumatic head. Pupils and extraocular muscles are not tested. Sclerae anicteric. NECK: Supple. LUNGS: Clear. CARDIOVASCULAR: Reveals an S1, S2 without S3, S4 or appreciable murmur. ABDOMEN: Soft abdomen, normal bowel sounds without appreciable hepatosplenomegaly. EXTREMITIES: Reveals no cyanosis, clubbing, edema. IMPRESSION: History of colonic polyps, sigmoidoscopy to reassess based on the tattoo site prior to surgical resection in the next week. TREVON MONTANA MD DR: LYNNETTE/tiffanie JOB#: [id number] / [id number]
== END | disposition home or self-care (01) ==
LOC: ENDOS 06:21
PROVIDERS: ATTEND Internal Medicine Gastroenterology
DX: Z09 Encounter for follow-up examination after completed treatment for conditions other than malignant neoplasm (principal); K63.5 Polyp of colon; K64.0 First degree hemorrhoids; Z86.010 Personal history of colon polyps; E78.5 Hyperlipidemia, unspecified; M19.90 Unspecified osteoarthritis, unspecified site; Z85.46 Personal history of malignant neoplasm of prostate; I11.9 Hypertensive heart disease without heart failure; Z79.82 Long term (current) use of aspirin; Z79.899 Other long term (current) drug therapy; Z72.89 Other problems related to lifestyle; F17.210 Nicotine dependence, cigarettes, uncomplicated; Z83.3 Family history of diabetes mellitus; Z82.49 Family history of ischemic heart disease and other diseases of the circulatory system; Z95.1 Presence of aortocoronary bypass graft; Z98.890 Other specified postprocedural states
CPT/HCPCS: 45335; J2704